=== PATIENT | male | born 1950 | race Caucasian/White ===

== ENCOUNTER 2022-02-18 13:58 | Outpatient (CLI) | payer MEDICARE, SELFPAY ==
[2022-02-18 14:54] LABS: Influenza A QL RT-PCR Negative (Negative); Influenza B QL RT-PCR Negative (Negative); SARS-CoV-2 RNA PCR Positive
== END 2022-02-18 13:59 | disposition home or self-care (01) ==
PROVIDERS: PCP Family Medicine; Visit Provider Physician Assistant Medical
DX: U07.1 COVID-19 (principal); R50.9 Fever, unspecified
CPT/HCPCS: 87636

== ENCOUNTER 2022-07-22 15:44 | Outpatient (CLI) | payer BC, MEDICARE, SELFPAY ==
--- NOTE | ~2022-07-22 | XR_ITS ---
EXAMINATION: XR thoracic spine 3V, XR lumbar spine 2-3V DATE: 07/22/2022 16:21 INDICATION: Dorsalgia TECHNIQUE: 1. One AP, lateral and lateral swimmer's views of the thoracic spine were obtained. 2. AP, lateral and coned-down lateral lumbosacral views of the lumbar spine were obtained. COMPARISON: None. FINDINGS: Resting spine: 10 degrees mid thoracic levocurvature. Sagittal alignment is normal. Vertebral body heights are lexis l. Mild disc height loss with mild degenerative endplate changes at a few levels in the midthoracic s pine. Visualized portions of the lungs are clear with no pleural effusion or pneumothorax. Heart size is normal. Median sternotomy wires, ostial markers and mediastinal surgical clips consistent with pr ior coronary artery bypass grafting. Lumbar spine: 1 mm anterolisthesis L5 on S1. L3-S1 instrumented posterior spinal fusion with bilateral vertical tita and pedicle screw fixation. Anterior spinal fusion at L4-L5 and L5-S1 with bone graft cages at both levels. Vertebral body heights are normal. Unfused lumbar disc heights are normal. Moderate right-junior ed and mild to moderate left-sided sacroiliac osteoarthritis. Is also at least mild osteoarthritis of both hips, left greater than right. Cholecystectomy clips in right upper quadrant. Atherosclerotic c alcifications along the abdominal aorta. IMPRESSION: 1. 10 degree thoracic levocurvature with mild spondylosis. 2. Combined instrumented L4-S1 anterior spinal fusion and L3-S1 posterior spinal fusion with 9 degree anterolisthesis L5 on S1. Reviewed, dictated and finalized at location A. IMPRESSION: 1. 10 degree thoracic levocurvature with mild spondylosis. 2. Combined instrumented L4-S1 anterior spinal fusion and L3-S1 posterior spina l fusion with 9 degree anterolisthesis L5 on S1.
--- NOTE | ~2022-07-22 | XR_ITS ---
EXAMINATION: XR tibia fibula RT 2V DATE: 07/22/2022 16:21 INDICATION: Right lower leg pain TECHNIQUE: AP and lateral views of the right lower leg were obtained. COMPARISON: None. FINDINGS: Right total hip arthroplasty with patellar resurfacing which appears in near-anatomic alignment. The femoral component is incompletely visualized. Tibial component appears well seated with no periprosth etic lucency to suggest loosening. No fracture. Right ankle and subtalar joint spaces appear normal. Lesser calcific lesions extending from the popliteal fossa at the right knee distally to the ankle an d hindfoot. Soft tissues are otherwise unremarkable. IMPRESSION: 1. Expected appearance of an incompletely visualized right total knee arthroplasty with patellar resu rfacing. No acute osseous abnormality. Reviewed, dictated and finalized at location A. IMPRESSION: 1. Expected appearance of an incompletely visualized right total knee arthropla sty with patellar resurfacing. No acute osseous abnormality.
== END 2022-07-22 15:45 ==
PROVIDERS: PCP Family Medicine; Visit Provider Physician Assistant Medical
DX: M47.814 Spondylosis without myelopathy or radiculopathy, thoracic region (principal); M43.17 Spondylolisthesis, lumbosacral region; Z96.651 Presence of right artificial knee joint
CPT/HCPCS: 72072; 72100; 73590

== ENCOUNTER 2022-07-26 14:50 | Outpatient (CLI) | payer MEDICARE, BC, SELFPAY ==
--- NOTE | ~2022-07-26 | US_ITS ---
EXAMINATION:US venous doppler LE RT INDICATION:Localized edema. TECHNIQUE: Multiple grayscale, color flow and Doppler images of the right lower extremity deep venous systems were obtained and reviewed. COMPARISON:No prior studies for comparison. FINDINGS: The common femoral, superficial femoral and popliteal veins demonstrate normal respiratory variation, augmentation and compressibility. Color flow is also seen within the posterior tibial, pe roneal, greater saphenous and profunda veins. IMPRESSION: 1: No lower extremity deep venous thrombosis. Reviewed, dictated and finalized at location B.
== END 2022-07-26 14:51 | disposition home or self-care (01) ==
PROVIDERS: PCP Family Medicine; Visit Provider Physician Assistant Medical
DX: R60.0 Localized edema (principal); M79.606 Pain in leg, unspecified
CPT/HCPCS: 93971

== ENCOUNTER → 2022-09-20 10:00 | Outpatient (CLI) | payer MEDICARE, BC, SELFPAY ==
--- NOTE | ~2022-09-20 | XR_ITS ---
Lumbosacral Spine: AP, oblique, and lateral views Clinical History: Pain COMPARISON: 07/22/2022 Findings: The normal lordotic curve is maintained. There is posterior fusion from L3 through S1, bila teral rods and transpedicular screws present. Interbody fusion devices are present at the L4-L5 and L 5-S1 disc spaces. There is stable anterolisthesis of L5 over S1, approximately 1 cm. The sacroiliac j oints are normally outlined. Impression: No acute fracture or subluxation. Posterior fusion from L3 through S1 is stable from prior exam. Stable 1 cm anterolisthesis of L5 over S1. Reviewed, dictated and finalized at location M. Impression: No acute fracture or subluxation. Posterior fusion from L3 through S1 is stable from prior exam. Stable 1 cm anterolisthesis of L5 over S1.
--- NOTE | ~2022-09-20 | XR_ITS ---
AP and lateral views of the sacrum/coccyx Clinical history: Status post fall FINDINGS: No acute fracture or dislocation seen. Visually joint spaces are preserved. Lumbosacral spi nal fixation hardware is present. 1 cm anterolisthesis of L5 over S1 present. Soft tissues are unrema rkable aside from atherosclerotic calcifications of the aorta. IMPRESSION: No acute abnormality. Lumbosacral spinal fixation hardware from L3 through S1 with 1 cm anterolisthesis of L5 over S1. Reviewed, dictated and finalized at location M. IMPRESSION: No acute abnormality. Lumbosacral spinal fixation hardware from L3 through S1 with 1 cm anterolisthes is of L5 over S1.
== END ==
PROVIDERS: PCP Family Medicine; Visit Provider Physician Assistant
DX: S39.92XA Unspecified injury of lower back, initial encounter (principal); W19.XXXA Unspecified fall, initial encounter; Z98.1 Arthrodesis status
CPT/HCPCS: 72110; 72220

== ENCOUNTER 2023-03-06 10:14 | Outpatient (CLI) | payer MEDICARE, BC, SELFPAY ==
[2023-03-06 11:44] LABS: Influenza A QL RT-PCR Negative (Negative); Influenza B QL RT-PCR Negative (Negative); RSV RNA, RT-PCR Negative (Negative); SARS-CoV-2 RNA PCR Positive (Negative)
== END 2023-03-06 10:15 | disposition home or self-care (01) ==
LOC: ANHLAB 10:17
PROVIDERS: PCP Family Medicine; Visit Provider Family Medicine
DX: J06.9 Acute upper respiratory infection, unspecified (principal); Z20.822 Contact with and (suspected) exposure to COVID-19
CPT/HCPCS: 87637

== ENCOUNTER 2023-05-08 11:01 | Outpatient (CLI) | payer MEDICARE, BC, SELFPAY ==
--- NOTE | ~2023-05-08 | XR_ITS ---
AP view of the pelvis and AP and lateral views of the bilateral hips Clinical history: Pain Findings: No acute fracture or dislocation is seen. Osseous alignment is anatomic. There is mild dege nerative change of both hip joints. Lumbosacral spinal fixation hardware is noted Soft tissues are un remarkable. Impression: Mild degenerative change of both hip joints. Reviewed, dictated and finalized at location M. Y TESTER Impression: Mild degenerative change of both hip joints.
== END 2023-05-08 11:02 ==
LOC: MICIMG 11:04
PROVIDERS: PCP Physician Assistant Medical; Visit Provider Physician Assistant Medical
DX: M16.0 Bilateral primary osteoarthritis of hip (principal)
CPT/HCPCS: 73521

== ENCOUNTER 2023-06-25 19:54 | Outpatient (CLI) | payer MEDICARE, BC, SELFPAY ==
--- NOTE | 2023-07-02 18:29 | WPDSLEEPSTUD ---
Sleep Study Date of Study: 06/25/23 Ordering Provider: Iglesia Dee APRN Interpreting Physician: Kavitha Bynum DO Sleep Study Type: Polysomnogram Height: 1.68 m Weight: 78.018 kg Body Mass Index: 27.7 Neck Circumference (inches): 15 [place]: 9 Reason for Sleep Study Previously diagnosed JAMILAH 7 years ago by home study. Couldn't tolerate CPAP. Witnessed apneas by daughter. Looking for CPAP alternatives to treat JAMILAH. Sleep History The patient is a 72-year-old male with anxiety, depression, GERD, hypertension, heart disease, history of tobacco use and previously diagnosed sleep apnea that had a sleep study ordered by the pulmonary group for evaluation of sleep apnea. The patient rarely awakens from sleep short of breath. He denies awakening at night with heartburn, belching or cough. He constantly snores and it is frequently loud enough that others complain. He rarely has trouble sleeping when he has a cold. He rarely wakes up gasping for air throughout the night. He frequently has breathing problems at night observed by himself or others. He rarely sweats excessively at night. He denies having heart palpitations or irregular heartbeats during the night. He occasionally falls asleep during the day but never while driving. He denies sleep paralysis and cataplexy. He denies having trouble at school or work due to sleepiness. He rarely experiences vivid dreamlike scenes upon awakening or falling asleep. He denies feeling afraid of going to sleep. He denies having nightmares. He rarely remembers his dreams. He rarely has thoughts racing through his mind. He denies feeling sad or depressed. He rarely has anxiety. He occasionally has muscular tension. He rarely notices parts of his body jerk. He rarely kicks during the night. He occasionally has crawling and aching feelings in his legs and frequently has leg pain during the night. He rarely grinds his teeth during sleep but never awakens with morning jaw pain. He is frequently bothered by pain during the day and occasionally awakened by pain during the night. He frequently wakes up feeling stiff in the morning. He frequently wakes up with sore or achy muscles. He frequently wakes up with pain in the neck, spine and other joints. He goes to bed between 10-10:30 p.m. on weekdays and between 10:30-11 p.m. on the weekends. It takes him a few minutes to fall asleep. He wakes up 3 times throughout the night to urinate and is able to fall back asleep within a few minutes. He wakes up at 7:30 a.m. on weekdays and 8:00 a.m. on the weekends. He typically gets 7-9 hours of sleep per night. He does not stay in bed after waking up in the morning. He currently lives with his daughter and her . He denies consuming any caffeinated beverages within 2 hours of bedtime. He denies engaging in physical exercise before bedtime. He will watch television before falling asleep. He denies taking naps in the afternoon or evening. He consumes 2 cups of caffeinated tea per day. He consumes 4 alcoholic beverages per week. He denies recreational drug use. [facility] Past Medical History Medical History Anxiety Depressed Fecal incontinence GERD (gastroesophageal reflux disease) Heart disease HTN (hypertension) Surgical History Surgical History History of lumbar surgery Fusion S/P triple vessel bypass Total knee replacement status R and L knee Family History Family History Other Acute myocardial infarction Cerebrovascular accident Diabetes mellitus Heart disease Social History Social History Smoking packs per day: 2 Smoking cigarettes per day: 40.0 Years smoked: 20 Smoking pack-years: 40.00 Smoking status: Former smoker Tobacco type:
[2023-07-02 18:41] VITALS: BMI 27.7
== END 2023-06-26 06:12 | disposition home or self-care (01) ==
LOC: CHSCSM 19:56
PROVIDERS: PCP Family Medicine; Visit Provider Nurse Practitioner Family
DX: G47.31 Primary central sleep apnea (principal)
CPT/HCPCS: 95810

== ENCOUNTER 2023-09-04 09:37 | Outpatient (CLI) | payer MEDICARE, BC, SELFPAY ==
--- NOTE | ~2023-09-04 | MR_ITS ---
Procedure: MR lumbar spine wo con Ordering provider: Bettie Mei PA-C History: . Z98.890 - Other specified postprocedural states lbp x 2years . Comparison: None. Technique: MRI lumbar spine without contrast. FINDINGS: SPINAL CORD: Normal. VERTEBRAL BODIES: Spondylolisthesis at the level of L5-S1. Postoperative changes in the lower lumbar area at the levels of L3, L4, L5 and S1. Normal height and alignment. No compression fracture. Normal marrow signal. DISK SPACES: Disc spacers are seen at the levels of L4-L5 and L5-S1. STENOSIS: Moderate spinal canal stenosis at the level of L2-L3. Diffuse disc bulge with bilateral yumi rowing of the foramina and the root compression PARASPINOUS SOFT TISSUES: Normal. IMPRESSION: No compression fracture or stenosis of the lumbar spine. Postoperative changes in the lower lumbar ar ea. Spinal canal stenosis with bilateral lateral neural foramina and the root compression at the level of L2-L3. Reviewed, dictated and finalized at location A. IMPRESSION: No compression fracture or stenosis of the lumbar spine. Postoperative changes in the lower lumbar area. Spinal canal stenosis with bilateral lateral neural foramina and the root compr ession at the level of L2-L3.
== END 2023-09-04 09:38 | disposition home or self-care (01) ==
LOC: CHSIMG 09:38
PROVIDERS: PCP Family Medicine; Visit Provider Student in an Organized Health Care Education/Training Program
DX: Z98.890 Other specified postprocedural states (principal); M48.061 Spinal stenosis, lumbar region without neurogenic claudication
CPT/HCPCS: 72148

== ENCOUNTER 2023-10-25 09:01 | Outpatient (CLI) | payer MEDICARE, BC, SELFPAY ==
--- NOTE | ~2023-10-25 | MR_ITS ---
EXAMINATION: MR thoracic spine wo con DATE: 10/25/2023 10:12 INDICATION: Low back pain. TECHNIQUE: Magnetic resonance imaging (MRI) of the thoracic spine was performed without intravenous c ontrast. COMPARISON: Thoracic spine radiographs 07/22/2022 FINDINGS: There is 11 degrees levoscoliosis of upper thoracic spine. There are changes of posterior fusion procedure from L3 to S1 with pedicle screws. There is mild chronic anterior wedging of T11 and T12 vertebral bodies. Intervertebral disc heights are normal. At T6-T7, there is a central extrusion with mild central canal stenosis. At T7-T8, there is a left central extrusion with mild central [place] l stenosis and ventral indentation of the spinal cord. At T8-T9, there is a central extrusion with mi ld central canal stenosis. At T9-T10, there is a central extrusion with mild central canal stenosis a nd ventral indentation of the spinal cord. There is multilevel facet joint osteoarthritis, severe at several levels. There is multilevel mild neural foraminal stenosis on either side. On the right, ther e is moderate neural foraminal stenosis at T6-T7. On the left, there is moderate neural foraminal lucille nosis at T8-T9 and T9-T10. IMPRESSION: 1. Moderate thoracic spondylosis. 2. Upper thoracic levoscoliosis. Reviewed, dictated and finalized at location A.
== END 2023-10-25 09:02 | disposition home or self-care (01) ==
PROVIDERS: PCP Family Medicine; Visit Provider Nurse Practitioner Family
DX: M54.6 Pain in thoracic spine (principal); M43.04 Spondylolysis, thoracic region; M41.84 Other forms of scoliosis, thoracic region
CPT/HCPCS: 72146

== ENCOUNTER 2023-11-21 14:53 | Outpatient (CLI) | payer MEDICARE, BC, SELFPAY ==
--- NOTE | ~2023-11-21 | XR_ITS ---
EXAMINATION: XR wrist RT min 3V DATE: 11/21/2023 15:06 INDICATION: Right wrist pain TECHNIQUE: Posteroanterior, ulnar deviation, oblique, and lateral views of the right wrist were obtai mil. COMPARISON: none FINDINGS: Bone alignment is normal. No fracture. Chondrocalcinosis in the region of the triangular fibrocartila ge complex. Severe osteoarthritis at the radial scaphoid articulation and first carpometacarpal joint . Mild osteoarthritis at the distal radioulnar, midcarpal, triscaphe, second carpal metacarpal and fi rst metacarpophalangeal joints. IMPRESSION: 1. 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 Reviewed, dictated and finalized at location B. IMPRESSION: 1. Severe osteoarthritis at the radial scaphoid and first carpal metacarpal uriel nt, the former somewhat atypical which could be seen in the setting of scapholu mariah advanced collapse (SLAC) wrist secondary to scapholunate ligament insuffic iency.
== END 2023-11-21 14:54 | disposition home or self-care (01) ==
LOC: MICIMG 14:56
PROVIDERS: PCP Family Medicine; Visit Provider Student in an Organized Health Care Education/Training Program
DX: M19.031 Primary osteoarthritis, right wrist (principal)
CPT/HCPCS: 73110

== ENCOUNTER 2023-12-18 07:57 | Outpatient (CLI) | payer MEDICARE, BC, SELFPAY ==
[2024-01-06 13:27] VITALS: BMI 27.3
--- NOTE | 2024-01-06 13:27 | WPDHOMESLEEP ---
Sleep Study - Home Unattended Date of Study: 12/18/23 Ordering Provider: Iglesia Dee APRN Interpreting Provider: Kavitha Bynum, DO Home Sleep Study Type: Watch PAT Height: 1.69 m Weight: 78.018 kg Body Mass Index: 27.3 Neck Circumference (inches): 17 [place]: 0 Reason for Sleep Study Re-evaluation of sleep apnea with use of mandibular advancement device Sleep History The patient is a 73-year-old male with anxiety, depression, GERD, hypertension, heart disease, history of tobacco use and previously diagnosed sleep apnea that had a sleep study ordered for evaluation of his sleep apnea while using his MAD. The patient rarely awakens from sleep short of breath. He denies awakening at night with heartburn, belching or cough. He constantly snores and it is frequently loud enough that others complain. He rarely has trouble sleeping when he has a cold. He rarely wakes up gasping for air throughout the night. He frequently has breathing problems at night observed by himself or others. He rarely sweats excessively at night. He denies having heart palpitations or irregular heartbeats during the night. He occasionally falls asleep during the day but never while driving. He denies sleep paralysis and cataplexy. He denies having trouble at school or work due to sleepiness. He rarely experiences vivid dreamlike scenes upon awakening or falling asleep. He denies feeling afraid of going to sleep. He denies having nightmares. He rarely remembers his dreams. He rarely has thoughts racing through his mind. He denies feeling sad or depressed. He rarely has anxiety. He occasionally has muscular tension. He rarely notices parts of his body jerk. He rarely kicks during the night. He occasionally has crawling and aching feelings in his legs and frequently has leg pain during the night. He rarely grinds his teeth during sleep but never awakens with morning jaw pain. He is frequently bothered by pain during the day and occasionally awakened by pain during the night. He frequently wakes up feeling stiff in the morning. He frequently wakes up with sore or achy muscles. He frequently wakes up with pain in the neck, spine and other joints. He goes to bed between 10-10:30 p.m. on weekdays and between 10:30-11 p.m. on the weekends. It takes him a few minutes to fall asleep. He wakes up 3 times throughout the night to urinate and is able to fall back asleep within a few minutes. He wakes up at 7:30 a.m. on weekdays and 8:00 a.m. on the weekends. He typically gets 7-9 hours of sleep per night. He does not stay in bed after waking up in the morning. He currently lives with his daughter and her . He denies consuming any caffeinated beverages within 2 hours of bedtime. He denies engaging in physical exercise before bedtime. He will watch television before falling asleep. He denies taking naps in the afternoon or evening. He consumes 2 cups of caffeinated tea per day. He consumes 4 alcoholic beverages per week. He denies recreational drug use. [facility] Past Medical History Medical History Anxiety BPH (benign prostatic hyperplasia) Depressed Fecal incontinence GERD (gastroesophageal reflux disease) Heart disease HTN (hypertension) Surgical History Surgical History History of lumbar surgery Fusion S/P triple vessel bypass Total knee replacement status R and L knee Family History Family History Other Acute myocardial infarction Cerebrovascular accident Diabetes mellitus Heart disease Social History Social History Smoking packs per day: 2 Smoking cigarettes per day: 40.0 Years smoked: 20 Smoking pack-years: 40.00 Smoking status: Former smoker Tobacco type: cigarettes Second hand tobacco smoke exposure: No Alcohol intake: current Drinks per week: 3 Substance use: never Substance use type: does not use Lack of Transportation: No Lack of Food: Never True Current Housing: I Have Housing Concerned About Future Housing: No Difficulty Paying Gas/Electric Bills: No Difficulty Paying for Meds: No Currently Unemployed: No Education: Grade School Difficulty w/ Childcare or Family Care: No Living arrangements: with family Occupation/Education: retired Gender identity (if verbalized by the patient): Male Spiritual care concerns: No Agree to blood products: Yes Medications Home Medications Medication Instructions Recorded Confirmed Type alogliptin 12.5 mg tablet 12.5 mg PO DAILY 12/31/21 08/11/23 History aspirin 81 mg tablet,delayed 81 mg PO DAILY 12/31/21 08/11/23 History release (Adult Low Dose Aspirin) atorvastatin 80 mg tablet 80 mg PO DAILY 12/31/21 08/11/23 History empagliflozin 25 mg tablet 25 mg PO DAILY 12/31/21 08/11/23 History lisinopril 40 mg tablet 40 mg PO DAILY 12/31/21 08/11/23 History gabapentin enacarbil 600 mg 1,200 mg PO TID 01/29/22 08/11/23 History tablet,extended release omeprazole 40 mg capsule,delayed 40 mg PO BID #180 caps 12/02/22 08/11/23 Rx release finasteride 5 mg tablet 5 mg PO DAILY #90 tabs 08/11/23 08/11/23 Rx silodosin 8 mg capsule (Rapaflo) 8 mg PO DAILY #90 caps 08/11/23 08/11/23 Rx hydrocodone 7.5 mg-acetaminophen 1 tablet PO Q6H PRN pain #30 tabs 11/21/23 11/21/23 Rx 325 mg tablet semaglutide 0.25 mg or 0.5 mg (2 0.5 mg subcut WEEKLY 12/09/23 History mg/3 mL) subcutaneous pen injector (Ozempic) Sleep Procedure The sleep study was completed using [employer] a technically adequate device with seven channels: peripheral arterial tone, actigraphy, body position, snore, respiratory movement, pulse oximetry, sleep staging, and heart rate. Prior to using the device, the patient received verbal and written instructions for its application and was provided with the help desk phone number for additional telephonic instruction with 24-hour availability of qualified personnel to answer questions. The study was scored using CMS guidelines. Sleep Architecture The total recording time is 8 hrs, 41 min. The total sleep time is 7 hrs, 36 min. Sleep latency is 17 minutes. REM latency is 28 minutes. The patient had 10 episodes of waking. Sleep architecture shows 20.5% deep sleep, 50.7% light sleep, and (as % Total Sleep Time) showed NREM (Light 50.7%; Deep 20.5%), and a 28.8% stage REM. The patient spent 37.0% of total sleep time in the supine position. Sleep efficiency was 87.52. Respiratory Analysis The overall AHI (pAHI 4%:) is 16.1. The central AHI is 2.5. The AHI was 16.7 in NREM and 14.7 in REM sleep. The AHI was 38.7 in Supine and 2.8 in Non-supine sleep. Percent of [place] respirations is 0.0. Oximetry Data The oxygen desaturation index (AMARIS 4%:) is 16.0. The mean saturation is 91%, and the lowest saturation is 73%. Time spent with saturation < 88% is 12.9 minutes. Snoring Profile Snoring average intensity is 40 dB. The patient snored above 45 decibels for 3.6 minutes, 0.8% of sleep time. Cardiac Profile The average pulse rate is 70 beats per minutes. The lowest pulse rate is 51 bpm. The highest pulse rate reported is 96 bpm. Atrial fibrillation was not detected. Premature beats occur 6.9 per minute. Assessment and Plan Assessment and Plan (1) JAMILAH (obstructive sleep apnea): Code(s): G47.33 - Obstructive sleep apnea (adult) (pediatric) Status: Acute Assessment and Plan: The patient had an overall AHI of 16.1 with desaturation down to 73%. This is consistent with moderate sleep apnea. The patient stated that he or his mandibular the asthma device during to study. These results indicate that the mandibular advancement device is not adequately treating his sleep apnea. The patient spent 12.9 minutes with an oxygen saturation below 88%. The patient will have to discuss the next steps with his sleep dentist. If the patient is unable to fully treat his sleep apnea with a mandibular advancement device, he may need to consider Inspire. Data The data obtained during this sleep study is adequate for interpretation. Certification This sleep study has been reviewed by a board certified sleep medicine physician.
== END 2023-12-19 11:55 | disposition home or self-care (01) ==
LOC: ANHCSM 07:58
PROVIDERS: PCP Family Medicine; Visit Provider Nurse Practitioner Family
DX: G47.33 Obstructive sleep apnea (adult) (pediatric) (principal)
CPT/HCPCS: 95800

== ENCOUNTER 2024-06-08 07:46 | Outpatient (CLI) | payer MEDICARE, BC, SELFPAY ==
--- OUTSIDE RECORDS SUMMARY | 2024-06-08 07:49 | XMS_ITS | Clinical Summary ---
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 9 Active omeprazole 40 MG capsule Take 1 capsule (40 mg total) by mouth 2 (two) times a day. 9 Active lisinopril 40 MG tablet Take 1 tablet (40 mg total) by mouth daily. Active amlodipine 10 MG tablet Take 10 mg by mouth daily. Active glipiZIDE 10 MG tablet Take 5 mg by mouth 2 (two) times daily before meals. Active aspirin EC (ASPIRIN EC) 81 MG tablet Take 1 tablet (81 mg total) by mouth daily. Active atorvastatin 40 MG tablet Take 1 tablet (40 mg total) by mouth daily. Active BONE STIMULATOR, DME,Indications :Spondylolisthe sis of lumbar region Wear 4 hours daily. Can break up into multiple sessions totaling 4 hours. 1 Device 0 Active Additional Information Patient not taking.Reported on 12/03/2023 Misc. Devices MiscIndications :Spondylolisthe sis of lumbar region 1 each by Does not apply route continuous. LSO for continuous wear while ambulating or up in chair. 1 each 0 Active Additional Information Patient not taking.Reported on 12/03/2023 Multiple Vitamins-Minera ls (MULTIVITAMIN ADULT OR) Take 1 tablet by mouth daily. Active empagliflozin (JARDIANCE) 25 MG tablet Take 1 tablet (25 mg total) by mouth. 4 Active semaglutide (OZEMPIC) 2 MG/3ML injection (PEN) SEMAGLUTIDE 0.25MG/0.375ML INJ,SOLN,PEN,3ML Active INJECT 0.5MG UNDER THE SKIN EVERY WEEK FOR DIABETES FOR DIABETES Sep 17, 2023 1 Sep 17, 2024 [id number] 2023 [facility] 4 Active gabapentin (NEURONTIN) 600 MG tablet 2 three times per day (600 mg) 4 Active alogliptin (NESINA) 25 MG tablet Take 1 tablet (25 mg total) by mouth daily. 3 Active amoxicillin (AMOXIL) 500 MG capsule 4 Active hydroCHLOROthia zide (HYDRODIURIL) 25 MG tablet Take 1 tablet (25 mg total) by mouth. 4 Active HYDROcodone-mathew taminophen (NORCO) 7.5-325 MG tablet 4 Active oxybutynin XL (DITROPAN XL) 15 MG 24 hr tablet 4 Active Active Problems Problem Noted Date Diagnosed Date Spondylolisthesis of lumbosacral region 04/21/19 20 Chronic left-sided low back pain without sciatic a 12/22/2018 Spondylolisthesis of lumbar region 12/22/2018 Foraminal stenosis of lumbar region 12/22/2018 Family History Medical History Relation Comments COPD Father Cancer Mother breast cancer or cervical cancer Stroke Mother Relation Status Comments Daughter 1 Alive Daughter 2 Alive Father (Age 70) of COPD Mother Alive Social History Tobacco Use Types Packs/Day Years Used Date Smoking Tobacco: Former Cigarettes 2 15 1 970 - 1984 Smokeless Tobacco: Never Tobacco Cessation:Counseling Given: No Alcohol Use Standard Drinks/Week Comments Yes 33.3 (1 standard drink = 0.6 oz pure alcohol) PHQ-2 Answer Date Recorded Patient Health Questionnaire-2 Score 0 12/03/2023 Sex and Gender Information Value Date Recorded Sex Assigned at Not on file Legal Sex Male 2:25 PM CDT Gender Identity Not on file Sexual Orientation Not on file Last Filed Vital Signs Vital Sign Reading Time Taken Comments Blood Pressure 95/51 12/03/2023 2:41 PM CDT Pulse 73 12/03/2023 2:41 PM CDT Temperature 37 C (98.6 F) 12/03/2023 2:24 PM CDT Respiratory Rate - - Oxygen Saturation 97% 12/03/2023 2:24 PM CDT Inhaled Oxygen Concentration - - Weight 79 kg (174 lb 3.2 oz) 12/03/2023 2:24 PM CDT Height 170.2 cm (5' 7 ) 12/03/2023 2:24 PM CDT Body Mass Index 27.28 12/03/2023 2:24 PM CDT Plan of Treatment Health Maintenance Due Date Last Done Comments Colorectal Cancer Screening Colonoscopy (10 Years) 1950 Hepatitis C 1966 AAA SCREENING 2013 Annual Medicare Wellness Visit 2013 RSV Immunization or 60+ Years (1 - 1-dose 75+ series) 11/06/2023 COVID-19 Vaccine ( season) 2023 10/30/2022, 02/16/2021, 05/09/2020, Additional history exists PHQ-2 (Physician [place]) 03/10/2024 12/03/2023 DTaP, Tdap and Td Vaccines (4 - Td or Tdap) 10/30/2032 10/30/2022, 07/02/2013, 07/02/2013 Pneumococcal Vaccine: 65+ Years Completed 12/17/2016, 06/28/2014 Zoster Vaccines Completed 10/24/2020, 07/24/2020 Meningococcal B Vaccine Aged Out No l onger eligible based on patient's age to complete this topic Meningococcal Vaccine Aged Out No cari augusto eligible based on patient's age to complete this topic RSV Immunizations Under 20 Months Aged Out No longer eligible based on patient's age to complete this topic Insurance [place] [employer] [facility] Care Teams Professor Of Business Administration Relationship Specialty Start Date End Date None, ProviderMD PCP - General 04/21/19 None, ProviderMD 04/21/19 Peggy Hoover MD [address] [address] Physician NEUROLOGICAL SURGERY 12/09/23
--- OUTSIDE RECORDS SUMMARY | 2024-06-08 07:49 | XMS_ITS | Encounter Summary ---
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 This section includes the names of all active insurance providers for the patient. Insurance Provider Type of Coverage Plan Name Start of Policy Coverage End of Policy Coverage Group Number Member ID Insurance Provider's Telephone Number Policy Byrnes's Name Patient's Relationship to Policy Byrnes [place] PREFERRED PROVIDER ORGANIZAT ION (PPO) FEP STAND [place] IND Aug 08, 2016 104 [id number] [phone] JUDY GAMA PATIENT ANTHE[place] F[place] PREFERRED PROVIDER ORGANIZAT ION (PPO) FEP STAND [place] IND Aug 08, 2016 104 [id number] [phone] JUDY GAMA PATIENT [place] PREFERRED PROVIDER ORGANIZAT ION (PPO) FEP STAND [place] IND Aug 08, 2016 104 [id number] [phone] JUDY GAMA PATIENT [place] PREFERRED PROVIDER ORGANIZAT ION (PPO) FEP STAND [place] IND Aug 08, 2016 104 [id number] [phone] JUDY GAMA PATIENT [place] MEDICARE SECONDARY (NO B EXC) FEP 104 Aug 08, 2016 104 [id number] JUDY GAMA PATIENT BC BS [place] F[place] MEDIC[place] SECONDARY (NO B EXC) FEP-M ED SEC Aug 08, 2016 104 [id number] [id number] JUDY GAMA [place]IENT [place] SECOND[place] (NO B EXC) FEP-M ED SEC Aug 08, 2016 104 [id number] JUDY GAMA PATIENT [place] F[place] PREFERRED PROVIDER ORGANIZAT ION (PPO) FEP 105 Mar 11, 1999 105 [id number] JUDY GAMA PATIENT [place] F[place] PREFERRED PROVIDER ORGANIZAT ION (PPO) FEP STAND [place] IND Aug 08, 2016 104 [id number] [phone] JUDY GAMA PATIENT BCBS [place] ATTN FEP CLAIMS PREFERRED PROVIDER ORGANIZAT ION (PPO) FEP STAND [place] IND Aug 08, 2016 104 [id number] [phone] JUDY GAMA PATIENT [place] F[place] PREFERRED PROVIDER ORGANIZAT ION (PPO) FEP STAND [place] IND Aug 08, 2016 104 [id number] [phone] JUDY GAMA PATIENT [place] ([id number]) PRESCRIPT ION FEP Mar 11, 1999 [id number] JUDY GAMA PATIENT [place] ([id number]) PRESCRIPT ION FEP Mar 11, 1999 [id number] JUDY GAMA PATIENT [place] FEP RX PRESCRIPT ION FEPRX Aug 08, 2016 [id number] [phone] JUDY GAMA PATIENT MEDICARE (WNR) MEDICARE (M) RR PART B Oct 08, 2013 RR PART B [id number] JUDY GAMA PATIENT MEDICARE (WNR) MEDICARE (M) RR PART A Oct 08, 2013 RR PART A [id number] JUDY GAMA PATIENT MEDICARE (WNR) MEDICARE (M) RR PART A Oct 08, 2013 RR PART A [id number] GAMA,TI MOTHY PATIENT MEDICARE (WNR) MEDICARE (M) RR PART B Oct 08, 2013 RR PART B [id number] GAMA,TI MOTHY PATIENT MEDICARE (WNR) MEDICARE (M) PART A Oct 08, 2013 PART A [id number] GAMA,TI MOTHY PATIENT MEDICARE (WNR) MEDICARE (M) PART B Oct 08, 2013 PART B [id number] [phone] GAMA,TI MOTHY PATIENT MEDICARE (WNR) MEDICARE (M) PART A Oct 08, 2013 PART A [id number] [phone] GAMA,TI MOTHY PATIENT MEDICARE (WNR) MEDICARE (M) PART B Oct 08, 2013 PART B [id number] [phone] GAMA,TI MOTHY PATIENT MEDICARE (WNR) MEDICARE (M) RR PART A Oct 08, 2013 RR PART A [id number] GAMA,TI MOTHY PATIENT MEDICARE (WNR) MEDICARE (M) RR PART B Oct 08, 2013 RR PART B [id number] GAMA,TI MOTHY PATIENT Selected Encounter This section includes the information on record at ME for the Encounter. Date/Time Encounter Type Encounter Description Reason Provider Source Dec 01, 2023 09:30 AM OFFICE O/P EST MOD 30 MIN PRIMARY CARE/MEDICINE ICD-10-CM E11.9 Type 2 diabetes mellitus without complications NORA PASTRANA [facility] Encounter Template Text not used by ME Assessments - Encounter Diagnoses This section includes the primary and secondary diagnoses documented for the Encounter. Date/Time Primary/Secondary Diagnosis Diagnosis Name Provider Source Dec 25, 2023 08:09 PM PRIMARY Type 2 diabetes mellitus without complications NORA PASTRANA Asif [facility] Dec 25, 2023 08:09 PM SECONDARY Essential (primary) hypertension NORA PASTRANA Asif [facility] Dec 25, 2023 08:09 PM SECONDARY Hyperlipidemia, unspecified NORA PASTRANA [facility] Dec 25, 2023 08:09 PM SECONDARY Other idiopathic peripheral autonomic neuropathy NORA PASTRANA [facility] Plan of Treatment: Future Appointments (+ 6 months) and Future Tests (+/- 45 days) The Plan of Treatment section includes future care activities for the patient from all ME treatmentfacilities. This section includes future appointments and future orders which are active, pending or scheduled. Future Appointments This section includes appointments that were scheduled to occur 6 months from the date of the Encounter, up to a maximum of 20 appointments. The data comes from all [facility] facilities. Appointment Date/Time Appointment Type Appointme nt Facility Name Dec 04, 2023 01:30 PM AMBULATORY - NONE [facility] SALVATORE Mullen [facility] Jan 29, 2024 01:30 PM AMBULATORY - NONE [facility] R [facility] Mar 12, 2024 03:30 PM AMBULATORY - NONE [facility] May 07, 2024 03:30 PM AMBULATORY - NONE [facility] Lab Results: +/- 30 days of the encounter This section includes the Chemistry and Hematology Lab Results on record with ME for the patient. Radiology Reports and Pathology Reports are provided separately, in subsequent sections. Lab Results This section contains the Chemistry/Hematology Results that were resulted 30 days before or 30 daysafter the date of the Encounter. Date/Time Source Result Type Result - Unit Interpretation Reference Range Comment Dec 01, 2023 11:13 AM [facility] VITAMIN B1 Specimen Type: PLASMA Comment: Vitamin supplementation within 24 hours prior to blood draw may affect the accuracy of the results. This test was developed and its analytical performance characteristics have been determined by [employer] [place], [place]. It has not been cleared or approved by the U.S. Food and Drug Administration. This assay has been validated pursuant to the CLIA regulations and is used for clinical purposes. Test Performed by [facility], [place], [address] [place], [place] Yung Rivera M.D., Ph.D., Director of Laboratories , CLIA [id number] Ordering Provider: NORA PASTRANA Report Released Date/Time: Dec 01, 2023 10:39 AM Reporting Lab: [facility] [address] [address] Performing Lab: [facility] [address] [facility] VITAMIN B1 13 nmol/L 8-30 Dec 01, 2023 11:13 AM [facility] HGA1C Specimen Type: BLOOD No comment entered. Ordering Provider: JAVY NEVAREZ Report Released Date/Time: Sep 16, 2023 10:02 AM Reporting Lab: [address] [address] Performing Lab: [address] [address] HGA1C 8.1 H 4.0-6.0 Dec 01, 2023 11:13 AM [facility] CBC Specimen Type: BLOOD No comment entered. Ordering Provider: NORA PASTRANA Report Released Date/Time: Dec 01, 2023 10:39 AM Reporting Lab: [address] [address] Performing Lab: [address] [address] WBC 5.7 10*3/uL 3.6-11.2 RBC 4.24 10*6/uL 4.10-5.70 HGB 13.7 g/dL 13.1-16.8 HCT 41.6 38.2-48.4 MCV 98.1 fL 80.0-100.0 MCH 32.3 pg 27.0-34.0 MCHC 32.9 g/dL L 33.0-36.0 PLT 147 10*3/uL L 150-400 MPV 10.2 fL 7.5-11.2 RDW 12.7 11.8-15.1 LYMPHOCYTES, AUTO % 22 MONOCYTES, AUTO % 4 NEUTROPHILS, AUTO % 69 EOSINOPHILS, AUTO % 4 BASOPHILS, AUTO % 0 LYMPHOCYTES, ABSOLUTE 1.27 10*3/uL 0.77-4.50 MONOCYTES, ABSOLUTE 0.25 10*3/uL 0.19-0.80 NEUTROPHILS, ABSOLUTE 3.97 10*3/uL 2.10-8.00 EOSINOPHILS, ABSOLUTE 0.22 10*3/uL 0.00-0.60 BASOPHILS, ABSOLUTE 0.02 10*3/uL 0.00-0.20 Dec 01, 2023 11:13 AM [facility] GGT GAMMA-GT Specimen Type: PLASMA Comment: No hemolysis noted. Ordering Provider: NORA PASTRANA Report Released Date/Time: Dec 01, 2023 10:39 AM Reporting Lab: [facility] [address] [address] Performing Lab: [facility] [address] [place] [phone] GGT GAMMA-GT 20 [IU]/L 12-64 Dec 01, 2023 11:13 AM [facility] B12 Specimen Type: SERUM No comment entered. Ordering Provider: NORA PASTRANA Report Released Date/Time: Dec 01, 2023 10:39 AM Reporting Lab: [facility] [address] [place] [phone] Performing Lab: [facility] [address] [place] [phone] B12 640 pg/mL 213-816 Dec 01, 2023 11:13 AM [facility] VITAMIN D, 25-HYDROXY Specimen Type: SERUM No comment entered. Ordering Provider: NORA PASTRANA Report Released Date/Time: Dec 01, 2023 10:39 AM Reporting Lab: [facility] [address] [place] [address] Performing Lab: [address] [address] VITAMIN D, 25-HYDROXY 34.7 ng/mL 30-96 Dec 01, 2023 11:13 AM [facility] TSH W/ REFLEX FT4 (STL) Specimen Type: PLASMA No comment entered. Ordering Provider: NORA PASTRANA Report Released Date/Time: Dec 01, 2023 10:39 AM Reporting Lab: [facility] [address] [place] [phone] Performing Lab: [facility] [address] [place] [phone] TSH 0.604 u[IU]/mL 0.47-5 Dec 01, 2023 11:13 AM [facility] COMPREHENSIVE METABOLIC PANEL Specimen Type: PLASMA Comment: No hemolysis noted. Ordering Provider: NORA PASTRANA Report Released Date/Time: Dec 01, 2023 10:39 AM Reporting Lab: [facility] [address] [place] [phone] Performing Lab: [address] [address] CREATININE 1.14 mg/dL 0.7-1.3 UREA NITROGEN 22.1 mg/dL 9.0-25.0 GLUCOSE 124 mg/dL H 72-99 SODIUM 138 meq/L 136-145 POTASSIUM 4.3 meq/L 3.5-5 CHLORIDE 103 meq/L 98-107 CARBON DIOXIDE 24 meq/L 22-31 CALCIUM 9.5 mg/dL 8.4-10.4 PROTEIN 6.6 g/dL 6-8.6 ALBUMIN 4.1 g/dL 3.4-5 TOTAL BILIRUBIN 1.0 mg/dL 0.2-1.2 ALKALINE PHOSPHATASE 67 U/L 40-150 AST/SGOT 25 U/L 5-34 ALT/SGPT 20 U/L 8-40 EGFR (CKD-EPI 2020) 67.1 >60 Dec 01, 2023 11:13 AM [facility] LIPID PANEL (STL) Specimen Type: PLASMA Comment: No hemolysis noted. Ordering Provider: NORA PASTRANA Report Released Date/Time: Dec 01, 2023 10:39 AM Reporting Lab: [facility] [address] [place] [phone] Performing Lab: [address] [address] CHOLESTEROL 115 mg/dL 0-200 TRIGLYCERIDE 74 mg/dL 0-150 CALCULATED LDL 59 mg/dL HDL(New) 41 mg/dL >40 Dec 01, 2023 09:36 AM [facility] GLUCOSE,BLOOD-poct (STL) Specimen Type: BLOOD Comment: Test Performed by: [id number] Meter #: [id number] Ordering Provider: NORA PASTRANA Report Released Date/Time: Dec 01, 2023 04:11 PM Reporting Lab: [place] [id number] [facility] [address] Performing Lab: [facility] [address] [place] [address] GLUCOSE,BLOOD-p oct (STL) 133 mg/dL H 72-99 Vital Signs: All taken on the encounter date This section contains inpatient and outpatient Vital Signs collected on the date of the Encounter. Date/Time Temperature Pulse Blood Pressure Respiratory Rate SP02 Pain Height Weight Body Mass Index Source Dec 01, 2023 09:31 AM 97.2 50 105/55 18 98 0 172.8 28 [facility] Social History: Smoking Status (Most current) and Tobacco Use (All prior to encounter date) This section includes the most current, and the historical, smoking and tobacco- related health factors from the [place] facility where the Encounter took place. Current Smoking Status This section includes the most current smoking, or tobacco-related health factor, from the [place] facility where the Encounter took place. Date/Time Current Smoking Status Comment Facil ity Oct 30, 2022 12:30 PM [place]-TOBACCO FORMER USER [facility] Tobacco Use History This section includes a history of the smoking, or tobacco-related health factors, that were collected on or before the date of the Encounter. The data comes from the [place] facility where the Encounter took place. Date/Time Smoking Status/Tobacco Use Comment F acility Oct 30, 2022 12:30 PM VA-TOBACCO QUIT 15 YRS OR MORE [facility] Advance Directives: All historical and current Section Date Range: From patient's date of to the date document was created. This section includes ALL of a patient's completed or amended [place] Advance and Rescinded Directives. The entries below indicate that a directive exists for the patient, but an actual copy is not included with this document. The data comes from all [place] facilities. Date Advance Directives Provider Source July 13, 2014 ADVANCE DIRECTIVE ROLANDO [facility]ON[facility] Encounter Notes: All associated encounter notes This section contains the clinical notes associated to the Encounter. Date/Time Encounter Note(s) Provider Source Dec 02, 2023 08:30 AM PHYSICIAN LETTERS: LOCAL TITLE: TEST RESULT GENERAL LETTER STL STANDARD TITLE: PHYSICIAN LETTERS DATE OF NOTE: DEC 02, 2023@08:30 ENTRY DATE: DEC 02, 2023@08:30:06 AUTHOR: ZEINA,NORA D EXP COSIGNER: URGENCY: STATUS: COMPLETED [facility] [address] [place] [address] DEC 02, 2023 CHESTER GAMA [address] [place], [place] [address] Dear Chester Gama, I would like to update you on your recent test results. LIPID PROFILE - High cholesterol and triglycerides (lipids) are risk factors for heart disease. Your cholesterol should fall between 140 and 200, and your triglycerides levels should be less than or equal to 150. HDL is the good cholesterol and should ideally be greater than 40. LDL is the bad cholesterol and optimal levels should be less than 100 (near optimal is between 100 and 129). TRIGLYCERIDE 74 mg/dL 12/01/2023 11:13 CHOLESTEROL 115 mg/dL 12/01/2023 11:13 HDL(New) 41 mg/dL 12/01/2023 11:13 CALCULATED LDL 59 mg/dL 12/01/2023 11:13 No DIRECT LDL EO data found These readings are within normal limits. HEMOGLOBIN A1C - Gives us information about your diabetes (sugar or glucose) control over the past 3 months. Your target is to keep your A1C below 6 %. HGA1C 8.1 H % 12/01/2023 11:13 These results are abnormal. Your hba1c is elevated but improving . Please watch your carbohydrate intake , continue your current diabetic medication and follow up with DR. Zaida Nevarez CBC - A complete blood count (CBC) gives important information about the kinds and numbers of cells in the blood, especially red blood cells, white blood cells, and platelets. HGB 13.7 g/dL 12/01/2023 11:13 HEMATOCRIT 41.6 % (12/01/23 11:13) PLT 147 L 10*3/uL 12/01/2023 11:13 WHITE BLOOD COUNT 5.7 10*3/uL (12/01/23 11:13) These readings are within normal limits. B12 - Helps maintain healthy nerve cells, red blood cells, and is also needed to make DNA. B12 640 pg/mL 12/01/2023 11:13 These readings are within normal limits. CHEM 7 - This is important information about the current status of your kidneys, liver, and electrolyte and acid/base balance as well as of your blood sugar and blood proteins. SODIUM 138 mEq/L 12/01/2023 11:13 POTASSIUM 4.3 mEq/L 12/01/2023 11:13 CHLORIDE 103 mEq/L 12/01/2023 11:13 UREA NITROGEN 22.1 mg/dL 12/01/2023 11:13 CREATININE 1.14 mg/dL 12/01/2023 11:13 CALCIUM 9.5 mg/dL 12/01/2023 11:13 CARBON DIOXIDE 24 mEq/L 12/01/2023 11:13 GLUCOSE 124 H mg/dL 12/01/2023 11:13 EGFR (CKD-EPI 2020) 67.1 12/01/2023 11:13 The results are similar to previous values and not a clinical concern. LIVER FUNCTION PANEL - These are tests for liver function: PROTEIN 6.6 g/dL 12/01/2023 11:13 ALBUMIN 4.1 g/dL 12/01/2023 11:13 TOTAL BILIRUBIN 1.0 mg/dL 12/01/2023 11:13 ALKALINE PHOSPHATASE 67 U/L 12/01/2023 11:13 AST/SGOT 25 U/L 12/01/2023 11:13 ALT/SGPT 20 U/L 12/01/2023 11:13 These readings are within normal limits. TSH - Thyroid-stimulating hormone (also known as TSH or thyrotropin) is a peptide hormone synthesized and secreted by thyrotrope cells in the anterior pituitary gland, which regulates the endocrine function of the thyroid gland. TSH TSH 0.604 uIU/mL 12/01/2023 11:13 These readings are within normal limits. VITAMIN D - Helps promote the proper utilization of calcium and phosphorus, thereby producing proper bone maintenance. VITAMIN D, 25-HYDROXY 34.7 ng/mL 12/01/2023 11:13 These readings are within normal limits. FUTURE APPOINTMENTS: 12/04/2023 13:30 DANIELLE-ST CLR PACT PHONE PHAR 06/01/2024 09:30 DANIELLE-ST CLR PACT 2 PCP Sincerely, CHESTER [facility]CHANT [facility] Dec 01, 2023 10:42 AM PRIMARY CARE NOTE: LOCAL TITLE: PRIMARY CARE PROVIDER ESTABLISHED VISIT STL STANDARD TITLE: PRIMARY CARE NOTE DATE OF NOTE: DEC 01, 2023@10:42 ENTRY DATE: DEC 01, 2023@10:42:48 AUTHOR: NORA PASTRANA EXP COSIGNER: URGENCY: STATUS: COMPLETED ESTABLISHED PATIENT [id number]: REASON FOR VISIT/CHIEF COMPLAINT: F/U HPI: Patient with hx of dm and htn presents for f/u . Currently seeing painmangaement who recommended Mictronic device in his back to have with his peripheral neuropathy . Patient is the process of moving things out of his [place] home that he has sold . STates he noted that he was drinking too much at that home and now at this daughter's he has things to do and has cut his drinking down to 1/2 ./ WHAT IS YOUR GOAL FOR TODAY? SOURCE(S) OF HISTORY: Patient PAST MEDICAL HISTORY: 1) DM - Diabetes mellitus 2) Benign essential hypertension 3) Exposure to potentially hazardous substance ALLERGIES: DICYCLOMINE, PERCOCET, PREGABALIN, METFORMIN ALLERGY REVIEW: Allergy list reviewed and remains current. MEDICATION RECONCILIATION: I have reviewed the patient's medication list with the patient and/or his/her care-craft coordinator. Handwritten corrections, additions and/or deletions were made to the list. Corrected Outpatient Medication List was provided to the patient/caregiver. Active Outpatient Medications (including Supplies): Active Outpatient Medications Status 1) ACCU-CHEK GUIDE (GLUCOSE) TEST STRIP USE 1 STRIP FOR ACTIVE BLOOD TEST TWICE A DAY 2) ALCOHOL PREP PAD USE/APPLY PAD TO AFFECTED AREA(S) ACTIVE ONCE A DAY NEEDED 3) EMPAGLIFLOZIN 25MG TAB TAKE ONE TABLET BY MOUTH ONCE ACTIVE A DAY 4) LANCET,SOFTCLIX USE LANCET FOR BLOOD TEST TWICE A DAY ACTIVE USE DIRECTED. 5) SEMAGLUTIDE 0.25MG/0.375ML INJ PEN 3ML INJECT 0.5MG ACTIVE UNDER THE SKIN EVERY WEEK FOR DIABETES Pending Outpatient Medications Status 1) ASPIRIN 81MG EC TAB TAKE ONE TABLET BY MOUTH ONCE A PENDING DAY TAKE WITH FOOD. 2) ATORVASTATIN CALCIUM 80MG TAB TAKE ONE TABLET BY PENDING MOUTH EVERY EVENING 3) GABAPENTIN 600MG TAB TAKE TWO TABLETS BY MOUTH THREE PENDING TIMES A DAY 4) HYDROCHLOROTHIAZIDE 25MG TAB TAKE ONE TABLET BY MOUTH PENDING ONCE A DAY 5) LISINOPRIL 40MG TAB TAKE ONE TABLET BY MOUTH ONCE A PENDING DAY Active Non-VA Medications Status 1) Non-VA FINASTERIDE 5MG TAB 5MG BY MOUTH ONCE A DAY ACTIVE 2) Non-VA OMEPRAZOLE 40MG EC CAP 40MG BY MOUTH TWICE A ACTIVE DAY 12 Total Medications PHYSICAL EXAMINATION: Male General appearance: VITALS (most recent, as listed in the electronic record): B/P: 105/55 (12/01/2023 09:31) Pulse: 50 (12/01/2023 09:31) Temperature: 97.2 F [36.2 C] (12/01/2023 09:31) Weight: 172.8 lb [78.38 kg] (12/01/2023 09:31) Height: 66 in [167.6 cm] (10/30/2022 12:31) BMI: 27.9 Pain: 0 (12/01/2023 09:31) (0-10 scale) Ears, Nose, Mouth, Throat: aox 4 in nad Eye: Cardiovascular: rrr Respiratory: ctab ABD/GI: soft, nt,n Extremities: ambulates without assistnce /LEGAL COMPLIANCE OFFICER: Hematology & Lymph: Endocrine: Psych: Neuro: Skin: ASSESSMENT/PLAN: 1periphseral neuropathy - most likely secondary to his diabetes - check hba1c, vitamin b1 and vitamin B12 - patient to get more information regarding the device wanting to be inserted for pain control - renewed gabapentin 2.dm- improving - continue with Dr. Nevarez - continue elham dm meds - check hba1c 3. HL- check lipid painel 4 htn -stable =-renewed lisinopril and hctz RTC in Apr PREVENTION & SCREENING: ALCOHOL: Clinical Reminder not due now or within a month BLOOD PRESSURE: Clinical Reminder not due now or within a month HEMOGLOBIN A1C: Clinical Reminder not due now or within a month /meg/ NORA PASTRANA Signed: 12/01/2023 10:51 NORA PASTRANA [facility] Dec 01, 2023 09:36 AM NURSING NOTE: LOCAL TITLE: V15 PACT FACE TO FACE NOTE STL STANDARD TITLE: NURSING NOTE DATE OF NOTE: DEC 01, 2023@09:36 ENTRY DATE: DEC 01, 2023@09:37:03 AUTHOR: LIDIA MOTLEY EXP COSIGNER: URGENCY: STATUS: COMPLETED Provider Visit: Patient Identifiers : Full Name Date of Reason for visit: Established Follow-Up Mode of Arrival: Ambulatory Allergy Review: DICYCLOMINE, PERCOCET, PREGABALIN, METFORMIN Allergy list reviewed and remains current. Recent Vital Signs: Temperature: 97.2 F [36.2 C] (12/01/2023 09:31) Pulse: 50 (12/01/2023 09:31) Respiration: 18 (12/01/2023 09:31) B/P: 105/55 (12/01/2023 09:31) Pain: 0 (12/01/2023 09:31) Wt: 172.8 lb [78.38 kg] (12/01/2023 09:31) Ht: 66 in [167.6 cm] (10/30/2022 12:31) BMI: 27.9 POX: 98% (12/01/2023 09:31) Blood sugar glucometer readin Would you like to discuss any personal problem, family problem, alcohol use, drug use, or a mental or emotional illness? No My [facility] ([facility]), please select appointment type: Face to face: Yes- Done Contact provided Primary Care phone number and encouraged to call if any questions or concerns. Review that after hours nurse line [phone] and emergency room are available 30/09 for patient use. Contact verbalized good understanding. Suicide Screen: C-SSRS Screening [place]-Suicide Severity Rating Scale (C-SSRS Screener) 1. Over the past month, have you wished you were or wished you could go to sleep and not wake up? No 2. Over the past month, have you had any actual thoughts of killing yourself? No 3. Over the past month, have you been thinking about how you might do this? Response not required due to responses to other questions. 4. Over the past month, have you had these thoughts and had some intention of acting on them? Response not required due to responses to other questions. 5. Over the past month, have you started to work out or worked out the details of how to kill yourself? Response not required due to responses to other questions. 6. If yes, at any time in the past month did you intend to carry out this plan? Response not required due to responses to other questions. 7. In your lifetime, have you ever done anything, started to do anything, or prepared to do anything to end your life (for example, collected pills, obtained a gun, gave away valuables, went to the roof but didn't jump)? No 8. If YES, was this within the past 3 months? Response not required due to responses to other questions. COVID-19 Immunization: Refused Pfizer Monovalent COVID-19 vaccine Immunization: COVID-19 (PFIZER), MRNA, LNP-S, PF, ANGELI-SUCROSE, 30 MCG/0.3 ML (AGES 12+ YEARS) Refusal Reason: PATIENT DECISION Patient refuses all immunization(s) in the COVID-19 group Date Documented: 12/01/23 09:42 Alcohol Use Screen (AUDIT-C): Alcohol Screen: SCREEN FOR ALCOHOL (AUDIT-C) An alcohol screening test (AUDIT-C) was negative (score=3). 1. How often did you have a drink containing alcohol in the past year? Consider a drink to be a 12 ounce can or bottle of regular beer, 8 ounces of malt liquor, a 5 ounce glass of table wine, or a 1.5 ounce shot of liquor (like scotch, gin, or vodka). Two to four times a month 2. How many drinks containing alcohol did you have on a typical day when you were drinking in the past year? Three or four drinks 3. How often did you have six or more drinks on one occasion in the past year? Never Depression Screening: Perform PHQ-2 A PHQ-2 screen was performed. The score was 0 which is a negative screen for depression. Over the past two weeks, how often have you been bothered by the following problems? 1. Little interest or pleasure in doing things Not at all 2. Feeling down, depressed, or hopeless Not at all Influenza Immunization: Deferral / Refusal The patient declines to receive the recommended dose of seasonal influenza vaccine. Immunization: INFLUENZA, UNSPECIFIED FORMULATION Refusal Reason: PATIENT DECISION Patient refuses all immunization(s) in the FLU group Date Documented: 12/01/23 09:43 Frail/Elderly Screen: ADL Screen - [place]nor Index of Parmelee in Activities of Daily Living Bathing: (3 Points) Receives no assistance (gets in and out of tub by self, if tub is usual means of bathing) Dressing: (3 Points) Gets clothes and gets completely dressed without assistance. Toileting: (3 Points) Goes to toilet room , cleans self, and arranges clothes without assistance (may use object for support such as cane, walker, or wheelchair, and may manage own night bedpan or commode, emptying same next morning) Transferring: (3 Points) Moves in and out of bed and in and out of chair without assistance (may be using object for support, such as cane or walker) Continence: (3 Points) Controls urination and bowel movement completely by self Feeding: (3 Points) Feeds self without assistance Total Score: 18 Points 18 = High (patient independent) 6 = Low (patient very dependent) IADL Screen - Dasha Instrumental Activities of Daily Living Scale Ability to use telephone: (1 point) Operates Telephone on own initiative; looks up and dials numbers. Shopping: (1 point) Takes care of all shopping needs independently. Food preparation: (1 point) Plans, prepares, and serves adequate meals independently. Housekeeping: (1 point) Maintains house alone with occasional assistance (heavy work). Laundry: (1 point) Does personal laundry completely. Mode of transportation: (1 point) Travels independently on public transportation or drives own car. Responsibility for own medications: (1 point) Is responsible for taking medications in correct dosages at correct times. Ability to handle finances: (1 point) Manages financial matters independently (budgets, writes checks, pays rent and bills, goes to bank); collects and keeps track of income. Total score: 8 points 8 = High function, independent 0 = Low function, dependent Falls Screen: One fall with no injury within the last 12 months. Incontinence Screen: No incontinence. Pneumococcal Conjugate Vaccine (PCV15/PCV20): Refuses PCV vaccine Immunization: PNEUMOCOCCAL CONJUGATE, UNSPECIFIED FORMULATION Refusal Reason: PATIENT DECISION Patient refuses all immunization(s) in the PneumoPCV group Date Documented: 12/01/23 09:44 /meg/ LIDIA MOTLEY LICENSED PRACTICAL NURSE Signed: 12/01/2023 09:45 LIDIA MOTLEY [facility]
--- OUTSIDE RECORDS SUMMARY | 2024-06-08 07:49 | XMS_ITS | Encounter Summary ---
Author Name [facility] [place] [facility] [place] Address [address] [place] [address] Care Team Providers Care Job Putter Up And Ticket Preparer Name Role Phone NORA PASTRANA Primary Care Provider SUSAN Falcon Primary Care Provider DEONTE Velarde Primary Care Provider Unavailabl ying Insurance Providers: All historical and current Section [...] STAND [place]YS[place] IND Aug 08, 2016 104 [id number] [phone] JUDY KIM PATIENT ANTHE[place] FEP PREFERRED PROVIDER ORGANIZAT ION (PPO) FEP STAND [place] IND Aug 08, 2016 104 [id number] [phone] JUDY KIM PATIENT [place] PREFERRED PROVIDER ORGANIZAT ION (PPO) FEP STAND [place] IND Aug 08, 2016 104 [id number] [phone] JUDY KIM PATIENT [place] PREFERRED PROVIDER ORGANIZAT ION (PPO) FEP [place]AND [place] IND Aug 08, 2016 104 [id number] [phone] JUDY KIM PATIENT [place] F[place] MEDICARE SECONDARY (NO B EXC) FEP 104 Aug 08, 2016 104 [id number] JUDY KIM PATIENT BC BS [place] FEP MEDICARE SECONDARY (NO B EXC) FEP-M ED SEC Aug 08, 2016 104 [id number] JUDY KIM PATIENT BC BS [place] FEP MEDICARE SECONDARY (NO B EXC) FEP-M ED SEC Aug 08, 2016 104 [id number] JUDY KIM PATIENT BC BS [place] FEP PREFERRED PROVIDER ORGANIZAT ION (PPO) FEP 105 Mar 11, 1999 105 [id number] JUDY KIM PATIENT [place] F[place] PREFERRED PROVIDER ORGANIZAT ION (PPO) FEP STAND [place] IND Aug 08, 2016 104 [id number] [phone] JUDY KIM PATIENT BCBS [place] ATTN FEP CLAIMS PREFERRED PROVIDER ORGANIZAT ION (PPO) FEP STAND [place] IND Aug 08, 2016 104 [id number] [phone] JUDY KIM PATIENT [place] F[place] PREFERRED PROVIDER ORGANIZAT ION (PPO) FEP [place]AND [place] IND Aug 08, 2016 104 [id number] [phone] JUDY KIMY PATIENT [place] ([id number]) PRESCRIPT ION FEP Mar 11, 1999 [id number] JUDY KIMY PATIENT [place] ([id number]) PRESCRIPT ION FEP Mar 11, 1999 [id number] JUDY KIM PATIENT [place] FEP RX PRESCRIPT ION FEPRX Aug 08, 2016 [id number] [phone] JUDY KIM PATIENT MEDICARE (WNR) MEDICARE (M) RR PART A Oct 08, 2013 RR PART A [id number] [phone] JUDY KIMY PATIENT MEDICARE (WNR) MEDICARE () RR PART B Oct 08, 2013 RR PART B [id number] JUDY KIMY PATIENT MEDICARE (WNR) MEDICARE () RR PART B Oct 08, 2013 RR PART B [id number] KIM,TI MOTHY PATIENT MEDICARE (WNR) MEDICARE (M) RR PART A Oct 08, 2013 RR PART A [id number] [id number] KIM,TI MOTHY PATIENT MEDICARE (WNR) MEDICARE (M) PART A Oct 08, 2013 PART A [id number] KIM,TI MOTHY PATIENT MEDICARE (WNR) MEDICARE (M) PART B Oct 08, 2013 PART B [id number] [phone] [id number] KIM,TI MOTHY PATIENT MEDICARE (WNR) MEDICARE (M) PART B Oct 08, 2013 PART B [id number] KIM,TI MOTHY PATIENT MEDICARE (WNR) MEDICARE (M) PART A Oct 08, 2013 PART A [id number] [phone] KIM,TI MOTHY PATIENT MEDICARE (WNR) MEDICARE (M) RR PART A Oct 08, 2013 RR PART A [id number] KIM,TI MOTHY PATIENT MEDICARE (WNR) MEDICARE (M) RR PART B Oct 08, 2013 RR PART B [id number] KIM,TI MOTHY PATIENT Selected Encounter This section includes the information on record at [place] for the Encounter. Date/Time Encounter Type Encounter Description Reason Pro vider Source IHE Encounter Template Text not used by VA Advance Directives: All historical and current Section Date Range: From patient's date of to the date document was created. This section includes ALL of a patient's completed or amended VA Advance and Rescinded Directives. The entries below indicate that a directive exists for the patient, but an actual copy is not included with this document. The data comes from all [place] facilities. Date Advance Directives Provider Source July 13, 2014 ADVANCE DIRECTIVE ROLANDO FONSECA [facility]
--- OUTSIDE RECORDS SUMMARY | 2024-06-08 07:49 | XMS_ITS | Encounter Summary ---
Author Name [facility] [place] [facility] [place] [facility] [place] Address [address] [place] [address] Care Team Providers Care Merchandise Complaint Adjuster Name Role Phone NORA PASTRANA Primary Care Provider Unavailabl SUSAN Sexton Primary Care Provider Unavailabl e DEONTE MARIE [...] STAND [place]YS[place] IND Aug 08, 2016 104 [id number] [phone] JUDY KIM PATIENT [place] F[place] PREFERRED PROVIDER ORGANIZAT ION (PPO) FEP STAND [place] IND Aug 08, 2016 104 [id number] [phone] JUDY KIM PATIENT [place] PREFERRED PROVIDER ORGANIZAT ION (PPO) FEP STAND [place] IND Aug 08, 2016 104 [id number] [phone] JUDY KIM PATIENT [place] PREFERRED PROVIDER ORGANIZAT ION (PPO) FEP [place]AND [place] IND Aug 08, 2016 104 [id number] [phone] JUDY KIM PATIENT [place] MEDICARE SECONDARY (NO B EXC) FEP 104 Aug 08, 2016 104 [id number] [phone] JUDY KIM PATIENT BC BS [place] FEP MEDICARE SECONDARY (NO B EXC) FEP-M ED SEC Aug 08, 2016 104 [id number] JUDY KIM PATIENT [place] BS [place] F[place] MEDICARE SECONDARY (NO B EXC) FEP-M ED SEC Aug 08, 2016 104 [id number] JUDY KIM PATIENT BC BS [place] FEP PREFERRED PROVIDER ORGANIZAT ION (PPO) FEP 105 Mar 11, 1999 105 [id number] JUDY KIM PATIENT [place] FEP PREFERRED PROVIDER ORGANIZAT ION (PPO) FEP [place]AND [place] IND Aug 08, 2016 104 [id number] [phone] JUDY KIM PATIENT BCBS [place] ATTN FEP CLAIMS PREFERRED PROVIDER ORGANIZAT ION (PPO) FEP [place]AND [place] IND Aug 08, 2016 104 [id number] [phone] JUDY KIM PATIENT [place] F[place] PREFERRED PROVIDER ORGANIZAT ION (PPO) FEP STAND [place] IND Aug 08, 2016 104 [id number] [phone] JUDY KIM PATIENT [employer] ([id number]) PRESCRIPT ION FEP Mar 11, 1999 [id number] JUDY KIM PATIENT [place] ([id number]) PRESCRIPT ION FEP Mar 11, 1999 [id number] JUDY KIM PATIENT [place] FEP RX PRESCRIPT ION FEPRX Aug 08, 2016 [id number] [phone] JUDY KIM PATIENT MEDICARE (WNR) MEDICARE (M) RR PART A Oct 08, 2013 RR PART A [id number] [phone] JUDY KIM PATIENT MEDICARE (WNR) MEDICARE () RR PART A Oct 08, 2013 RR PART A [id number] JUDY KIM PATIENT MEDICARE (WNR) MEDICARE (M) RR PART B Oct 08, 2013 RR PART B [id number] [phone] [id number] KIM,TI MOTHY PATIENT MEDICARE (WNR) MEDICARE (M) RR PART B Oct 08, 2013 RR PART B [id number] KIM,TI MOTHY PATIENT MEDICARE (WNR) MEDICARE (M) PART A Oct 08, 2013 PART A [id number] KIM,TI MOTHY PATIENT MEDICARE (WNR) MEDICARE (M) PART B Oct 08, 2013 PART B [id number] KIM,TI MOTHY PATIENT MEDICARE (WNR) MEDICARE (M) PART A Oct 08, 2013 PART A [id number] KIM,TI MOTHY PATIENT MEDICARE (WNR) MEDICARE (M) PART B Oct 08, 2013 PART B [id number] KIM,TI MOTHY PATIENT MEDICARE (WNR) MEDICARE (M) RR PART A Oct 08, 2013 RR PART A [id number] KIM,TI MOTHY PATIENT MEDICARE (WNR) MEDICARE (M) RR PART B Oct 08, 2013 RR PART B [id number] KIM,TI MOTHY PATIENT Selected Encounter This section includes the information on record at [place] for the Encounter. Date/Time Encounter Type Encounter Description Reason Provider Source August 05, 2023 09:30 AM MTMS BY PHARM EST 15 MIN CLINICAL PHARMACY ICD-10-CM E11.9 Type 2 diabetes mellitus without complications ANDREA NEVAREZ [facility] Encounter Template Text not used by [place] Assessments - Encounter Diagnoses This section includes the primary and secondary diagnoses documented for the Encounter. Date/Time Primary/Secondary Diagnosis Diagnosis Name Provider Source August 05, 2023 09:51 AM PRIMARY Type 2 diabetes mellitus without complications PATEL NEVAREZ [facility] August 05, 2023 09:51 AM SECONDARY Other hyperlipidemia PATEL NEVAREZ [facility] Plan of Treatment: Future Appointments (+ 6 months) and Future Tests (+/- 45 days) The Plan of Treatment section includes future care activities for the patient from all VA treatmentfacilities. This section includes future appointments and future orders which are active, pending or scheduled. Future Appointments This section includes appointments that were scheduled to occur 6 months from the date of the Encounter, up to a maximum of 20 appointments. The data comes from all [facility] facilities. Appointment Date/Time Appointment Type Appointme nt Facility Name Sep 16, 2023 09:30 AM AMBULATORY - NONE [facility] Oct 14, 2023 11:30 AM AMBULATORY - NONE [facility] Dec 01, 2023 09:00 AM AMBULATORY - NONE [facility] Dec 01, 2023 09:30 AM [facility] Dec 04, 2023 01:30 PM AMBULATORY - NONE . [facility] Jan 29, 2024 01:30 PM AMBULATORY - NONE . [facility] Lab Results: +/- 30 days of the encounter This section includes the Chemistry and Hematology Lab Results on record with VA for the patient. Radiology Reports and Pathology Reports are provided separately, in subsequent sections. Lab Results This section contains the Chemistry/Hematology Results that were resulted 30 days before or 30 daysafter the date of the Encounter. Date/Time Source Result Type Result - Unit Interpretation Reference Range Comment July 15, 2023 09:12 AM [facility] HGA1C Specimen Type: BLOOD No comment entered. Ordering Provider: JAVY NEVAREZ Report Released Date/Time: Jul 01, 2023 10:14 AM Reporting Lab: [facility] [address] [id number] Performing Lab: [facility] [address] [id number] HGA1C 8.8 H 4.0-6.0 July 15, 2023 09:12 AM [facility] BASIC METABOLIC PANEL Specimen Type: PLASMA Comment: No hemolysis noted. Ordering Provider: JAVY NEVAREZ Report Released Date/Time: Jul 01, 2023 10:14 AM Reporting Lab: [facility] [address] [phone] Performing Lab: [facility] [address] [id number] CREATININE 1.30 mg/dL 0.7-1.3 UREA NITROGEN 23.5 mg/dL 9.0-25.0 GLUCOSE 154 mg/dL H 72-99 SODIUM 140 meq/L 136-145 POTASSIUM 4.3 meq/L 3.5-5 CHLORIDE 107 meq/L 98-107 CARBON DIOXIDE 22 meq/L 22-31 CALCIUM 8.9 mg/dL 8.4-10.4 EGFR (CKD-EPI 2020) 57.7 >60 July 15, 2023 09:12 AM [facility] MICRAL/CREAT PROFILE (STL) Specimen Type: URINE Comment: uALB/CREAT Ratio Unable to be calculated Unable to calculate due to Microalbumin < 5.0 mg/L Ordering Provider: JAVY NEVAREZ Report Released Date/Time: Jul 01, 2023 10:14 AM Reporting Lab: [facility] [address] [phone] Performing Lab: [facility] [address] [phone] URINE ALBUMIN (PB-STL) <5.0 mg/L uACR (STL) comment mg/g 0-29 CREATININE URINE/OTHERS 106.9 mg/dL 63-166 Social History: Smoking Status (Most current) and Tobacco Use (All prior to encounter date) This section includes the most current, and the historical, smoking and tobacco- related health factors from the [place] facility where the Encounter took place. Current Smoking Status This section includes the most current smoking, or tobacco-related health factor, from the [place] facility where the Encounter took place. Date/Time Current Smoking Status Comment Facil ity Oct 30, 2022 12:30 PM VA-TOBACCO FORMER USER [facility] Tobacco Use History This section includes a history of the smoking, or tobacco-related health factors, that were collected on or before the date of the Encounter. The data comes from the [place] facility where the Encounter took place. Date/Time Smoking Status/Tobacco Use Comment F acility Oct 30, 2022 12:30 PM [place]-TOBACCO QUIT 15 YRS OR MORE [facility] Advance Directives: All historical and current Section Date Range: From patient's date of to the date document was created. This section includes ALL of a patient's completed or amended [place] Advance and Rescinded Directives. The entries below indicate that a directive exists for the patient, but an actual copy is not included with this document. The data comes from all [place] facilities. Date Advance Directives Provider Source July 13, 2014 ADVANCE DIRECTIVE ROLANDO FONSECA [facility] Encounter Notes: All associated encounter notes This section contains the clinical notes associated to the Encounter. Date/Time Encounter Note(s) Provider Source August 05, 2023 08:17 AM INTERNAL MEDICINE CLINICAL PHARMACIST MEDICATION MGT NOTE: LOCAL TITLE: CLINICAL PHARMACIST NOTE ST STANDARD TITLE: INTERNAL MEDICINE CLINICAL PHARMACIST MEDICATION DATE OF NOTE: AUGUST 05, 2023@08:17 ENTRY DATE: AUGUST 05, 2023@08:17:49 AUTHOR: JAVY NEVAREZ EXP COSIGNER: URGENCY: STATUS: COMPLETED CLINICAL PHARMACY FOLLOW-UP Subjective: COLTEN KIM is a 72 MALE who was contacted by [facility] for follow up on DM/HLD. PMH: 1) DM - Diabetes mellitus 2) Benign essential hypertension 3) Exposure to potentially hazardous substance During current visit vet reports moved atorvastatin in AM and leg cramping much improved. previously was having leg cramps at night- was taking atorvastatin in PM when this was occurring. this CP inquired about vets previous use of metformin today- vet reports took metformin a while back and it caused severe diarrhea not willing to retrial any form of metformin at this time. During the last contact with vet: (07/01/23) - continue alogliptin 12.5mg daily - continue empagliflozin 25mg daily - continue atorvastatin 80mg daily PM --> AM Dietary/Lifestyle/Social History modifications made: - still very active, mostly w yard work- clears land and walking a lot per vet - no changes to diet per vet ROS: DM: (-)hypoglycemia sxs or values <80 mg/dL (-)hyperglycemia sxs (-)tingling/numbness HLD: (-)CP (-)muscle pain/cramps- none recently, improved per vet Objective: Allergies: DICYCLOMINE, PERCOCET, PREGABALIN Medications: Active and Recently Outpatient Medications (excluding Supplies): Active Outpatient Medications Status 1) ACCU-CHEK GUIDE (GLUCOSE) TEST STRIP USE 1 STRIP FOR ACTIVE BLOOD TEST ONCE A DAY 2) ALOGLIPTIN 12.5MG TAB TAKE ONE TABLET BY MOUTH ONCE A ACTIVE DAY FOR DIABETES *taking as above per vet 3) ASPIRIN 81MG EC TAB TAKE ONE TABLET BY MOUTH ONCE A ACTIVE DAY FOR CARDIOVASCULAR DISEASE TAKE WITH FOOD. 4) ATORVASTATIN CALCIUM 80MG TAB TAKE ONE TABLET BY ACTIVE MOUTH EVERY EVENING FOR HIGH CHOLESTEROL *Taking as above 5) EMPAGLIFLOZIN 25MG TAB TAKE ONE TABLET BY MOUTH ONCE ACTIVE A DAY *taking as above per vet 6) GABAPENTIN 600MG TAB TAKE TWO TABLETS BY MOUTH THREE ACTIVE TIMES A DAY FOR NERVE PAIN 7) HYDROCHLOROTHIAZIDE 25MG TAB TAKE ONE TABLET BY MOUTH ACTIVE ONCE A DAY FOR HIGH BLOOD PRESSURE 8) LISINOPRIL 40MG TAB TAKE ONE TABLET BY MOUTH ONCE A ACTIVE DAY FOR HIGH BLOOD PRESSURE Inactive Outpatient Medications Status 1) ACCU-CHEK GUIDE ME (GLUCOSE) METER USE GLUCOSE METER FOR DIRECTED -CONTACT [facility] FOR REPLACEMENT OR PROBLEM Active Non-VA Medications Status 1) Non-VA FINASTERIDE 5MG TAB 5MG BY MOUTH ONCE A DAY ACTIVE 2) Non-VA OMEPRAZOLE 40MG EC CAP 40MG BY MOUTH TWICE A ACTIVE DAY 11 Total Medications meds: as above OTC/Non-VA meds: - denies change Medication reconciliation completed: YES (focused) Adherence to above medications: - good per vet Labs: CREATININE 1.30 mg/dL 07/15/2023 09:12 ALT/SGPT 23 U/L 04/15/2023 08:57 AST/SGOT 21 U/L 04/15/2023 08:57 GLUCOSE 154 H mg/dL 07/15/2023 09:12 EGFR (CKD-EPI 2020) 57.7 07/15/2023 09:12 Estimated CrCl 45.0mL/min Lipid Panel: TRIGLYCERIDE 85 mg/dL 04/15/2023 08:57 CHOLESTEROL 145 mg/dL 04/15/2023 08:57 HDL(New) 51 mg/dL 04/15/2023 08:57 CALCULATED LDL 77 mg/dL 04/15/2023 08:57 MICRAL/CR PROFILE: CREATuF: 106.9 (07/15/23 09:12) M/CREAT: comment (07/15/23 09:12) MICRAL: <5.0 (07/15/23 09:12) A1c: HGA1C 8.8 H % 07/15/2023 09:12 HGA1C 9.7 H % 04/15/2023 08:57 HGA1C 7.4 H % 01/16/2023 08:20 HGA1C 6.8 H % 10/30/2022 13:59 Vitamin D: VITAMIN D, 25-HYDROXY 38.9 ng/mL 10/30/2022 13:59 TSH: TSH 0.614 uIU/mL 10/30/2022 13:59 SMBGs: Date FPG 154 163 166 169 196 170 168 169 -July [address] 172 BP last visit: 102/61 (10/30/2022 12:31) Pulse last visit: 55 (10/30/2022 12:31) Assessment/Plan: # Diabetes - Goal A1c <7.5%, FPG 80-145, PPG <195 d/t CAD per VA/DoD guidelines Uncontrolled to a1c goal but improved, reviewed recent lab letter w vet today. vet feels a1c from apr elevated bc was not taking empag for a while. smbgs still elevated, increased. vet denies sx hypo/hypergly. noted vet w appt w nonVA pain specialists for steroid shots in each hip 07/14 and 07/15. vet denies changes to diet- denies snacking, mostly drinks water, reports 1 soda/month, rarely eats sweets. exercise limited 2/2 hip pain but still stays active per vet w working in [employer]. vet w CrCL 55mL/min. renal function appropriate for regimen. noted vet to previous adr to metformin, diarrhea, not willing to retrial med. vet denies hx pancreatitis, retinopathy, thyroid cancer. nonVA eye appt 04/[address] vet willing to start semag as below. reviewed would replace alogliptin. reviewed expectations and instruction of use and storage requirements of new med. reviewed when and how to contact CP. - STOP alogliptin 12.5mg daily - START semaglutide 0.25mg weekly x4 then INCREASE to semaglutide 0.5mg weekly if tolerating - continue empagliflozin 25mg daily - instructed vet to check SMBGs daily alt times - educated vet on hypoglycemia symptoms and appropriate treatment and when to contact clinic or go to emergency room - Last eye exam 04/14/2023 nonVA: type 2 diabetes without complications and no diabetic retinopathy or macular edema upon examination. - last clinic BP controlled to goal # Lipids - Goal is treatment with high-intensity statin per ACC/AHA guidelines d/t CAD for secondary prevention. Controlled to statin goal. vet confirms adherence. prev reports of having leg cramping at night at last cp visit advised to switch statin to AM, vet reports since doing this leg cramping much improved. prev reports drinking 5-6 bottles of water a day, cramping is not associated w activity per vet. LFTs, vitD, TSH wnl. will CCT. encouraged continued hydration. - continue atorvastatin 80mg daily AM - monitor for myalgias and report to CP or PCP if occurs -Education provided on nonpharmacologic ways to improve DM/HLD (including lifestyle management/dietary/physical activity) specific for the vet's needs. -Vet advised of recent relevant labs -[place] verbalized understanding to all plans discussed today. Questions were answered to vet's satisfaction. ------ Time spent with vet: 17 minutes RTC: 09/15 @ 9:30 via VVC (vet agrees) PBM PharmD Pharmacotherapy Rem V12: PHARMACIST INTERVENTIONS: LIPID MANAGEMENT Medication monitoring, no dosage change required, continue to monitor and assess TYPE 2 DIABETES MELLITUS Medication Intervention(s) Discontinue and/or change to different medication Discontinue and/or change to different medication due to other reason V15-VA Video Connect/Video to Home: VA Video Connect (VVC)/Video to home template v1.5 Visit conducted by synchronous telehealth. [place] location/emergency number confirmed. Environment surveyed and all participants identified. Virtual conference room locked. VVC/Video to home appointment information: The following items were reviewed: - The nature of telehealth, its benefits, and risks. - Confidentiality and its limits. - The importance of having a confidential location for the service. - The emergency plan. - The appointment should be treated like an in person appointment (no smoking or driving during session, showing up fully dressed, etc.) *The Virtual Medical Room was locked for this encounter. *A survey of the environment was conducted and it is appropriate to conduct a CVT/VVC appointment. *Confirmed [facility]'s Non-VA location for this appointment: [facility] [address] [place] [address] Address and phone number verified with . Address: Phone: does not have an emergency contact. * was notified of right to decline Telehealth services and eligibility for other options. [facility] consented to be seen via CVT/VVC. EMERGENCY PLAN In the event of an emergency, the [place] or family will call emergency services, if capable. The Teleprovider will remain in the virtual medical room until emergency response arrives and handoff to emergency services is complete. If is unable to make emergency call, the Teleprovider is to call the national E911 service at [phone] and ask to be connected to emergency services for the 's location. 's Crisis Line: Dial 988 then press 1, or text [phone] Office of Connected Care Helpdesk (OCC): [phone] or [phone] Verified Provider's location and contact information for this appointment: [facility] [address] [place] [address] x /es/ Zaida Nevarez, PharmD Clinical Pharmacist Practitioner Signed: 08/05/2023 10:17 JAVY NEVAREZ [facility]
--- OUTSIDE RECORDS SUMMARY | 2024-06-08 07:49 | XMS_ITS | Clinical Summary ---
Author Organization [facility] [place] [address] Address [address] [place] [address] Care Team Providers Care Imaging Center Manager Name Role Phone Makayla Ann MD Primary Care Provider [phone] Allergies Active Allergy Reactions Criticality Noted Date Comments Dicyclomine Other (See comments) Low 04/21/2019 Flu-like symptoms Pregabalin Other (See comments) Low 08/30/2022 Flu Symptons Oxycodone-Acetaminophen Rash Medium 04/21/2019 Medications atorvastatin (LIPITOR) 40 mg tablet Take 1 tablet (40 mg total) by mouth daily Active aspirin 81 mg enteric coated tablet Take 1 tablet (81 mg total) by mouth daily Active glipiZIDE (GLUCOTROL) 10 mg tablet Take 0.5 tablets (5 mg total) by mouth 2 times daily Active lisinopriL (PRINIVIL,ZESTR IL) 40 mg tablet Take 1 tablet (40 mg total) by mouth daily Active empagliflozin (JARDIANCE) 25 mg tablet 1 tablet (25 mg total) Active multivitamin with minerals tablet Take 1 tablet by mouth daily Active gabapentin (NEURONTIN) 600 mg tablet Take 1 tablet (600 mg total) by mouth 3 (three) times a day 1,200 tid Active alogliptin 25 mg tablet Take 1 tablet by mouth daily 3 Active hydroCHLOROthia zide (HYDRODIURIL) 25 mg tablet 1 tablet (25 mg total) 3 Active semaglutide (OZEMPIC SUBQ) Inject under the skin Active famotidine (PEPCID) 20 mg tablet [address] (PROTONIX) 40 mg EC tablet 5 Active omeprazole (PriLOSEC) 40 mg capsule Take 1 capsule (40 mg total) by mouth 2 (two) times a day 9 06/01/19 25 Discontinu ed(Alterna te therapy) Active Problems Problem Noted Date Diagnosed Date JAMILAH (obstructive sleep apnea) 03/22/2024 Hx of CABG 08/30/2022 Coronary artery disease invo lving lumbee coronary artery of lumbee heart without angina pectoris 08/30/2022 Premature atrial contraction 08/30/2022 Hypertension associated with diabetes 08/30/2022 Hyperlipidemia associated with type 2 diabetes m ellitus 08/30/2022 Encounters Date Type Department Care Team Description 05/31/2024 12:15 PM CDT Office Visit [facility] Card[facility] [address] [place] [address] Trisha Melendez MD Premature atrial contraction (Primary Dx); Hypertension associated with diabetes (HCC); Hyperlipidemia associated with type 2 diabetes mellitus (HCC); Hx of CABG; Coronary artery disease involving lumbee coronary artery of lumbee heart without angina pectoris; JAMILAH (obstructive sleep apnea) 03/22/2024 2:00 PM MEDICINE AIDE Office Visit [facility]) - [facility] [address] [facility] [address] [place] [address] Olga Nava MD Obstructive sleep apnea (adult) (pediatric) (Primary Dx); Dysphonia; 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 Months Surgical History Surgery Date Site/Laterality Comments CORONARY ARTERY BYPASS GRAFT Medical History Medical History Date Comments Hypertension Coronary artery disease Syncope Diabetes mellitus (HCC) Family History Medical History Relation Name Comments COPD Father Stroke Mother Relation Name Status Comments Father Mother Social History Tobacco Use Types Packs/Day Years Used Date Smoking Tobacco: Former Cigarettes 1.3 18 Smokeless Tobacco: Former Tobacco Cessation:Counseling Given: Not Answered Sex and Gender Information Value Date Recorded Sex Assigned at Not on file Legal Sex Male 5:11 AM MEDICINE AIDE Gender Identity Not on file Sexual Orientation Not on file Obstetrics History Last Filed Vital Signs Vital Sign Reading Time Taken Comments Blood Pressure 122/80 05/31/2024 12:34 PM CDT Pulse 63 05/31/2024 12:34 PM CDT Temperature - - Respiratory Rate 15 08/30/2022 8:29 AM CDT Oxygen Saturation 96% 05/31/2024 12:34 PM CDT Inhaled Oxygen Concentration - - Weight 70.9 kg (156 lb 6.4 oz) 05/31/2024 12:34 PM CDT Height 167.6 cm (5' 6 ) 05/31/2024 12:34 PM CDT Body Mass Index 25.24 05/31/2024 12:34 PM CDT Plan of Treatment Health Maintenance Due Date Last Done Comments Albumin Creatinine Ratio, Urine 1948 Colon Cancer Screening-Colonoscopy 1948 Depression Screening 1948 Hemoglobin A1C 1948 Hepatitis C Screening 1948 eGFR 1948 Dilated Eye Exam 1948 Foot Exam 1948 Hepatitis B Screening 1966 Abdominal Aortic Aneurysm (A AA) Screen 2013 Well Visit 65+ 2013 Pneumococcal vaccine 65+ (2 of 2 - PPSV23) 02/11/2017 12/17/2016, 06/28/2014 Fall Risk Assessment 08/31/2023 08/30/2022 Covid-19 Vaccine (5 - 2023-2 5 season) 2023 10/30/2022, 02/16/2021, 05/09/2020, Additional history exists Influenza Vaccine (#1) 2023 , 01/26/2021, 12/09/2019, Additional history exists Lipid Panel 05/31/2025 05/31/2024, 08/30/2022 DTaP/Tdap/Td Vaccine (3 - Td or Tdap) 10/30/2032 10/30/2022, 07/02/2013, 07/02/2013 Zoster Vaccine Completed 10/24/2020, 07/24/2020 Procedures Procedure Name Priority Date/Time Associated Diagnosis Comments POCT LIPID PANEL Routine 05/31/2024 1:07 PM CDT Hyperlipidemia associated with type 2 diabetes mellitus (HCC) from Last 3 Months Results * POCT lipid panel (05/31/2024 1:07 PM CDT) Cholesterol, POC <100 mg/dL Comment:GLU = 109 HDL, POC 31 mg/dL Triglycerides, POC 53 mg/dL LDL Cholesterol POC 58 mg/dL Chol/HDL Ratio, POC N/A Non-HDL Cholesterol, POC N/A mg/dL Cholesterol Total, POC <100 mg/dL Capillary blood 05/31/2024 1 :07 PM CDT Trisha Melendez MD POINT OF CARE TEST O RDERABLES Final Result from Last 3 Months Insurance MEDICARE [facility]ILROAD [facility] [place] [id number] [facility] FEDERAL MEDICARE RAILROAD Care Teams Imaging Center Manager Relationship Specialty Start Date End Date Makayla Ann MD PCP - General Family Medicine 08/15/22
--- OUTSIDE RECORDS SUMMARY | 2024-06-08 07:49 | XMS_ITS | Data Portability ---
Author Organization [place] - [facility] - [facility], [facility] Address [address] [place] [address] Care Team Providers Care Supervisor Mixing Name Role Phone DELICIA MORGAN Primary Care Provider DELICIA MORGAN Referring Provider Assessment No assessment recorded. Plan of Treatment Reminders Order Date Submit Date Provider Last Modified By Organization Details Last Modified Time Details Appointments None record ed. Lab None record ed. Referral None record ed. Procedures esopha pat roduod enosco py with biopsy (PROC) - 67 yo male with GERD and chroni c cough not respon ding to PPIs. Recomm ended attemp ting antihi stamin e but has been resist ant. 2018 019 [facility] (Central Scheduling), [address], [place], [address], 9 16:28:36 Surgeries None record ed. Imaging None record ed. Medication Orders omepra zole 40 mg capsul e,sunita yed releas e 2019 020 INTERFACE [facility], [address] [place], [address], 0 15:08:23 famoti dine 40 mg tablet 2019 020 INTERFACE [facility], [address] [place], [address], 0 15:08:23 omepra zole 40 mg capsul e,sunita yed releas e 2018 019 [email or web address] Not available 9 11:37:07 pantop razole 40 mg tablet ,delay ed releas e 2018 019 [email or web address] Not available 9 10:15:18 Patient TargetsNo targets recorded. Patient Instructions Encounter Date Encounter Id Patient Instructions Last Modified By Organization Details Last Modified Time 05/21/2018 [id number] gastroesophageal reflux disease (GERD): care instructions Not available 05/21/2018 10:26:58 06/17/2018 [id number] chronic cough: c are instructions Not available 06/17/2018 17:17:26 gastroesophageal reflux disease (GERD): care instructions Not available 06/17/2018 17:09:18 Reason for Referral None Reported. Results Created Date Observation Date Name Description Value Unit Range Abnormal Flag Note LastModifiedBy Organization Detail LastModifiedTime 08/26/19 19 08/25/2018 gluco se, QN, finge rstic k, blood (gluc omete r) glu POC bdside 174 mg/dL 70-105 high OPERA TOR ID:[id number] YOUNG 25 Not Available [facility] (Lab) [address], [place], [address], 08/25/2018 10:16:55 08/26/19 19 08/26/2018 surgi jonas patho logy study results . ACCES PITO: [id number] RESPO NSIBL E PATHO LOGIS T: RULA NI MD COLLE CTED DATE/ TIME: 2018 09:58 CDT RECEI JORGE DATE/ TIME 2018 13:14 CDT Surgi jonas Patho logy Repor t - 2018 16:49 CDT - Auth (Veri fied) Speci men A ANTRU M BIOPS IES B GE JUNCT ION BIOPS IES Diagn osis A. STOMA CH, ANTRU M, BIOPS IES: 1. ANTRA L MUCOS A WITH MINIM AL CHRON IC INACT MIKE GASTR ITIS. 2. A DIFF- QUIK STAIN IS NEGAT MIKE FOR HELIC OBACT ER PYLOR I ORGAN ISMS. In the setti ng of clini jonas or endos copic featu res sugge stive of gastr itis or ulcer , histo logic evide nce of infla mmati on, and/o r react mike foveo lar francheska es, Diff- Quick stain is perfo rmed to evalu ate the occul t prese nce of poten tial etiol ogic organ isms to guide thera peuti c decis ions. B. GASTR OESOP HAGEA L JUNCT ION, BIOPS IES: 1. DETAC HED SQUAM OUS MUCOS A WITH NO SIGNI FICAN T PATHO LOGIC ABNOR MALIT IES. 2. NO COLUM VEE MUCOS A PRESE NT IN THE SPECI MEN; NEGAT MIKE FOR INTES TINAL METAP LASIA . El ectro nical ly Amy d By RULA NI MD 08/26 16:49 CDT Edil [facility] 08/26 13:31 CDT BRIANA Perfo rmed at: [facility] [address] [place] [address] Micro scopi c Descr iptio n The diagn osis above refle cts the resul ts of micro scopi c exami natio n, unles s other [place] d. Gross Descr iptio n A. Label ed Bens on, Timot hy R. - antru m biops ies , recei jorge in forma cherelle are multi ple rosen-p ink, irreg ular fragm ents aggre gatin g to 0.6 x 0.3 x 0.3 cm. The speci men is entir janina submi tted on one filte red casse tte. ASI B. Label ed Bens on, Timot hy R. - GE-ju nctio n biops ies , recei jorge in forma cherelle are multi ple rosen-p ink, irreg ular fragm ents aggre gatin g to 0.5 x 0.3 x 0.2 cm. The speci men is entir janina submi tted on one filte red casse tte. ASI / /JRB 08/25 14:39 CDT Clini jonas Histo ry GERD WITHO UT ESOPH AGITI S Proce dure: EGD Preop erati ve Diagn osis: GERD WITHO UT ESOPH AGITI S Posto perat mike Diagn osis: ASHLEIGH L EGD Time of Excis ion: _ Time Place d in Forma cherelle: _ GERD WITHO UT ESOPH AGITI S Proce dure: EGD Preop erati ve Diagn osis: GERD WITHO UT ESOPH AGITI S Posto perat mike Diagn osis: ASHLEIGH L EGD ACCES PITO: [id number] RESPO NSIBL E PATHO LOGIS T: RULA NI MD COLLE CTED DATE/ TIME: 2018 09:58 CDT RECEI JORGE DATE/ TIME 2018 13:14 CDT Clini jonas Histo ry Time of Excis ion: _ Time Place d in Forma cherelle: _ Not Available [facility] (Lab) [address], [place], [address], 08/26/2018 17:49:34 Result Notes None recorded. Procedures Surgical History Date Name Laterality Status Provider Name and Address Organization Details Recorded Time 04/13/19 18 total replacement of left knee joint completed ROLANDO COOMBS NP [address] [place], [address], [facility] 05/21/2018 10:30:46 Gallbladder Surgery completed Kathryn Rodríguez [facility] 05/21/2018 09:35:33 Groin Hernia completed Kathryn Rodríguez [facility] 05/21/2018 09:35:45 Colonoscopy completed Kathryn Rodríguez [facility] 05/21/2018 09:35:50 Coronary Artery Intervention completed ROLANDO COOMBS NP [address], [place], [address], [facility] 05/21/2018 10:10:00 Knee Surgery completed Kathryn Rodríguez [facility] 05/21/2018 09:36:07 Imaging Results None recorded. Procedure Notes None recorded. Medical Equipment None Reported. Allergies Allergen ID Allergen Name Allergen Category Reaction Reaction Severity Criticality Documentation Date Start Date Code Code System Note Provider Name and Address Organization Details Recorded Time [id number] pantopraz ole medicatio n Not available Not available Not available 11/27/2018 35629 RxNorm SUJIT Matt null, [place] - [facility] 9 12:24:16 Medications Name Sig Start Date Stop Date Status Note LastModified by Organization Details LastModified Time celecoxib 200 mg capsule 07/14 completed Not Available Not Available Not Available amoxicillin 500 mg capsule 07/30 completed Not Available Not Available Not Available atorvastatin 40 mg tablet Take 1 tablet every day by oral route. active Not Available Not Available No t Available doxycycline hyclate 100 mg capsule 07/30 completed Not Available Not Available Not Available ibuprofen 800 mg tablet TAKE ONE TABLET BY MOUTH THREE TIMES DAILY FOR 10 DAYS 07/14 completed Not Available Not Available Not Available benzonatate 200 mg capsule 07/30 completed Not Available Not Available Not Available ranitidine 300 mg tablet TAKE ONE TABLET BY MOUTH AT BEDTIME active Not Available Not Available No t Available glipizide 10 mg tablet Take 1.5 tablets every day by oral route. active Not Available Not Available No t Available famotidine 40 mg tablet Take 1 tablet every day by oral route at bedtime. 2019 active Not Available Not Available Not Avai lable hydrocodone 10 mg-acetamino phen 325 mg tablet TAKE ONE Tablet BY MOUTH FOUR TIMES DAILY NEEDED FOR PAIN active Not Available Not Available No t Available omeprazole 40 mg capsule,sunita yed release TAKE ONE Capsule BY MOUTH TWICE DAILY BEFORE MEALS active Not Available Not Available No t Available aspirin 81 mg tablet,delay ed release Take 1 tablet every day by oral route. active Not Available Not Available No t Available tramadol 50 mg tablet 05/21 completed Not Available Not Available Not Available ketorolac 10 mg tablet 05/21 completed Not Available Not Available Not Available amoxicillin 875 mg tablet 05/21 completed Not Available Not Available Not Available aspirin 325 mg tablet,delay ed release 05/21 completed Not Available Not Available Not Available linezolid 600 mg tablet TAKE ONE Tablet BY MOUTH every 12 hours active Not Available Not Available No t Available amlodipine 10 mg tablet Take 1 tablet 3 times a day by oral route. active Not Available Not Available No t Available cephalexin 500 mg capsule TAKE ONE Capsule BY MOUTH THREE TIMES DAILY FOR 7 DAYS active Not Available Not Available No t Available pantoprazole 40 mg tablet,delay ed release Take 1 tablet every day by oral route before meals. 07/30 completed Not Available Not Available Not Available gabapentin 300 mg capsule TAKE ONE Capsule BY MOUTH EVERY 8 HOURS active Not Available Not Available No t Available morphine ER 15 mg tablet,exten ded release active Not Available Not Available Not Available celecoxib 100 mg capsule 11/27 completed Not Available Not Available Not Available lisinopril 40 mg tablet Take 1 tablet every day by oral route. active Not Available Not Available No t Available amoxicillin 875 mg-potassium clavulanate 125 mg tablet 05/21 completed Not Available Not Available Not Available clindamycin phosphate 1 % topical solution 07/14 completed Not Available Not Available Not Available metoprolol tartrate 25 mg tablet Take 1 tablet twice a day by oral route. 07/30 completed Not Available Not Available Not Available duloxetine 30 mg capsule,sunita yed release TAKE ONE CAPSULE BY MOUTH EVERY DAY active Not Available Not Available No t Available chlorhexidin e gluconate 0.12 % mouthwash 05/21 completed Not Available Not Available Not Available Narcan 4 mg/actuation nasal spray 07/14 completed Not Available Not Available Not Available Vitals Date Recorded Body height Body mass index (BMI) Body weight Heart rate Systolic blood pressure Diastolic blood pressure Provider Name and Address Organization Details Last Updated DateTime 9 168.91 cm 29.9 kg/m2 35301.0 8 g 62 /min 132 mm[Hg] 62 mm[Hg] Kathryn Rodríguez [facility] 9 09:47:07 Date Recorded Body height Body mass index (BMI) Body weight Heart rate Systolic blood pressure Diastolic blood pressure Provider Name and Address Organization Details Last Updated DateTime 9 168.91 cm 29.8 kg/m2 83911.2 1 g 77 /min 110 mm[Hg] 70 mm[Hg] Kathryn Rodríguez [facility] 9 16:21:53 Date Recorded Body height Heart rate Body mass index (BMI) Body weight Systolic blood pressure Diastolic blood pressure Provider Name and Address Organization Details Last Updated DateTime 9 168.91 cm 67 /min 29.4 kg/m2 90288.3 1 g 134 mm[Hg] 68 mm[Hg] Karen Smart LPN [facility] 9 10:08:59 Date Recorded Body height Body mass index (BMI) Body weight Heart rate Systolic blood pressure Diastolic blood pressure Provider Name and Address Organization Details Last Updated DateTime 9 168.91 cm 30.1 kg/m2 45942.6 8 g 63 /min 122 mm[Hg] 74 mm[Hg] Elizabethpradeep Garcia [facility] 9 12:23:34 Date Recorded Body height Body mass index (BMI) Body weight Heart rate Systolic blood pressure Diastolic blood pressure Provider Name and Address Organization Details Last Updated DateTime 0 168.91 cm 28.6 kg/m2 28237.3 5 g 68 /min 142 mm[Hg] 58 mm[Hg] Alexandrea Golden [facility] 0 14:41:09 Social History Question Answer Notes LastModified by Organizat ion Details LastModified Time Tobacco Smoking Status [facility] 09:34:20 What Was The Date Of Your Most Recent Tobacco Screening? 07/30/2018 Information n ot available 10/02/2018 How Many Years Have You Smoked Tobacco? 15 Information not available 05/21/2018 Sex: Male Functional Status None recorded. Mental Status None recorded. Family History Nothing Reported. Medical History Condition Response Pancreatitis N HIV or AIDS N Coronary Artery Disease N Gout N Other Y Atrial Fibrillation N Hyperthyroidism N Emphysema N Chronic Sinusitis N Reflux Disease N Sexually Transmitted Disease N Depression N COPD N Pneumonia N Migraine Headaches N Chronic Lung Disease N Psychological Problems N Hemorrhoids N Obesity N Morbidly Obese N Arthritis N Cirrhosis of Liver N Diverticulosis N Chronic Anxiety N Cancer N Stroke N Crohn's Disease N Polio N Skin Cancer N Arrhythmia N Rheumatoid Arthritis N Kidney Infection N Fibromyalgia N Irritable Bowel Syndrome N Frequent Urinary Infections N Hiatal Hernia N Anxiety N Abnormal Heart Rhythm N Fatigue N Gallstones N Breast Cysts/Benign Lesion N Constipation N Transfusions N Milk Intolerance N Ulcers N Acid Reflux/GERD N Rheumatic Fever N Cataracts N Bleeding Disorder N Tuberculosis N AIDS/HIV N Asthma N Allergies N Ear Infection N Peripheral Vascular Disease N Neurologic/Mental Disorder N Hepatitis N Pulmonary Embolism N Colon Cancer N H-Pylori N Hernia N Lung Disease N Hypothyroidism N Fatty Liver N Pacemaker N [place] N Iron Infusion N Ovarian Cyst N Deep Vein Thrombosis N Thyroid Problems/Disease N Leg Swelling/Edema Y TB Skin Test Positive N Bladder or Kidney Problems N High Cholesterol N Liver Disease N Valvular Abnormalities N Stomach/duodenal ulcer N Gastroparesis N Chronic Cough N Osteoarthritis N Colitis N Parkinson's Disease N Groin Hernia N Chronic Obstructive Pulmonary Disorder ( COPD) N Anemia N Multiple Sclerosis N Colon Polyps N Heart Attack ([place]) N Irregular Heart Beat N Iritis N High Triglycerides N Diabetes Y Seizures/Epilepsy N Headaches or Migraines N Heart Murmur N Congestive Heart Failure (CHF) N Hyperlipidemia N Kidney Failure N Phlebitis N Diverticulitis N Psoriasis N Ulcerative Colitis N Warfarin Management N Hypertension N Stomach or Intestinal Disease N Osteoporosis N Past Encounters Encounter ID Performer Location Encounter Start Date Encounter Closed Date Diagnosis/Indication Diagnosis SNOMED-CT Code Diagnosis ICD10 Code Diagnosis Note [id number] [facility] [address] [address] 05/27/2008 09:08:08 05/27/2008 10:58:51 [id number] [facility] [address] [address] 11/15/2008 16:48:42 11/15/2008 17:32:53 [id number] [facility] [address] [address] 11/24/2008 09:11:54 11/24/2008 09:48:30 [id number] [facility] [address] [address] 11/21/2008 00:00:00 05/01/2012 03:30:46 [id number] [facility] [address] [address] 11/21/2008 09:13:06 11/21/2008 11:21:02 [id number] [facility] [address] [address] 01/06/2009 08:56:25 01/06/2009 11:56:41 [id number] [facility] [address], [place] [address] 03/06/2009 09:15:26 03/06/2009 09:51:00 [id number] [facility] [address], [place] [address] 03/31/2009 09:05:29 03/31/2009 12:58:39 [id number] [facility] [address], [place] [address] 03/27/2009 10:15:05 03/27/2009 10:15:28 [id number] [facility] [address], [place] [address] 11/16/2009 08:47:10 11/16/2009 10:46:11 [id number] [facility] [address], [place] [address] 12/06/2009 16:25:14 12/06/2009 17:27:43 [id number] [facility] [address], [place] [address] 07/04/2010 11:29:46 07/04/2010 12:04:58 [id number] [facility] [address], [place] [address] 11/06/2010 16:22:00 11/06/2010 16:59:15 [id number] [facility] [address] [address] 11/19/2010 10:09:47 11/19/2010 10:51:41 [id number] [facility] [address], [place] [address] 01/21/2011 16:37:44 01/21/2011 17:09:49 [id number] [facility] [address], [place] [address] 02/11/2011 08:28:23 02/11/2011 09:48:19 [id number] [facility] [address] [place] [address] 02/18/2011 08:02:22 02/18/2011 10:27:02 [id number] [facility] [address], [place] [address] 02/08/2011 09:40:15 02/08/2011 11:03:51 [id number] [facility] [address] [place] [address] 02/04/2011 09:17:34 02/04/2011 09:58:14 [id number] [facility] [address], [place] [address] 05/20/2011 10:08:45 05/20/2011 11:03:02 [id number] [facility] [address] [place] [address] 11/14/2011 12:34:27 11/14/2011 13:03:00 [id number] [facility] [address] [place] [address] 10/08/2011 11:02:29 10/08/2011 17:53:52 [id number] [facility] [address] [place] [address] 02/04/2012 08:41:15 02/04/2012 14:54:09 [id number] [facility] [address] [place] [address] 06/05/2012 10:56:52 06/05/2012 16:47:47 [id number] Ivette Altman [facility] [address] [place] [address] 11/26/2012 09:42:46 11/26/2012 16:06:33 [id number] Ivette Altman [facility] [address] [place] [address] 05/06/2013 10:45:26 05/06/2013 17:16:45 [id number] Ivette Altman [facility] [address] [place] [address] 07/02/2013 09:38:01 07/05/2013 12:30:12 [id number] Elizabeth Suarez [facility] [address] [place] [address] 09/09/2013 14:04:58 09/13/2013 15:34:24 [id number] [facility] [address] [place] [address] 12/17/2013 11:39:01 12/17/2013 14:52:28 [id number] [facility] [address] [place] [address] 12/29/2013 09:55:19 12/29/2013 16:19:48 [id number] Connie Lopez LPN [facility] [address] [place] [address] 01/24/2014 10:02:01 01/24/2014 16:35:45 [id number] Korina Shea [facility] [address] [place] [address] 03/07/2014 11:38:05 03/07/2014 14:03:49 [id number] Delicia Morgan MD [facility] [address] [place] [address] 08/08/2014 14:24:34 08/08/2014 15:38:26 [id number] [facility] [address] [place] [address] 08/23/2014 15:50:34 08/24/2014 20:41:01 [id number] Magdalene Cortes, Roll Builder [facility] [address] [place] [address] 10/20/2014 15:42:43 10/21/2014 10:01:25 [id number] Elizabeth Suarez [facility] [address] [place] [address] 02/08/2015 08:32:22 02/08/2015 17:10:50 [id number] Elizabeth Suarez [facility] [address] [place] [address] 02/15/2015 08:49:56 02/15/2015 14:37:41 [id number] Delicia Morgan MD [facility] [address], [place] [address] 05/11/2015 15:43:20 05/11/2015 17:39:07 [id number] Delicia Morgan MD [facility] [address], [place] [address] 10/26/2015 14:45:17 10/26/2015 17:53:10 [id number] Delicia Morgan MD [facility] [address], [place] [address] 02/16/2016 09:24:10 02/16/2016 11:56:19 [id number] Delicia Morgan MD [facility] [address], [place] [address] 07/22/2016 09:17:57 07/22/2016 11:10:38 [id number] NOLAN BEDOYA DO [facility] [place] [address] 08/12/2016 11:18:47 08/12/2016 12:26:22 [id number] NOLAN BEDOYA DO [facility] [place] [address] 08/26/2016 15:48:20 08/26/2016 17:08:39 [id number] NOLAN BEDOYA DO [facility] [place] [address] 09/11/2016 09:21:13 09/11/2016 09:39:45 [id number] Judie Marsh NP [facility] [address] [place] [address] [address] 02/18/2018 15:21:47 02/18/2018 18:08:55 [id number] АЛЕКСАНДР Carbajal [facility] [address] [address] 03/06/2018 08:03:31 03/06/2018 10:25:27 [id number] АЛЕКСАНДР Carbajal [facility] [address] [place] [address] 03/11/2018 09:43:07 03/11/2018 13:06:36 [id number] Judie Marsh NP [facility] [address] [place] [address] 03/16/2018 08:00:48 03/16/2018 11:50:03 [id number] Delicia Morgan MD [facility] [address] [place] [address] 03/26/2018 08:28:55 03/26/2018 09:45:13 [id number] Delicia Morgan MD [facility] [address] [place] [address] 03/30/2018 16:43:28 03/30/2018 17:22:[id number] [facility] [address] [facility] [address] [address] 05/21/2018 09:06:02 05/21/2018 10:24:32 Gastroesophageal reflux disease 165396156 K21.9 New problem: (Work up required): Globus sensation. Likely GERD. Will attempt daily PPI and f/u in 2 months. Consider EGD if not improved. Antireflux measures as below. [id number] Delicia Morgan MD [facility] [address] [place] [address] 05/25/2018 08:21:46 05/25/2018 09:53:54 [id number] NA Floyd [facility] [address] [place] [address] 06/08/2018 08:21:52 06/08/2018 11:13:53 [id number] Delicia Morgan MD [facility] [address] [place] [address] 06/11/2018 09:04:42 06/11/2018 10:08:[id number] [facility] [address] [facility] [address] [address] 06/17/2018 16:06:01 06/18/2018 13:12:36 Gastroesophageal reflux disease 903511593 K21.9 New problem: (Work up required): Asymptomat ic other than cough but Pt reports failure of pantoprazo le after 2 weeks. Will change PPI to omeprazole . Will send for EGD for evaluation although suspect treatment will not change. Chronic cough 25448809 R 05 New problem: (Work up required): Consider other etiologies such as seasonal allergies and attempt trial of antihistam ine. Reports on lisinopril for 10 year without cough as side effect. [id number] Delicia Morgan MD [facility] [address] [place] [address] 06/23/2018 10:26:31 06/23/2018 14:41:46 [id number] Judie Marsh NP [facility] [address] [place] [address] 07/15/2018 14:03:41 07/15/2018 15:10:[id number] [facility] [address] [facility] [address] [place] [address] 07/30/2018 09:50:44 07/30/2018 10:35:37 Gastroesophageal reflux disease 378803466 K21.9 Establishe d (improved) : Improved with omeprazole and diet modificati on. Has EGD scheduled next month. [id number] Judie Marsh NP [facility] [address] [place] [address] 08/04/2018 08:26:40 08/04/2018 12:03:[id number] [facility] [address] [place] [address] 11/27/2018 12:11:30 11/27/2018 13:05:16 Gastroesophageal reflux disease [id number] K21.9 Establishe d (improved) : discussed EGD with mild gastritis and negative pathology. Symptoms have improved significan tly with omeprazole twice daily and famotidine at bedtime. Antireflux measures reinforced . Will continue current treatment and discussed methods to wean down on acid suppressio n. Follow-up 1 year [id number] Judie Marsh NP [facility] [address] [place] [address] 02/02/2019 09:26:24 02/02/2019 12:42:17 [id number] Delicia Morgan MD [facility] [address] [place] [address] 05/04/2019 08:44:39 05/04/2019 10:41:[id number] [facility] [address] [place] [address] 07/15/2019 14:05:58 07/15/2019 15:16:36 Gastroesophageal reflux disease [id number] K21.9 Establishe d (improved) : Mild gastritis and negative pathology. Symptoms have improved significan tly with omeprazole twice daily and famotidine at bedtime. Antireflux measures reinforced . Will continue current treatment and discussed methods to wean down on acid suppressio n. Follow-up 1 year [id number] Judie Marsh NP [facility] [address] [place] [address] 07/26/2019 15:05:58 07/26/2019 19:04:20 [id number] Judie Marsh NP [facility] [address] [place] [address] [address] 08/16/2019 11:01:38 08/16/2019 12:55:01 [id number] Carmelo Hernandez MD [facility] [address] [facility] [address] [place] [address] 09/17/2019 12:38:55 09/17/2019 14:13:59 [id number] Emily Stanley NP [facility] [address] [facility] [address] [address] [place] [address] 11/01/2019 12:32:44 11/01/2019 15:24:11 [id number] Judie Marsh NP [facility] [address] [place] [address] 11/10/2019 09:47:17 11/10/2019 11:44:52 [id number] Judie Marsh, LIONEL [facility] [address] [place] [address] 11/24/2019 09:22:29 11/24/2019 11:06:22 [id number] Judie Marsh NP [facility] [address] [place] [address] 12/08/2019 08:33:36 12/08/2019 09:55:15 [id number] Judie Marsh NP [facility] [address] [place] [address] 02/23/2020 11:52:04 02/23/2020 13:47:09 [id number] [facility] [address] [place] [address] 02/24/2020 08:10:39 02/24/2020 09:58:34 [id number] [facility] [address] [place] [address] 06/23/2020 09:38:02 06/23/2020 11:36:20 Health Concerns Section Related Observation LastModified by Organization Detai ls LastModified Time None Recorded Concern Status LastModified by Organization Details LastModified Time None Recorded Advance Directives Directive None Recorded Payers Encounter Date Sequence Insurance Name Policy Number Policy Byrnes Covered Member ID Byrnes Member ID Guarantor Name 05/21/2018 1 [facility] [place] [facility] Chester R Gama [id number] Chester R Gama 05/21/2018 2 [place] 104 Chester R Gama [id number] Chester R Gama 06/17/2018 1 MEDICARE B[facility] Chester R Gama [id number] Chester R Gama 06/17/2018 2 [place] 104 Chester R Gama [id number] Chester R Gama 07/30/2018 1 [facility] MEDIC[facility] Chester Gama [id number] Chester Gama 07/30/2018 2 [place] 104 Chester Gama [id number] Chester Gama 11/27/2018 1 [facility]IC[facility] B[facility] [place] - [place]IL[facility] MEDICARE Chester Gama [id number] Chester Gama 11/27/2018 2 [place] 104 Chester Gama [id number] Chester Gama 07/15/2019 1 [facility] MEDIC[facility] Chester Gama [id number] Chester Gama 07/15/2019 2 [place] 104 Chester Gama [id number] Chester Gama Notes Date Note Type Note Provider Name and Address Organization Details Recorded Time 05/21/2018 text/html Reflux/GERDRepor sunshine bypatient.Symptomsn o difficulty swallowing; no pain swallowing; globus sensation Onset/Timing:gradua l onset; continuous Context:non-smoker; no drug/alcohol abuse Associated Symptoms:no nausea; no regurgitation; no shortness of breath; no chest pain; no heartburn; no difficulty swallowing; no pain when swallowing; no bad taste; no decreased appetite; no weight loss; no black/tarry stools;feels like fullness/mass in throatNotes:He reports GERD 15 years ago and was on PPI for short time but hasn't needed any since. States feeling a lump in his throat but no difficulty or pain with swallowing. Denies feeling any heartburn. No weight loss, abdominal pain, nausea or vomiting. No blood in stool. Had colonoscopy in [address] Martinez that was normal. ROLANDO COOMBS NP [address], [place], [address], [facility] 05/21/2018 10:31:40 06/17/2018 text/html Reflux/GERDRepor sunshine bypatient.Symptomsn o difficulty swallowing; no pain swallowing; globus sensation Onset/Timing:gradua l onset; continuous Context:non-smoker; no drug/alcohol abuse Associated Symptoms:no nausea; no regurgitation; no shortness of breath; no chest pain; no heartburn; no difficulty swallowing; no pain when swallowing; no bad taste; no decreased appetite; no weight loss; no black/tarry stools;feels like fullness/mass in throatNotes:F/U on GERD. He reported failure of pantoprazole after 2 weeks. He is asymptomatic other than chronic cough. I added famotidine at bedtime but he reports not working < 5 days after attempting. He is insisting his chronic cough is GERD related. He has been on lisinopril for 10 years without cough. He denies allergy symptoms but does report symptoms to include runny nose, coughing, sneezing. Not on antihistamine and did not attempt trial as instructed at [facility].Had colonoscopy in [address] Martinez that was normal. ROLANDO COOMBS NP [address] [place], [address], [facility] 06/17/2018 17:17:49 07/30/2018 text/html Reflux/GERDRepor sunshine bypatient.Notes:F/U on GERD. Stopped pantoprazole after 2 weeks as was not effective. Changed PPI to omeprazole at [facility]. Symptoms improved. No dysphagia or weight loss. Chronic cough improved. Has EGD next month ROLANDO COOMBS NP [address] [place], [address], [facility] 07/30/2018 10:38:30 11/27/2018 text/html Reflux/GERDRepor sunsihne bypatient.Symptomsn o difficulty swallowing; no pain swallowing; no postprandial pain; heartburn Severity:improvingN otes:symptoms improved on omeprazole twice daily and famotidine at bedtime. Reports clearing throat less now. No dysphagia. No melena ROLANDO COOMBS NP [address] [place], [address], [facility] 11/27/2018 13:58:49 07/15/2019 text/html Reflux/GERDRepor sunshine bypatient.Symptomsn o difficulty swallowing; no pain swallowing; no postprandial pain; heartburn Severity:improvingN otes:symptoms improved on omeprazole twice daily and famotidine at bedtime. Ranitidine not as effective when famotidine was on back order. Reports clearing throat less now. No dysphagia. No melena. Weight loss of 9 lbs since November. ROLANDO COOMBS NP [address], [place], [address], [facility] 07/15/2019 15:12:51
--- OUTSIDE RECORDS SUMMARY | 2024-06-08 07:49 | XMS_ITS | Referral Summary ---
Author Organization [facility] [address] [place] [address] [address] [place] [address] Care Team Providers Care Pleating Supervisor Name Role Phone Makayla Ann MD Primary Care Provider [phone] Encounters Date Type Department Care Team Description 05/31/2024 12:15 PM CDT Office Visit [facility] Cardiology [address] [place] [address] Trisha Melendez MD Premature atrial contraction (Primary Dx); Hypertension associated with diabetes (HCC); Hyperlipidemia associated with type 2 diabetes mellitus (HCC); Hx of CABG; Coronary artery disease involving [place] coronary artery of [place] heart without angina pectoris; JAMILAH (obstructive sleep apnea) 03/22/2024 2:00 PM ETHANOL QUALITY LEADER Office Visit [facility]) - [facility] ENT [address] [facility] Medical Office Building [address] [place] [address] Olga Nava MD Obstructive sleep apnea (adult) (pediatric) (Primary Dx); Dysphonia; 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 Months Allergies Active Allergy Reactions Criticality Noted Date [...] CABG 08/30/2022 Coronary artery disease invo lving shungnak coronary artery of [place] heart without angina pectoris 08/30/2022 Premature atrial contraction 08/30/2022 Hypertension associated with diabetes 08/30/2022 Hyperlipidemia associated with type 2 diabetes m ellitus 08/30/2022 Social History Tobacco Use Types Packs/Day Years Used Date Smoking Tobacco: Former Cigarettes 1.3 18 Smokeless Tobacco: Former Tobacco Cessation:Counseling Given: Not Answered Sex and Gender Information Value Date Recorded Sex Assigned at Not on file Legal Sex Male 5:11 AM ETHANOL QUALITY LEADER Gender Identity Not on file Sexual Orientation [...] 05/31/2024 12:34 PM CDT Plan of Treatment Not on file Procedures Procedure Name Priority Date/Time Associated Diagnosis [...] Capillary blood 05/31/2024 1 :07 PM CDT us Trisha Melendez MD POINT OF CARE TEST O RDERABLES Final Result from Last 3 Months Insurance MEDICARE RAILROAD [facility] MEDICARE [facility]ILROAD [facility] MEDICARE [facility]ILROAD [facility] Member Subscriber Plan / Payer (Ef fective 2016-Present) Name:Chester Gama Relation to Subscriber:Self Name:Chester Gama Payer ID:[id number] (NAIC) Group ID:[id number] Type:BC ALLIANCE Address: [facility] [id number] [place] [id number] Care Teams Pleating Supervisor Relationship Specialty Start Date End Date Makayla Ann MD PCP - General Family Medicine 08/15/22
--- OUTSIDE RECORDS SUMMARY | 2024-06-08 07:49 | XMS_ITS | Encounter Summary ---
Author Name [facility] [place] [facility] [place] Address [address] [place] [address] Care Team Providers Care Redipper Name Role Phone NORA PASTRANA Primary Care [...] STAND ALYSON IND Aug 08, 2016 104 [id number] [phone] JUDY KIM PATIENT ANTHEM [place] F[place] PREFERRED PROVIDER ORGANIZAT ION (PPO) FEP [place] IND Aug 08, 2016 104 [id number] [phone] JUDY KIM PATIENT [place] PREFERRED PROVIDER ORGANIZAT ION (PPO) FEP [place] IND Aug 08, 2016 104 [id number] [phone] JUDY KIM PATIENT [place] PREFERRED PROVIDER ORGANIZAT ION (PPO) FEP [place] IND Aug 08, 2016 104 [id number] [phone] JUDY KIM PATIENT [place] MEDIC[place] SECONDARY (NO B EXC) FEP 104 Aug 08, 2016 104 [id number] JUDY KIM PATIENT [place] BS [place] F[place] MEDIC[place] SECONDARY (NO B EXC) FEP-M ED SEC Aug 08, 2016 104 [id number] JUDY KIM PATIENT [place] MED[place] SECONDARY (NO B EXC) FEP-M ED SEC Aug 08, 2016 104 [id number] JUDY KIM PATIENT [place] PREFERRED PROVIDER ORGANIZAT ION (PPO) FEP 105 Mar 11, 1999 105 [id number] JUDY KIM PATIENT [place] PREFERRED PROVIDER ORGANIZAT ION (PPO) FEP [place] IND Aug 08, 2016 104 [id number] [phone] JUDY KIM PATIENT BCBS [place] ATTN FEP CLAIMS PREFERRED PROVIDER ORGANIZAT ION (PPO) FEP [place] IND Aug 08, 2016 104 [id number] [phone] JUDY KIM PATIENT [place] PREFERRED PROVIDER ORGANIZAT ION (PPO) FEP [place]AND [place] IND Aug 08, 2016 104 [id number] [phone] JUDY KIMY PATIENT [place] ([id number]) PRESCRIPT ION FEP Mar 11, 1999 [id number] JUDY KIMY PATIENT [place] ([id number]) PRESCRIPT ION FEP Mar 11, 1999 [id number] JUDY KIM PATIENT [place] FEP RX PRESCRIPT ION FEPRX Aug 08, 2016 [id number] [phone] JUDY KIM PATIENT MEDICARE (WN) MEDICARE () RR PART A Oct 08, 2013 RR PART A [id number] [id number] JUDY KIMY PATIENT MEDICARE (WN) MEDICARE () RR PART A Oct 08, 2013 RR PART A [id number] JUDY KIMY PATIENT MEDICARE (WN) MEDICARE () RR PART B Oct 08, 2013 RR PART B [id number] [phone] [id number] KIM,TI MOTHY PATIENT MEDICARE (WNR) MEDICARE (M) RR PART B Oct 08, 2013 RR PART B [id number] KIM,TI MOTHY PATIENT MEDICARE (WNR) MEDICARE (M) PART A Oct 08, 2013 PART A [id number] KIM,TI MOTHY PATIENT MEDICARE (WNR) MEDICARE (M) PART B Oct 08, 2013 PART B [id number] [phone] [id number] KIM,TI MOTHY PATIENT MEDICARE (WNR) MEDICARE (M) PART A Oct 08, 2013 PART A [id number] KIM,TI MOTHY PATIENT MEDICARE (WNR) MEDICARE (M) PART B Oct 08, 2013 PART B [id number] KIM,TI MOTHY PATIENT MEDICARE (WNR) MEDICARE (M) RR PART A Oct 08, 2013 RR PART A [id number] KIM,TI MOTHY PATIENT MEDICARE (WNR) MEDICARE (M) RR PART B Oct 08, 2013 RR PART B [id number] KIM,TI MOTHY PATIENT Selected Encounter This section includes the information on record at [place] for the Encounter. Date/Time Encounter Type Encounter [...] this document. The data comes from all [place] facilities. Date Advance Directives Provider Source July 13, 2014 ADVANCE DIRECTIVE ROLANDO FONSECA [facility]
--- OUTSIDE RECORDS SUMMARY | 2024-06-08 07:49 | XMS_ITS | Continuity of Care Document ---
Author Organization [facility]. If a dditional information is needed, contact Health Information Management at [phone] [address] [place] [address] Phone Care Team Providers Care Sales Representative [employer] Name Role Phone Unavailable Unavailable Unavailable Unavailable Unavailable Unavailable Unavailable Unavailable Unavailable Unavailable Unavailable Unavailable Unavailable Unavailable Unavailable Unavailable Unavailable Unavailable Unavailable Unavailable Unavailable Unavailable Unavailable Unavailable Unavailable Unavailable Unavailable Unavailable Unavailable Unavailable Problems T81.49XA(T81.49XA) Onset:16-Feb-2020 Comments:Onset Date: 20200216 Arthrodesis Onset:11-Feb-2020 Shan Anand OFFSHORE DIVER Post-laminectomy syndrome Onset:11-Feb-2020 Shan Anand [employer]SHORE DIVER Postoperative infection Onset:11-Feb-2020 Shan Anand OFFSHORE DIVER Acute postoperative pain Onset:31-Dec-2019 Fuimaono Sioeli F PA Acute postoperative pain Onset:31-Dec-2019 Fuimaono Sioeli F PA E11.65(E11.65) Onset:29-Dec-2019 Comments:Onset Date: 20200216 Type 2 diabetes mellitus Onset:27-Dec-2019 Sudha Diamond OFFSHORE DIVER Comments:Onset Date: 20191228 Hyperglycemia Onset:27-Dec-2019 Sudha Diamond OFFSHORE DIVER Lumbar spondylolisthesis Onset:22-Dec-2019 Shan Anand [employer]SHORE DIVER Spinal stenosis of lumbar re gion Onset:22-Dec-2019 Shan Anand [employer]SHORE DIVER Lumbar radiculopathy Onset:22-Dec-2019 Shan Anand [employer]SHORE DIVER Degeneration of lumbar intervertebral disc Onset:22-Dec-2019 Shan Anand OFFSHORE DIVER Spinal stenosis of lumbar re gion, unspecified whether neurogenic claudication present Onset:21-Dec-2019 Comments:Onset Date: 20191221 Hyperlipidemia, unspecified hyperlipidemia type Onset:21-Dec-2019 Comments:Onset Date: 20191221 Gastroesophageal reflux dise ase, unspecified whether esophagitis present Onset:21-Dec-2019 Comments:Onset Date: 20191221 Coronary artery disease invo lving tangirnaq coronary artery of tang[place]q heart without angina pectoris Onset:21-Dec-2019 Comments:Onset Date: 20191221 Pre-operative exam Onset:21-Dec-2019 Comments:Onset Date: 20191221 Benign essential HTN Onset:21-Dec-2019 Comments:Onset Date: 20191221 Mental Status Cognitive function finding 23-Dec-2019 Functional Status Functional finding 23-Dec-2019 Allergies and Adverse Reactions pantoprazole(Allergy) Onset: 16-Feb-2020 Reaction:FLU-LIKE SYNDROME oxycodone(Allergy) Onset: 23-Dec-2019 Reaction:HIVES Medications Zyvox;600 MILLIGRAM PO Q12HR Start:18-Feb-2020 Comments:600 MG PO Q12HR 10 ML methocarbamol 100 MG/M L Injection [Robaxin];1 GRAM INTRAVENOUS Q8H PRN Quantity:1 Murali Moore MD Start:14-Feb-2020 Status:Discontinued Comments:[id number] Administration Instructions:GIVE OVER 4-5 MINUTESDO NOT EXCEED 300 MG PER MINUTE 2 ML fentaNYL 0.05 MG/ML Injection Quantity:1 Murali Moore MD Start:14-Feb-2020 Status:Discontinued BKK UNILATERAL COCKTAIL 50 M L SYR;Provider Administration Instructions:BUPIVACAINE 0.25% W/ EPI 1:267718 25 MLKETOROLAC 50 MG; KETAMINE 50 MG; NORMAL SALINETOTAL VOLUME 50 ML Quantity:1 Murali Moore MD Start:14-Feb-2020 Status:Discontinued Comments:Provider Administration Instructions:BUPIVACAINE 0.25% W/ EPI 1:822300 25 MLKETOROLAC 50 MG; KETAMINE 50 MG; NORMAL SALINETOTAL VOLUME 50 ML 2 ML glycopyrrolate 0.2 MG/M L Injection [Robinul] Quantity:1 Murali Moore MD Start:14-Feb-2020 Status:Discontinued neostigmine methylsulfate 1 MG/ML Injectable Solution;Provider Administration Instructions:NEOSTIGMINE 1:1000 (1 MG/ML) Quantity:1 Murali Moore MD Start:14-Feb-2020 Status:Discontinued Comments:Provider Administration Instructions:NEOSTIGMINE 1:1000 (1 MG/ML) 1 ML EPINEPHrine 1 MG/ML Injection Quantity:1 Murali Moore MD Start:14-Feb-2020 Status:Discontinued BUPivacaine hydrochloride 5 MG/ML Injectable Solution [Sensorcaine] Quantity:1 Murali Moore MD Start:14-Feb-2020 Status:Discontinued 2 ML fentaNYL 0.05 MG/ML Injection Quantity:1 Murali Moore MD Start:14-Feb-2020 Status:Discontinued rocuronium bromide 10 MG/ML Injectable Solution;Provider Administration Instructions:PARALYTIC AGENTConcentration: 10 mg/mlDose: ___ ml Quantity:1 Murali Moore MD Start:14-Feb-2020 Status:Discontinued Comments:Provider Administration Instructions:PARALYTIC AGENTConcentration: 10 mg/mlDose: ___ ml propofol 10 MG/ML Injectable Suspension Quantity:1 Murali Moore MD Start:14-Feb-2020 Status:Discontinued lidocaine hydrochloride 20 M G/ML Injectable Solution [Xylocaine] Quantity:1 Murali Moore MD Start:14-Feb-2020 Status:Discontinued acetaminophen 325 MG / HYDROcodone bitartrate 10 MG Oral Tablet [Lortab];1 TABLET PO Q6H PRN Start:31-Dec-2019 Status:Discontinued Comments:1 TAB PO Q6H PRN As Needed for BREAKTHROUGH PAIN morphine sulfate 15 MG Exten ded Release Oral Tablet [MS Contin];15 MILLIGRAM PO Q8HR Start:31-Dec-2019 Status:Discontinued Comments:15 MG PO Q8HR BKK UNILATERAL COCKTAIL 50 M L SYR;Provider Administration Instructions:BUPIVACAINE 0.25% W/ EPI 1:113039 25 MLKETOROLAC 50 MG; KETAMINE 50 MG; NORMAL SALINETOTAL VOLUME 50 ML Quantity:1 Murali Moore MD Start:27-Dec-2019 Status:Discontinued Comments:Provider Administration Instructions:BUPIVACAINE 0.25% W/ EPI 1:850453 25 MLKETOROLAC 50 MG; KETAMINE 50 MG; NORMAL SALINETOTAL VOLUME 50 ML 250 ML lidocaine hydrochlori de 4 MG/ML Injection;Provider Administration Instructions:Concentration: 4000 mcg/ml Standard Drip Quantity:1 Murali Moore MD Start:27-Dec-2019 Status:Discontinued Comments:Provider Administration Instructions:Concentration: 4000 mcg/ml Standard Drip remifentanil 1 MG Injection [Ultiva] Quantity:1 Murali Moore MD Start:27-Dec-2019 Status:Discontinued phenylephrine hydrochloride 10 MG/ML Injectable Solution [Vazculep] Quantity:1 Murali Moore MD Start:27-Dec-2019 Status:Discontinued 2 ML midazolam 1 MG/ML Injec tion Quantity:1 Murali Moore MD Start:27-Dec-2019 Status:Discontinued ondansetron 2 MG/ML Injectab le Solution [Zofran];Provider Administration Instructions:MAX DAILY DOSE OF ONDANSETRON 24 MG FROM ALL SOURCES Quantity:1 Murali Moore MD Start:27-Dec-2019 Status:Discontinued Comments:Provider Administration Instructions:MAX DAILY DOSE OF ONDANSETRON 24 MG FROM ALL SOURCES succinylcholine chloride 20 MG/ML Injectable Solution [Quelicin];Provider Administration Instructions:PARALYTIC AGENT Quantity:1 Murali Moore MD Start:27-Dec-2019 Status:Discontinued Comments:Provider Administration Instructions:PARALYTIC AGENT propofol 10 MG/ML Injectable Suspension Quantity:1 Murali Moore MD Start:27-Dec-2019 Status:Discontinued vecuronium bromide 1 MG/ML Injectable Solution;Provider Administration Instructions:PARALYTIC AGENTConcentration 1 mg/ml (Dilute with 10 ml sterile water) Quantity:1 Murali Moore MD Start:27-Dec-2019 Status:Discontinued Comments:Provider Administration Instructions:PARALYTIC AGENTConcentration 1 mg/ml (Dilute with 10 ml sterile water) lidocaine hydrochloride 20 M G/ML Injectable Solution [Xylocaine] Quantity:1 Murali Moore MD Start:27-Dec-2019 Status:Discontinued sodium chloride 9 MG/ML Injectable Solution Quantity:1 Murali Moore MD Start:27-Dec-2019 Status:Discontinued 1 ML phenylephrine hydrochlo ride 10 MG/ML Injection [Vazculep] Quantity:1 Murali Moore MD Start:27-Dec-2019 Status:Discontinued ketamine 10 MG/ML Injectable Solution [Ketalar] Quantity:1 Murali Moore MD Start:27-Dec-2019 Status:Discontinued propofol 10 MG/ML Injectable Suspension Quantity:1 Murali Moore MD Start:27-Dec-2019 Status:Discontinued Neomycin 40 MG/ML / Polymyxi n B [id number] UNT/ML Irrigation Solution [Neosporin G. U. Irrigant] Quantity:1 Murali Moore MD Start:27-Dec-2019 Status:Discontinued heparin sodium, porcine 1000 UNT/ML Injectable Solution Quantity:1 Murali Moore MD Start:27-Dec-2019 Status:Discontinued Thrombin 1000 UNT/ML Topical Solution [Recothrom];Provider Administration Instructions:( FOR TOPICAL APPLICATION ONLY ) Quantity:1 Murali Moore MD Start:27-Dec-2019 Status:Discontinued Comments:Provider Administration Instructions:( FOR TOPICAL APPLICATION ONLY ) BUPivacaine hydrochloride 5 MG/ML Injectable Solution [Sensorcaine] Quantity:1 Murali Moore MD Start:27-Dec-2019 Status:Discontinued 1 ML EPINEPHrine 1 MG/ML Injection Quantity:1 Murali Moore MD Start:27-Dec-2019 Status:Discontinued cholecalciferol 0.125 MG Ora l Capsule;5000 UNITS PO DAILY Start:23-Dec-2019 Comments:5000 UNITS PO DAILY calcium;600 MILLIGRAM PO WESLEY LY Start:23-Dec-2019 Comments:600 MG PO DAILY acetaminophen 325 MG / HYDROcodone bitartrate 10 MG Oral Tablet [Lortab];1 TABLET PO Q6H PRN Start:21-Dec-2019 Status:Discontinued Comments:1 TAB PO Q6H PRN As Needed for back pain atorvastatin 80 MG Oral Tablet;80 MILLIGRAM PO DAILY AM Start:21-Dec-2019 Comments:80 MG PO DAILY AM glipiZIDE 10 MG Oral Tablet; 10 MILLIGRAM PO AC BK Start:21-Dec-2019 Comments:10 MG PO AC BK glipiZIDE 5 MG Oral Tablet;5 MILLIGRAM PO AC SUPPER Start:21-Dec-2019 Comments:5 MG PO AC SUPPER omeprazole 40 MG Delayed Rel ease Oral Capsule;40 MILLIGRAM PO BID Start:21-Dec-2019 Comments:40 MG PO BID gabapentin 300 MG Oral Capsu le [Neurontin];300 MILLIGRAM PO BID Start:21-Dec-2019 Comments:300 MG PO BID lisinopril 40 MG Oral Tablet ;40 MILLIGRAM PO DAILY Start:21-Dec-2019 Comments:40 MG PO DAILY aspirin 81 MG Delayed Releas e Oral Tablet;81 MILLIGRAM PO DAILY Start:21-Dec-2019 Comments:81 MG PO DAILY amLODIPine 5 MG Oral Tablet; 5 MILLIGRAM PO DAILY Start:21-Dec-2019 Comments:5 MG PO DAILY Social History Smoking Status Ex-smoker Recorded: 23-Dec-2019 Encounters Ambulatory 05-May-2017 20:35 [facility] ([facility]
--- OUTSIDE RECORDS SUMMARY | 2024-06-08 07:49 | XMS_ITS | Data Portability ---
Author Organization [place] [facility] [place] [facility] Address [address] [place] [address] Care Team Providers Care Emergency Medicine Nurse Practitioner Name Role Phone DELICIA DEVI Primary Care Provider [phone] Assessment Encounter Date Assessment Date Assessment LastModified by Organization Details LastModified Time 03/06/2015 03/06/2015 #1: Coronary artery disease status post bypass graft surgery: He is doing remarkably well and is completely asymptomatic. He will continue on medical management #2: Hyperlipidemia:li pid profile is satisfactory. He will continue on Lipitor #3: Hypertension: Blood pressure is very well controlled #4: Qmc-izsqcii-rmkxr dent diabetes mellitus: This is being managed by primary care physician elma Not available 03/06/2015 17:26:25 09/04/2017 09/04/2017 #1: Coronary artery disease status post bypass graft surgery: For the last few months he has been feeling extremely tired. He has occasional episodes of breathlessness. Denies of having chest pain. His EKG shows marked bradycardia with PVC. Today I asked him to stop taking metoprolol gradually he needs to have a nuclear stress test and Holter monitor. #2: Hyperlipidemia: This is being managed by primary care physician #3: Hypertension: Blood pressure is very well controlled #4: Jnu-zghocvx-vcvra dent diabetes mellitus: This is being managed by primary care physician elma Not available 09/04/2017 16:05:21 10/07/2017 10/07/2017 #1: Coronary artery disease status post bypass graft surgery: For the last few months he has been feeling extremely tired. He has occasional episodes of breathlessness. Denies of having chest pain. His EKG shows marked bradycardia with PVC. Today I asked him to stop taking metoprolol gradually . He had a nuclear stress test which does not show any ischemia or scar. Holter monitor does not show any arrhythmia or pauses. He will continue on medical management unless or until he continued to have episodes of chest pain, breathlessness and tiredness if that is the case then I would proceed with cardiac catheterization. #2: Hyperlipidemia: This is being managed by primary care physician #3: Hypertension: Blood pressure is very well controlled #4: Zry-ajmdkis-nqxzp dent diabetes mellitus: This is being managed by primary care physician elma Not available 10/07/2017 15:10:21 12/31/2017 12/31/2017 #1: Coronary artery disease status post bypass graft surgery: He had a nuclear test earlier this year which was normal. He is not having any further chest pain. He will continue on medical management. #2: Hyperlipidemia: This is being managed by primary care physician #3: Hypertension: Blood pressure is very well controlled #4: Aoc-preskmj-gukug dent diabetes mellitus: This is being managed by primary care physician elma Not available 12/31/2017 15:51:43 07/01/2018 07/01/2018 #1: Coronary artery disease status post bypass graft surgery: He had a nuclear test earlier this year which was normal. He is not having any further chest pain. He will continue on medical management. #2: Hyperlipidemia: This is being managed by primary care physician #3: Hypertension: Blood pressure is very well controlled #4: Nsv-nyxczbl-sgfrn dent diabetes mellitus: This is being managed by primary care physician elma Not available 07/01/2018 15:31:03 Plan of Treatment Reminders Order Date Submit Date Provider Last Modified By Organization Details Last Modified Time Details Appointments None record ed. Lab lipid panel, serum 2017 018 hclinard Not available 8 16:18:24 hepati c functi on panel, serum 2017 018 hclinard Not available 8 16:18:24 lipid panel, serum 2014 015 MICHAEL Not available 5 10:11:13 hepati c functi on panel, serum 12/28/ 2015 12/28/2 015 Not available 5 17:31:54 Referral None record ed. Procedures None record ed. Surgeries None record ed. Imaging electr armandoalejandra vestaram 2018 019 [email or web address] [facility] (For Internal Use Only), [address], [place], [address], 9 17:05:39 electr armandoalejandra vestaram 2017 018 [email or web address] [facility] (For Internal Use Only), [address], [place], [address], 8 17:44:51 pharma cologi c stress test 2017 018 [email or web address] [facility] Orders (For Internal Use Only), [address], [place], [address], 8 08:44:46 holter monito r 2017 018 hclinard [facility] (For Internal Use Only), [address], [place], [address], 8 08:53:24 electr armandoalejandra vestavic, POC 2014 015 [facility] (For Internal Use Only), [address], [place], [address], 5 17:32:09 Medication Orders None record ed. Patient TargetsNo targets recorded. Patient Instructions Encounter Date Encounter Id Patient Instructions Last Modified By Organization Details Last Modified Time 03/06/2015 [id number] learning about type 2 diabetes Not available 03/06/2015 17:28:39 type 2 diabetes: care instructions Not available 03/06/2015 17:28:39 high blood pressure: care instructions Not available 03/06/2015 17:28:39 learning about high blood pressure Not available 03/06/2015 17:28:39 09/04/2017 [id number] learning about type 2 diabetes Not available 09/04/2017 16:08:12 type 2 diabetes: care instructions Not available 09/04/2017 16:08:12 high blood pressure: care instructions Not available 09/04/2017 16:08:12 learning about high blood pressure Not available 09/04/2017 16:08:12 Reason for Referral None Reported. Results Created Date Observation Date Name Description Value Unit Range Abnormal Flag Note LastModifiedBy Organization Detail LastModifiedTime 09/18/19 18 09/17/2017 pharm acolo gic stres s test No observ ation record ed. hclinard [facility] (For Internal Use Only) [address] , [place], [address], 09/17/2017 16:28:41 10/03/19 18 09/24/2017 cole r monit or No observ ation record ed. BARCODE [facility] (For Internal Use Only) [address], [place], [address], 10/02/2017 14:45:21 Result Notes None recorded. Problems Name Problem SNOMED Code Status Onset Date Resolution Date Notes Provider Name and Address Organization Details Recorded Time Hyperlipide marty [id number] Jeremy Alston MD [address] [place] [address], [place], [address], [facility] 5 17:26:25 Coronary bypass graft finding 742892325 [facility] 5 16:44:44 Coronary arterioscle rosis in [place] artery [id number] Jeremy Alston MD [address] [place] [address], [place], [address], [facility] 5 17:26:24 Benign essential hypertensio n [id number] Jeremy Alston MD [address] [place] [address], [place], [address], [facility] 5 17:26:25 Type 2 diabetes mellitus [id number] Jeremy Alston MD [address] [place] [address], [place], [address] [place] [facility] 5 17:26:25 Problem Notes None recorded. Procedures Surgical History Date Name Laterality Status Provider Name and Address Organization Details Recorded Time 09/25/19 18 Holter/Event Recorder completed Komal Clinard [place] [facility] 10/02/2017 14:19:49 09/18/19 18 Nuclear Study completed Komal Clinard [place] [facility] 09/30/2017 10:11:21 03/10/19 11 Cholecystectomy completed Soraya T Rachel [place] [facility] 03/06/2015 16:52:03 12/09/19 10 Nuclear Study completed Soraya T Rachel [place] [facility] 02/28/2015 12:54:35 05/09/19 07 CABG completed Soraya T Rachel [place] [facility] 02/28/2015 12:54:35 03/10/19 07 Knee Surgery completed Soraya T Rachel [place] [facility] [place] 03/06/2015 16:52:03 03/10/18 55 Hernia Repair completed Soraya T Rachel [place] [facility] [place] 03/06/2015 16:52:03 Imaging Results Imaging Date Name Status LastModified by Organization Details LastModified Time 09/17/[address] [facility] In-Office Orders (For Internal Use Only) [address] [place], [address], 09/17/2017 16:28:41 09/24/2017 holter monitor completed [facility] as In-Office Orders (For Internal Use Only) [address] , [place], [address], 10/02/2017 14:45:21 Procedure Notes None recorded. Medical Equipment None Reported. Allergies Allergen ID Allergen Name Allergen Category Reaction Reaction Severity Criticality Documentation Date Start Date Code Code System Note Provider Name and Address Organization Details Recorded Time 633896 acetamino phen / oxycodone medicatio n Not available Not available Not available 03/06/2015 89617 3 RxNorm Soraya T Rachel null, [place] [facility] [place] 5 16:52:04 Medications Name Sig Start Date Stop Date Status Note LastModified by Organization Details LastModified Time amoxicillin 500 mg capsule active Not Available Not Available Not Available atorvastatin 40 mg tablet Take 1 tablet every day by oral route. active Not Available Not Available No t Available glipizide 10 mg tablet Take 1 tablet every day by oral route. active Not Available Not Available No t Available Viagra 50 mg tablet Take 1 tablet every day by oral route. active Not Available Not Available No t Available acetaminophe n 300 mg-codeine 30 mg tablet active Not Available Not Available Not Available hydrocodone 10 mg-acetamino phen 325 mg tablet active Not Available Not Available Not Available omeprazole 40 mg capsule,sunita yed release active Not Available Not Available Not Available aspirin 81 mg tablet,delay ed release Take 1 tablet every day by oral route. active Not Available Not Available No t Available Celebrex 100 mg capsule Take 1 capsule every other day by oral route. active Not Available Not Available No t Available amlodipine 10 mg tablet Take 1 tablet every day by oral route. active Not Available Not Available No t Available lisinopril 10 mg tablet Take 1 tablet every day by oral route. active Not Available Not Available No t Available lansoprazole 30 mg capsule,sunita yed release active Not Available Not Available Not Available diclofenac potassium 50 mg tablet active Not Available Not Available No t Available methylpredni solone 4 mg tablets in a dose pack active Not Available Not Available No t Available hydrocortiso ne 2.5 % topical ointment active Not Available Not Available Not Available lisinopril 40 mg tablet Take 1 tablet every day by oral route. active Not Available Not Available No t Available glipizide 5 mg tablet Take 1 tablet every day by oral route. active Not Available Not Available No t Available metoprolol tartrate 25 mg tablet Take 1 tablet twice a day by oral route. 09/04 completed Not Available Not Available Not Available chlorhexidin e gluconate 0.12 % mouthwash active Not Available Not Available No t Available Vitals Date Recorded Body weight Body mass index (BMI) Body height Heart rate Oxygen saturation Oxygen saturation in Arterial blood by Pulse oximetry Systolic blood pressure Diastolic blood pressure Provider Name and Address Organization Details Last Updated DateTime 8 34825 g 29.7 kg/m2 167.64 cm 53 /min 97 % 97 % 112 mm[Hg] 64 mm[Hg] Staci Morales [facility] 8 15:52:40 Date Recorded Body height Body mass index (BMI) Body weight Heart rate Oxygen saturation Oxygen saturation in Arterial blood by Pulse oximetry Systolic blood pressure Diastolic blood pressure Provider Name and Address Organization Details Last Updated DateTime 8 167.64 cm 29.7 kg/m2 55940 g 75 /min 96 % 96 % 122 mm[Hg] 68 mm[Hg] [facility] 8 14:45:06 Date Recorded Body height Body mass index (BMI) Body weight Heart rate Oxygen saturation Oxygen saturation in Arterial blood by Pulse oximetry Systolic blood pressure Diastolic blood pressure Provider Name and Address Organization Details Last Updated DateTime 8 167.64 cm 29.7 kg/m2 01882 g 72 /min 95 % 95 % 146 mm[Hg] 80 mm[Hg] [facility] 8 15:35:06 Date Recorded Body height Body mass index (BMI) Body weight Heart rate Oxygen saturation Oxygen saturation in Arterial blood by Pulse oximetry Systolic blood pressure Diastolic blood pressure Provider Name and Address Organization Details Last Updated DateTime 9 167.64 cm 29.7 kg/m2 92504 g 68 /min 97 % 97 % 162 mm[Hg] 88 mm[Hg] [facility] 9 15:27:20 Date Recorded Body height Body mass index (BMI) Body weight Respiratory rate Oxygen saturation Oxygen saturation in Arterial blood by Pulse oximetry Heart rate Systolic blood pressure Diastolic blood pressure Provider Name and Address Organization Details Last Updated DateTime 5 167.64 cm 31.2 kg/m2 04876.3 2741 g 18 /min 97 % 97 % 70 /min 122 mm[Hg] 67 mm[Hg] Soraya Ramos [facility] 5 16:52:03 Social History Question Answer Notes LastModified by Organizat ion Details LastModified Time Tobacco Smoking Status Former Smoker Quit 1984 Soraya emery [facility] 02/28/2015 12:56:13 Do You Have An Advance Directive? No Information not available 03/06/2015 What Is Your Level Of Alcohol Consumption? Moderate 2 Beers Per Day Information not available 02/28/2015 What Is Your Level Of Caffeine Consumption? Occasional 1 Cup Tea Information not available 03/06/2015 What Type Of Diet Are You Following? REGULAR Information not available 03/06/2015 Which Illicit Or Recreational Drugs Have You Used? None Information not available 03/06/2015 What Is Your Occupation? Retired Information not available 03/06/2015 Live Alone Or With Others? With Others Information not available 03/06/2015 Marital Status Informatio n not available 03/06/2015 What Was The Date Of Your Most Recent Tobacco Screening? 07/01/2018 Information not available 10/02/2018 How Many Children Do You Have? 2 Information not available 03/06/2015 At What Age Did You Start Smoking Tobacco? 16 Information not available 03/06/2015 How Much Tobacco Do You Smoke? 2 PPD Information not available 03/06/2015 General Stress Level Low Information not available 03/06/2015 Sex: Unknown Functional Status Question Answer Note LastModified by Organizat ion Details LastModified Time What is your exercise level? Occasional Information not available 03/06/2015 Mental Status None recorded. Family History Relationship Description Onset Age of this Age Resolved Age Notes LastModified by Organization Details LastModified Time Brother Coronary artery bypass graft 5 vessel Not available 03/06/2015 17:23:50 Medical History Condition Response coronary artery disease Y diabetes mellitus Y high blood pressure Y hyperlipidemia Y Past Encounters Encounter ID Performer Location Encounter Start Date Encounter Closed Date Diagnosis/Indication Diagnosis SNOMED-CT Code Diagnosis ICD10 Code Diagnosis Note [id number] Darion Alston MD [facility] [address] [facility] [address] [facility] [place] [address] 03/06/2015 15:52:02 03/06/2015 17:32:09 Coronary arteriosclerosis in [place] artery 7495556639 107 I25.10 Benign ess ential hypertension 0340267 I10 Hyperlipidemia 68446310 E78.5 Type 2 [place] mellitus 94129660 E11.9 [id number] Darion Alston MD [facility] [address] [facility] [address] [place] [address] 09/04/2017 15:38:44 09/04/2017 17:44:50 Coronary arteriosclerosis in [place] artery 3064657166 107 I25.10 Benign ess ential hypertension 1114714 I10 Hyperlipidemia 52536998 E78.5 Type 2 [place] betes mellitus 41309444 E11.9 [id number] Darion Alston MD [facility] [address] [facility] [address] [place] [address] 10/07/2017 13:26:49 10/07/2017 15:25:44 Benign essential hypertension 7969706 I10 Coronary arteriosclerosis in [place] artery 7876905911 107 I25.10 Hyperlipidemia 54826754 E78.5 Type 2 [place] mellitus 33845845 E11.9 [id number] Darion Alston MD [facility] [place] [address] [place] [address] 12/31/2017 15:32:07 01/02/2018 09:49:21 Benign essential hypertension 0377353 I10 Coronary arteriosclerosis in [place] artery 8968219802 107 I25.10 Hyperlipidemia 18428095 E78.5 Type 2 [place] betes mellitus 63765227 E11.9 [id number] Darion Alston MD z[facility] S[facility] [address] [place] [address] 07/01/2018 15:25:08 07/01/2018 17:05:38 Benign essential hypertension 8857565 I10 Coronary arteriosclerosis in [place] artery 9384233010 107 I25.10 Hyperlipidemia 48875236 E78.5 Type 2 [place] betes mellitus 30329735 E11.9 Health Concerns Section Related Observation LastModified by Organization Detai ls LastModified Time None Recorded Concern Status LastModified by Organization Details LastModified Time None Recorded Advance Directives Directive N: Payers Encounter Date Sequence Insurance Name Policy Number Policy Byrnes Covered Member ID Byrnes Member ID Guarantor Name 03/06/2015 2 [place] 104 Chester Gama [id number] hCester Gama 03/06/2015 1 MEDICARE B: [facility] MEDICARE Chester Hansenson [id number] Chester Gama 09/04/2017 2 [place] 104 Chester Hansenson [id number] Chester Gama 09/04/2017 1 MEDICARE B: [facility] MEDICARE Chesterrene Hansenson [id number] Chester Gama 10/07/2017 2 [place] 104 Chester Hansenson [id number] Chester Hansenson 10/07/2017 1 MEDICARE B: [facility] MEDICARE Chesterrene Hansenson [id number] Chester Gama 12/31/2017 2 [place] 104 Chester Hansenson [id number] Chester Gama 12/31/2017 1 MEDICARE B: [facility] MEDICARE Chester Hansenson [id number] Chester Hansenson 07/01/2018 2 [place] 104 Chester Hansenson [id number] Chester Gama 07/01/2018 1 MEDICARE B: [facility] MEDICARE Chester Hansenson [id number] Chester Gama Notes Date Note Type Note Provider Name and Address Organization Details Recorded Time 03/06/2015 text/html this is a 64-year-old gentleman who has coronary artery disease. He had coronary artery bypass graft surgery in 2006. He had a nuclear stress test in 2009 which was normal. Cardiac milton he is completely asymptomatic. He denies of having chest pain, unusual breathlessness, edema, orthopnea or paroxysmal nocturnal dyspnea. There is no history of palpitation or syncope. His is essentially lipid profile shows LDL to be 61, HDL is 54, liver function tests are normal Darion Alston MD [address] [place] [address], [place], [address], [facility] 03/06/2015 17:26:34 09/04/2017 text/html this is a 66-year-old gentleman who has coronary artery disease. He had coronary artery bypass graft surgery in 2006. He had a nuclear stress test in 2009 which was normal. For the last few months he has been feeling excessively tired. He denies of having any chest pain. On occasions he has experienced breathlessness. Darion Alston MD [address] [place] [address], [place], [address], [facility] 09/04/2017 16:08:34 10/07/2017 text/html this is a 66-year-old gentleman who has coronary artery disease. He had coronary artery bypass graft surgery in 2006. He had a nuclear stress test in 2009 which was normal. For the last few months he has been feeling excessively tired. He denies of having any chest pain. On occasions he has experienced breathlessness. Nuclear stress test which does not show any ischemia or scar. Ejection fraction is 57%. He also had a Holter monitor which does not show any arrhythmia. Darion Alston MD [address] [place] [address], [place], [address], [facility] 10/07/2017 15:11:15 12/31/2017 text/html this is a 67-year-old gentleman who has coronary artery disease. He had coronary artery bypass graft surgery in 2006. He had a nuclear stress test in 2018 which does not show any ischemia or scar. Ejection fraction is 57%. He also had a Holter monitor which does not show any arrhythmia. Today he denied of having chest pain. He denied of having unusual breathlessness, edema, orthopnea or paroxysmal nocturnal dyspnea. There is no palpitation or syncope. Darion Alston MD [address] [place] [address], [place], [address], [facility] 12/31/2017 15:52:15 07/01/2018 text/html this is a 67-year-old gentleman who has coronary artery disease. He had coronary artery bypass graft surgery in 2007. He had a nuclear stress test in 2018 which does not show any ischemia or scar. Ejection fraction is 57%. He also had a Holter monitor which does not show any arrhythmia. Today he denied of having chest pain. He denied of having unusual breathlessness, edema, orthopnea or paroxysmal nocturnal dyspnea. There is no palpitation or syncope. Darion Alston MD [address] [place] [address], [place], [address], [facility] [place] [facility] [place] 07/01/2018 15:36:23
--- OUTSIDE RECORDS SUMMARY | 2024-06-08 07:49 | XMS_ITS | Continuity of Care Document ---
Author Name [facility] Organization [facility] Care Team Providers Care Biochemistry Technician Name Role Phone [facility] Unavailable Unavailable Problems Combined list of problems from Department of Defense and [facility] Affairs facilities. It does not include entries that were removed or entered in error. Problem Status Onset Date Problem Type Date of Resolution Comments Source Arthritis Active Condition [facility] Benign essential hypertension Active Condition [facility] Benign Prostatic Hypertrophy without Outflow Obstruction (SCT 939624506) Active Condition Feb 01, 2022 Entered By: ANABELL MEEHAN Comment: declines tamsulosin [facility] Bilateral cataracts Active Condition [facility] CAD - Coronary Artery Disease (SCT 96536265) Active Condition [facility] Chronic back pain Active Condition [facility] Chronic kidney disease stage 2 Active Condition [facility] Coronary artery disease (SNOMED CT 13746623) Active Condition [facility] Diabetes Mellitus Type 2 (SCT 87110716) Active Condition [facility] DM - Diabetes mellitus Active Condition [facility] Exposure to potentially hazardous substance Active Condition [facility] Exposure to potentially hazardous substance (SCT 208360716957660) Active Condition Jun 25 Entered By: CARON RESTREPO Comment: Entered automatically through [employer] Problem List documentation program [facility] Gastroesophageal reflux disease without esophagitis (SNOMED CT 082754613) Active Condition [facility] GERD - Gastro-Esophageal Reflux Disease (SCT 780327083) Active Condition [facility] HTN - Hypertension (SCT 31463880) Active Condition [facility] Hyperlipidemia Active Condition [facility] Hyperlipidemia (SCT 27975528) Active Condition [facility] Hypertension (SNOMED CT 72096919) Active Condition [facility] Low back pain Active Condition [facility] Peripheral neuropathy Active Condition [facility] Sleep apnea Active Condition [facility] Type 2 diabetes mellitus without complication (SNOMED CT 901173086) Active Condition [facility] Coronary heart disease Inactive Condition 09/09/2019 [facility] Dyslipidemia (SNOMED CT 914500091) Inactive Condition 09/09/2019 [facility] Gastroesophageal reflux disease Inactive Condition 09/09/2019 [facility] Diagnosis: ICD-10-CM E11.9 Type 2 diabetes mellitus without complications Active Diagnosis [facility] Diagnosis: ICD-10-CM Z71.89 Other specified counseling Active Diagnosis [facility] Diagnosis: ICD-10-CM Z13.5 Encounter for screening for eye and ear disorders Active Diagnosis [facility] Medications Combined list of outpatient medications from Department of Defense and Veterans Affairs facilities.Medications provided include 1) outpatient medications from the last 15 months, and 2) patient-reported medications. Medication Details Route Status Patient Instructions Prescription Expires Prescription Number Last Dispense Date Ordering Provider Order Date Order Qty Source ALOGLIPTIN 12.5MG TAB TAKE ONE TABLET BY MOUTH ONCE A DAY FOR DIABETES ORAL DISCONT INUED BY KIRILL Mullen 05/30/2024 [id number] Britton QUISPE [address] [place] [address] ALOGLIPTIN 25MG TAB TAKE ONE TABLET BY MOUTH ONCE A DAY ORAL DISCONT INUED (EDIT) 01/26/2024 [id number] ZEINAIN FAN D 2022 90 [facility] ALPHA-LIPOI C ACID CAP/TAB TAKE 1 CAP/TAB BY MOUTH ONCE A DAY ORAL ACTIVE Elyssa MEEHAN 2020 [facility] ASPIRIN 81MG TAB,CHEWABL E CHEW AND SWALLOW ONE TABLET BY CHEW AND SWALLOW ORAL ACTIVE ELAYNE HORTA S 2013 [facility] ASPIRIN 81MG TAB,CHEWABL E CHEW ONE TABLET BY MOUTH ONCE A DAY ORAL ACTIVE Elyssa MEEHAN 2020 [facility] ASPIRIN 81MG TAB,EC TAKE ONE TABLET BY MOUTH ONCE A DAY FOR CARDIOVA SCULAR DISEASE TAKE WITH FOOD. ORAL ACTIVE 12/01/2024 [id number] 4 ZEINA,IN GRID D 2023 120 [facility] ATORVASTATI N CA 80MG TAB TAKE ONE TABLET BY MOUTH EVERY EVENING FOR HIGH CHOLESTE ROL ORAL ACTIVE 12/01/2024 [id number] 5 ZEINA,IN GRID D 2023 90 [facility] ATORVASTATI N CA 80MG TAB TAKE ONE TABLET BY MOUTH EVERY EVENING FOR HIGH CHOLESTE ROL ORAL DISCONT INUED 10/31/2023 [id number] ZEINA,IN GRID D 2022 90 [facility] CALCIUM CITRATE TAB TAKE BY MOUTH ORAL ACTIVE Elyssa MEEHAN 2020 [facility] CEPHALEXIN 500MG CAP TAKE 1 CAPSULE BY MOUTH TWO TIMES A DAY ORAL ACTIVE Elyssa MEEHAN 2021 [facility] CHOLECALCIF GRAY 25MCG (1,000UNIT) TAB TAKE ONE TABLET BY MOUTH ORAL ACTIVE Elyssa MEEHAN 2020 [facility] DULOXETINE HCL 30MG CAP,EC TAKE 1 CAPSULE BY MOUTH EVERY DAY ORAL ACTIVE ALIA GLEASON 2019 [facility] EMPAGLIFLOZ IN 25MG TAB TAKE ONE TABLET BY MOUTH ONCE A DAY ORAL ACTIVE 01/29/2025 [id number] 5 Britton QUISPE 2024 90 [facility] EMPAGLIFLOZ IN 25MG TAB TAKE ONE TABLET BY MOUTH ONCE A DAY ORAL DISCONT INUED 05/02/2024 [id number] ZEINA,IN GRID D 2023 90 [facility] FAMOTIDINE 20MG TAB TAKE ONE TABLET BY MOUTH ONCE A DAY ORAL ACTIVE Britton QUISPE 2024 [facility] FINASTERIDE 5MG TAB TAKE ONE TABLET BY MOUTH ONCE A DAY ORAL ACTIVE Britton QUISPE 2023 [facility] GABAPENTIN 600MG TAB TAKE TWO TABLETS BY MOUTH THREE TIMES A DAY FOR NERVE PAIN ORAL ACTIVE 12/01/2024 [id number] 5 ZEINA,IN GRID D 2023 540 [facility] GABAPENTIN 600MG TAB TAKE TWO TABLETS BY MOUTH THREE TIMES A DAY FOR NERVE PAIN ORAL DISCONT INUED 10/31/2023 [id number] ZEINA,IN GRID D 2022 540 [facility] HYDROCHLORO THIAZIDE 25MG TAB TAKE ONE TABLET BY MOUTH ONCE A DAY FOR HIGH BLOOD PRESSURE ORAL ACTIVE 12/01/2024 [id number] 5 ZEINA,IN GRID D 2023 90 [facility] HYDROCHLORO THIAZIDE 25MG TAB TAKE ONE TABLET BY MOUTH ONCE A DAY FOR HIGH BLOOD PRESSURE ORAL DISCONT INUED 10/31/2023 [id number] ZEINA,IN GRID D 2022 90 [facility] LISINOPRIL 40MG TAB TAKE ONE TABLET BY MOUTH ONCE A DAY FOR HIGH BLOOD PRESSURE ORAL ACTIVE 12/01/2024 [id number] 5 ZEINA,IN GRID D 2023 90 [facility] LISINOPRIL 40MG TAB TAKE ONE TABLET BY MOUTH ONCE A DAY FOR HIGH BLOOD PRESSURE ORAL DISCONT INUED 10/31/2023 [id number] ZEINA,IN GRID D 2022 90 [facility] MAGNESIUM GLUCONATE TAB TAKE BY MOUTH ONCE A DAY ORAL ACTIVE Britton QUISPE 2024 [facility] MULTIVITAMI N CAP/TAB TAKE BY MOUTH EVERY DAY ORAL ACTIVE ELAYNE HORTA 2013 [facility] MULTIVITAMI NS CAP/TAB TAKE ONE TABLET BY MOUTH ONCE A DAY ORAL ACTIVE [place] QUISPE 2024 [facility] MULTIVITAMI NS CAP/TAB TAKE BY MOUTH ONCE A DAY ORAL ACTIVE Elyssa MEEHAN 2020 [facility] OMEPRAZOLE 40MG CAP,EC TAKE 1 CAPSULE BY MOUTH TWO TIMES A DAY ORAL ACTIVE Elyssa MEEHAN 2020 [facility] PANTOPRAZOL E NA 40MG TAB,EC TAKE ONE TABLET BY MOUTH TWICE A DAY ORAL ACTIVE Britton QUISPE DIANN Jarquin 2024 [facility] PSYLLIUM CAP,ORAL TAKE 1 CAPSULE BY MOUTH ONCE A DAY ORAL ACTIVE Britton QUISPE DIANN Jarquin 2024 [facility] SEMAGLUTIDE 0.25MG/0.37 5ML INJ,SOLN,PE N,3ML INJECT 0.5MG UNDER THE SKIN EVERY WEEK SUBCUT ANEOUS ACTIVE 03/23/2025 [id number] QUISPEBritton 2024 2 [facility] SEMAGLUTIDE 0.25MG/0.37 5ML INJ,SOLN,PE N,3ML INJECT 0.5MG UNDER THE SKIN EVERY WEEK FOR DIABETES SUBCUT ANEOUS DISCONT INUED (EDIT) 02/23/2025 [id number] 5 Britton QUISPE 2023 1 [facility] SEMAGLUTIDE 0.25MG/0.37 5ML INJ,SOLN,PE N,3ML INJECT 0.5MG UNDER THE SKIN EVERY WEEK FOR DIABETES SUBCUT ANEOUS DISCONT INUED 12/04/2024 [id number] Britton QUISPE 2023 1 [facility] SEMAGLUTIDE 0.25MG/0.37 5ML INJ,SOLN,PE N,3ML INJECT 0.5MG UNDER THE SKIN EVERY WEEK FOR DIABETES SUBCUT ANEOUS DISCONT INUED 09/17/2024 [id number] 4 Britton QUISPE 2023 1 [facility] SEMAGLUTIDE 0.25MG/0.37 5ML INJ,SOLN,PE N,3ML INJECT 0.25MG UNDER THE SKIN EVERY WEEK FOR 4 WEEKS, THEN INJECT 0.5MG EVERY WEEK FOR DIABETES SUBCUT ANEOUS DISCONT INUED (EDIT) 08/05/2024 [id number] 4 Britton QUISPE 2023 1 [facility] Allergies, Adverse Reactions, Alerts Combined list of allergies from Department of Defense and [facility] facilities. It does not include entries that were removed or entered in error. Substance Category Reaction Severity Reaction type Status Date Reported Comments Source DICYCLOMINE Propensity to adverse reactions to drug (finding) Influenza- like illness active 3 [facility] METFORMIN Propensity to adverse reactions to drug (finding) Diarrhea MODERATE active [address] [facility] PERCOCET Propensity to adverse reactions to drug (finding) Eruption active 1 [facility], [facility] 15 PERCOCET Propensity to adverse reactions to drug (finding) Urticaria active [address] [facility] PREGABALIN Propensity to adverse reactions to drug (finding) Eruption active 3 [facility] Immunizations Combined list of available immunizations from the Department of [facility] and [facility] facilities. Immunization Series Date Given Administered By Site Reaction Lot Number CVX Code Drug Cake Press Operator Status Comments Source COVID-19 (MODERNA), MRNA, LNP-S, BIVALENT, PF, 50 MCG/0.5 ML OR 25MCG/0.25 ML DOSE 1 2022 READDOMINGO CONCEPCION S RIGHT DELTO ID [id number] 229 complet ed [facility] TDAP 2022 DOMINGO MOTLEY S LEFT DELTO ID [id number] 115 complet ed [facility] INFLUENZA, INJECTABLE, QUADRIVALENT, PRESERVATIVE FREE 2021 CARLO HAYES RIGHT DELTO ID [id number] 150 complet ed [facility] COVID-19 (PFIZER), MRNA, LNP-S, PF, 30 MCG/0.3 ML DOSE 2020 208 complet ed [facility] INFLUENZA, INJECTABLE, QUADRIVALENT, PRESERVATIVE FREE 2020 150 complet ed [facility] ZOSTER RECOMBINANT 2 2020 187 complet ed [facility] ZOSTER RECOMBINANT 1 2020 187 complet ed [facility] COVID-19 (MODERNA), MRNA, LNP-S, PF, 100 MCG/0.5 ML DOSE 2 2020 207 complet ed [facility], [facility] 15 COVID-19 (MODERNA), MRNA, LNP-S, PF, 100 MCG/0.5 ML DOSE 1 2020 207 complet ed [facility], [facility] 15 INFLUENZA, UNSPECIFIED FORMULATION 2019 88 complet ed [facility], [facility] 15 INFLUENZA, INJECTABLE, QUADRIVALENT 2018 158 complet ed [facility] INFLUENZA, SEASONAL, INJECTABLE [address] [facility] PNEUMOCOCCAL CONJUGATE PCV 13 2016 133 complet ed [facility], VISN 15 INFLUENZA, SEASONAL, INJECTABLE, PRESERVATIVE FREE [address] [facility] INFLUENZA, SEASONAL, INJECTABLE, PRESERVATIVE FREE [address] [facility] FLU,3 YRS (HISTORICAL) 2014 88 complet [facility] PNEUMOCOCCAL, UNSPECIFIED FORMULATION 2014 109 complet [facility] PNEUMOCOCCAL POLYSACCHARID E PPV23 2014 33 complet ed [facility], [facility] 15 INFLUENZA, SEASONAL, INJECTABLE, PRESERVATIVE FREE [address] [facility] TD(ADULT) UNSPECIFIED FORMULATION 2013 139 complet ed [facility] TDAP 2013 115 complet ed [facility], [facility] 15 Results Combined list of recent chemistry, hematology and other laboratory results from Department of Defense and Veterans Affairs, ranging from 15 months to all on record, depending upon the facility. Order Name Results Value Reference Range Date Interpretation Specimen Comments Source HGA1C HEMOGLOBIN A1C/HEMOGLO BIN.TOTAL IN BLOOD 6.8 4.0 - 6.0 05/31 H Specimen Type: BLOOD No comment entered. Ordering Provider: MAIK QUISPE Report Released Date/Time: May 07, 2024 03:58 PM Reporting Lab: [facility] [address] [facility] [facility] [address] Performing Lab: [facility] [address] [facility] [facility] [place] [address] [facility] HGA1C HEMOGLOBIN A1C/HEMOGLO BIN.TOTAL IN BLOOD 7.7 4.0 - 6.0 03/01 H Specimen Type: BLOOD No comment entered. Ordering Provider: MAIK QUISPE Report Released Date/Time: Jan 29, 2024 04:50 PM Reporting Lab: [facility] [address] [place] [phone] Performing Lab: [address] [address] [facility] VITAMIN B1 THIAMINE [MOLES/VOLU ME] IN SERUM OR PLASMA 13 nmol/L 8 - 30 11/30 Specimen Type: PLASMA Comment: Vitamin supplementat ion within 24 hours prior to blood draw may affect the accuracy of the results. This test was developed and its analytical performance characterist ics have been determined by [facility] [place], [place]. It has not been cleared or approved by the U.S. Food and Drug Administrati on. This assay has been validated pursuant to the CLIA regulations and is used for clinical purposes. Test Performed by [email or web address], [facility], [address] [place] [address] Yung Rivera M.D., Ph.D., Director of Laboratories , CLIA [id number] Ordering Provider: GEOVANNA PASTRANA Report Released Date/Time: Dec 01, 2023 10:39 AM Reporting Lab: [facility] [address] [place] [phone] Performing Lab: [facility] [address] [facility] HGA1C HEMOGLOBIN A1C/HEMOGLO BIN.TOTAL IN BLOOD 8.1 4.0 - 6.0 11/30 H Specimen Type: BLOOD No comment entered. Ordering Provider: MAIK QUISPE Report Released Date/Time: Sep 16, 2023 10:02 AM Reporting Lab: [address] [address] Performing Lab: [facility] [address] [place], [place] [phone] [facility] CBC LEUKOCYTES [#/VOLUME] IN BLOOD BY AUTOMATED COUNT 5.7 10*3/u L 3.6 - 11.2 11/30 Specimen Type: BLOOD No comment entered. Ordering Provider: GEOVANNA PASTRANA Report Released Date/Time: Dec 01, 2023 10:39 AM Reporting Lab: [address] [address] Performing Lab: [facility] [address] [facility] [address] [facility] CBC ERYTHROCYTE S [#/VOLUME] IN BLOOD BY AUTOMATED COUNT 4.24 10*6/u L 4.10 - 5.70 11/30 Specimen Type: BLOOD No comment entered. Ordering Provider: GEOVANNA PASTRANA Report Released Date/Time: Dec 01, 2023 10:39 AM Reporting Lab: [address] [address] Performing Lab: [address] [address] [facility] CBC HEMOGLOBIN [MASS/VOLUM E] IN BLOOD 13.7 g/dL 13.1 - 16.8 11/30 Specimen Type: BLOOD No comment entered. Ordering Provider: GEOVANNA PASTRANA Report Released Date/Time: Dec 01, 2023 10:39 AM Reporting Lab: [address] [address] Performing Lab: [address] [address] [facility] CBC HEMATOCRIT [VOLUME FRACTION] OF BLOOD 41.6 38.2 - 48.4 11/30 Specimen Type: BLOOD No comment entered. Ordering Provider: GEOVANNA PASTRANA Report Released Date/Time: Dec 01, 2023 10:39 AM Reporting Lab: [address] [address] Performing Lab: [address] [address] [facility] CBC MCV [ENTITIC VOLUME] BY AUTOMATED COUNT 98.1 fL 80.0 - 100.0 11/30 Specimen Type: BLOOD No comment entered. Ordering Provider: GEOVANNA PASTRANA Report Released Date/Time: Dec 01, 2023 10:39 AM Reporting Lab: [address] [address] Performing Lab: [address] [address] [facility] CBC MCH [ENTITIC MASS] BY AUTOMATED COUNT 32.3 pg 27.0 - 34.0 11/30 Specimen Type: BLOOD No comment entered. Ordering Provider: GEOVANNA PASTRANA Report Released Date/Time: Dec 01, 2023 10:39 AM Reporting Lab: [address] [address] Performing Lab: [address] [address] [facility] CBC MCHC [MASS/VOLUM E] BY AUTOMATED COUNT 32.9 g/dL 33.0 - 36.0 11/30 L Specimen Type: BLOOD No comment entered. Ordering Provider: GEOVANNA PASTRANA Report Released Date/Time: Dec 01, 2023 10:39 AM Reporting Lab: [address] [address] Performing Lab: [address] [address] [facility] CBC PLATELETS [#/VOLUME] IN BLOOD BY AUTOMATED COUNT 147 10*3/u L 150 - 400 11/30 L Specimen Type: BLOOD No comment entered. Ordering Provider: GEOVANNA PASTRANA Report Released Date/Time: Dec 01, 2023 10:39 AM Reporting Lab: [address] [address] Performing Lab: [address] [address] [facility] CBC PLATELET MEAN VOLUME [ENTITIC VOLUME] IN BLOOD BY AUTOMATED COUNT 10.2 fL 7.5 - 11.2 11/30 Specimen Type: BLOOD No comment entered. Ordering Provider: GEOVANNA PASTRANA Report Released Date/Time: Dec 01, 2023 10:39 AM Reporting Lab: [facility] [address] [place] [address] Performing Lab: [facility] [address] [place] [address] [facility] CBC ERYTHROCYTE DISTRIBUTIO N WIDTH [RATIO] BY AUTOMATED COUNT 12.7 11.8 - 15.1 11/30 Specimen Type: BLOOD No comment entered. Ordering Provider: GEOVANNA PASTRANA Report Released Date/Time: Dec 01, 2023 10:39 AM Reporting Lab: [facility] [address] [place] [phone] Performing Lab: [facility] [address] [place] [address] [facility] CBC LYMPHOCYTES /100 LEUKOCYTES IN BLOOD BY AUTOMATED COUNT 22 11/30 Specimen Type: BLOOD No comment entered. Ordering Provider: GEOVANNA PASTRANA Report Released Date/Time: Dec 01, 2023 10:39 AM Reporting Lab: [facility] [address] [place] [address] Performing Lab: [facility] [address] [place] [address] [facility] CBC MONOCYTES/1 00 LEUKOCYTES IN BLOOD BY AUTOMATED COUNT 4 11/30 Specimen Type: BLOOD No comment entered. Ordering Provider: GEOVANNA PASTRANA Report Released Date/Time: Dec 01, 2023 10:39 AM Reporting Lab: [facility] [address] [place] [address] Performing Lab: [facility] [address] [place] [phone] [facility] CBC NEUTROPHILS /100 LEUKOCYTES IN BLOOD BY AUTOMATED COUNT 69 11/30 Specimen Type: BLOOD No comment entered. Ordering Provider: GEOVANNA PASTRANA Report Released Date/Time: Dec 01, 2023 10:39 AM Reporting Lab: [facility] [address] [place] [address] Performing Lab: [facility] [address] [facility] [place] [address] [facility] CBC EOSINOPHILS /100 LEUKOCYTES IN BLOOD BY AUTOMATED COUNT 4 11/30 Specimen Type: BLOOD No comment entered. Ordering Provider: GEOVANNA PASTRANA Report Released Date/Time: Dec 01, 2023 10:39 AM Reporting Lab: [facility] [address] [place] [phone] Performing Lab: [facility] [address] [place], [place] [phone] [place] [address] CBC BASOPHILS/1 00 LEUKOCYTES IN BLOOD BY AUTOMATED COUNT 0 11/30 Specimen Type: BLOOD No comment entered. Ordering Provider: GEOVANNA PASTRANA Report Released Date/Time: Dec 01, 2023 10:39 AM Reporting Lab: [facility] [address] [facility] [place] [address] Performing Lab: [facility] [address] [place] [address] [facility] CBC LYMPHOCYTES [#/VOLUME] IN BLOOD BY AUTOMATED COUNT 1.27 10*3/u L 0.77 - 4.50 11/30 Specimen Type: BLOOD No comment entered. Ordering Provider: GEOVANNA PASTRANA Report Released Date/Time: Dec 01, 2023 10:39 AM Reporting Lab: [facility] [address] [facility] [place] [address] Performing Lab: [facility] [address] [place] [address] [facility] CBC MONOCYTES [#/VOLUME] IN BLOOD BY AUTOMATED COUNT 0.25 10*3/u L 0.19 - 0.80 11/30 Specimen Type: BLOOD No comment entered. Ordering Provider: GEOVANNA PASTRANA Report Released Date/Time: Dec 01, 2023 10:39 AM Reporting Lab: [facility] [address] [place] [phone] Performing Lab: [facility] [address] [place] [phone] [facility] CBC NEUTROPHILS [#/VOLUME] IN BLOOD BY AUTOMATED COUNT 3.97 10*3/u L 2.10 - 8.00 11/30 Specimen Type: BLOOD No comment entered. Ordering Provider: GEOVANNA PASTRANA Report Released Date/Time: Dec 01, 2023 10:39 AM Reporting Lab: [facility] [address] [place] [phone] Performing Lab: [address] [phone] [place] [address] CBC EOSINOPHILS [#/VOLUME] IN BLOOD BY AUTOMATED COUNT 0.22 10*3/u L 0.00 - 0.60 11/30 Specimen Type: BLOOD No comment entered. Ordering Provider: GEOVANNA PASTRANA Report Released Date/Time: Dec 01, 2023 10:39 AM Reporting Lab: [address] [address] Performing Lab: [address] [place] [address] CBC BASOPHILS [#/VOLUME] IN BLOOD BY AUTOMATED COUNT 0.02 10*3/u L 0.00 - 0.20 11/30 Specimen Type: BLOOD No comment entered. Ordering Provider: GEOVANNA PASTRANA Report Released Date/Time: Dec 01, 2023 10:39 AM Reporting Lab: [address] [address] Performing Lab: [address] [address] [facility] GGT GAMMA-GT GAMMA GLUTAMYL TRANSFERASE [ENZYMATIC ACTIVITY/VO LUME] IN SERUM OR PLASMA 20 [IU]/L 12 - 64 11/30 Specimen Type: PLASMA Comment: No hemolysis noted. Ordering Provider: GEOVANNA PASTRANA Report Released Date/Time: Dec 01, 2023 10:39 AM Reporting Lab: [facility] [address] [place] [phone] Performing Lab: [facility] [address] [place] [phone] [place] [address] B12 COBALAMIN (VITAMIN B12) [MASS/VOLUM E] IN SERUM OR PLASMA 640 pg/mL 213 - 816 11/30 Specimen Type: SERUM No comment entered. Ordering Provider: GEOVANNA PASTRANA Report Released Date/Time: Dec 01, 2023 10:39 AM Reporting Lab: [address] [address] Performing Lab: [phone] [place] [address] VITAMIN D, 25-HYDROXY 25-HYDROXYV ITAMIN D3 [MASS/VOLUM E] IN SERUM OR PLASMA 34.7 ng/mL 30 - 96 11/30 Specimen Type: SERUM No comment entered. Ordering Provider: GEOVANNA PASTRANA Report Released Date/Time: Dec 01, 2023 10:39 AM Reporting Lab: [facility] [address] [place] [id number] Performing Lab: [id number] [place] [address] TSH W/ REFLEX FT4 (STL) THYROTROPIN [UNITS/VOLU ME] IN SERUM OR PLASMA 0.604 u[IU]/ mL 0.47 - 5 11/30 Specimen Type: PLASMA No comment entered. Ordering Provider: GEOVANNA PASTRANA Report Released Date/Time: Dec 01, 2023 10:39 AM Reporting Lab: [facility] [address] [place] [phone] Performing Lab: [address] [phone] [place] [address] COMPREHENS MIKE METABOLIC PANEL CREATININE [MASS/VOLUM E] IN SERUM OR PLASMA 1.14 mg/dL 0.7 - 1.3 11/30 Specimen Type: PLASMA Comment: No hemolysis noted. Ordering Provider: GEOVANNA PASTRANA Report Released Date/Time: Dec 01, 2023 10:39 AM Reporting Lab: [facility] [address] [facility] [place] [phone] Performing Lab: [facility] [address] [place] [phone] [facility] COMPREHENS MIKE METABOLIC PANEL UREA NITROGEN [MASS/VOLUM E] IN SERUM OR PLASMA 22.1 mg/dL 9.0 - 25.0 11/30 Specimen Type: PLASMA Comment: No hemolysis noted. Ordering Provider: GEOVANNA PASTRANA Report Released Date/Time: Dec 01, 2023 10:39 AM Reporting Lab: [facility] [address] [place] [phone] Performing Lab: [facility] [address] [place] [phone] [place] [address] COMPREHENS MIKE METABOLIC PANEL GLUCOSE [MASS/VOLUM E] IN SERUM OR PLASMA 124 mg/dL 72 - 99 11/30 H Specimen Type: PLASMA Comment: No hemolysis noted. Ordering Provider: GEOVANNA PASTRANA Report Released Date/Time: Dec 01, 2023 10:39 AM Reporting Lab: [facility] [address] [place] [phone] Performing Lab: [facility] [address] [place] [phone] [facility] COMPREHENS MIKE METABOLIC PANEL SODIUM [MOLES/VOLU ME] IN SERUM OR PLASMA 138 meq/L 136 - 145 11/30 Specimen Type: PLASMA Comment: No hemolysis noted. Ordering Provider: GEOVANNA PASTRANA Report Released Date/Time: Dec 01, 2023 10:39 AM Reporting Lab: [facility] [address] [place] [phone] Performing Lab: [facility] [address] [place] [phone] [facility] COMPREHENS MIKE METABOLIC PANEL POTASSIUM [MOLES/VOLU ME] IN SERUM OR PLASMA 4.3 meq/L 3.5 - 5 11/30 Specimen Type: PLASMA Comment: No hemolysis noted. Ordering Provider: GEOVANNA PASTRANA Report Released Date/Time: Dec 01, 2023 10:39 AM Reporting Lab: [facility] [address] [facility] [phone] Performing Lab: [facility] [address] [place] [phone] [place] [address] COMPREHENS MIKE METABOLIC PANEL CHLORIDE [MOLES/VOLU ME] IN SERUM OR PLASMA 103 meq/L 98 - 107 11/30 Specimen Type: PLASMA Comment: No hemolysis noted. Ordering Provider: GEOVANNA PASTRANA Report Released Date/Time: Dec 01, 2023 10:39 AM Reporting Lab: [address] [phone] Performing Lab: [address] [address] [facility] COMPREHENS MIKE METABOLIC PANEL CARBON DIOXIDE, TOTAL [MOLES/VOLU ME] IN SERUM OR PLASMA 24 meq/L 22 - 31 11/30 Specimen Type: PLASMA Comment: No hemolysis noted. Ordering Provider: GEOVANNA PASTRANA Report Released Date/Time: Dec 01, 2023 10:39 AM Reporting Lab: [address] [address] Performing Lab: [facility] [address] [place] [phone] [facility] COMPREHENS MIKE METABOLIC PANEL CALCIUM [MASS/VOLUM E] IN SERUM OR PLASMA 9.5 mg/dL 8.4 - 10.4 11/30 Specimen Type: PLASMA Comment: No hemolysis noted. Ordering Provider: GEOVANNA PASTRANA Report Released Date/Time: Dec 01, 2023 10:39 AM Reporting Lab: [address] [address] Performing Lab: [address] [place] [address] [facility] COMPREHENS MIKE METABOLIC PANEL PROTEIN [MASS/VOLUM E] IN SERUM OR PLASMA 6.6 g/dL 6 - 8.6 11/30 Specimen Type: PLASMA Comment: No hemolysis noted. Ordering Provider: GEOVANNA PASTRANA Report Released Date/Time: Dec 01, 2023 10:39 AM Reporting Lab: [place] [address] [facility] [phone] Performing Lab: [place] [address] [facility] [address] [facility] COMPREHENS MIKE METABOLIC PANEL ALBUMIN [MASS/VOLUM E] IN SERUM OR PLASMA 4.1 g/dL 3.4 - 5 11/30 Specimen Type: PLASMA Comment: No hemolysis noted. Ordering Provider: GEOVANNA PASTRANA Report Released Date/Time: Dec 01, 2023 10:39 AM Reporting Lab: [address] [address] Performing Lab: [place] [address] [facility] [phone] [facility] COMPREHENS MIKE METABOLIC PANEL BILIRUBIN.T OTAL [MASS/VOLUM E] IN SERUM OR PLASMA 1.0 mg/dL 0.2 - 1.2 11/30 Specimen Type: PLASMA Comment: No hemolysis noted. Ordering Provider: GEOVANNA PASTRANA Report Released Date/Time: Dec 01, 2023 10:39 AM Reporting Lab: [facility] [address] [place] [phone] Performing Lab: [address] [address] [facility] COMPREHENS MIKE METABOLIC PANEL ALKALINE PHOSPHATASE [ENZYMATIC ACTIVITY/VO LUME] IN SERUM OR PLASMA 67 U/L 40 - 150 11/30 Specimen Type: PLASMA Comment: No hemolysis noted. Ordering Provider: GEOVANNA PASTRANA Report Released Date/Time: Dec 01, 2023 10:39 AM Reporting Lab: [facility] [address] [place] [phone] Performing Lab: [facility] [address] [facility] [address] [facility] COMPREHENS MIKE METABOLIC PANEL ASPARTATE AMINOTRANSF ERASE [ENZYMATIC ACTIVITY/VO LUME] IN SERUM OR PLASMA 25 U/L 5 - 34 11/30 Specimen Type: PLASMA Comment: No hemolysis noted. Ordering Provider: GEOVANNA PASTRANA Report Released Date/Time: Dec 01, 2023 10:39 AM Reporting Lab: [facility] [address] [place] [phone] Performing Lab: [address] [address] [facility] COMPREHENS MIKE METABOLIC PANEL ALANINE AMINOTRANSF ERASE [ENZYMATIC ACTIVITY/VO LUME] IN SERUM OR PLASMA 20 U/L 8 - 40 11/30 Specimen Type: PLASMA Comment: No hemolysis noted. Ordering Provider: GEOVANNA PASTRANA Report Released Date/Time: Dec 01, 2023 10:39 AM Reporting Lab: [facility] [address] [place] [phone] Performing Lab: [facility] [address] [place] [phone] [facility] COMPREHENS MIKE METABOLIC PANEL GLOMERULAR FILTRATION RATE/1.73 SQ M.PREDICTED [VOLUME RATE/AREA] IN SERUM, PLASMA OR BLOOD BY CREATININE- BASED FORMULA (CKD-EPI 2020) 67.1 60 11/30 Specimen Type: PLASMA Comment: No hemolysis noted. Ordering Provider: GEOVANNA PASTRANA Report Released Date/Time: Dec 01, 2023 10:39 AM Reporting Lab: [facility] [address] [place] [phone] Performing Lab: [facility] [address] [place] [phone] [facility] Vital Signs Combined list of inpatient and outpatient Vital Signs from Department of Defense and Veterans Affairs, ranging from 12 months to all on record, depending upon the facility. Vital Sign Value Date Comments Source SYSTOLIC BLOOD PRESSURE 105 12/01/2023 09:31:16 STAsif [facility] DIASTOLIC BLOOD PRESSURE 55 12/01/2023 09:31:16 ST. JEFFRY [facility] PULSE OXIMETRY 98 12/01/2023 09:31:16 S Anita [facility] WEIGHT 172.8 12/01/2023 09:31:16 ST. Elyssa ANDRADE [facility] BMI 28 kg/m2 12/01/2023 09:31:[facility] PAIN 0 12/01/2023 09:31:[facility] TEMPERATURE 97.2 12/01/2023 09:31:16 STAsif [facility] PULSE 50 12/01/2023 09:31:16 [facility] RESPIRATION 18 12/01/2023 09:31:16 STAsif [facility] Encounters Combined list of: 1) Encounters from Department of Veterans Affairs facilities going backup to the last 18 months, not all VA inpatient encounters are included; 2) Encounters from the Department of [facility] facilities going backup to 280 months. Location Location Details Encounter Type Encounter Number Reason For Visit Attending Provider ADM Date DC Date Status Disposition Source [facility] Outpatient Encounter [id number] 12/30 [facility] Outpatient Encounter [id number] [place], [place] ORIRAJENDRA K 12/30 [facility] Outpatient Encounter [id number] [place] ORINDA K 01/09 [facility] Outpatient Encounter [id number] 04/01 [facility] Outpatient Encounter [id number] BENJAMIN MOTLEY 04/21 [facility] Outpatient Encounter [id number] 04/22 [facility] O/P EST LOW 20 MIN [id number] Diagnos is: ICD-10- CM E11.9 Type 2 diabete s mellitu s without complic ations ZANDRA PASTRANA RID 05/02 [facility] Outpatient Encounter [id number] 05/05 [facility] Outpatient Encounter [id number] [facility] 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 MT[facility] BY PHARM ADDL 15 MIN [id number] Diagnos is: ICD-10- CM E11.9 Type 2 diabete s mellitu s without complic ations ALEXEI QUISPE 06/16 [facility] Outpatient Encounter [id number] 06/16 [facility] Outpatient Encounter [id number] GIORGIO HOLLIS 06/19 [facility] BY PHARM EST 15 MIN [id number] Diagnos is: ICD-10- CM E11.9 Type 2 diabete s mellitu s without complic ations ALEXEI QUISPE M 06/30 [facility] Outpatient Encounter [id number] 07/07 [facility] Outpatient Encounter [id number] 07/21 [facility] BY PHARM EST 15 MIN [id number] Diagnos is: ICD-10- CM E11.9 Type 2 diabete s mellitu s without complic ations ALEXEI QUISPE 08/04 [facility] QNHP OL DIG ASSMT&MGMT 5-10 [id number] Diagnos is: ICD-10- CM E11.9 Type 2 diabete s mellitu s without complic ations GINO STALEY THELMA 08/12 [facility] Outpatient Encounter [id number] RINA MALAGON 09/04 [facility] BY PHARM EST 15 MIN [id number] Diagnos is: ICD-10- CM E11.9 Type 2 diabete s mellitu s without complic ations ALEXEI QUISPE M 09/15 [facility] Outpatient Encounter [id number] 09/15 [facility] Outpatient Encounter [id number] 09/30 [facility] BY PHARM EST 15 MIN [id number] Diagnos is: ICD-10- CM E11.9 Type 2 diabete s mellitu s without complic ations ALEXEI QUISPE M 10/13 [facility] Outpatient Encounter [id number] BENJAMIN MOTLEY S 11/23 [facility] Outpatient Encounter [id number] DELMIS WILDER 11/23 [facility] Outpatient Encounter [id number] 11/30 [facility] FUNDUS PHOTOGRAPH Y W/I&R [id number] Diagnos is: ICD-10- CM Z13.5 Encount er for screeni ng for eye and ear disorde rs DELMIS WILDER 11/30 [facility] Outpatient Encounter [id number] Diagnos is: ICD-10- CM Z13.5 Encount er for screeni ng for eye and ear disorde rs FELIZGERMANBritton LAFLEUR 11/30 [facility] O/P EST MOD 30 MIN [id number] Diagnos is: ICD-10- CM E11.9 Type 2 diabete s mellitu s without complic ations ZANDRA PASTRANA RID 11/30 [facility] Outpatient Encounter [id number] ALEXEI QUISPE M 12/01 [facility] BY PHARM EST 15 MIN [id number] Diagnos is: ICD-10- CM E11.9 Type 2 diabete s mellitu s without complic ations ALEXEI QUISPE COMPA M 12/03 [facility] Outpatient Encounter [id number] ALEXEI QUISPEGURWINDER M 01/28 [facility] BY PHARM EST 15 MIN [id number] Diagnos is: ICD-10- CM E11.9 Type 2 diabete s mellitu s without complic ations ALEXEI QUISPEGURWINDER M 01/28 [facility] MTMS BY PHARM EST 15 MIN [id number] Diagnos is: ICD-10- CM E11.9 Type 2 diabete s mellitu s without complic ations ALEXEI QUISPEGURWINDER M 03/12 [facility] Outpatient Encounter [id number] 03/19 [facility] Outpatient Encounter [id number] 03/23 [facility] Outpatient Encounter [id number] 05/04 [facility] Outpatient Encounter [id number] ALEXEI QUISPEGURWINDER M 05/07 [facility] PHARM EST 15 MIN [id number] Diagnos is: ICD-10- CM E11.9 Type 2 diabete s mellitu s without complic ations ALEXEI QUISPEGURWINDER M 05/07 [facility] [id number] Diagnos is: ICD-10- CM 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 Social History Type Response Date Comment Sourc e Tobacco smoking status NHIS VA-TOBACCO FORMER USER 11/24/2023 [facility] History of tobacco use AL-TOBACCO QUIT 1 5 YRS OR MORE 11/24/2023 [facility] History of tobacco use AL-TOBACCO FORMER USER 10/30/2022 [facility] History of tobacco use VA-TOBACCO FORMER USER 09/24/2021 [facility] History of tobacco use AL-TOBACCO FORMER USER 07/24/2020 [facility] History of tobacco use AL-TOBACCO NEVER USED 09/09/2019 [facility] History of tobacco use AL-TOBACCO FORMER USER 11/20/2017 [facility] History of tobacco use V9 QUIT TOBACCO > 7 YEARS AGO 05/20/2017 [facility] History of tobacco use V9 QUIT TOBACCO > 7 YEARS AGO 07/17/2016 [facility] Plan of Care List of future care activities from [facility] facilities. Additional future care activities may be listed in the Assessment and Plan section. Date/Time Care Activity Care Activity Detail Facili ty 07/29/2024 AMBULATORY - SURGERY AMBULATORY - SURGERY [facility] Advance Directives List of completed, amended, or rescinded Advance Directives on record at [facility] facilities. An actual copy of the Directive is not included. Date Advance Directive Provider Source 07/13/2014 ADVANCE DIRECTIVE ROLANDO FONSECA [facility]
--- OUTSIDE RECORDS SUMMARY | 2024-06-08 07:50 | XMS_ITS | Data Portability ---
Author Organization [place] - [facility] [place] [facility], [facility] Address [address] [place] [address] Care Team Providers Care Conservation Officer Name Role Phone DELICIA MORGAN Primary Care Provider [phone] DELICIA MORGAN Referring Provider Assessment No assessment recorded. Plan of Treatment Reminders Order Date Submit Date Provider Last Modified By Organization Details Last Modified Time Details Appointments None recorded. Lab None recorded. Referral None recorded. Procedures treadmill nuclear stress test (PROC) 2019 [email or web address] [facility] (Central Scheduling), [address], [place], [address], 0 09:54:23 Surgeries None recorded. Imaging US, echocardiog vic, transthorac ic, complete, w/ color flow 2019 MICHAEL [facility] (Central Scheduling), [address], [place], [address], 0 13:04:17 electrocard iogram 2019 MICHAEL Not available 0 14:40:05 Medication Orders None recorded. Patient TargetsNo targets recorded. Patient Instructions Encounter Date Encounter Id Patient Instructions Last Modified By Organization Details Last Modified Time 09/17/2019 [id number] premature heartbeat: care instructions lydia cabral Not available 09/17/2019 14:07:22 high blood pressure: care instructions lydia cabral Not available 09/17/2019 14:05:35 learning about high blood pressure lydia cabral Not available 09/17/2019 14:05:35 type 2 diabetes: care instructions lydia cabral Not available 09/17/2019 14:05:35 high cholesterol : care instructions lydia cabral Not available 09/17/2019 14:05:35 Reason for Referral None Reported. Results Created Date Observation Date Name Description Value Unit Range Abnormal Flag Note LastModifiedBy Organization Detail LastModifiedTime 08/18/19 20 07/27/2019 elect rocar diogr am No observ ation record ed. [email or web address] [facility] [address], [place], [address], 10/08/2019 14:08:46 09/22/19 20 09/17/2019 elect rocar diogr am No observ ation record ed. [email or web address] [facility] [address] [address], [place], [address], 10/07/2019 15:01:59 10/07/19 20 08/11/2019 US, echoc ardio gram, trans thora cic, compl ete, w/ color flow No observ ation record ed. BARCODE [facility] (Central Scheduling) [address], [place], [address], 10/07/2019 13:04:17 10/07/19 20 10/07/2019 tread mill nucle ar stres s test (PROC ) [facility] Patien t: KIM DENNYSJOSÉ MIGUEL Mullen : [id number] Sex: Male Locati on: [place] [facility] Orderi ng Physic kendrick: SUSAN HERNANDEZ MD Nuclea r Medici ne Access ion Exam Date/T mohsen [id number] -[id number] 0471 020 11:59 CDT Reason for Exam Athero sclero tic heart diseas e of [place] agu[place]re ry artery withou t angina pector is Other fatigu e Report EXERCI SE NUCLEA R IMAGIN G STUDY The patien t exerci sed for 9 minute s 16 second s in the standa rd [place]rish protoc ol. The restin g heart rate of 62 bpm increa sed to a maximu m of 129 bpm repres enting 86% of the shane l age-pr edicte d heart rate. Baseli ne blood pressu re of 153/72 increa sed to a maximu m of 191/71 . 10 mCi of techne tium 99m tetrof fede was inject ed at rest and 30 mCi of techne tium 99m tetrof fede was inject ed at peak exerci se stress . 1. Clinic ally Negati ve for angina . 2. Approp riate heart rate respon se to exerci se stress . 3. Approp riate blood pressu re respon se to exerci se stress . 4. Baseli ne EKG demons trates sinus rhythm , 51 bpm, and no ischem ic ST change s.. 5. With exerci se stress and recove ry there were no ischem ic ST change s noted. 6. No signif icant dysrhy thmia noted. 7. Gated stress images demons trate normal LV chambe r size, normal LV systol ic functi on, LVEF equals 67%. TID= 0.89 which is a normal value 8. Scinti graphi c images : In the inferi or wall there is a very mild stress -induc ed perfus ion defect noted in the supine images , fixed in the restin g images , normal izing in the prone images . Clinic ally these images are most compat ible with diaphr agmati c attenu ation artifa ct. There is not signif icant eviden ce for ischem ia infarc tion.. Overal l impres susie: 1. EKG negati ve for ischem ic ST change s. 2. Gated stress images show preser jorge LVEF equals 67%. 3. Probab ly a normal exerci se tetrof fede study. There is not signif icant eviden ce for ischem ia or infarc tion. Final Signed by: SUSAN HERNANDEZ MD Signed (Elect denise Signat ure): 2019 08:00 pm CDT [email or web address] [facility] (Radiology) [address] [place] [address] [address] [address], [place], [address], 10/08/2019 09:54:23 Result Notes None recorded. Problems Name Problem SNOMED Code Status Onset Date Resolution Date Notes Provider Name and Address Organization Details Recorded Time Coronary arterioscle rosis in [place] artery 1696015997149 Active 2019 Emily Stanley NP null, [facility] 0 13:07:54 Problem Notes None recorded. Procedures Surgical History None recorded. Imaging Results Imaging Date Name Status LastModified by Organization Details LastModified Time 07/27/2019 electrocardiogram completed [facility] [address], [place], [address], 10/08/2019 14:08:46 09/17/2019 electrocardiogram completed [address]-Cardiolog y [address] [facility] [address], [place], [address], 10/07/2019 15:01:59 08/11/2019 US, echocardiogram, transthoracic, complete, w/ color flow completed [facility] (Central Scheduling) [address], [place], [address], 10/07/2019 13:04:17 10/07/2019 treadmill nuclear stress test (PROC) completed [address] (Radiology) [address] [address], [place], [address], 10/08/2019 09:54:23 Procedure Notes None recorded. Medical Equipment None Reported. Allergies Allergen ID Allergen Name Allergen Category Reaction Reaction Severity Criticality Documentation Date Start Date Code Code System Note Provider Name and Address Organization Details Recorded Time 588652 acetamino phen / oxycodone medicatio n rash Not available Not available 09/17/2019 29934 3 RxNorm Jesse Campos RN null, [facility] 0 13:02:50 Medications Name Sig Start Date Stop Date Status Note LastModified by Organization Details LastModified Time celecoxib 200 mg capsule 09/16 completed Not Available Not Available Not Available atorvastatin 80 mg tablet Take 1 tablet every day by oral route. active Not Available Not Available No t Available ibuprofen 800 mg tablet 09/16 completed Not Available Not Available Not Available ranitidine 300 mg tablet Take 1 tablet every day by oral route for 30 days. 10/31 completed Not Available Not Available Not Available glipizide 10 mg tablet Take 1 tablet every day by oral route in the morning for 90 days. active Not Available Not Available No t Available famotidine 40 mg tablet 09/16 completed Not Available Not Available Not Available amlodipine 5 mg tablet Take 1 tablet every day by oral route. active Not Available Not Available No t Available hydrocodone 10 mg-acetamino phen 325 mg tablet TAKE ONE Tablet BY MOUTH FOUR TIMES DAILY NEEDED FOR PAIN active Not Available Not Available No t Available omeprazole 40 mg capsule,sunita yed release TAKE ONE Capsule BY MOUTH TWICE DAILY BEFORE MEALS active Not Available Not Available No t Available linezolid 600 mg tablet TAKE ONE Tablet BY MOUTH every 12 hours active Not Available Not Available No t Available cephalexin 500 mg capsule TAKE ONE Capsule BY MOUTH THREE TIMES DAILY FOR 7 DAYS active Not Available Not Available No t Available gabapentin 300 mg capsule TAKE ONE Capsule BY MOUTH EVERY 8 HOURS active Not Available Not Available No t Available morphine ER 15 mg tablet,exten ded release active Not Available Not Available Not Available Aspir-81 mg tablet,delay ed release Take 1 tablet every day by oral route. active Not Available Not Available No t Available celecoxib 100 mg capsule 09/16 completed Not Available Not Available Not Available lisinopril 40 mg tablet Take 1 tablet every day by oral route. active Not Available Not Available No t Available glipizide 5 mg tablet Take 1 tablet every day by oral route in the evening. active Not Available Not Available No t Available clindamycin phosphate 1 % topical solution 09/16 completed Not Available Not Available Not Available duloxetine 30 mg capsule,sunita yed release TAKE ONE CAPSULE BY MOUTH EVERY DAY active Not Available Not Available No t Available Narcan 4 mg/actuation nasal spray as needed active Not Available Not Available No t Available Vitals Date Recorded Body weight Heart rate Oxygen saturation Oxygen saturation in Arterial blood by Pulse oximetry Body mass index (BMI) Body height Systolic blood pressure Diastolic blood pressure Provider Name and Address Organization Details Last Updated DateTime 0 28383.1 1 g 65 /min 98 % 98 % 26.9 kg/m2 168.91 cm 108 mm[Hg] 72 mm[Hg] Jesse Campos RN [facility] 0 13:06:23 Date Recorded Body height Heart rate Oxygen saturation Oxygen saturation in Arterial blood by Pulse oximetry Body mass index (BMI) Body weight Systolic blood pressure Diastolic blood pressure Provider Name and Address Organization Details Last Updated DateTime 0 168.91 cm 66 /min 98 % 98 % 28 kg/m2 60105.2 6 g 136 mm[Hg] 58 mm[Hg] Jesse Campos RN [facility] 0 12:45:56 Social History None recorded. Functional Status None recorded. Mental Status None recorded. Family History Nothing Reported. Medical History No medical history recorded. Past Encounters Encounter ID Performer Location Encounter Start Date Encounter Closed Date Diagnosis/Indication Diagnosis SNOMED-CT Code Diagnosis ICD10 Code Diagnosis Note [id number] [facility] [address] [address] 05/27/2008 09:08:08 05/27/2008 10:58:51 [id number] [facility] [address] [address] 11/15/2008 16:48:42 11/15/2008 17:32:53 [id number] [facility] [address] [address] 11/24/2008 09:11:54 11/24/2008 09:48:30 [id number] [facility] [address] [address] 11/21/2008 00:00:00 05/01/2012 03:30:46 [id number] [facility] [address] [address] 11/21/2008 09:13:06 11/21/2008 11:21:02 [id number] [facility] [address] [address] 01/06/2009 08:56:25 01/06/2009 11:56:41 [id number] [facility] [address] [address] 03/06/2009 09:15:26 03/06/2009 09:51:00 [id number] [facility] [address] [address] 03/31/2009 09:05:29 03/31/2009 12:58:39 [id number] [facility] [address] [address] 03/27/2009 10:15:05 03/27/2009 10:15:28 [id number] [facility] [address] [address] 11/16/2009 08:47:10 11/16/2009 10:46:11 [id number] [facility] [address] [address] 12/06/2009 16:25:14 12/06/2009 17:27:43 [id number] [facility] [address] [address] 07/04/2010 11:29:46 07/04/2010 12:04:58 [id number] [facility] [address] [address] 11/06/2010 16:22:00 11/06/2010 16:59:15 [id number] [facility] [address] [address] 11/19/2010 10:09:47 11/19/2010 10:51:41 [id number] [facility] [address] [id number] 01/21/2011 16:37:44 01/21/2011 17:09:49 [id number] [facility] [address] [address] 02/11/2011 08:28:23 02/11/2011 09:48:19 [id number] [facility] [address] [address] 02/18/2011 08:02:22 02/18/2011 10:27:02 [id number] [facility] [address] [address] 02/08/2011 09:40:15 02/08/2011 11:03:51 [id number] [facility] [address] [id number] 02/04/2011 09:17:34 02/04/2011 09:58:14 [id number] [facility] [address] [address] 05/20/2011 10:08:45 05/20/2011 11:03:02 [id number] [facility] [address] [place] [address] 11/14/2011 12:34:27 11/14/2011 13:03:00 [id number] [facility] [address] [place] [address] 10/08/2011 11:02:29 10/08/2011 17:53:52 [id number] [facility] [address] [place] [address] 02/04/2012 08:41:15 02/04/2012 14:54:09 [id number] [facility] [address] [place] [address] 06/05/2012 10:56:52 06/05/2012 16:47:47 [id number] Ivette Altman [facility] [address] [place] [place] [address] 11/26/2012 09:42:46 11/26/2012 16:06:33 [id number] Ivette Altman [facility] [address] [place] [address] 05/06/2013 10:45:26 05/06/2013 17:16:45 [id number] Ivette Altman [facility] [address] [place] [address] 07/02/2013 09:38:01 07/05/2013 12:30:12 [id number] Elizabeth Suarez [facility] [address] [place] [address] 09/09/2013 14:04:58 09/13/2013 15:34:24 [id number] [facility] [address] [place] [address] 12/17/2013 11:39:01 12/17/2013 14:52:28 [id number] [facility] [address] [place] [address] 12/29/2013 09:55:19 12/29/2013 16:19:48 [id number] Connie Lopez LPN [facility] [address] [place] [address] 01/24/2014 10:02:01 01/24/2014 16:35:45 [id number] Korina Shea [facility] [address] [place] [address] 03/07/2014 11:38:05 03/07/2014 14:03:49 [id number] [address] MD [facility] [address] [place] [address] 08/08/2014 14:24:34 08/08/2014 15:38:26 [id number] [facility] [address] [place] [address] 08/23/2014 15:50:34 08/24/2014 20:41:01 [id number] Magdalene Cortes, Shop Firer/Fireman [facility] [address] [place] [address] 10/20/2014 15:42:43 10/21/2014 10:01:25 [id number] Elizabeth Suarez [facility] [address] [place] [address] 02/08/2015 08:32:22 02/08/2015 17:10:50 [id number] Elizabeth Suarez [facility] [address] [place] [address] 02/15/2015 08:49:56 02/15/2015 14:37:41 [id number] Delicia Morgan MD [facility] [address] [place] [address] 05/11/2015 15:43:20 05/11/2015 17:39:07 [id number] [address]icia Morgan MD [facility] [address], [place] [address] 10/26/2015 14:45:17 10/26/2015 17:53:10 [id number] [address]icia [address] MD [facility] [address] [place] [address] 02/16/2016 09:24:10 02/16/2016 11:56:19 [id number] [address] MD [facility] [address] [place] [address] 07/22/2016 09:17:57 07/22/2016 11:10:38 [id number] NOLAN BEDOYA DO [facility] [address] 08/12/2016 11:18:47 08/12/2016 12:26:22 [id number] NOLAN BEDOYA DO [facility] [address] 08/26/2016 15:48:20 08/26/2016 17:08:39 [id number] NOLAN BEDOYA DO [facility] [address] 09/11/2016 09:21:13 09/11/2016 09:39:45 [id number] Judie Marsh NP [facility] [address] [place], [place] [address] 02/18/2018 15:21:47 02/18/2018 18:08:55 [id number] АЛЕКСАНДР Carbajal [facility] [address] [place], [place] [address] 03/06/2018 08:03:31 03/06/2018 10:25:27 [id number] АЛЕКСАНДР Carbajal [facility] [address] [place] [address] 03/11/2018 09:43:07 03/11/2018 13:06:36 [id number] Judie Marsh NP [facility] [address] [place] [address] 03/16/2018 08:00:48 03/16/2018 11:50:03 [id number] [address] MD [facility] [address] [place] [address] 03/26/2018 08:28:55 03/26/2018 09:45:13 [id number] [address] MD [facility] [address] [place] [address] 03/30/2018 16:43:28 03/30/2018 17:22:20 [id number] ROLANDO COOMBS NP [facility] [address] [facility] [address] [address] 05/21/2018 09:06:02 05/21/2018 10:24:32 [id number] [address] MD [facility] [address] [place] [address] 05/25/2018 08:21:46 05/25/2018 09:53:54 [id number] NA Floyd [facility] [address] [place] [address] 06/08/2018 08:21:52 06/08/2018 11:13:53 [id number] [address] MD [facility] [address] [place] [address] 06/11/2018 09:04:42 06/11/2018 10:08:49 [id number] ROLANDO COOMBS NP [facility] [address] [facility] [address] [address] 06/17/2018 16:06:01 06/18/2018 13:12:36 [id number] [address] MD [facility] [address], [place] [address] 06/23/2018 10:26:31 06/23/2018 14:41:46 [id number] Judie Marsh NP [facility] [address] [place], [place] [address] 07/15/2018 14:03:41 07/15/2018 15:10:48 [id number] ROLANDO COOMBS NP [facility] [address] [place] [address] [address], [place] [address] 07/30/2018 09:50:44 07/30/2018 10:35:37 [id number] Judie Marsh NP [facility] [address], [place] [address] 08/04/2018 08:26:40 08/04/2018 12:03:16 [id number] ROLANDO COOMBS NP [address], [place] [address] 11/27/2018 12:11:30 11/27/2018 13:05:16 [id number] Juide Marsh NP [facility] [address], [place] [address] 02/02/2019 09:26:24 02/02/2019 12:42:17 [id number] [address] MD [facility] [address], [place] [address] 05/04/2019 08:44:39 05/04/2019 10:41:55 [id number] ROLANDO COOMBS NP [address], [place] [address] 07/15/2019 14:05:58 07/15/2019 15:16:36 [id number] Judie Marsh NP [facility] [address], [place] [address] 07/26/2019 15:05:58 07/26/2019 19:04:20 [id number] Judie Marsh NP [facility] [address], [place] [address] 08/16/2019 11:01:38 08/16/2019 12:55:01 [id number] Susan Hernandez MD [facility] [address] [address] 09/17/2019 12:38:55 09/17/2019 14:13:59 Fatigue 21099061 R53.83 Coronary arteriosclerosis in [place] artery 7722451177 107 I25.10 Coronary b ypass graft finding 947181811 Z95.9 Type 2 [place] mellitus without complication 708528958 E11.9 Essential hypertension 55297408 I10 Hyperlipidemia 62143345 E78.5 Ventricula r premature beats 85968198 I49.3 [id number] Emily Stanley NP [facility] [address] [place] [address] 11/01/2019 12:32:44 11/01/2019 15:24:11 Coronary arteriosclerosis in [place] artery 9344568863 107 I25.10 Type 2 [place] mellitus without complication 265052013 E11.9 Essential hypertension 46529407 I10 Hyperlipidemia 87052902 E78.5 Ventricula r premature beats 22607738 I49.3 Obstructiv e sleep apnea syndrome 24951659 G47.33 [id number] Judie Marsh NP [facility] [address] [place] [address] 11/10/2019 09:47:17 11/10/2019 11:44:52 [id number] Judie Marsh NP [facility] [address] [address] 11/24/2019 09:22:29 11/24/2019 11:06:22 [id number] Judie Marsh NP [facility] [address] [place] [address] 12/08/2019 08:33:36 12/08/2019 09:55:15 [id number] Judie Marsh NP [facility] [address] [address] 02/23/2020 11:52:04 02/23/2020 13:47:09 [id number] АЛЕКСАНДР Carbajal [facility] [address] [address] 02/24/2020 08:10:39 02/24/2020 09:58:34 [id number] АЛЕКСАНДР Carbajal [facility] [address] [place] [address] 06/23/2020 09:38:02 06/23/2020 11:36:20 Health Concerns Section Related Observation LastModified by Organization Detai ls LastModified Time None Recorded Concern Status LastModified by Organization Details LastModified Time None Recorded Advance Directives Directive None Recorded Payers Encounter Date Sequence Insurance Name Policy Number Policy Byrnes Covered Member ID Byrnes Member ID Guarantor Name 09/17/2019 1 MEDICARE B: [employer] [employer] RAILRO[employer] MEDICARE Chester Kim [id number] Chester Kim 09/17/2019 2 [place] 104 Chester Kim [id number] Chester Kim 11/01/2019 1 MEDICARE B: [place] [employer] [place] RAIL[employer] MEDICARE Chester Kim [id number] Chester Kim 11/01/2019 2 [place] 104 Chester Kim [id number] Chester Kim Notes Date Note Type Note Provider Name and Address Organization Details Recorded Time 09/17/2019 text/html Thank you so muc h for this consultation. Mr. Kim is a very pleasant 68-year-old gentleman who 1 month ago was complaining of generalized extreme fatigue. He felt tired with any activity. Fortunately over the past several weeks his fatigue has resolved. At this time he denies chest pain or jaw discomfort. He denies shortness of breath at rest or when supine or with ADLs. He denies palpitations or dizziness or syncope. He remains active and has no complaints with vigorous activity. Coronary risk factors: Quit smoking 35 years ago, type 2 diabetes mellitus, hypertension, hyperlipidemia. Family history: Brother had bypass surgery in his 40s. Past medical history: Three-vessel bypass surgery 2007, bilateral total knee replacement surgery, cholecystectomy, varicose veins, left inguinal hernia repair, normal colonoscopy. Lab work-up, July 30, 2019: TSH 1.9, hemoglobin A1c 6.1 Past cardiac history 1. CAD. 2. Three-vessel CABG, 2006 at [facility]. 3. Holter monitor August 11, 2019: Underlying sinus rhythm. Occasional single PVCs and 1 ventricular couplet/1 ventricular triplet. Susan Hernandez MD [address], [place], [address], [facility] 09/17/2019 14:07:26 11/01/2019 text/html Patient returns to the office today for follow-up after recent testing. Initially he presented with complaints of generalized extreme fatigue. He felt tired with any activity. During his last visit he stated his fatigue has resolved. Today he states the fatigue is back, in fact yesterday he reports falling asleep watching TV and he had only been awake a couple of hours. On the way to this appt. ([address] he states he felt like he could go to sleep. In addition, he states he is a restless sleeper. At this time he denies chest pain or jaw discomfort. He denies shortness of breath at rest or when supine or with ADLs. He remains active and has no complaints with vigorous activity. Coronary risk factors: Quit smoking 35 years ago, type 2 diabetes mellitus, hypertension, hyperlipidemia. Family history: Brother had bypass surgery in his 40s. Past medical history: Three-vessel bypass surgery 2006, bilateral total knee replacement surgery, cholecystectomy, varicose veins, left inguinal hernia repair, normal colonoscopy. Lab work-up, July 30, 2019: TSH 1.9, hemoglobin A1c 6.1 Past cardiac history 1. CAD. 2. Three-vessel CABG, 2006 at [facility]. 3. Holter monitor August 11, 2019: Underlying sinus rhythm. Occasional single PVCs and 1 ventricular couplet/1 ventricular triplet. 4. Echo--August 2019: LVEF 65 to 70%. Wall thickness is normal, wall motion is normal no valvular disease noted. 5. Stress Test--September 2019: EKG negative for ischemic ST changes. LVEF equals 67%. No significant evidence for ischemia or infarction. Emily Stanley NP null, [facility] 11/01/2019 15:01:07
--- OUTSIDE RECORDS SUMMARY | 2024-06-08 07:50 | XMS_ITS | Data Portability ---
Author Organization [facility], [facility] Address [address] [place] [address] Care Team Providers Care Tobacco Sweeper Name Role Phone DELICIA MORGAN Primary Care Provider DELICIA MORGAN Referring Provider Assessment No assessment recorded. Plan of Treatment Reminders Order Date Submit Date Provider Last Modified By Organization Details Last Modified Time Details Appointments None record ed. Lab None record ed. Referral None record ed. Procedures None record ed. Surgeries None record ed. Imaging None record ed. Medication Orders None record ed. Patient TargetsNo targets recorded. Patient Instructions Encounter Date Encounter Id Patient Instructions Last Modified By Organization Details Last Modified Time 08/12/2016 [id number] elevated blood pressure: care instructions [email or web address] Not available 08/12/2016 15:56:54 high cholesterol : care instructions [email or web address] Not available 08/12/2016 15:56:54 Reason for Referral None Reported. Results Created Date Observation Date Name Description Value Unit Range Abnormal Flag Note LastModifiedBy Organization Detail LastModifiedTime Result Notes None recorded. Problems Name Problem SNOMED Code Status Onset Date Resolution Date Notes Provider Name and Address Organization Details Recorded Time Mass of shoulder region 249088616 Active 2016 JOSE ANTONIO Pacheco, [facility] 7 10:01:02 Hypertensive disorder 20314160 Active 2016 JOSE ANTONIO Pacheco, [facility] 7 10:01:06 Hyperlipidemia 01519221 Active 2016 JOSE ANTONIO Pacheco, [facility] 7 10:01:11 Gastroesophage al reflux disease without esophagitis 066020981 Active 2016 Makayla López [facility] 10:01:17 Problem Notes None recorded. Procedures Surgical History Date Name Laterality Status Provider Name and Address Organization Details Recorded Time 08/27/19 17 Excisions completed NOLAN BEDOYA, DO [address], [place], [address], [facility] 08/26/2016 17:48:03 Knee Surgery completed Makayla López LPN [facility] 07/31/2016 10:02:14 CABG completed Makayla López LPN [facility] 07/31/2016 10:02:20 Cholecystectomy completed Staci Harvey [facility] 08/12/2016 12:09:29 Hernia Repair completed Staci Harvey [facility] 08/12/2016 12:09:48 Imaging Results None recorded. Procedure Notes None recorded. Medical Equipment None Reported. Allergies Allergen ID Allergen Name Allergen Category Reaction Reaction Severity Criticality Documentation Date Start Date Code Code System Note Provider Name and Address Organization Details Recorded Time 25012 acetamino phen / oxycodone medicatio n Not available Not available Not available 07/31/2016 38994 3 RxNorm Makayla López [facility] 7 10:00:32 29227 diclofena c Not available Not available Not available Not available 07/31/2016 3355 RxNorm Makayla López [facility] 7 10:00:38 Medications Name Sig Start Date Stop Date Status Note LastModified by Organization Details LastModified Time celecoxib 200 mg capsule active Not Available Not Available Not Available amoxicillin 500 mg capsule active Not Available Not Available Not Available atorvastatin 40 mg tablet Take 1 tablet every day by oral route. active Not Available Not Available No t Available doxycycline hyclate 100 mg capsule active Not Available Not Available N ot Available azithromycin 250 mg tablet 08/12 completed Not Available Not Available Not Available ibuprofen 800 mg tablet TAKE ONE TABLET BY MOUTH THREE TIMES DAILY FOR 10 DAYS active Not Available Not Available No t Available benzonatate 200 mg capsule active Not Available Not Available Not Available ranitidine 300 mg tablet TAKE ONE TABLET BY MOUTH AT BEDTIME active Not Available Not Available No t Available glipizide 10 mg tablet active Not Available Not Available No t Available famotidine 40 mg tablet TAKE ONE TABLET BY MOUTH [...] No t Available tramadol 50 mg tablet active Not Available Not Available No t Available ketorolac 10 mg tablet active Not Available Not Available No t Available amoxicillin 875 mg tablet active Not Available Not Available Not Available aspirin 325 mg tablet,delay ed release active Not Available Not Available N ot Available linezolid 600 mg tablet TAKE ONE [...] Available pantoprazole 40 mg tablet,delay ed release active Not Available Not Available N ot Available metoprolol tartrate 50 mg tablet active Not Available Not Available No t Available gabapentin 300 mg capsule TAKE ONE Capsule BY MOUTH EVERY 8 HOURS active Not Available Not Available No t Available morphine ER 15 mg tablet,exten ded release active Not Available Not Available Not Available methylpredni solone 4 mg tablets in a dose pack 08/12 completed Not Available Not Available Not Available celecoxib 100 mg capsule active Not Available Not Available Not Available lisinopril 40 mg tablet Take 1 tablet every day by oral route. active Not Available Not Available No t Available glipizide 5 mg tablet active Not Available Not Available No t Available amoxicillin 875 mg-potassium clavulanate 125 mg tablet active Not Available Not Available Not Available clindamycin phosphate 1 % topical solution active Not Available Not Available Not Available duloxetine 30 mg capsule,sunita yed release TAKE ONE CAPSULE BY MOUTH EVERY DAY active Not Available Not Available No t Available chlorhexidin e gluconate 0.12 % mouthwash active Not Available Not Available No t Available Suprep Bowel Prep Kit 17.5 gram-3.13 gram-1.6 gram oral solution 08/12 completed Not Available Not Available Not Available Narcan 4 mg/actuation nasal spray active Not Available Not Available Not Available Vitals Date Recorded Body height Body weight Body mass index (BMI) Heart rate Body temperature Systolic blood pressure Diastolic blood pressure Provider Name and Address Organization Details Last Updated DateTime 7 163.83 cm 20130.7 7 g 31.6 kg/m2 59 /min 98.1 [degF] 122 mm[Hg] 62 mm[Hg] Staci Harvey CMA [facility] 7 12:08:06 Date Recorded Body height Body temperature Provider N leyda and Address Organization Details Last Updated DateTime 08/26/2016 163.83 cm 98.8 [degF] Makayla López LPN [facility] 08/26/2016 16:20:32 Date Recorded Body height Heart rate Body temperature Provider Name and Address Organization Details Last Updated DateTime 09/11/2016 163.83 cm 76 /min 98.4 [degF] Makayla López LPN [facility] 09/11/2016 09:21:36 Social History None recorded. Functional Status None recorded. Mental Status None recorded. Family History Relationship Description Onset Age of this Age Resolved Age Notes LastModified by Organization Details LastModified Time Brother Heart disease [email or web address] Not available 08/12 12:09:17 Medical History Condition Response Acid Reflux/GERD Y Diabetes Y Carotid Artery Disease Y Hyperlipidemia Y Hypertension Y Past Encounters Encounter ID Performer Location Encounter Start Date Encounter Closed Date Diagnosis/Indication Diagnosis SNOMED-CT Code Diagnosis ICD10 Code Diagnosis Note [id number] [facility] [address] [address] 05/27/2008 09:08:08 05/27/2008 10:58:51 [id number] [facility] [address] [address] 11/15/2008 16:48:42 11/15/2008 17:32:53 [id number] [facility] [address] [address] 11/24/2008 09:11:54 11/24/2008 09:48:30 [id number] [facility] [address] [place], [place] [address] 11/21/2008 00:00:00 05/01/2012 03:30:46 [id number] [facility] [address] [address] 11/21/2008 09:13:06 11/21/2008 11:21:02 [id number] [facility] [address] [place], [place] [address] 01/06/2009 08:56:25 01/06/2009 11:56:41 [id number] [facility] [address] [place], [place] [address] 03/06/2009 09:15:26 03/06/2009 09:51:00 [id number] [facility] [address] [address] 03/31/2009 09:05:29 03/31/2009 12:58:39 [id number] [facility] [address] [address] 03/27/2009 10:15:05 03/27/2009 10:15:28 [id number] [facility] [address] [address] 11/16/2009 08:47:10 11/16/2009 10:46:11 [id number] [facility] [address] [address] 12/06/2009 16:25:14 12/06/2009 17:27:43 [id number] [facility] [address] [address] 07/04/2010 11:29:46 07/04/2010 12:04:58 [id number] [facility] [address] [address] 11/06/2010 16:22:00 11/06/2010 16:59:15 [id number] [facility] [address] [address] 11/19/2010 10:09:47 11/19/2010 10:51:41 [id number] [facility] [address] [address] 01/21/2011 16:37:44 01/21/2011 17:09:49 [id number] [facility] [address] [id number] 02/11/2011 08:28:23 02/11/2011 09:48:19 [id number] [facility] [address] [id number] 02/18/2011 08:02:22 02/18/2011 10:27:02 [id number] [facility] [address] [id number] 02/08/2011 09:40:15 02/08/2011 11:03:51 [id number] [facility] [address] [address] 02/04/2011 09:17:34 02/04/2011 09:58:14 [id number] [facility] [address] [id number] 05/20/2011 10:08:45 05/20/2011 11:03:02 [id number] [facility] [address] [place] [address] [address] 11/14/2011 12:34:27 11/14/2011 13:03:00 [id number] [facility] [address] [address] 10/08/2011 11:02:29 10/08/2011 17:53:52 [id number] [facility] [address] [place] [address] [address] 02/04/2012 08:41:15 02/04/2012 14:54:09 [id number] [facility] [address] [place] [address] 06/05/2012 10:56:52 06/05/2012 16:47:47 [id number] Ivette Altman [facility] [address] [place] [address] 11/26/2012 09:42:46 11/26/2012 16:06:33 [id number] Ivette Altman [facility] [address] [place] [address] 05/06/2013 10:45:26 05/06/2013 17:16:45 [id number] Ivette Altman [facility] [address] [place] [address] 07/02/2013 09:38:01 07/05/2013 12:30:12 [id number] Elizabeth Suarez [facility] [address] [place] [address] 09/09/2013 14:04:58 09/13/2013 15:34:24 [id number] [facility] [address] [place] [address] 12/17/2013 11:39:01 12/17/2013 14:52:28 [id number] [facility] [address] [place] [address] 12/29/2013 09:55:19 12/29/2013 16:19:48 [id number] Connie Lopez LPN [facility] [address] [place] [address] 01/24/2014 10:02:01 01/24/2014 16:35:45 [id number] Korina Shea [facility] [address] [place] [address] 03/07/2014 11:38:05 03/07/2014 14:03:49 [id number] Delicia Morgan MD [facility] [address] [place] [address] 08/08/2014 14:24:34 08/08/2014 15:38:26 [id number] [facility] [address] [place] [address] 08/23/2014 15:50:34 08/24/2014 20:41:01 [id number] Magdalene Cortes, [employer] Brake [employer]ic [facility] [address], [place] [address] 10/20/2014 15:42:43 10/21/2014 10:01:25 [id number] Elizabeth Suarez [facility] [address] [place] [address] 02/08/2015 08:32:22 02/08/2015 17:10:50 [id number] Elizabeth Suarez [facility] [address] [place] [address] 02/15/2015 08:49:56 02/15/2015 14:37:41 [id number] Delicia Morgan MD [place] [address] [place] [address] 05/11/2015 15:43:20 05/11/2015 17:39:07 [id number] Delicia Morgan MD [facility] [address] [place] [address] 10/26/2015 14:45:17 10/26/2015 17:53:10 [id number] Delicia Morgan MD [facility] [address] [place] [address] 02/16/2016 09:24:10 02/16/2016 11:56:19 [id number] Delicia Morgan MD [place] [address] [place] [address] 07/22/2016 09:17:57 07/22/2016 11:10:38 [id number] NOLAN BEDOYA DO [facility] [facility] [address] [address] 08/12/2016 11:18:47 08/12/2016 12:26:22 Mass of soft tissue 096022267 R22.9 Gastroesop hageal reflux disease without esophagitis 800526932 K21.9 Hypertensive disorder 38 707798 I10 Hyperlipidemia 97196011 E78.5 [id number] NOLAN PISCHL, DO [facility] [place] [address] 08/26/2016 15:48:20 08/26/2016 17:08:39 Mass of shoulder region 956557697 R22.32 Hypertensive disorder 38 854387 I10 Hyperlipidemia 25638381 E78.5 Gastroesop hageal reflux disease without esophagitis 479588374 K21.9 [id number] NOALN BEDOYA DO [facility] [place] [address] 09/11/2016 09:21:13 09/11/2016 09:39:45 Mass of shoulder region 209534704 R22.32 Hyperlipidemia 63842014 E78.5 Hypertensive disorder 38 667344 I10 Gastroesop hageal reflux disease without esophagitis 527316873 K21.9 [id number] Judie Marsh NP [facility] [address] [place] [address] 02/18/2018 15:21:47 02/18/2018 18:08:55 [id number] Micheal Singletary [facility] [address] [place] [address] 03/06/2018 08:03:31 03/06/2018 10:25:27 [id number] Micheal Singletary [facility] [address] [place] [address] 03/11/2018 09:43:07 03/11/2018 13:06:36 [id number] Judie Marsh NP [facility] [address] [address] 03/16/2018 08:00:48 03/16/2018 11:50:03 [id number] Delicia Morgan MD [facility] [address] [place] [address] [address] 03/26/2018 08:28:55 03/26/2018 09:45:13 [id number] Delicia Morgan MD [facility] [address] [place] [address] 03/30/2018 16:43:28 03/30/2018 17:22:20 [id number] ROLANDO COOMBS NP [facility] 647 [facility] [address] [place], [place] [address] 05/21/2018 09:06:02 05/21/2018 10:24:32 [id number] Delicia Morgan MD [facility] [address] [place] [address] 05/25/2018 08:21:46 05/25/2018 09:53:54 [id number] NA Floyd [facility] [address] [place] [address] 06/08/2018 08:21:52 06/08/2018 11:13:53 [id number] Delicia Morgan MD [facility] [address] [place] [address] 06/11/2018 09:04:42 06/11/2018 10:08:49 [id number] ROLANDO COOMBS NP [facility] [address] [place] [address] [address], [place] [address] 06/17/2018 16:06:01 06/18/2018 13:12:36 [id number] Delicia Morgan MD [facility] [address] [place] [address] 06/23/2018 10:26:31 06/23/2018 14:41:46 [id number] Judie Marsh NP [facility] [address] [place] [address] 07/15/2018 14:03:41 07/15/2018 15:10:48 [id number] ROLANDO COOMBS NP [facility] [address] [facility] [address] [address] 07/30/2018 09:50:44 07/30/2018 10:35:37 [id number] Judie Marsh NP [facility] [address] [place] [address] 08/04/2018 08:26:40 08/04/2018 12:03:16 [id number] ROLANDO COOMBS NP [facility] 647 [facility] [address] [place] [address] 11/27/2018 12:11:30 11/27/2018 13:05:16 [id number] Judie Marsh NP [facility] [address] [place] [address] 02/02/2019 09:26:24 02/02/2019 12:42:17 [id number] Delicia Morgan MD [facility] [address] [place], [place] [address] 05/04/2019 08:44:39 05/04/2019 10:41:55 [id number] ROLANDO COOMBS, LIONEL [facility] 647 [facility] [address] [place] [address] 07/15/2019 14:05:58 07/15/2019 15:16:36 [id number] Judie Marsh NP [facility] [address] [place] [address] 07/26/2019 15:05:58 07/26/2019 19:04:20 [id number] Judie Marsh NP [facility] [address] [place], [place] [address] 08/16/2019 11:01:38 08/16/2019 12:55:01 [id number] Carmelo Hernandez MD [facility] [address] [facility] [address] [place] [address] 09/17/2019 12:38:55 09/17/2019 14:13:59 [id number] Emily Stanley NP [facility] [address] [facility] [address] [place] [address] 11/01/2019 12:32:44 11/01/2019 15:24:11 [id number] Judie Marsh NP [facility] [address] [place], [place] [address] 11/10/2019 09:47:17 11/10/2019 11:44:52 [id number] Judie Marsh NP [facility] [address] [place], [place] [address] 11/24/2019 09:22:29 11/24/2019 11:06:22 [id number] Judie Marsh NP [facility] [address] [place] [address] 12/08/2019 08:33:36 12/08/2019 09:55:15 [id number] Judie Marsh NP [facility] [address] [place] [address] 02/23/2020 11:52:04 02/23/2020 13:47:09 [id number] Micheal Singletary, [facility] [address] [place] [address] 02/24/2020 08:10:39 02/24/2020 09:58:34 [id number] Micheal Singletary, [facility] [address] [place] [address] 06/23/2020 09:38:02 06/23/2020 11:36:20 Health Concerns Section Related Observation LastModified by Organization Detai ls LastModified Time None Recorded Concern Status LastModified by Organization Details LastModified Time None Recorded Advance Directives Directive None Recorded Payers Encounter Date Sequence Insurance Name Policy Number Policy Byrnes Covered Member ID Byrnes Member ID Guarantor Name 08/12/2016 1 MEDICARE B: [facility] MEDICARE Chester R Gama [id number] Chester R Gama 08/12/2016 2 [place] 104 Chester R Gama [id number] Chester R Gama 08/26/2016 1 MEDICARE B: [facility] MEDICARE Chester R Gama [id number] Chester R Gama 08/26/2016 2 [place] 104 Chester R Gama [id number] Chester R Gama 09/11/2016 1 MEDICARE B: [facility] Chester R Gama [id number] Chester R Gama 09/11/2016 2 [place] 104 Chester Gama [id number] Chester Gama Notes Date Note Type Note Provider Name and Address Organization Details Recorded Time 08/12/2016 text/html Patient's a 65-year-old male that comes in the office complaining of a mass on his left shoulder. Patient reports that is been there for approximately 3 weeks. Patient feels that it is getting larger in size. Patient reports he told his primary care physician about it and he was referred to me. Patient reports that he gets pain that goes down his left shoulder into his left arm. Particularly when pressure is applied to the mass. Denies fevers, chills, nausea, vomiting or change in weight. Patient is never had anything like this before. Patient denies any signs of infection or drainage from the area. DO [address], [place], [address], [facility] 08/12/2016 13:31:24 08/26/2016 text/html Patient's a 65-year-old male that comes in the office complaining of a mass on his left shoulder. Patient reports that is been there for approximately 3 weeks. Patient feels that it is getting larger in size. Patient reports he told his primary care physician about it and he was referred to me. Patient reports that he gets pain that goes down his left shoulder into his left arm. Particularly when pressure is applied to the mass. Denies fevers, chills, nausea, vomiting or change in weight. Patient is never had anything like this before. Patient denies any signs of infection or drainage from the area. DO [address], [place], [address], [facility] 08/26/2016 17:54:47 09/11/2016 text/html Post-OpReported bypatient.Onset/Ryan ing:date of surgery: (08/26/16) Quality:procedure: (Excision mass of left shoulder) Context:reason for procedure: (Mass to left shoulder); operative findings: (Compound melanocytic nevus) Associated Symptoms:incision healing well; normal appetite; normal bowel function; no pain; no fever; no bleedingNotes:Patie nt is doing very well following the procedure. Denies pain, fever, chills, nausea, vomiting or bleeding. NOLAN BEDOYA, [address], [place], [address], [facility] 09/11/2016 12:49:08
--- OUTSIDE RECORDS SUMMARY | 2024-06-08 07:50 | XMS_ITS | Patient Health Record ---
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 Name Role Phone Derik Devi MD Primary Care Provider Austin Geronimo Unavailable Unavailable Allergies Allergen (clinical drug ingredient) Drug/Non Drug Allergy documented on EMR Reaction Allergy Type Onset Date Status acetaminophen / oxycodone Percocet Unknown Drug Allergy Active Reason For Referral No Information Medications Medication SIG (Take, Route, Frequency, Duration) Notes Start Date End Date Status Pepcid 40 MG 1 tablet at bedtime Orally Once a day for 30 day(s) Active Omeprazole 40 mg 1 capsule Orally Twi ce a day Active Atorvastatin Calcium 40 MG 1 tab Orally Once a day Active CeleBREX 200 MG 1 capsule with food Orally Once a day for 30 day(s) 02/19/2018 Active Lisinopril 40 MG 1 tab Orally daily Active amLODIPine Besylate 10 MG 1 tab Orally Once a day Active Aspirin 81 MG 1 tab Orally Once a day Active Problems Problem Type SNOMED Code ICD Code Onset Dates Problem Status W/U Status Risk Notes Problem 18342946 Essential hypertension (I10) Active confirmed Problem 358540712 Type 2 diabetes mellitus without complication, without long-term current use of insulin (E11.9) Active confirmed Problem 00679267 Hyperlipidemia, unspecified hyperlipidemia type (E78.5) Active confirmed Problem 532018718 BMI 31.0-31.9,adult (Z68.31) Active confirmed Problem 093933299 BMI 30.0-30.9,adult (Z68.30) Active confirmed Problem 466838902273091 Internal derangement of left knee (M23.92) Active confirmed Problem 57856138731211637 Lymphedema of left leg (I89.0) Active confirmed Problem 49343225 Varicose veins o f both 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) Active confirmed Plan Of Treatment No Information Insurance Providers Payer Name Payer Address Payer Phone Subscriber Number Group Number Insured Name Patient Relationship to Insured Coverage Start Date Coverage End Date [employer] [address] [address] [place] [id number] Chester Gama Self - patient is the insured [address] [address] [id number] Chester Gama Self - patient is the insured Medical (General) History Medical History History ICD Code hypertension hyperlipidemia diabetes Acid reflux Surgical History Surgery Date(Month/Year) cholecystectomy left knee replacement right knee replacement triple bypass EGD 08/25/18
--- OUTSIDE RECORDS SUMMARY | 2024-06-08 07:50 | XMS_ITS | Clinical Summary ---
Author Organization [facility] Address [address] [place] [address] Phone Care Team Providers Care Manager Animal Name Role Phone Unavailable Primary Care Provider Unavailabl e Social History Tobacco Use Types Packs/Day Years Used Date Smoking Tobacco: Never Assessed Sex and Gender Information Value Date Recorded Sex Assigned at Not on file Legal Sex Male 1:21 PM CDT Gender Identity Not on file Sexual Orientation Not on file Plan of Treatment Health Maintenance Due Date Last Done Comments DTAP/TDAP/TD VACCINES (1 - Tdap) 11/06/1967 COLORECTAL SCREENING 1993 Colorectal Cancer Screening 1993 FIT-DNA Q 3 years 1993 FIT/FOBT Q 1 year 1993 Flex Sig/CT Colonography Q 5 years 1993 PNEUMOCOCCAL VACCINE 50+ YEARS (1 of 1 - PCV) 11/05/18 99 ZOSTER VACCINE (1 of 2) 1998 INFLUENZA VACCINE (#1) 2023 RSV VACCINE (60+ or ) (1 - 1-dose 75+ series) 11/06/2023 Insurance MEDICARE [address] [place], [place] [id number] [place] [address] FEDERAL
--- OUTSIDE RECORDS SUMMARY | 2024-06-08 07:51 | XMS_ITS | Data Portability ---
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 of the time was counseling about the diagnosis and disease management, including the risk and benefits, medication management and conservative management. All questions answered. [email or web address] Not available 02/23/2020 12:33:35 Plan of Treatment Reminders Order Date Submit Date Provider Last Modified By Organization Details Last Modified Time Details Appointments None recorded. 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 Procedures None recorded. Surgeries None recorded. Imaging None recorded. Medication Orders cephalexin 500 mg capsule 2020 021 [email or web address] 1 [facility], [address] [place], [address], 1 10:46:10 Cymbalta 30 mg capsule,del ayed release 2019 020 MICHAEL [facility], [address] [place], [address], 0 12:34:38 Patient TargetsNo targets recorded. Patient Instructions Encounter Date Encounter Id Patient Instructions Last Modified By Organization Details Last Modified Time 02/23/2020 [id number] diarrhea: care instructions [email or web address] Not available 02/23/2020 12:33:43 cough: care instructions [email or web address] Not available 02/23/2020 12:33:43 learning about mood disorders [email or web address] Not available 02/23/2020 12:33:43 02/24/2020 [id number] diarrhea: care instructions [email or web address] Not available 02/24/2020 09:09:57 increase water intake [email or web address] Not available 02/24/2020 09:10:03 06/23/2020 [id number] ingrown toenail: care instructions [email or web address] Not available 06/23/2020 10:42:23 medication information Not available 06/23/2020 10:42:53 Reason for Referral None Reported. Results Created Date Observation Date Name Description Value Unit Range Abnormal Flag Note LastModifiedBy Organization Detail LastModifiedTime 11/25/1911/29/2019 patho logy study . COMMEN T Mater ial submi tted: . neck - RIGHT NECK. Modif iers: right Not Available [facility] ([facility]) [address] [facility], [place], [address], 11/30/2019 06:16:43 11/25/1911/29/2019 patho logy study . COMMEN T Clini lizz provi ded ICD-1 0: L72.0 Not Available [facility] ([facility]) [address] [facility], [place], [address], 11/30/2019 06:16:43 11/25/19 11/29/2019 patho logy study . COMMEN T Diagn osis: RIGHT NECK DILAT ED PORE OF DELONTE . CRY 11/28 1508 Local Not Available [facility] ([facility]) [address] [place], [address], 11/30/2019 06:16:43 11/25/1911/29/2019 patho logy study . COMMEN T Eliezer tierney d: . Denisa james MD, Patho logis t Not Available [facility] ([facility]) [address] [place], [address], 11/30/2019 06:16:43 11/25/1911/29/2019 patho logy study . COMMEN T Gross descr iptio n: . RIGHT NECK: Recei jorge in forma cherelle is a 1.5 x 1.5 x 0.6 cm ellip se of skin. Dorie ns are inked . On cut secti on, a 0.4 x 0.2 x 0.2 cm cysti c struc ture is ident ified . Speci men is submi tted in toto in 1 casse tte. MLA/M LA 11/25 0750 Local Not Available [facility] ([facility]) [address] [place], [address], 11/30/2019 06:16:43 11/25/1911/29/2019 patho logy study . COMMEN T Patho logis t provi ded ICD-1 0: L98.8 Not Available [facility] ([facility]) [address] [facility], [place], [address], 11/30/2019 06:16:43 11/25/19 20 11/29/2019 patho logy study . COMMEN T CPT . 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 Nucle ic acid ampli ficat ion tests inclu de PCR and TMA. This test has not been FDA clear ed or appro jorge. This test has been autho rized by FDA under an Emerg ency Use Autho rizat ion (EUA) . This test is only autho rized for the durat ion of time the decla ratio n that circu mstan yared exist justi fying the autho rizat ion of the emerg ency use of in vitro diagn ostic tests for detec tion of SARS- CoV-2 virus and/o r diagn osis of COVID -19 infec tion under secti on 564(b )(1) of the Act, 21 U.S.C . 360bb b-3(b ) (1), unles s the autho rizat ion is termi nated or revok ed soone r. When diagn ostic testi ng is negat lc, the possi bilit y of a false negat lc resul t shoul d be consi dered in the tal xt of a patie nt's recen t expos ures and the prese nce of clini jonas signs and sympt oms consi stent with COVID -19. An indiv idual witho ut sympt oms of COVID -19 and who is not gio ing SARS- CoV-2 virus would expec t to have a negat lc (not detec sunshine) resul t in this assay . Not Available [facility] ([facility]) [address] [facility], [place], [address], 02/25/2020 06:05:35 03/06/20 20 03/06/2020 rapid flu (A+B) Rapid Flu A negati ve Not Available [facility] [address], [place], [address], 02/23/2020 12:06:35 03/06/20 20 03/06/2020 rapid flu (A+B) Rapid Flu B negati ve Not Available [facility] [address], [place], [address], 02/23/2020 12:06:35 10/26/19 20 10/25/2019 XR, lumba r spine No observ ation [facility] ed. [email or web address] [address], [place], [address], 10/26/2019 13:58:48 11/01/19 20 10/25/2019 XR, lumba r spine No observ ation record ed. [address] (Central Scheduling) [address] [facility] [place], [address], 11/30/2019 12:08:35 11/03/19 20 11/01/2019 MRI, lumba r spine , w/o contr ast [facility] t: KIM MARY : 89 Sex: Male Locati on: [facility] RAD Orderi ng Physic kendrick: MARCELINO VILLANUEVA MD Magnet ic Resona nce Imagin g Access ion Exam Date/T mohsen [id number] 0531 020 11:10 CDT Reason for Exam Spondy lolist hesis, lumbar region Report MRI lumbar spine spinal spondy lolist hesis. Compar elisabeth made 019, July 03, 2010, Sept2008 FINDIN GS: multip le images obtain ed in multip le planes with multip le pulse sequen yared. Mixtur e of red and yellow marrow signal . Bone marrow edema at the endpla mika at L 4 and L5 on STIR sequen yared. No defect s in the conus. . T12-L1 no extrad ural defect s noted. Spinal canal is patent and the neural forame n are patent .. L1-2 and L2-3 and L3-4 no extrad ural defect s noted. Spinal canal is patent . The neural forame n are patent . Mild facet arthri tis L1-2, L2-3 L3-4. L4-5 grade 1 spondy lolist hesis of L4 relati ve to L5 diffus e. Disc bulge, facet arthri tis. Hypert rophy of the ligame ntum flavum .. Mild Narrow ing of the spinal canal. Severe narrow ing of the the neural forame n.. L5-S1 bilate ral pars defect at L5. Grade 1 grade spondy lolist hesis of L5 on S1. Disc bulge facet. Facet arthri tis. Hypert rophy of the Ligame ntum flavum . Modera te narrow ing spinal canal, severe narrow ing of the forame n forame n... Final Signed by: TWIN JENSEN MD Signed (Elect denise Signat ure): 2019 11:42 am CDT [facility] (Radiology) [address] [place] [address] [address] [address], [place], [address], 11/09/2019 14:11:06 01/04/20 20 12/07/2019 home sleep study No observ ation record ed. [email or web address] [address], [place], [address], 01/13/2020 15:03:29 Result Notes None recorded. Problems Name Problem SNOMED Code Status Onset Date Resolution Date Notes Provider Name and Address Organization Details Recorded Time Gastroes ophageal reflux disease 862427922 Active [address], [place], [address], [facility] 5 09:37:18 Chronic back pain 071960204 Completed 02/08/[address], [place], [address], [facility] 8 08:53:01 Allergic rhinitis 87616316 Completed 05/25/2018 Lorena mcbride LPN null, [facility] 9 08:46:21 Coronary arterios clerosis 22015441 Active s/p CABG [address], [place], [address], [facility] 5 09:37:18 Chest wall pain 730270631 Completed 02/08/[address], [place], [address], [facility] 5 09:37:19 Stiff neck 211223832 Completed 02/08/[address], [place], [address], [facility] 5 09:37:18 Spasm 74133482 Completed 02/08/[address], [place], [address], [facility] 5 09:37:19 Neck pain 36351159 Completed 02/08/[address], [place], [address], [facility] 5 09:37:18 Pain 03482197 Completed 02/08/[address], [place], [address], [facility] 5 09:37:19 Inflamma tion of sacroili ac joint 97579099 Completed 02/08/[address], [place], [address], [facility] - [facility] 5 09:37:18 Itching 351623215 Completed 02/08/[address], [place], [address], [facility] - [facility] 5 09:37:18 Lacerati on of finger 833995299 Completed 03/06/[address], [place], [address], [facility] - [facility] 8 08:53:25 Tendinit is 22711175 Completed 03/06/[address], [place], [address], [facility] - [facility] 8 08:53:27 Essentia l hyperten susie 06176805 Active Delicia Morgan MD [address] [place], [address], [facility] - [facility] 6 10:37:09 Chronic back pain 208066152 Completed 03/06/[address], [place], [address], [facility] - [facility] 8 08:53:01 Diabetes mellitus 12488271 Active 2017 [facility] 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 22710737 Completed 201902/24/[address], [place], [address], [facility] 0 08:55:13 Carotid atherosc lerosis 490219772 Active [address], [place], [address], [facility] 0 08:55:29 Peripher al vascular disease 602672294 Active [address], [place], [address], [facility] 0 08:55:44 Ex-smoke r 0898169 Active [address], [place], [address], [facility] 0 09:07:51 Neuropat hy due to diabetes mellitus 531229271 Active [address], [place], [address], [facility] 1 10:44:35 Sciatica 58554799 Completed 03/06/[address], [place], [address], [facility] 8 08:53:03 Hyperten sive heart disease 93437324 Completed 02/08/[address], [place], [address], [facility] 5 09:37:18 Cough 65164334 Completed 02/08/[address], [place], [address], [facility] 5 09:37:19 Type 2 diabetes mellitus without complica tion 978001406 Completed 03/06/[address], [place], [address], [facility] 8 08:53:08 Fibromyo sitis 76524978 Completed 02/08/[address], [place], [address], [facility] 5 09:37:19 Benign essentia l hyperten susie 6048148 Completed 03/06/2018 [address] [place], [address], [facility] 8 08:53:14 Skin sensatio n disturba nce 56966946 Completed 02/08/2015 [address] [place], [address], [facility] 5 09:37:19 Hyperlip idemia 57094165 Active Lorena mcbride LPN [facility] 5 10:48:21 Acute pharyngi tis 642277999 Completed 02/08/2015 [address] [place], [address], [facility] 5 09:37:18 Glucose level outside referenc e range 819866686 Completed 02/08/2015 [address] [place], [address], [facility] 5 09:37:19 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 Procedures Surgical History Date Name Laterality Status Provider Name and Address Organization Details Recorded Time 11/24/19 20 Full thickness skin excision and closure EVERARDO completed Judie Shirley NP [address] [place], [address], [facility] 11/24/2019 11:01:28 06/24/19 19 Medicare Wellness CPT Code, Subsequent completed Lorena Santamaria LPN [facility] 06/23/2018 10:42:58 07/23/19 17 Medicare Wellness CPT Code, Subsequent completed Lorena Santamaria LPN [facility] 07/22/2016 09:31:45 08/29/19 16 Colonoscopy completed Lorena Santamaria LPN [facility] 06/23/2018 10:45:40 12/30/19 14 Venipuncture completed Ivette Altman [facility] 12/29/2013 10:45:05 07/03/19 14 Venipuncture completed Lorena Santamaria LPN [facility] 07/02/2013 14:37:39 arthroplasty completed [address], [place], [address], [facility] 02/24/2020 09:11:10 laminectomy completed [address], [place], [address], [facility] 02/24/2020 09:11:25 coronary artery bypass graft completed [address], [place], [address], [facility] 02/24/2020 09:11:51 Imaging Results Imaging Date Name Status LastModified by Organ [facility] Details LastModified Time 10/25/2019 XR, lumbar spine completed [facility] Radiology Scheduling [address] [place], [address], 10/26/2019 13:58:48 10/25/2019 XR, lumbar spine completed [address] (Central Scheduling) [address] [place], [address], 11/30/2019 12:08:35 11/01/2019 MRI, lumbar spine, w/o contrast completed [facility] (Radiology) [address] [address], [place], [address], 11/09/2019 14:11:06 12/07/2019 home sleep study completed [place] [address] [facility] [address], [place], [address], 01/13/2020 15:03:29 Procedure Notes None recorded. Medical Equipment None Reported. Allergies Allergen ID Allergen Name Allergen Category Reaction Reaction Severity Criticality Documentation Date Start Date Code Code System Note Provider Name and Address Organization Details Recorded Time 38996 acetamino phen / oxycodone medicatio n Not available Not available Not available 11/26/2012 90563 3 RxNorm Ivette Altman null, [facility] 3 09:52:49 27602 diclofena c Not available diarrhea Not available Not available 08/19/2014 3355 RxNorm Ivette Altman rupert, [facility] 5 09:33:59 16131 oxycodone medicatio n Not available Not available Not available 06/23/2018 7804 RxNorm Lorena Melissakeirylobo mcbride LPN null, [facility] 9 11:04:02 Medications Name Sig Start Date Stop Date Status Note LastModified by Organization Details LastModified Time Prescriptio n - Prior Authorizati on Request 07/22 completed Not Available Not Available Not Available celecoxib 200 mg capsule Take 1 capsule every day by oral route in the morning. 07/25 completed Not Available Not Available Not Available cyclobenzap rine 10 mg tablet 07/22 completed Not Available Not Available Not Available amoxicillin 500 mg capsule 06/08 completed Not Available Not Available Not Available atorvastati n 80 mg tablet Take 1 tablet every day by oral route. active Not Available Not Available No t Available doxycycline hyclate 100 mg capsule Take 1 capsule twice a day by oral route for 7 days. 06/23 completed Not Available Not Available Not Available azithromyci n 250 mg tablet TAKE 2 TABLETS (500 MG) BY ORAL ROUTE ONCE DAILY FOR 1 DAY THEN 1 TABLET (250 MG) BY ORAL ROUTE ONCE DAILY FOR 4 DAYS 07/22 completed Not Available Not Available Not Available glyburide 5 mg tablet 1 po qday active Not Available Not Available Not Available ibuprofen 800 mg tablet TAKE ONE TABLET BY MOUTH THREE TIMES DAILY FOR 10 DAYS 11/23 completed Not Available Not Available Not Available benzonatate 200 mg capsule Take 1 capsule 3 times a day by oral route as needed. 06/23 completed Not Available Not Available Not Available ranitidine 300 mg tablet TAKE ONE TABLET BY MOUTH AT BEDTIME 11/23 completed Not Available Not Available Not Available glipizide 10 mg tablet Take 1 tablet every day by oral route with meals. active Not Available Not Available No t Available famotidine 40 mg tablet TAKE ONE TABLET BY MOUTH AT BEDTIME 02/23 completed Not Available Not Available Not Available Nexium 40 mg capsule,del ayed release 07/22 completed Not Available Not Available Not Available acetaminoph en 300 mg-codeine 30 mg tablet 02/18 completed Not Available Not Available Not Available amlodipine 5 mg tablet Take 1 tablet every day by oral route. active Not Available Not Available No t Available hydrocodone 10 mg-acetamin ophen 325 mg tablet TAKE ONE Tablet BY MOUTH FOUR TIMES DAILY NEEDED FOR PAIN 02/23 completed Not Available Not Available Not Available omeprazole 40 mg capsule,del ayed release TAKE ONE Capsule BY MOUTH TWICE DAILY BEFORE MEALS active Not Available Not Available No t Available aspirin 81 mg tablet,sunita yed release Take 1 tablet every day by oral route. active Not Available Not Available No t Available tramadol 50 mg tablet 06/11 completed Not Available Not Available Not Available amoxicillin 500 mg tablet Take 1 tablet every 8 hours by oral route for 10 days. 06/08 completed Not Available Not Available Not Available ketorolac 10 mg tablet 02/18 completed Not Available Not Available Not Available Kenalog 40 mg/mL suspension for injection Take 1 mL by injection route. 03/12 completed Pt zeinab well Not Available Not Available Not Available Bicillin C-R 1,200,000 unit/2 mL intramuscul ar syringe Inject 2 mL by intramusc ular route. 03/06 completed Not Available Not Available Not Available hydrocodone 10 mg-acetamin ophen 500 mg tablet Take 1 tablet twice a day by oral route for 30 days. active Not Available Not Available No t Available amoxicillin 875 mg tablet 05/25 completed Not Available Not Available Not Available aspirin 325 mg tablet,sunita yed release 02/18 completed Not Available Not Available Not Available linezolid 600 mg tablet TAKE ONE Tablet BY MOUTH every 12 hours active Not Available Not Available No t Available amlodipine 10 mg tablet 1 po qday 11/23 completed Not Available Not Available Not Available cephalexin 500 mg capsule TAKE ONE Capsule BY MOUTH THREE TIMES DAILY FOR 7 DAYS active Not Available Not Available No t Available pantoprazol e 40 mg tablet,sunita yed release Take 1 tablet every day by oral route. 06/23 completed Not Available Not Available Not Available lansoprazol e 30 mg capsule,del ayed release 07/22 completed Not Available Not Available Not Available metoprolol tartrate 50 mg tablet 02/18 completed Not Available Not Available Not Available diclofenac potassium 50 mg tablet Take 1 tablet 3 times a day by oral route. 03/12 completed Not Available Not Available Not Available gabapentin 300 mg capsule Take 1 capsule 3 times a day by oral route as needed. active Not Available Not Available No t Available morphine ER 15 mg tablet,exte nded release 02/23 completed Not Available Not Available Not Available hydrocodone 5 mg-acetamin ophen 500 mg tablet active Not Available Not Available No t Available dexamethaso ne sodium phosphate 4 mg/mL injection solution Take 1 mL by injection route. 03/12 completed Pt zeinab well Not Available Not Available Not Available methylpredn isolone 4 mg tablets in a dose pack Take 1 tablet every day by oral route as directed. 07/22 completed Not Available Not Available Not Available celecoxib 100 mg capsule Take 1 capsule every day by oral route in the evening. 02/02 completed Not Available Not Available Not Available hydrocortis one 2.5 % topical ointment 07/22 completed Not Available Not Available Not Available lisinopril 40 mg tablet Take 1 tablet every day by oral route. active Not Available Not Available No t Available dexamethaso ne sodium phosphate 10 mg/mL injection solution Take 1 mL by injection route. 03/26 completed Not Available Not Available Not Available glipizide 5 mg tablet Take 1 tablet twice a day by oral route. 03/12 completed Not Available Not Available Not Available amoxicillin 875 mg-potassiu m clavulanate 125 mg tablet Take 1 tablet every 12 hours by oral route. 03/30 completed Not Available Not Available Not Available clindamycin phosphate 1 % topical solution 07/25 completed Not Available Not Available Not Available Benicar 40 mg tablet 1 po qday active Not Available Not Available Not Available glipizide 2.5 mg-metformi n 500 mg tablet Take 1 tablet twice a day by oral route with meals. 08/15 completed Not Available Not Available Not Available metoprolol tartrate 25 mg tablet 1 po qday 07/22 completed Not Available Not Available Not Available Vytorin 10 mg-40 mg tablet 1 po qday active Not Available Not Available No t Available duloxetine 30 mg capsule,del ayed release TAKE ONE CAPSULE BY MOUTH EVERY DAY active Not Available Not Available No t Available chlorhexidi ne gluconate 0.12 % mouthwash 05/25 completed Not Available Not Available Not Available Zostavax (PF) 19,400 unit/0.65 mL subcutaneou s suspension 07/22 completed Not Available Not Available Not Available Cortisone (hydrocorti sone) 1 % topical cream APPLY TO THE AFFECTED AREA(S) BY TOPICAL ROUTE ONCE DAILY 2014 active Not Available Not Available Not Avai lable Suprep Bowel Prep Kit 17.5 gram-3.13 gram-1.6 gram oral solution 03/06 completed Not Available Not Available Not Available Joselin Allergy 60 mg tablet Take 1 tablet twice a day by oral route. 07/22 completed Not Available Not Available Not Available Fluzone High-Dose (PF) 180 mcg/0.5 mL intramuscul ar syringe active Not Available Not Available N ot Available Narcan 4 mg/actuatio n nasal spray 02/23 completed Not Available Not Available Not Available Vitals Date Recorded Body height Body mass index (BMI) Body weight Body temperature Respiratory rate Heart rate Systolic blood pressure Diastolic blood pressure Provider Name and Address Organization Details Last Updated DateTime 0 168.91 cm 27 kg/m2 92772.7 g 98 [degF] 18 /min 60 /min 120 mm[Hg] 60 mm[Hg] Jacklyn Davenport CMA [facility] 0 10:00:24 Date Recorded Body height Body mass index (BMI) Body weight Body temperature Heart rate Respiratory rate Systolic blood pressure Diastolic blood pressure Provider Name and Address Organization Details Last Updated DateTime 0 168.91 cm 28 kg/m2 74919.2 6 g 98.2 [degF] 60 /min 20 /min 120 mm[Hg] 70 mm[Hg] Connie Lopez LPN [facility] 0 09:06:53 Date Recorded Body height Body temperature Heart rate Respiratory rate Oxygen saturation Oxygen saturation in Arterial blood by Pulse oximetry Provider Name and Address Organization Details Last Updated DateTime 0 168.91 cm 99 [degF] 86 /min 20 /min 98 % 98 % Jacklyn Davenport CMA [facility] 0 12:05:31 Date Recorded Body height Body mass index (BMI) Body weight Body temperature Heart rate Respiratory rate Systolic blood pressure Diastolic blood pressure Provider Name and Address Organization Details Last Updated DateTime 0 168.91 cm 27 kg/m2 52185.7 g 98.3 [degF] 84 /min 20 /min 140 mm[Hg] 70 mm[Hg] Connie Lopez LPN [facility] 0 08:52:28 Date Recorded Body height Body mass index (BMI) Body weight Heart rate Respiratory rate Body temperature Systolic blood pressure Diastolic blood pressure Provider Name and Address Organization Details Last Updated DateTime 1 168.91 cm 29.3 kg/m2 70164 g 60 /min 20 /min 98.4 [degF] 120 mm[Hg] 60 mm[Hg] Connie Lopez LPN [facility] 1 10:23:35 Social History Question Answer Notes LastModified by Organizat ion Details LastModified Time Tobacco Smoking Status Former Smoker Ivette emery [facility] 11/26/2012 09:52:49 Do You Have An Advance Directive? No Information not available 07/22/2016 What Is Your Level Of Alcohol Consumption? Occasional Information not available 07/22/2016 What Is Your Level Of Caffeine Consumption? Occasional Information not available 07/22/2016 How Much Tobacco Do You Chew? None Information not available 06/23/2018 What Type Of Diet Are You Following? REGULAR Information not available 06/23/2018 Do You Have A Directive To Physicians? No Information not available 07/22/2016 Which Illicit Or Recreational Drugs Have You Used? None Information not available 07/22/2016 What Is Your Occupation? Retired Information not available 07/22/2016 Single Or Multi-level Home/work? Multi Level Home Information not available 07/22/2016 Live Alone Or With Others? Alone Information not available 07/22/2016 Advance Directive - Provider Has Reviewed Directives And Consents To Follow Them (insert Provider Name With Any Objections In Notes Field) No Information not available 06/23/2018 Date Controlled Substance Monitoring Database Was Queried. 07/15/2018 Information not available 07/15/2018 Controlled Substance Monitoring Database Was Queried For: New Controlled Substance Prescription Information not available 01/24/2014 Controlled Substance Monitoring Database Findings There Is No Evidence Of Drug Seeking Noted Per Review Of Prescription Patterns. Information not available 01/24/2014 Medication Controlled Substance Monitoring Database Was Referenced For: Hydrrocodone Information not available 07/15/2018 Signed DNR Form No Informat ion not available 07/22/2016 Signed DNI Form No Informat ion not available 07/22/2016 Marital Status Informati on not available 07/22/2016 What Was The Date Of Your Most Recent Tobacco Screening? 06/23/2018 Information not available 10/02/2018 Seat Belts Used Routinely Yes Information not available 06/23/2018 Smoke Alarm In Home Yes Information not available 06/23/2018 How Much Tobacco Do You Smoke? No Information not available 06/23/2018 General Stress Level Low Information not available 06/23/2018 Sex: Male Functional Status Question Answer Note LastModified by Organization D etails LastModified Time What is your exercise level? Moderate Information not available 07/22/2016 Mental Status None recorded. Family History Nothing Reported. Medical History Condition Response HIV or AIDS N Coronary Artery Disease N Gout N Other N Kidney Stones N Hernia N Depression N COPD N Lung Disease N Glaucoma N Developmental or Behavioral Disorders N Sickle Cell Anemia N Gastrointestinal Disease N Deep Vein Thrombosis N Vision or Eye Problems N Arthritis N Serious Illness or Injuries N Congenital Anomalies N Cancer N Thyroid Problems/Disease N Stroke N Bladder or Kidney Problems N High Cholesterol Y Aortic Aneurysm N Liver Disease N Rheumatoid Arthritis N Fibromyalgia N Kidney Disease N Arterial Blockage N Osteoarthritis Y Abnormal Heart Rhythm N Anxiety N Ear or Hearing Problems N Skin Problems N Swelling N Constipation N Ulcers N Heart Attack ([place]) N Diabetes Y Bleeding Disorder N Seizures/Epilepsy N Tuberculosis N Congestive Heart Failure (CHF) N Back Problems N Diverticulitis N Asthma N Allergies N Peripheral Vascular Disease Y Neurologic/Mental Disorder N Warfarin Management N Hepatitis N Heart Disease N Pulmonary Embolism N Stomach or Intestinal Disease N Hypertension Y Chicken Pox N Osteoporosis N Immunizations Vaccine Type Date Status Note Provider Nam e and Address Organization Details Recorded Time Td (adult), 2 Lf tetanus toxoid, preservative free, adsorbed 4 completed Not Available [facility] 03/27/2019 02:12:50 Influenza, split virus, trivalent, preservative 0 completed Not Available [facility] 10/31/2012 03:34:02 Influenza, split virus, quadrivalent, preservative 8 completed JOSE ANTONIO Joyner, [facility] 03/16/2018 08:26:52 Pneumococcal conjugate PCV 13 7 completed JOSE ANTONIO Joyner, [facility] 03/16/2018 08:27:24 pneumococcal polysaccharide PPV23 8 completed JOSE ANTONIO Joyner, [facility] 03/16/2018 08:27:39 Past Encounters Encounter ID Performer Location Encounter Start Date Encounter Closed Date Diagnosis/Indication Diagnosis SNOMED-CT Code Diagnosis ICD10 Code Diagnosis Note [id number] [facility] [address] [id number] 05/27/2008 09:08:08 05/27/2008 10:58:51 [id number] [facility] [place] [facility] [address] [address] 11/15/2008 16:48:42 11/15/2008 17:32:53 [id number] [facility] [place] [facility] [address] [id number] 11/24/2008 09:11:54 11/24/2008 09:48:30 [id number] [facility] [address] [place], [place] [address] 11/21/2008 00:00:00 05/01/2012 03:30:46 [id number] [facility] [address] [place], [place] [address] 11/21/2008 09:13:06 11/21/2008 11:21:02 [id number] [facility] [address] [place], [place] [address] 01/06/2009 08:56:25 01/06/2009 11:56:41 [id number] [facility] [address] [id number] 03/06/2009 09:15:26 03/06/2009 09:51:00 [id number] [facility] [address] [place], [place] [address] 03/31/2009 09:05:29 03/31/2009 12:58:39 [id number] [facility] [address] [id number] 03/27/2009 10:15:05 03/27/2009 10:15:28 [id number] [facility] [address] [place], [place] [address] 11/16/2009 08:47:10 11/16/2009 10:46:11 [id number] [facility] [address] [place], [place] [address] 12/06/2009 16:25:14 12/06/2009 17:27:43 [id number] [facility] [address] [address] 07/04/2010 11:29:46 07/04/2010 12:04:58 [id number] [facility] [address] [address] 11/06/2010 16:22:00 11/06/2010 16:59:15 [id number] [facility] [address] [place], [place] [address] 11/19/2010 10:09:47 11/19/2010 10:51:41 [id number] [facility] [address] [place], [place] [address] 01/21/2011 16:37:44 01/21/2011 17:09:49 [id number] [facility] [address] [id number] 02/11/2011 08:28:23 02/11/2011 09:48:19 [id number] [facility] [address] [id number] 02/18/2011 08:02:22 02/18/2011 10:27:02 [id number] [facility] [address] [address] 02/08/2011 09:40:15 02/08/2011 11:03:51 [id number] [facility] [address] [address] 02/04/2011 09:17:34 02/04/2011 09:58:14 [id number] [facility] [address] [id number] 05/20/2011 10:08:45 05/20/2011 11:03:02 [id number] [facility] [address] [place] [address] 11/14/2011 12:34:27 11/14/2011 13:03:00 [id number] [facility] [address] [address] 10/08/2011 11:02:29 10/08/2011 17:53:52 [id number] [facility] [address] [place] [place] [address] 02/04/2012 08:41:15 02/04/2012 14:54:09 [id number] [facility] [address] [place] [place] [address] 06/05/2012 10:56:52 06/05/2012 16:47:47 [id number] Ivette Altman [facility] [address] [place] [address] 11/26/2012 09:42:46 11/26/2012 16:06:33 Adult health examination [id number] Ivette Altman [facility] [address] [place] [place] [address] [address] 05/06/2013 10:45:26 05/06/2013 17:16:45 Cough 97644280 Gastroesop hageal reflux disease 543024191 [id number] Ivette Altman [facility] [address] [place] [address] 07/02/2013 09:38:01 07/05/2013 12:30:12 Chronic back pain 324321721 Gastroesop hageal reflux disease 240714586 Type 2 marip[place] betes mellitus without complication 263026450 [id number] Elizabeth Suarez [facility] [address] [place] [address] 09/09/2013 14:04:58 09/13/2013 15:34:24 Gastroesophageal reflux disease 577381654 Allergic rhinitis 58890461 Coronary arteriosclerosis 66100418 Hypertensi ve heart disease 01535440 Type 2 marip[place] betes mellitus without complication 002200629 [id number] [facility] [address] [place] [address] 12/17/2013 11:39:01 12/17/2013 14:52:28 Chest wall pain 738562999 due to seatbelt [id number] [facility] [address] [place] [place] [address] [address] 12/29/2013 09:55:19 12/29/2013 16:19:48 Stiff neck 895301107 Spasm 20545151 [id number] Connie Lopez LPN [facility] [address] [place] [address] 01/24/2014 10:02:01 01/24/2014 16:35:45 Coronary arteriosclerosis 20391803 Neck pain 01647254 Chronic back pain 350169779 [id number] Korina Shea [facility] [address] [place] [address] 03/07/2014 11:38:05 03/07/2014 14:03:49 Pain 40672933 of supraclavi cular area on the left [id number] Delicia Morgan MD [facility] [address] [place] [address] 08/08/2014 14:24:34 08/08/2014 15:38:26 Chronic back pain 491310293 Inflammati on of sacroiliac joint 25421668 [id number] [facility] [address] [place] [address] 08/23/2014 15:50:34 08/24/2014 20:41:01 Itching 263759731 [id number] Magdalene Cortes, Packaging Engineer [place] [address] [place] [address] 10/20/2014 15:42:43 10/21/2014 10:01:25 Chronic back pain 707269944 [id number] Elizabeth Suarez [facility] [address] [place] [address] 02/08/2015 08:32:22 02/08/2015 17:10:50 Laceration of finger 576245159 S61.219A 4th finger of R hand. Neuro-vasc ularly intact on exam. Recommend reapproxim ation. Pt agrees w/ this recommenda tion. Procedure explained & consent form signed. Wound to pt' distal 4th finger of R hand is jagged in presentati on. Wound cleansed w/ sterile NS under 3.5x magnificat ion; no retained foreign particles. Under sterile technique, pt was prepped & draped. Finger block performed w/ 2cc of 1% lidocaine. Good reapproxim ation accomplish ed w/ 4 simple interrupte d sutures of 5.0 nylon. Minimal blood loss. Pt tolerated w/o difficulty . Post-op wound care reviewed & pt verbalized understand ing. Will see pt back in 5-7 days & PRN. [id number] Elizabeth Suarez [facility] [address] [place] [address] 02/15/2015 08:49:56 02/15/2015 14:37:41 Laceration of finger 148869881 S61.219A 4th finger of R hand. Healing w/o difficulty . No s/s of infection. Sutures removed. Pt tolerated w/o difficulty . Approximat ion maintained . Will see pt back PRN. [id number] Delicia Morgan MD [facility] [address] [place] [address] 05/11/2015 15:43:20 05/11/2015 17:39:07 Tendinitis 99733577 M77.9 I am giving him a Medrol Dosepak and I have given him Lortab 10 #30 one daily on a when necessary basis Essential hypertension 28056453 I10 her blood pressure is good today at 130/70 I have refilled his amlodipine 10 mg and lisinopril 40 mg and metoprolol 25 mg Chronic back pain 951681 002 M54.9 I did refill his Lortab tens #30 one daily just on a when necessary basis [id number] Delicia Morgan MD [facility] [address] [place] [address] 10/26/2015 14:45:17 10/26/2015 17:53:10 Shoulder pain 47377766 M25.511 I have given him a Medrol Dosepak I am giving him Lortab 10 to take 1 daily on a when necessary basis #30 [id number] Delicia Morgan MD [facility] [address] [place] [address] 02/16/2016 09:24:10 02/16/2016 11:56:19 Pharyngitis 669553849 J02.9 Given him a Z-Mark Pain in throat 729429389 R07.0 Cardiac arrhythmia 71661 7007 I49.9 Was having [place] frequent PVCs when examined however his EKG is completely normal with no PVCs showing up [id number] Delicia Morgan MD [facility] [address] [place] [address] 07/22/2016 09:17:57 07/22/2016 11:10:38 Adult health examination 222387398 Z00.00 Medicare wellness exam we are checking HCV Chronic back pain 220278 002 M54.9 I have refilled his Lortab 10 mg 1 daily when necessary #30 [id number] NOLAN BEDOYA DO [facility] [place] [address] 08/12/2016 11:18:47 08/12/2016 12:26:22 [id number] NOLAN BEDOYA DO [facility] [place] [address] 08/26/2016 15:48:20 08/26/2016 17:08:39 [id number] NOLAN BEDOYA DO [facility] [place] [address] 09/11/2016 09:21:13 09/11/2016 09:39:45 [id number] Judie Shirley NP [facility] [address] [place] [address] 02/18/2018 15:21:47 02/18/2018 18:08:55 Pain in left knee 1668396192 13147 M25.562 Refer patient back to orthopedis t if symptoms do not improve, or pending ultrasound [id number] АЛЕКСАНДР Carbajal [facility] [address] [place] [address] 03/06/2018 08:03:31 03/06/2018 10:25:27 Pharyngitis 308396242 J02.8 Acute.In light of family member + for strep pharyngiti s, I will tx. pt w/ antibiotic therapy.Fo llow-up as needed Fever 496956620 R50.9 [id number] АЛЕКСАНДР Carbajal [facility] [address] [place] [address] 03/11/2018 09:43:07 03/11/2018 13:06:36 Upper respiratory infection 38752440 J00 Acute.Foll ow-up as needed. [id number] Judie Shirley NP [facility] [address] [place] [address] 03/16/2018 08:00:48 03/16/2018 11:50:03 Upper respiratory infection 40690235 J06.9 increase fluids, rest. If symptoms do not improve in 7 days will need to have patient return to clinic for blood work and possible x-ray. [id number] Delicia Morgan MD [facility] [address] [place] [address] [address] 03/26/2018 08:28:55 03/26/2018 09:45:13 Bronchitis 67512930 J40 I am giving him amoxicilli n 500 mg 3 times a day #30 He also had an allergic rhinitis which he may get over-the-c ounter antihistam christy for he said he has had 2 steriod shots in the last 2 months, I have ordered a CBC. [id number] Delicia Morgan MD [facility] [address] [place] [address] 03/30/2018 16:43:28 03/30/2018 17:22:20 Cough 68882934 R05 A of his chest is negative feel that his cough may be secondary to his reflux disease I have gone ahead and put him on Vibramycin 100 mg 1 daily for 7 days Also ordered a CBC Gastroesop hageal reflux disease without esophagitis 918307930 K21.9 I do feel that he needs a EGD We will refer him to Debbie riojas [id number] ROLANDO COOMBS NP [facility] [address] [address] 05/21/2018 09:06:02 05/21/2018 10:24:32 [id number] Delicia Morgan MD [facility] [address] [place] [place] [address] [address] 05/25/2018 08:21:46 05/25/2018 09:53:54 Sinusitis 06617067 J32.9 Rapid Strep was negative and given Amoxil 500 mg 3 times a day #30 [id number] NA Floyd [facility] [address] [place] [place] [address] [address] 06/08/2018 08:21:52 06/08/2018 11:13:53 Chronic cough 75961604 R05 currently, patient's chronic cough does not appear to be a result from an upper respirator y infection. Thoroughly reviewed the pathophysi ology and relationsh ip between GERD and cough. I will prescribe Tessalon Perles to help minimize his cough until he can follow up with his gastroente rologist. Patient verbalized understand ing and agrees with plan of care. Gastroesop hageal reflux disease 965527452 K21.0 I do believe his GERD is not appropriat janina managed at this time. His history of present illness strongly suggest acid reflux which is causing his cough. I have instructed him to schedule an earlier follow-up with his gastroente rologist to determine if a medication change is necessary or if endoscopy is indicated due to the failure to respond to conservati ve treatment. He is instructed to eliminate spicy foods and caffeine from his diet. Also instructed to eat smaller meal portions instead of larger meals. Also instructed to eat dinner no sooner than 4-5 hours before bedtime. Patient verbalizes understand ing. He says that he should not have a problem scheduling an earlier appointmen t with his gastroente rologist. If he does, he will call our clinic. [id number] Delicia Morgan MD [facility] [address] [place] [address] 06/11/2018 09:04:42 06/11/2018 10:08:49 Sinusitis 43650999 J32.9 I have given him Vibramycin 100 mg twice a day #14 [id number] ROLANDO COOMBS NP [facility] [place] [place] [address] [address] 06/17/2018 16:06:01 06/18/2018 13:12:36 [id number] Delicia Morgan MD [facility] [address] [place] [address] 06/23/2018 10:26:31 06/23/2018 14:41:46 Adult health examination 641321941 Z00.00 Screening for disorder 830103590 Z13.89 Diabetes mellitus 051183 09 E11.9 [id number] Judie Shirley NP [facility] [address] [address] [address] 07/15/2018 14:03:41 07/15/2018 15:10:48 Chronic back pain 317690142 M54.16 Daily good back mechanics reviewed with patient, good posture, avoid prolonged sitting or standing, stretches given and reviewed with patient. Heat 10-15 minutes 3 times daily as needed for pain or spasms. do not stay in bed. Resting more than 1-2 days can delay in recovery. Do not avoid exercise or work. Your back will likely heal faster if you return to being active before her pain is gone. Seek medical care if you have pain that is not relieved with rest or medicine. You have pain that does not improve in 1-2 weeks. You have new symptoms or you are generally not feeling well. Seek immediate medical care if pain begins to radiate from the back to legs, developed new bowel or bladder issues, unusual weakness or numbness in arms or legs or any other neurologic al problems. For this go to the ER [id number] ROLANDO COOMBS NP [facility] [place] [address] [place] [address] 07/30/2018 09:50:44 07/30/2018 10:35:37 [id number] Judie Shirley NP [facility] [address] [place] [address] 08/04/2018 08:26:40 08/04/2018 12:03:16 Lumbar spondylosis 601204856 M47.26 Keep follow up with neurosurge on at [facility]. MRI results went over with patient at length. Chronic back pain 506579 002 M54.16 Daily good back mechanics reviewed with patient, good posture, avoid prolonged sitting or standing, stretches given and reviewed with patient. Heat 10-15 minutes 3 times daily as needed for pain or spasms. do not stay in bed. Resting more than 1-2 days can delay in recovery. Do not avoid exercise or work. Your back will likely heal faster if you return to being active before her pain is gone. Seek medical care if you have pain that is not relieved with rest or medicine. You have pain that does not improve in 1-2 weeks. You have new symptoms or you are generally not feeling well. Seek immediate medical care if pain begins to radiate from the back to legs, developed new bowel or bladder issues, unusual weakness or numbness in arms or legs or any other neurologic al problems. For this go to the ER [id number] ROLANDO COOMBS NP [facility] [address] [place] [address] 11/27/2018 12:11:30 11/27/2018 13:05:16 [id number] Judie Shirley NP [facility] [address] [place] [place] [address] 02/02/2019 09:26:24 02/02/2019 12:42:17 Low back pain 864333711 M54.5 Long discussion with patient concerning surgical approach versus conservati ve approach. Patient would like me to call neurosurge an by Dr. BURRIS. We tried to call patient, however no one has called us back. We will continue to try to reach this specialist MARCIA Daily good back mechanics reviewed with patient, good posture, avoid prolonged sitting or standing, stretches given and reviewed with patient. Heat 10-15 minutes 3 times daily as needed for pain or spasms. do not stay in bed. Resting more than 1-2 days can delay in recovery. Do not avoid exercise or work. Your back will likely heal faster if you return to being active before her pain is gone. Seek medical care if you have pain that is not relieved with rest or medicine. You have pain that does not improve in 1-2 weeks. You have new symptoms or you are generally not feeling well. Seek immediate medical care if pain begins to radiate from the back to legs, developed new bowel or bladder issues, unusual weakness or numbness in arms or legs or any other neurologic al problems. For this go to the ER Lumbar spondylosis 73574 0009 M47.26 Keep follow up with neurosurge on at [facility]. MRI results went over with patient at length. [id number] Delicia Morgan MD [facility] [address] [place] [address] 05/04/2019 08:44:39 05/04/2019 10:41:55 Lumbar spondylosis 106069075 M47.896 We are making a referral to pain management Active or passive immunization 014410955 Z23 [id number] ROLANDO COOMBS NP [facility] [address] [place] [address] 07/15/2019 14:05:58 07/15/2019 15:16:36 [id number] Judie Shirley NP [facility] [address] [place] [address] 07/26/2019 15:05:58 07/26/2019 19:04:20 Coronary arteriosclerosis 10639409 I25.[address] Alston cardiology , patient will call to make followup appointmen tEKG evaluated by me, and discussed with patient during office visit. EKG reveals normal sinus rhythm, no acute ST changes. Unable to compare to previous EKG. Discussed two day holter monitor. You must go to ER if you begin to have persistent chest pain especially if it radiates to the arm/jaw/ba ck, shortness of breath or chest pain with exertion that is different than normal for you, worsening in any lower extremity swelling, onset of cold sweats with difficulty breathing, or for any other concerns. Otherwise keep regular follow-up appointmen t. Diabetes mellitus [id number] E11.9 [facility] unable to get an appointmen t[facility] ed patient to followup with his PCP for management Assessed patient's understand ing about the link between diet and diabetes. Discussed consistent carbohydra te intake, consuming protein rich foods with meals, and limiting concentrat ed sweets and salts. Reinforced importance of self monitoring blood glucose levels. Bring LOG BOOK at every visit, encouraged regular exercise and weight control this will help manage blood sugars as well. Essential hypertension [id number] I10 Continue all regular home medication s and home monitoring of BP. Goals reviewed. I also recommende d several lifestyle modificati ons such as weight loss, dietary sodium restrictio n, increase physical activity and decrease alcohol consumptio n. Hyperlipidemia [id number] E78.5 In order to maintain a decreased LDL, please eat a heart healthy diet that is low in saturated fats and salt and includes whole grains, fruits, vegetables and lean protein. Exercise regularly. Maintain a heart healthy weight. Always avoid tobacco and secondhand smoking. Contact us if you notice any chest pain, shortness of breath or palpitatio ns. We will continue to monitor labs. Carotid bruit [id number] R09.89 new problem Peripheral vascular disease [id number] I73.9 new problem Edema of l ower extremity 167184467 R60.0 Limit sodium intake to 2977-5509 mg a day. Limit fluid intake to 1.5 - 2 quarts a day Elevate lower extremitie s, try not to keep legs dependent. Limit salt, pork. Must use Sunshine hose. Put compressio n stalkings on first thing in am, and wear daily. Varicose v eins of lower extremity 88010738 I83.893 [id number] Judie Shirley NP [facility] [address] [facility] [place] [address] 08/16/2019 11:01:38 08/16/2019 12:55:01 Carotid artery stenosis 94222905 I65.29 Continue asa 81 mg once daily. Increase Lipitor from 40 mg to 80 mg once daily. Refer to Vascular Dr Rubio.Con sistentBjana od pressure control, max dose of statin, maintainin g good hemoglobin A1c is imperative . 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 Coronary arteriosclerosis 67946438 I25.[address] Alston cardiology , would like to switch to Dr Hernandez. Refer to cardiology You must go to ER if you begin to have persistent chest pain especially if it radiates to the arm/jaw/ba ck, shortness of breath or chest pain with exertion that is different than normal for you, worsening in any lower extremity swelling, onset of cold sweats with difficulty breathing, or for any other concerns. Otherwise keep regular follow-up appointmen t. EKG reveals normal sinus rhythm, no acute ST changes. Unable to compare to previous EKG. Discussed two day holter monitor. You must go to ER if you begin to have persistent chest pain especially if it radiates to the arm/jaw/ba ck, shortness of breath or chest pain with exertion that is different than normal for you, worsening in any lower extremity swelling, onset of cold sweats with difficulty breathing, or for any other concerns. Otherwise keep regular follow-up appointmen t. Fatigue 04153459 R53.83 Her symptoms could be related to atheroscle rotic heart disease, we will refer him for possible arteriogra m. Patient does not want to go back to Dr. Alston, we will try Dr. Pickens for further evaluation and treatment. [id number] Carmelo Hernandez MD [facility] [address] [place] [address] 09/17/2019 12:38:55 09/17/2019 14:13:59 [id number] Emily Stanley NP [facility] [address] [place] [address] 11/01/2019 12:32:44 11/01/2019 15:24:11 [id number] Judie Shirley NP [facility] [address] [place] [address] 11/10/2019 09:47:17 11/10/2019 11:44:52 Carotid artery stenosis [id number] I65.29 Continue asa 81 mg once daily. Increase Lipitor from 40 mg to 80 mg once daily. Refer to Vascular Dr Rubio.Con sistentBlo od pressure control, max dose of statin, maintainin g good hemoglobin A1c is imperative . 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 Coronary arteriosclerosis 98583274 I25.[address] Alston cardiology , would like to switch to Dr Hernandez. Refer to cardiology You must go to ER if you begin to have persistent chest pain especially if it radiates to the arm/jaw/ba ck, shortness of breath or chest pain with exertion that is different than normal for you, worsening in any lower extremity swelling, onset of cold sweats with difficulty breathing, or for any other concerns. Otherwise keep regular follow-up appointmen t. EKG reveals normal sinus rhythm, no acute ST changes. Unable to compare to previous EKG. Discussed two day holter monitor. You must go to ER if you begin to have persistent chest pain especially if it radiates to the arm/jaw/ba ck, shortness of breath or chest pain with exertion that is different than normal for you, worsening in any lower extremity swelling, onset of cold sweats with difficulty breathing, or for any other concerns. Otherwise keep regular follow-up appointmen t. Fatigue 10835876 R53.83 Her symptoms could be related to atheroscle rotic heart disease, we will refer him for possible arteriogra m. Patient does not want to go back to Dr. Alston, we will try Dr. Pickens for further evaluation and treatment. Snoring 71465330 R06.83 new problemDis cussed effects of obstructiv e sleep apnea and how patients with obstructiv e sleep apnea are more likely to have hypertensi on and coronary artery disease. Problems can also occur with the rhythm of your heart such as atrial fibrillati on (irregular heart beat) and bradycardi a (slow heart beat). Common symptoms of obstructiv e sleep apnea include snoring, stopping breathing during sleep, frequent awakenings during the night and difficulty staying asleep throughout the night. Other symptoms include excessive daytime sleepiness and difficulty concentrat ing. Must continue compliance with treatment plan previously prescribed . Epidermoid cyst [id number] 6 L72.0 new problem, RTC for excision [id number] Jduie Shirley NP [facility] [address] [place] [address] 11/24/2019 09:22:29 11/24/2019 11:06:22 Epidermoid cyst of skin of neck 167012757 L72.0 Appropriat e dressing applied. Wound care instructio ns provided. Observe for any signs of infections or any other problems. Return to clinic for suture removal in 7-14 days Tissue was sent for pathology to confirm diagnosis. Provided wound care instructio ns. If any signs of infection such as redness, heat, drainage, fever, call clinic or go to ER. Wear sunscreen or long sleeves and hats when outdoors to protect from sun damage. Monitor for skin changes and make appointmen t to be seen if any new lesions occur. Will call patient with results of pathology and schedule follow up as needed. [id number] Judie Shirley NP [facility] [address] [place] [address] 12/08/2019 08:33:36 12/08/2019 09:55:15 Hypertrophic scar 71724349 L91.0 We will have him use a petroleum ointment to site 2-3 times a day, however in 6 weeks if lesion is still elevated and troublesom e we can consider Kenalog injections . [id number] Judie Shirley NP [facility] [address] [place] [address] 02/23/2020 11:52:04 02/23/2020 13:47:09 Cough 77233758 R05 Avoid irritants. Increase fluids and rest. Symptomati c therapy suggested, use medication s as directed. Patient may use normal saline nasal spray as needed. Call or return to clinic as needed if symptoms worsen or fail to improve as anticipate d.i Diarrhea 04650300 R19.7 Stop antibiotic s for one full day and then restart. Depressive disorder 1448 9007 F32.9 new problem Will START Cymbalta Denies suicidal ideations, denies intractabl e depressed mood. Patient was advised to go to ER if having suicidal ideations and has verbalized understand ing. Discussed potential side effects of medication . Discussed that it may take 2-4 weeks before patient may feel an effect from the medication . Discussed this medication may cause an increase of thoughts of wanting to hurt self or others and patient verbalized understand ing that they will go to the ED or call 911 should such thoughts occur. Seek immediate care if you lose touch with reality (has psychotic symptoms). Patient to f/u in one month to assess efficacy and tolerance of medication . [id number] АЛЕКСАНДР Carbajal [facility] [address] [place] [address] 02/24/2020 08:10:39 02/24/2020 09:58:34 Acute diarrhea 337414586 R19.7 Antibiotic induced.Na duran counseled on the following: Handouts provided r/t diarrhea.I ncrease clear fluids & recommend probiotics Follow-up as needed. Patient verbalized understand ing. [id number] АЛЕКСАНДР Carbajal [facility] [address] [place] [address] 06/23/2020 09:38:02 06/23/2020 11:36:20 Ingrowing nail of toe of left foot [id number] 7205092 L60.0 Acute. Patient counseled on the following: Common side effects to medication s. Handouts provided r/t onychocryp tosis. Follow-up as needed. Patient verbalized understand ing. Health Concerns Section Related Observation LastModified by Organization Detai ls LastModified Time None Recorded Concern Status LastModified by Organization Details LastModified Time None Recorded Advance Directives Directive N: Payers Encounter Date Sequence Insurance Name Policy Number Policy Byrnes Covered Member ID Byrnes Member ID Guarantor Name 11/24/2019 2 [place] 104 Chester R Kim [id number] Chester R Kim 11/24/2019 1 MEDICARE B: [facility] MEDICARE Chester R Kim [id number] Chester R Kim 12/08/2019 2 [place] 104 Chester R Kim [id number] Chester R Kim 12/08/2019 1 MEDICARE B: [facility] MEDICARE Chester R Kim [id number] Chester R Kim 02/23/2020 2 [place] 104 Chester R Kim [id number] Chester R Kim 02/23/2020 1 MEDICARE B: [facility] MEDICARE Chester R Kim [id number] Chester R Kim 02/24/2020 2 [place] 104 Chester R Kim [id number] Chester R Kim 02/24/2020 1 MEDICARE B: [facility] MEDICARE Chester R Kim [id number] Chester R Kim 06/23/2020 2 [place] 104 Chester R Kim [id number] Chester R Kim 06/23/2020 1 MEDICARE B: [facility] MEDICARE Chester R Kim [id number] Chester R Kim Notes Date Note Type Note Provider Name and Address Organization Details Recorded Time 11/24/2019 text/html Patient presents today for a skin lesion that has been present for an indefinite duration. Noticing more affected areas as of late. Increase pruritus and tenderness at times. Tried over the counter medication without any resolve of symptoms. Lesion is getting larger Judie Shirley NP [address], [place], [address], [facility] 11/24/2019 11:02:53 02/23/2020 text/html Anxiety/Depressi onR eported bypatient.Quality:s ymptoms worse during the day Severity:denies suicidal ideations Duration:symptoms lasting over 2 weeks Onset/Timing:gradua l Associated Symptoms:denies homicidal ideations; no visual/auditory hallucinations; no delusions; no shortness of breath; no isolation; appetite good; energy good; no apathy; maintaining functionality Patient is positive for history of fever, cough, sore throat, and chest congestion. Patient does not know if they have had direct contact with anyone with active covid-19 coronavirus. Patient has tried multiple qvox-zeg-afpgevp medications with little improvement. Mild shortness of breath has occurred with wheezing. .Recently had diarrhea currently on antibiotics from recent surgery Judie Shirley NP [address], [place], [address], [facility] 02/23/2020 12:34:14 02/24/2020 text/html Pt reports diarr hea s/p taking antibiotics prescribed by the [place] [facility] .Duration: Couple of days. Severity: Moderate. Alleviating factors: ? Associated symptoms: No melena, wgt. loss, fever or chills. I/Os: Good. АЛЕКСАНДР Carbajal [address], [place], [address], [facility] 02/24/2020 09:12:28 06/23/2020 text/html Pt report L ingr own toenail of hallux.Duration: Couple of days. Severity: Moderate. Aggravating factors: ? Alleviating factors: Epsom salts. Associated symptoms: No trauma, rash, fever or chills. PMH of DM-2 АЛЕКСАНДР Carbajal [address], [place], [address], [facility] 06/23/2020 10:46:39
--- OUTSIDE RECORDS SUMMARY | 2024-06-08 07:51 | XMS_ITS | Continuity of Care Document ---
Author Name [facility] Address [address] [place] [address] Organization [facility] Care Team Providers Care Police Commanding Officer Name Role Phone [facility] Unavailable Unavailable Problems Problem Status Onset Date Problem Type Date of Resolution Comments Source Body mass index 30+ - obesity (finding) Active Condition Coronary arteriosclerosis (disorder) Active Condition Fracture of multiple pubic rami (disorder) Active Condition Fracture of sacrum (disorder) Active Condition Gastroesophageal reflux disease (disorder) Active Condition Hyperlipidemia (disorder) Active Condition Hypertensive disorder, systemic arterial (disorder) Active Condition Diabetic neuropathy (disorder) Active Condition Osteoarthritis (disorder) Active Condition Diabetes mellitus type 2 (disorder) Active Condition Bronchitis (disorder) Active Condition Pharyngitis (disorder) Active Condition Chronic kidney disease (disorder) Active Condition Allergies, Adverse Reactions, Alerts Substance Category Reaction Severity Reaction type Status Date Reported Comments Source Percocet<everett p>1</sup> Assertion Drug allergy Active Rash [facility] Assertion Drug allergy Active [facility] Encounters Location Location Details Encounter Type Encounter Number Reason For Visit Attending Provider ADM Date DC Date Status Source [facility] [id number] 6 month follow up Jam Serra [facility] [id number] 6 month [facility] [id number] Abnormal findings on diagnosti c imaging of heart and aguirre Garcia Zhao [facility] Outpatient [id number] Garcia Lantigua 08/17 23:59 :59 Discharge d [facility]
--- NOTE | 2024-06-13 17:58 | P.SLEEP_ITS ---
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 Family History Family History Other Acute myocardial infarction Cerebrovascular accident Diabetes mellitus Heart disease Social History Social History Smoking packs per day: 2 Smoking cigarettes per day: 40.0 Years smoked: 20 Smoking pack-years: 40.00 Smoking status: Former smoker Tobacco type: cigarettes Second hand tobacco smoke exposure: No Alcohol intake: current Drinks per week: 4 Substance use: never Substance use type: does not use Do You Feel Safe in your Home?: Yes Lack of Transportation: No Lack of Food: Never True Current Housing: I Have Housing Concerned About Future Housing: No Difficulty Paying Gas/Electric Bills: No Difficulty Paying for Meds: No Currently Unemployed: No Education: High School Diploma/GED Difficulty w/ Childcare or Family Care: No Living arrangements: with family Occupation/Education: retired Gender identity (if verbalized by the patient): Male Spiritual care concerns: No Agree to blood products: Yes Medications Home Medications ?Medication ?Instructions ?Recorded ?Confirmed ?Type aspirin 81 mg tablet,delayed 81 mg PO DAILY 12/31/21 05/13/24 History release (Adult Low Dose Aspirin) atorvastatin 80 mg tablet 80 mg PO DAILY 12/31/21 05/13/24 History empagliflozin 25 mg tablet 25 mg PO DAILY 12/31/21 05/13/24 History lisinopril 40 mg tablet 40 mg PO DAILY 12/31/21 05/13/24 History gabapentin enacarbil 600 mg 1,200 mg PO TID 01/29/22 05/13/24 History tablet,extended release semaglutide 0.25 mg or 0.5 mg (2 0.5 mg subcut WEEKLY 12/09/23 05/13/24 History mg/3 mL) subcutaneous pen injector (Ozempic) hydrochlorothiazide 25 mg tablet 25 mg PO DAILY #1 tablet 05/13/24 05/13/24 Rx hydrocodone 7.5 mg-acetaminophen 1 tablet PO Q6H PRN pain #30 tabs 05/13/24 05/13/24 Rx 325 mg tablet pantoprazole 40 mg tablet,delayed 40 mg PO BID #1 tablet 05/13/24 05/13/24 Rx release
[2024-07-05 10:42] VITALS: BMI 24.8
--- NOTE | 2024-07-05 10:42 | P.SLEEP_ITS ---
Sleep Study - Home Unattended Date of Study: 06/08/24 Ordering Provider: Iglesia Dee APRN Interpreting Provider: Kavitha Bynum, DO Home Sleep Study Type: Watch PAT Height: 1.68 m Weight: 69.853 kg Body Mass Index: 24.8 Neck Circumference (inches): 14.5 [place]: 9 Reason for Sleep Study Excessive daytime sleepiness Sleep History The patient is a 73-year-old male that had a sleep study ordered by the [place] [facility] for evaluation of sleep apnea. The patient admits to excessive daytime sleepiness and interruptions in breathing while asleep. He does snore loudly. He denies choking or gasping at night. He denies having trouble breathing on his back. He denies morning headaches. He does have a dry or sore mouth / throat in the morning. He denies nocturnal heartburn. He does urinate twice throughout the night. He denies having difficulty falling asleep and staying asleep. He denies having difficulty returning to sleep if he wakes up throughout the night. He denies hypnotic or sedative use. He denies feeling anxious about sleep. He does feel tired or sleepy during the day. He does feel tired in the morning. He denies having the urge to fall asleep during the day. He does feel drowsy while driving. He does clench or grind his teeth. He denies kicking or jerking his legs excessively. He denies having a restless feeling in his legs. He denies sleep paralysis, cataplexy and hypnagogic/ hypnopompic hallucinations. He goes to bed at 10:30 p.m. on work days and at 11:00 p.m. on his days off. It takes him 15 minutes to fall asleep. He gets 9 hours of sleep per night. His sleep is not at all restorative on his days off. He denies taking any planned naps. He denies dream enactment behavior. He denies sleep walking. He consumes 3-4 cups of caffeinated beverage per day. He denies tobacco use. He has 1 alcoholic beverage 1-2 nights per week. He denies exercising on a regular basis. 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 Family History Family History Other Acute myocardial infarction Cerebrovascular accident Diabetes mellitus Heart disease Social History Social History Smoking packs per day: 2 Smoking cigarettes per day: 40.0 Years smoked: 20 Smoking pack-years: 40.00 Smoking status: Former smoker Tobacco type: cigarettes Second hand tobacco smoke exposure: No Alcohol intake: current Drinks per week: 4 Substance use: never Substance use type: does not use Do You Feel Safe in your Home?: Yes Lack of Transportation: No Lack of Food: Never True Current Housing: I Have Housing Concerned About Future Housing: No Difficulty Paying Gas/Electric Bills: No Difficulty Paying for Meds: No Currently Unemployed: No Education: High School Diploma/GED Difficulty w/ Childcare or Family Care: No Living arrangements: with family Occupation/Education: retired Gender identity (if verbalized by the patient): Male Spiritual care concerns: No Agree to blood products: Yes Medications Home Medications ?Medication ?Instructions ?Recorded ?Confirmed ?Type aspirin 81 mg tablet,delayed 81 mg PO DAILY 12/31/21 05/13/24 History release (Adult Low Dose Aspirin) atorvastatin 80 mg tablet 80 mg PO DAILY 12/31/21 05/13/24 History empagliflozin 25 mg tablet 25 mg PO DAILY 12/31/21 05/13/24 History lisinopril 40 mg tablet 40 mg PO DAILY 12/31/21 05/13/24 History gabapentin enacarbil 600 mg 1,200 mg PO TID 01/29/22 05/13/24 History tablet,extended release semaglutide 0.25 mg or 0.5 mg (2 0.5 mg subcut WEEKLY 12/09/23 05/13/24 History mg/3 mL) subcutaneous pen injector (Ozempic) hydrochlorothiazide 25 mg tablet 25 mg PO DAILY #1 tablet 05/13/24 05/13/24 Rx hydrocodone 7.5 mg-acetaminophen 1 tablet PO Q6H PRN pain #30 tabs 05/13/24 05/13/24 Rx 325 mg tablet pantoprazole 40 mg tablet,delayed 40 mg PO BID #1 tablet 05/13/24 05/13/24 Rx release Sleep Procedure The sleep study was completed using WatchPAT a technically adequate device with seven channels: peripheral arterial tone, actigraphy, body position, snore, respiratory movement, pulse oximetry, sleep staging, and heart rate. Prior to using the device, the patient received verbal and written instructions for its application and was provided with the help desk phone number for additional telephonic instruction with 24-hour availability of qualified personnel to answer questions. The study was scored using CMS guidelines. Sleep Architecture The total recording time is 8 hrs, 39 min. The total sleep time is 7 hrs, 42 min. Sleep latency is 17 minutes. REM latency is 77 minutes. The patient had 17 episodes of waking. Sleep architecture shows 8.5% deep sleep, 72.4% light sleep, and (as % Total Sleep Time) showed NREM (Light 72.4%; Deep 8.5%), and a 19.0% stage REM. The patient spent 36.0% of total sleep time in the supine position. Sleep efficiency was 89.02. Respiratory Analysis The overall AHI (pAHI 4%:) is 22.4. The overall AHI (pAHI 3%:) is 34.6. The central AHI is 1.9. The AHI was 34.5 in NREM and 35.2 in REM sleep. The AHI was 56.3 in Supine and 22.3 in Non-supine sleep. Percent of [place] respirations is 0.0. Oximetry Data The oxygen desaturation index (AMARIS 4%:) is 23.3. The mean saturation is 93%, and the lowest saturation is 64%. Time spent with saturation < 88% is 27.5 minutes. Snoring Profile Snoring average intensity is 41 dB. The patient snored above 45 decibels for 26.9 minutes, 5.8% of sleep time. Cardiac Profile The average pulse rate is 67 beats per minutes. The lowest pulse rate is 49 bpm. The highest pulse rate reported is 98 bpm. Atrial fibrillation was not detected. Premature beats occur 3.0 per minute. Assessment and Plan Assessment and Plan (1) JAMILAH (obstructive sleep apnea): Code(s): G47.33 - Obstructive sleep apnea (adult) (pediatric) Status: Acute Assessment and Plan: The patient had an overall AHI of 22.4 with desaturation down to 64%. This is consistent with moderate sleep apnea. The patient spent 27.5 minutes, 6% of total sleep time with an oxygen saturation below 88%. The amount of time the patient spent hypoxemic is out of proportion to the severity of his sleep apnea. I recommend that the patient have a CPAP titration study with the use of a hypnotic to ensure we obtain enough sleep data and find an optimal pressure setting. If the patient is unable to tolerate CPAP, a mandibular advancement device is also a treatment option but would require nocturnal oximetry with device to ensure hypoxemia resolves. Due to the amount of time that the patient spent hypoxemic, there is concern for underlying lung disease. I recommend that the patient have a 2 view chest Xray and a PFT for further evaluation. Data The data obtained during this sleep study is adequate for interpretation. Certification This sleep study has been reviewed by a board certified sleep medicine physician.
== END 2024-06-09 12:43 | disposition home or self-care (01) ==
PROVIDERS: PCP Family Medicine; Visit Provider Nurse Practitioner Family
DX: G47.33 Obstructive sleep apnea (adult) (pediatric) (principal); I10 Essential (primary) hypertension; K21.9 Gastro-esophageal reflux disease without esophagitis; Z87.891 Personal history of nicotine dependence
CPT/HCPCS: 95800

== ENCOUNTER 2024-10-01 06:39 | Outpatient (CLI) | payer MEDICARE, BC, OTHER, SELFPAY ==
--- NOTE | ~2024-10-01 | MR_ITS ---
EXAMINATION: MRA neck wo/w con DATE: 10/01/2024 09:03 INDICATION: Gait abnormality TECHNIQUE: Magnetic resonance angiography (MRA) of the neck was performed without and with 14 mL Mult ihance intravenous contrast. Sequences included axial 2D-time of flight T1-weighted FSPGR and coronal T1-weighted FSPGR without and with intravenous contrast. COMPARISON: None. FINDINGS: Visual is portions the aortic arch is normal in caliber. There is suggestion of possible hemodynamica lly significant stenosis along the innominate artery. The right vertebral artery is mildly dominant. There is 0% stenosis of the right carotid bulb relative to normal distal artery lumen diameter (NASCE T criteria). There is 40% stenosis of the left carotid bulb relative to normal distal artery lumen d iameter. IMPRESSION: 1. 0% stenosis of the right carotid bulb relative to normal distal artery lumen diameter (NASCET crit eria). 2. 40% stenosis of the left carotid bulb relative to normal distal artery lumen diameter. 3. Atherosclerosis at the innominate artery, potentially minimally significant for assessment is limi sunshine by likely respiratory motion artifact at this level. Could consider further evaluation carotid CT angiogram. Reviewed, dictated and finalized at location A. IMPRESSION: 1. 0% stenosis of the right carotid bulb relative to normal distal artery lumen diameter (NASCET criteria). 2. 40% stenosis of the left carotid bulb relative to normal distal artery lumen diameter. 3. Atherosclerosis at the innominate artery, potentially minimally significant for assessment is limited by likely respiratory motion artifact at this level. Could consider further evaluation carotid CT angiogram.
--- NOTE | ~2024-10-01 | MR_ITS ---
EXAMINATION: MR brain/brain stem wo/w con, MRA brain wo con DATE: 10/01/2024 09:03 INDICATION: Gait abnormality TECHNIQUE: 1. Magnetic resonance imaging (MRI) of the brain and brainstem was performed without and with 14 mL M ultihance intravenous contrast. Sequences included sagittal and axial T1-weighted SE, axial diffusion -weighted FS SE, axial 3D SWAN, axial T2-weighted FLAIR, and axial T2-weighted FSE. Postcontrast axia l, sagittal and coronal T1-weighted SE was obtained. Apparent diffusion coefficient (ADC) maps were c reated. 2. Magnetic resonance angiography (MRA) of the brain was performed without intravenous contrast by [facility] 3D [id number]-ur-[id number] technique. COMPARISON: None. FINDINGS: There are no areas of restricted diffusion to suggest acute infarction. Tiny old lacunar infarct in t he midbrain at the lateral junction of the reno and right cerebral peduncle near the expected locatio n of the medial geniculate nucleus. No intracranial hemorrhage or abnormal intracranial mass lesion. There are scattered areas of nonspecific increased T2-weighted signal intensity in the cerebral white matter, predominantly involving the deep and periventricular white matter. There are no intraparench ymal signal abnormalities seen on the other pulse sequences. The ventricles are symmetric and normal in size. There are no abnormal extra-axial fluid collections. Mild mucoperiosteal thickening the bila teral ethmoid sinuses. Visualized orbits and soft tissues are unremarkable. There are no areas of abn ormal enhancement on the post contrast images. There is normal flow related signal seen within the vertebral, basilar and internal carotid arteries. Right vertebral arteries is mildly dominant. There is no proximal stenosis. There are no aneurysms identified. Both A1 and P1 segments are patent. The right A1 segment is diminutive with the majority of flow to the more distal right anterior cerebral artery supplied via the left A1 segment and a lar augusto caliber patent anterior communicating artery. Flow in the cerebral arteries is symmetric. IMPRESSION: 1. Tiny old lacunar infarct in the right midbrain and mild scattered mesenteric white matter T2 hyper intensity consistent with chronic small vessel ischemic disease.. No acute intracranial process or ab normally enhancing brain lesions. 2. Unremarkable cerebral MR angiogram with no evident hematoma significant stenosis, aneurysm or thro mbosis. Reviewed, dictated and finalized at location A. IMPRESSION: 1. Tiny old lacunar infarct in the right midbrain and mild scattered mesenteric white matter T2 hyperintensity consistent with chronic small vessel ischemic d isease.. No acute intracranial process or abnormally enhancing brain lesions. 2. Unremarkable cerebral MR angiogram with no evident hematoma significant sten osis, aneurysm or thrombosis.
--- OUTSIDE RECORDS SUMMARY | 2024-10-01 06:44 | XMS_ITS ---
Author Name [facility] Address [address] [place] [address] Care Team Providers Care Program Trainer Name Role Phone SUSAN RÍOS Primary Care Provider UnavailNORA Gomez Primary Care Provider UnavailDEONTE Woodruff Primary Care Provider Unavailjennifer he Insurance Providers: All historical and current Section [...] STAND [place] IND Aug 08, 2016 104 [id number] [phone] JUDY KIM JANETH PATIENT [place]THE[place] FEP PREFERRED PROVIDER ORGANIZAT ION (PPO) FEP [place] IND Aug 08, 2016 104 [id number] [phone] JUDY KIM JANETH PATIENT [place] F[place] PREFERRED PROVIDER ORGANIZAT ION (PPO) FEP [place]AND [place] IND Aug 08, 2016 104 [id number] [phone] JUDY KIM JANETH PATIENT [place] PREFERRED PROVIDER ORGANIZAT ION (PPO) FEP [place] IND Aug 08, 2016 104 [id number] [phone] JUDY KIM PATIENT [place] MED[place] SECONDARY (NO B EXC) FEP 104 Aug 08, 2016 104 [id number] JUDY KIM PATIENT BC BS [place] F[place] MEDICARE SECONDARY (NO B EXC) FEP-M ED SEC Aug 08, 2016 104 [id number] [phone] JUDY KIM PATIENT [place] SECONDARY (NO B EXC) FEP-M ED SEC Aug 08, 2016 104 [id number] JUDY KIM PATIENT [place] F[place] PREFERRED PROVIDER ORGANIZAT ION (PPO) FEP 105 Mar 11, 1999 105 [id number] JUDY KIM PATIENT [place] F[place] PREFERRED PROVIDER ORGANIZAT ION (PPO) FEP [place] IND Aug 08, 2016 104 [id number] [phone] JUDY KIM PATIENT BCBS [place] ATT[place] FEP CLAIMS PREFERRED PROVIDER ORGANIZAT ION (PPO) FEP [place] IND Aug 08, 2016 104 [id number] [phone] JUDY KIM PATIENT [place] F[place] PREFERRED PROVIDER ORGANIZAT ION (PPO) FEP [place] IND Aug 08, 2016 104 [id number] [phone] JUDY KIM PATIENT [place] ([id number]) PRESCRIPT ION FEP Mar 11, 1999 [id number] JUYD KIM PATIENT [employer] ([id number]) PRESCRIPT ION FEP Mar 11, 1999 [id number] JUDY KIM PATIENT [place] FEP RX PRESCRIPT ION FEPRX Aug 08, 2016 [id number] [phone] JUDY KIM PATIENT MEDICARE (WNR) MEDICARE (M) RR PART A Oct 08, 2013 RR PART A [id number] [phone] JUDY KIM PATIENT MEDICARE (WNR) MEDICARE (M) RR PART B Oct 08, 2013 RR PART B [id number] JUDY KIM PATIENT MEDICARE (WNR) MEDICARE (M) RR PART A Oct 08, 2013 RR PART A [id number] KIM,TI MOTHY PATIENT MEDICARE (WNR) MEDICARE (M) RR PART B Oct 08, 2013 RR PART B [id number] KIM,TI MOTHY PATIENT MEDICARE (WNR) MEDICARE (M) PART A Oct 08, 2013 PART A [id number] [phone] KIM,TI MOTHY PATIENT MEDICARE (WNR) MEDICARE (M) PART B Oct 08, 2013 PART B [id number] KIM,TI MOTHY PATIENT MEDICARE (WNR) MEDICARE (M) PART A Oct 08, 2013 PART A [id number] [phone] KIM,TI MOTHY PATIENT MEDICARE (WNR) MEDICARE (M) PART B Oct 08, 2013 PART B [id number] [phone] KIM,TI MOTHY PATIENT MEDICARE (WNR) MEDICARE (M) RR PART A Oct 08, 2013 RR PART A [id number] KIM,TI MOTHY PATIENT MEDICARE (WNR) MEDICARE (M) RR PART B Oct 08, 2013 RR PART B [id number] [phone] KIM,TI MOTHY PATIENT Selected Encounter This section includes the information on record at [place] for the Encounter. Date/Time Encounter Type Encounter Description Reason Provider Source Dec 01, 2023 09:30 AM OFFICE O/P EST MOD 30 MIN PRIMARY CARE/MEDICINE ICD-10-CM E11.9 Type 2 diabetes mellitus without complications NORA PASTRANA [facility] Encounter Template Text not used by [place] Assessments - Encounter Diagnoses This section includes the primary and secondary diagnoses documented for the Encounter. Date/Time Primary/Secondary Diagnosis Diagnosis Name Provider Source Dec 25, 2023 08:09 PM PRIMARY Type 2 diabetes mellitus without complications NORA PASTRANA [facility] Dec 25, 2023 08:09 PM SECONDARY Essential (primary) hypertension NROA PASTRANA [facility] Dec 25, 2023 08:09 PM SECONDARY Hyperlipidemia, unspecified NORA PASTRANA [facility] Dec 25, 2023 08:09 PM SECONDARY Other idiopathic peripheral autonomic neuropathy NORA PASTRANA [facility] Plan of Treatment: Future Appointments (+ 6 months) and Future Tests (+/- 45 days) The Plan of Treatment section includes future care activities for the patient from all [place] treatmentfacilities. This section includes future appointments and future orders which are active, pending or scheduled. Future Appointments This section includes appointments that were scheduled to occur 6 months from the date of the Encounter, up to a maximum of 20 appointments. The data comes from all [place] treatment facilities. Appointment Date/Time Appointment Type Appointme nt Facility Name Dec 04, 2023 01:30 PM AMBULATORY - NONE [facility] Jan 29, 2024 01:30 PM AMBULATORY - NONE [facility] Mar 12, 2024 03:30 PM AMBULATORY - NONE [facility] May 07, 2024 03:30 PM AMBULATORY - NONE [facility] Lab Results: +/- 30 days of the encounter This section includes the Chemistry and Hematology Lab Results on record with [place] for the patient. Radiology Reports and Pathology Reports are provided separately, in subsequent sections. Lab Results This section contains the Chemistry/Hematology Results that were resulted 30 days before or 30 daysafter the date of the Encounter. Date/Time Source Result Type Result - Unit Interpretation Reference Range Specimen Type Comment Dec 01, 2023 11:13 AM [facility] VITAMIN B1 PLASMA Specimen Type: PLASMA Comment: Vitamin supplementation within 24 hours prior to blood draw may affect the accuracy of the results. This test was developed and its analytical performance characteristics have been determined by [facility] [place], [place]. It has not been cleared or approved by the U.S. Food and Drug Administration. This assay has been validated pursuant to the CLIA regulations and is used for clinical purposes. Test Performed by [facility], [employer] [place], [address] [place], [place] Yung Rivera M.D., Ph.D., Director of Laboratories , CLIA [id number] Ordering Provider: NORA PASTRANA Report Released Date/Time: Dec 01, 2023 10:39 AM Reporting Lab: [facility] [address] [facility] [phone] Performing Lab: [facility] [address] [place] [employer] VITAMIN B1 13 nmol/L 8-30 Dec 01, 2023 11:13 AM [facility] HGA1C BLOOD Specimen Type: BLOOD No comment entered. Ordering Provider: JAVY QUISPE Report Released Date/Time: Sep 16, 2023 10:02 AM Reporting Lab: [facility] [address] [place] [phone] Performing Lab: [facility] [address] [place] [phone] HGA1C 8.1 H 4.0-6.0 Dec 01, 2023 11:13 AM [facility] GGT GAMMA-GT PLASMA Specimen Type: PLASM A Comment: No hemolysis noted. Ordering Provider: NORA PASTRANA Report Released Date/Time: Dec 01, 2023 10:39 AM Reporting Lab: [facility] [address] [place] [phone] Performing Lab: [facility] [address] [place] [phone] GGT GAMMA-GT 20 [IU]/L 12-64 Dec 01, 2023 11:13 AM [facility] B12 SERUM Specimen Type: SERUM No comment entered. Ordering Provider: NORA PASTRANA Report Released Date/Time: Dec 01, 2023 10:39 AM Reporting Lab: [facility] [address] [place] [phone] Performing Lab: [facility] [address] [place] [phone] B12 640 pg/mL 213-816 Dec 01, 2023 11:13 AM [facility] VITAMIN D, 25-HYDROXY SERUM Specimen Type: SE RUM No comment entered. Ordering Provider: NORA PASTRANA Report Released Date/Time: Dec 01, 2023 10:39 AM Reporting Lab: [facility] [address] [place] [phone] Performing Lab: [facility] [address] [place] [phone] VITAMIN D, 25-HYDROXY 34.7 ng/mL 30-96 Dec 01, 2023 11:13 AM [facility] CBC BLOOD Specimen Type: BLOOD No comment entered. Ordering Provider: NORA PASTRANA Report Released Date/Time: Dec 01, 2023 10:39 AM Reporting Lab: [facility] [address] [place] [phone] Performing Lab: [address] [phone] WBC 5.7 10*3/uL 3.6-11.2 RBC 4.24 10*6/uL [...] AUTO % 0 LYMPHOCYTES, ABSOLUTE 1.27 10*3/uL 0.77- 4.50 MONOCYTES, ABSOLUTE 0.25 10*3/uL 0.19-0. 80 NEUTROPHILS, ABSOLUTE 3.97 10*3/uL 2.10- 8.00 EOSINOPHILS, ABSOLUTE 0.22 10*3/uL 0.00- 0.60 BASOPHILS, ABSOLUTE 0.02 10*3/uL 0.00-0. 20 Dec 01, 2023 11:13 AM [facility] TSH W/ REFLEX FT4 (STL) PLASMA Specimen Type: PLASMA No comment entered. Ordering Provider: NORA PASTRANA Report Released Date/Time: Dec 01, 2023 10:39 AM Reporting Lab: [facility] [address] [place] [phone] Performing Lab: [address] [address] TSH 0.604 u[IU]/mL 0.47-5 Dec 01, 2023 11:13 AM [facility] LIPID PANEL (STL) PLASMA Specimen Type: PLASM A Comment: No hemolysis noted. Ordering Provider: NORA PASTRANA Report Released Date/Time: Dec 01, 2023 10:39 AM Reporting Lab: [facility] [address] [facility] [address] Performing Lab: [facility] [address] [place] [phone] CHOLESTEROL 115 mg/dL 0-200 TRIGLYCERIDE 74 mg/dL 0-150 CALCULATED LDL 59 mg/dL HDL(New) 41 mg/dL >40 Dec 01, 2023 11:13 AM [facility] COMPREHENSIVE METABOLIC PANEL PLASMA Specimen Type: PLASMA Comment: No hemolysis noted. Ordering Provider: NORA PASTRANA Report Released Date/Time: Dec 01, 2023 10:39 AM Reporting Lab: [facility] [address] [facility] [address] Performing Lab: [facility] [address] [place] [phone] CREATININE 1.14 mg/dL 0.7-1.3 UREA NITROGEN 22.1 [...] (CKD-EPI 2020) 67.1 >60 Dec 01, 2023 09:36 AM [facility] GLUCOSE,BLOOD-poct (STL) BLOOD Specimen Type: BLOOD Comment: Test Performed by: [id number] Meter #: [id number] Ordering Provider: NORA PASTRANA Report Released Date/Time: Dec 01, 2023 04:11 PM Reporting Lab: [facility] [address] [facility] [phone] Performing Lab: [place] [id number] [facility] [address] GLUCOSE,BLOOD-poct (STL) 133 mg/dL H 72-99 Vital Signs: All taken on the encounter date This section contains inpatient and outpatient Vital Signs collected on the date of the Encounter. Date/Time Temperature Pulse Blood Pressure Respiratory Rate SP02 Pain Height Weight Body Mass Index Source Dec 01, 2023 09:31 AM 97.2 50 105/55 18 98 0 172.8 28 [facility] Social History: Smoking Status (Most current) and Tobacco Use (All prior to encounter date) This section includes the most current, and the historical, smoking and tobacco- related health factors from the [place] facility where the Encounter took place. Current Smoking Status This section includes the most current smoking, or tobacco-related health factor, from the NE facility where the Encounter took place. Date/Time Current Smoking Status Comment Facil ity Oct 30, 2022 12:30 PM [place]-TOBACCO FORMER USER [facility] Tobacco Use History This section includes a history of the smoking, or tobacco-related health factors, that were collected on or before the date of the Encounter. The data comes from the NE facility where the Encounter took place. Date/Time Smoking Status/Tobacco Use Comment F acility Oct 30, 2022 12:30 PM VA-TOBACCO QUIT 15 YRS OR MORE [facility] Advance Directives: All historical and current Section Date Range: From patient's date of to the date document was created. This section includes ALL of a patient's completed or amended NE Advance and Rescinded Directives. The entries below indicate that a directive exists for the patient, but an actual copy is not included with this document. The data comes from all [place] facilities. Date Advance Directives Provider Source July 13, 2014 ADVANCE DIRECTIVE ROLANDO FONSECA [facility] Encounter Notes: All associated encounter notes This section contains the clinical notes associated to the Encounter. Date/Time Encounter Note(s) Provider Source Dec 02, 2023 08:30 AM PHYSICIAN LETTERS: LOCAL TITLE: TEST RESULT GENERAL LETTER STL STANDARD TITLE: PHYSICIAN LETTERS DATE OF NOTE: DEC 02, 2023@08:30 ENTRY DATE: DEC 02, 2023@08:30:06 AUTHOR: NORA PASTRANA EXP COSIGNER: URGENCY: STATUS: COMPLETED [facility] [address] [place] [address] DEC 02, 2023 [place] KIM [id number] [place], [place] [address] Dear Chester Kim, I would like to update you on [...] medication and follow up with DR. Zaida Quispe CBC - A complete blood count (CBC) [...] within normal limits. FUTURE APPOINTMENTS: 12/04/2023 13:30 [facility] PACT PHONE PHAR 06/01/2024 09:30 [facility] CLR PACT 2 PCP Sincerely, CHESTER MERCHANT [facility] Dec 01, 2023 10:42 AM PRIMARY CARE NOTE: LOCAL TITLE: PRIMARY CARE PROVIDER ESTABLISHED VISIT [facility] STANDARD TITLE: PRIMARY CARE NOTE DATE OF NOTE: DEC 01, 2023@10:42 ENTRY DATE: DEC 01, 2023@10:42:48 AUTHOR: NORA PASTRANA EXP COSIGNER: URGENCY: STATUS: COMPLETED ESTABLISHED PATIENT [id number]: REASON FOR VISIT/CHIEF COMPLAINT: F/U HPI: Patient [...] medication list with the patient and/or his/her care-elderly caregiver. Handwritten corrections, additions and/or deletions were made [...] ABD/GI: soft, nt,n Extremities: ambulates without assistnce /ASSAYER: Hematology & Lymph: Endocrine: Psych: Neuro: Skin: ASSESSMENT/PLAN: 1periphseral neuropathy - most likely secondary to his diabetes - check hba1c, vitamin b1 and vitamin B12 - patient to get more information regarding the device wanting to be inserted for pain control - renewed gabapentin 2.dm- improving - continue with Dr. Quispe - continue elham dm meds - check [...] NORA PASTRANA Signed: 12/01/2023 10:51 NORA PASTRANA [facility] Dec 01, 2023 09:36 AM NURSING NOTE: LOCAL TITLE: V15 PACT FACE TO FACE NOTE ST STANDARD TITLE: NURSING NOTE DATE OF NOTE: [...] mental or emotional illness? No My [facility] ([facility]), please select appointment type: Face to face: Yes- Done Contact provided Primary Care phone number and encouraged to call if any questions or concerns. Review that after hours nurse line [phone] and emergency room are available 30/09 for patient use. Contact verbalized good understanding. Suicide Screen: C-SSRS Screening [place]-Suicide Severity Rating Scale (C-SSRS Screener) 1. Over [...] Screen: ADL Screen - [place] Index of [place] in Activities of Daily Living Bathing: (3 Points) Receives no assistance (gets in and out of tub by self, if tub is usual means of bathing) Dressing: (3 Points) Gets clothes and gets completely dressed without assistance. Toileting: (3 Points) Goes to toilet room, cleans self, and arranges clothes without assistance [...] Low (patient very dependent) IADL Screen - [place] Instrumental Activities of Daily Living Scale Ability [...] PRACTICAL NURSE Signed: 12/01/2023 09:45 LIDIA MOTLEY [facility]
--- OUTSIDE RECORDS SUMMARY | 2024-10-01 06:44 | XMS_ITS | Clinical Summary ---
Author Organization [facility] Address [address] [place] [address] Care Team Providers Care Head Of Human Resources Name Role Phone None, Provider MD Primary [...] Sep 17, 2023 1 Sep 17, 2024 [id number] 2023 J[facility]Y QU[facility] 4 Active gabapentin (NEURONTIN) 600 MG tablet [...] 2:24 PM CDT Height 170.2 cm (5' 7) 12/03/2023 2:24 PM CDT Body Mass Index [...] 02/16/2021, 05/09/2020, Additional history exists PHQ-2 (Physician [place]) 03/10/2024 12/03/2023 DTaP, Tdap and Td Vaccines (4 - Td or Tdap) 10/30/2032 10/30/2022, 07/02/2013, 07/02/2013 Pneumococcal Vaccine: 50+ Years Completed 12/17/2016, 06/28/2014 Zoster Vaccines Completed 10/24/2020, 07/24/2020 Meningococcal B Vaccine Aged Out No l onger eligible based on patient's age to complete this topic Meningococcal Vaccine Aged Out No cari augusto eligible based on patient's age to complete this topic RSV Immunizations Under 20 Months Aged Out No longer eligible based on patient's age to complete this topic Insurance [place] [address] [facility] Care Teams Head Of Human Resources Relationship Specialty Start Date End Date None, ProviderMD PCP - General 04/21/19 None, ProviderMD 04/21/19 Peggy Hoover MD [address] [address] Physician NEUROLOGICAL SURGERY 12/09/23
--- OUTSIDE RECORDS SUMMARY | 2024-10-01 06:44 | XMS_ITS | Encounter Summary ---
Author Name [facility] [place] [facility] Address [address] [place] [address] Care Team Providers Care Docking Pilot Name Role Phone SUSAN RÍOS Primary Care [...] STAND [place]YSON IND Aug 08, 2016 104 [id number] [phone] JUDY KIMY PATIENT ANTHEM [place] FEP PREFERRED PROVIDER ORGANIZAT ION (PPO) FEP STAND [place] IND Aug 08, 2016 104 [id number] [phone] KIM,JUDY MOTHY PATIENT ANTHEM [place] F[place] PREFERRED PROVIDER ORGANIZAT ION (PPO) FEP STAND [place] IND Aug 08, 2016 104 [id number] [phone] KIM,JUDY MOTHY PATIENT [place] PREFERRED PROVIDER ORGANIZAT ION (PPO) FEP STAND [place] IND Aug 08, 2016 104 [id number] [phone] JUDY KIM PATIENT [place] F[place] MEDIC[place] SECONDARY (NO B EXC) FEP 104 Aug 08, 2016 104 [id number] JUDY KIM PATIENT BC BS [place] FEP MEDICARE SECONDARY (NO B EXC) FEP-M ED SEC Aug 08, 2016 104 [id number] JUDY KIM PATIENT [place] SECONDARY (NO B EXC) FEP-M ED SEC Aug 08, 2016 104 [id number] JUDY KIM PATIENT [place] F[place] PREFERRED PROVIDER ORGANIZAT ION (PPO) FEP 105 Mar 11, 1999 105 [id number] JUDY KIM PATIENT BCBS [place] FEP PREFERRED PROVIDER ORGANIZAT ION (PPO) FEP STAND [place] IND Aug 08, 2016 104 [id number] [phone] JUDY KIM PATIENT BCBS [place] ATT[place] FEP CLAIMS PREFERRED PROVIDER ORGANIZAT ION (PPO) FEP [place]AND [place] IND Aug 08, 2016 104 [id number] [phone] JUDY KIM PATIENT [place] FEP PREFERRED PROVIDER ORGANIZAT ION (PPO) FEP [place]AND [place] IND Aug 08, 2016 104 [id number] [phone] JUDY KIM PATIENT [place] ([id number]) PRESCRIPT ION FEP Mar 11, 1999 [id number] JUDY KIMY PATIENT [place] ([id number]) PRESCRIPT ION FEP Mar 11, 1999 [id number] JUDY KIM PATIENT [place] FEP RX PRESCRIPT ION FEPRX Aug 08, 2016 [id number] [phone] JUDY KIMY PATIENT MEDICARE (WNR) MEDICARE (M) RR PART A Oct 08, 2013 RR PART A [id number] JUDY KIMY PATIENT MEDICARE (WNR) MEDICARE () RR PART B Oct 08, 2013 RR PART B [id number] JUDY KIMY PATIENT MEDICARE (WNR) MEDICARE () RR PART A Oct 08, 2013 RR PART A [id number] KIM,TI MOTHY PATIENT MEDICARE (WNR) MEDICARE (M) RR PART B Oct 08, 2013 RR PART B [id number] KIM,TI MOTHY PATIENT MEDICARE (WNR) MEDICARE (M) PART A Oct 08, 2013 PART A [id number] KIM,TI MOTHY PATIENT MEDICARE (WNR) MEDICARE (M) PART B Oct 08, 2013 PART B [id number] KIM,TI MOTHY PATIENT MEDICARE (WNR) MEDICARE (M) PART A Oct 08, 2013 PART A [id number] [phone] KIM,TI MOTHY PATIENT MEDICARE (WNR) MEDICARE (M) PART B Oct 08, 2013 PART B [id number] [phone] KIM,TI MOTHY PATIENT MEDICARE (WNR) MEDICARE (M) RR PART A Oct 08, 2013 RR PART A [id number] [phone] KIM,TI MOTHY PATIENT MEDICARE (WNR) MEDICARE (M) RR PART B Oct 08, 2013 RR PART B [id number] KIM,TI MOTHY PATIENT Selected Encounter This section includes the information on record at [place] for the Encounter. Date/Time Encounter Type Encounter Description Reason Provider Source July 29, 2024 07:45 AM HEARING AID XM&SLCTN BINAURL AUDIOLOGY ICD-10-CM H90.3 Sensorineural hearing loss, bilateral YUN GARRIDO [facility] Encounter Template Text not used by [place] Assessments - Encounter Diagnoses This section includes the primary and secondary diagnoses documented for the Encounter. Date/Time Primary/Secondary Diagnosis Diagnosis Name Provider Source July 29, 2024 08:48 AM PRIMARY Sensorineural hearing loss, bilateral YUN GARRIDO [facility] Plan of Treatment: Future Appointments (+ 6 months) and Future Tests (+/- 45 days) The Plan of Treatment section includes future care activities for the patient from all [place] treatmentfacilities. This section includes future appointments and future orders which are active, pending or scheduled. Future Appointments This section includes appointments that were scheduled to occur 6 months from the date of the Encounter, up to a maximum of 20 appointments. The data comes from all [facility]. Appointment Date/Time Appointment Type Appointme nt Facility Name Aug 17, 2024 11:00 AM AMBULATORY - MEDICINE [facility] Aug 24, 2024 09:00 AM AMBULATORY - NONE [facility] Aug 30, 2024 02:00 PM AMBULATORY - SURGERY [facility] Oct 01, 2024 06:30 AM AMBULATORY - NONE [facility] Oct 01, 2024 06:35 AM AMBULATORY - NONE [facility] Oct 19, 2024 10:30 AM AMBULATORY - REHAB MEDICIN E [facility] OSM[facility] Jan 04, 2025 02:30 PM AMBULATORY - MEDICINE [facility] Active, Pending, and Scheduled Orders This section includes a listing of several types of active, pending, and scheduled orders, including clinic medications orders, diagnostic test orders, procedure orders and consult orders; where the start date of the order is 45 days before the date of the Encounter or 45 days after the date of theEncounter. The data comes from all [facility]. Test Date/Time Test Type Test Details Facility Name Aug 17, 2024 11:37 AM Procedure Order CP EKG STL CP EKG - STL Proc Director Of [employer] [facility] Aug 17, 2024 11:51 AM Consult Order PT OUTPT S T JEFFRY STL Cons Director Of [employer] [facility] Aug 27, 2024 04:05 PM Consult Order COMMUNITY CARE-IMAGING MAGNETIC RESONANCE IMAGING-AUTO STL Cons Director Of [employer] [facility] Aug 27, 2024 04:05 PM Consult Order COMMUNITY CARE-IMAGING MAGNETIC RESONANCE IMAGING-AUTO STL Cons Director Of [employer] [facility] Lab Results: +/- 30 days of the [...] Unit Interpretation Reference Range Specimen Type Comment Aug 17, 2024 01:23 PM [facility] TESTOSTERONE, FREE PANEL SERUM Specimen Type: SERUM Comment: Men with clinically significant hypogonadal symptoms and testosterone values repeatedly in the range of the 200-300 ng/dL or less, may benefit from testosterone treatment after adequate risk and benefits counseling. For additional information, please refer to http://education. Vonjour/faq/ TotalTestosterone [email or web address] (This link is being provided for informational/ educational purposes only.) This test was developed and its analytical performance characteristics have been determined by [employer] [place], [place]. It has not been cleared or approved by the U.S. Food and Drug Administration. This assay has been validated pursuant to the CLIA regulations and is used for clinical purposes. Test Performed by [facility], [facility], [address] [place] [address] Yung Rivera M.D., Ph.D., Director of Laboratories , CLIA [id number] Ordering Provider: NORA PASTRANA Report Released Date/Time: Aug 17, 2024 11:40 AM Reporting Lab: [facility] [address] [place] [phone] Performing Lab: [facility] [id number] [place] [address] TESTOSTERONE, TOTAL 237 ng/dL L 250-1100 ALBUMIN (PB-sendout) 4.1 g/dL 3.6-5.1 TESTOSTERONE,FREE (sendout) 28.1 pg/mL 6 .0-73.0 TESTOSTERONE,BIOAVAILABLE (MA-PB-SO 52.8 ng/dL 15.0-150.0 SEX HORMONE BINDING GLOBULIN 36 nmol/L 2 2-77 Aug 17, 2024 12:43 PM [facility] VITAMIN B1 BLOOD Specimen Type: BLOOD Comment: Vitamin supplementation within 24 hours prior to blood draw may affect the accuracy of the results. Ordering Provider: NORA PASTRANA Report Released Date/Time: Aug 17, 2024 11:42 AM Reporting Lab: [facility] [address] [place] [phone] Performing Lab: [facility] [address] [facility] VITAMIN B1 20 nmol/L 8-30 Aug 17, 2024 12:43 PM [facility] VITAMIN D, 25-HYDROXY SERUM Specimen Type: SE RUM Comment: The listed sex of this patient may not be a typical indication for this test. Therefore, reference ranges or interpretive criteria listed may not be valid. Clinical correlation suggested. Ordering Provider: NORA PASTRANA Report Released Date/Time: Aug 17, 2024 11:37 AM Reporting Lab: [facility] [facility] [address] Performing Lab: [facility] [address] VITAMIN D, 25-HYDROXY 38.5 ng/mL 30-96 Aug 17, 2024 12:43 PM [facility] B12 SERUM Specimen Type: SERUM No comment entered. Ordering Provider: NORA PASTRANA Report Released Date/Time: Aug 17, 2024 11:42 AM Reporting Lab: [facility] [facility] [address] Performing Lab: [facility] [facility] [address] B12 461 pg/mL 213-816 Aug 17, 2024 12:43 PM [facility] LIPID PANEL (STL) PLASMA Specimen Type: PLASM A Comment: No hemolysis noted. Ordering Provider: NORA PASTRANA Report Released Date/Time: Aug 17, 2024 11:37 AM Reporting Lab: [facility] [address] [facility] [address] Performing Lab: [facility] [address] [facility] [address] CHOLESTEROL 110 mg/dL 0-200 TRIGLYCERIDE 53 mg/dL 0-150 CALCULATED LDL 45 mg/dL HDL(New) 54 mg/dL >40 Aug 17, 2024 12:43 PM [facility] COMPREHENSIVE METABOLIC PANEL PLASMA Specimen Type: PLASMA Comment: No hemolysis noted. Ordering Provider: NORA PASTRANA Report Released Date/Time: Aug 17, 2024 11:37 AM Reporting Lab: [address] [address] Performing Lab: [address] [address] CREATININE 1.02 mg/dL 0.7-1.3 UREA NITROGEN 25.9 mg/dL H 9.0-25.0 GLUCOSE 102 mg/dL H 72-99 SODIUM 134 meq/L L 136-145 POTASSIUM 4.0 meq/L 3.5-5 CHLORIDE 103 meq/L 98-107 CARBON DIOXIDE 22 meq/L 22-31 CALCIUM 8.9 mg/dL 8.4-10.4 PROTEIN 6.7 g/dL 6-8.6 ALBUMIN 3.9 g/dL 3.4-5 TOTAL BILIRUBIN 1.0 mg/dL 0.2-1.2 ALKALINE PHOSPHATASE 77 U/L 40-150 AST/SGOT 64 U/L H 5-34 ALT/SGPT 51 U/L H 8-40 EGFR (CKD-EPI 2020) 76.6 >60 Aug 17, 2024 12:43 PM [facility] CBC BLOOD Specimen Type: BLOOD No comment entered. Ordering Provider: NORA PASTRANA Report Released Date/Time: Aug 17, 2024 11:37 AM Reporting Lab: [address] [address] Performing Lab: [address] [address] WBC 5.0 10*3/uL 3.6-11.2 RBC 4.15 10*6/uL 4.10-5.70 HGB 13.7 g/dL 13.1-16.8 HCT 40.3 38.2-48.4 MCV 97.1 fL 80.0-100.0 MCH 33.0 pg 27.0-34.0 MCHC 34.0 g/dL 33.0-36.0 PLT 141 10*3/uL L 150-400 MPV 9.4 fL 7.5-11.2 RDW 12.2 11.8-15.1 LYMPHOCYTES, AUTO % 34 MONOCYTES, AUTO % 4 NEUTROPHILS, AUTO % 61 EOSINOPHILS, AUTO % 1 BASOPHILS, AUTO % 0 LYMPHOCYTES, ABSOLUTE 1.68 10*3/uL 0.77- 4.50 MONOCYTES, ABSOLUTE 0.18 10*3/uL L 0.19-0. 80 NEUTROPHILS, ABSOLUTE 3.02 10*3/uL 2.10- 8.00 EOSINOPHILS, ABSOLUTE 0.05 10*3/uL 0.00- 0.60 BASOPHILS, ABSOLUTE 0.01 10*3/uL 0.00-0. 20 Aug 17, 2024 12:43 PM [facility] HGA1C BLOOD Specimen Type: BLOOD No comment entered. Ordering Provider: NORA PASTRANA Report Released Date/Time: Aug 17, 2024 11:37 AM Reporting Lab: [address] [address] Performing Lab: [address] [address] HGA1C 7.7 H 4.0-6.0 Aug 17, 2024 12:43 PM [facility] TSH W/ REFLEX FT4 (STL) PLASMA Specimen Type: PLASMA No comment entered. Ordering Provider: NORA PASTRANA Report Released Date/Time: Aug 17, 2024 11:37 AM Reporting Lab: [address] [address] Performing Lab: [address] [address] TSH 0.703 u[IU]/mL 0.47-5 Aug 17, 2024 12:43 PM [facility] PROST. SPECIFIC AG.(PB-STL) SERUM Specimen Ty pe: SERUM Comment: The listed sex of this patient may not be a typical indication for this test. Therefore, reference ranges or interpretive criteria listed may not be valid. Clinical correlation suggested. Ordering Provider: NORA PASTRANA Report Released Date/Time: Aug 17, 2024 11:40 AM Reporting Lab: [facility] [address] [facility] [address] Performing Lab: [address] [address] PROST. SPECIFIC AG.(PB-STL) 1.599 ng/mL 0-4 Aug 17, 2024 11:04 AM [facility] GLUCOSE,BLOOD-poct (STL) BLOOD Specimen Type: BLOOD Comment: Test Performed by: [id number] Meter #: [id number] Ordering Provider: NORA PASTRANA Report Released Date/Time: Aug 17, 2024 12:58 PM Reporting Lab: [address] [address] Performing Lab: [place] [id number] [facility] [address] GLUCOSE,BLOOD-poct (STL) 185 mg/dL H 72-99 Social History: Smoking Status (Most current) and Tobacco Use (All prior to encounter date) This section includes the most current, and the historical, smoking and tobacco- related health factors from the [place] facility where the Encounter took place. Current Smoking Status This section includes the most current smoking, or tobacco-related health factor, from the [place] facility where the Encounter took place. Date/Time Current Smoking Status Comment Facil ity Nov 24, 2023 11:18 AM [place]-TOBACCO FORMER USER [facility] Tobacco Use History This section includes a history of the smoking, or tobacco-related health factors, that were collected on or before the date of the Encounter. The data comes from the [place] facility where the Encounter took place. Date/Time Smoking Status/Tobacco Use Comment F acility Nov 24, 2023 11:18 AM [place]-TOBACCO QUIT 15 YRS OR MORE [facility] Advance Directives: All historical and current Section Date Range: From patient's date of to the date document was created. This section includes ALL of a patient's completed or amended [place] Advance and Rescinded Directives. The entries below indicate that a directive exists for the patient, but an actual copy is not included with this document. The data comes from all [place] facilities. Date Advance Directives Provider Source July 13, 2014 ADVANCE DIRECTIVE [facility]OL[facility]O [facility] Radiology Reports: +/- 30 days of the encounter Radiology Reports For cases when an order for radiology services may have been completed prior to the date of the Encounter, the report list includes the Radiology Reports that were completed up to 30 days before dateof the Encounter. For cases when an order for radiology services may have been completed after the date of the Encounter, the report list also includes the Radiology Reports that were completed up to30 days after date of the Encounter. The data comes from all [place] treatment facilities. Date/Time Radiology Report Provider Source Aug 24, 2024 08:44 AM US EXTREMITY VEINS UNILAT OR LTD: COLTEN KIM [id number] [id number] M Exm Date: AUG 24, 2024@08:44 Req Phys: NORA PASTRANA Pat Loc: [facility]-ST CLR PACT 2 PCP (Req'g Lo Img Loc: [facility]-ULTRASOUND [facility] Service: Unknown [facility], [facility] [address] [place] [address] (Case [id number] COMPLETE) US EXTREMITY VEINS UNILAT OR LTD (US Detailed) CPT:93298 Reason for Study: right leg swelling Clinical History: Report Status: Verified Date Reported: AUG 24, 2024 Date Verified: AUG 24, 2024 Gallery Assistant E-Sig:/ES/HUBER ROSSI Report: EXAMINATION: US EXTREMITY VEINS UNILAT OR LTD DATE: 08/24/2024 8:44 AM HISTORY: right leg swelling . COMPARISON: None. TECHNIQUE: Barth scale and color doppler imaging performed. FINDINGS: The right common, deep and superficial femoral, popliteal, posterior tibial, peroneal and greater saphenous veins are patent. Impression: No deep vein thrombosis in the right lower extremity. Dictated by Kristen Will M.D. (residential child care counselor) IHuber, have reviewed the images and report and concur with these findings. Primary Interpreting Staff: HUBER ROSSI, RADIOLOGIST (Gallery Assistant) Primary Interpreting Resident: KRISTEN WILL, Resident /HUBER KEITH [facility] Encounter Notes: All associated encounter notes This section contains the clinical notes associated to the Encounter. Date/Time Encounter Note(s) Provider Source July 29, 2024 07:43 AM AUDIOLOGY E & M NO TE: LOCAL TITLE: AUDIO EVALS STL STANDARD TITLE: AUDIOLOGY E & M NOTE DATE OF NOTE: JULY 29, 2024@07:43 ENTRY DATE: JULY 29, 2024@07:43:48 AUTHOR: YUN GARRIDO EXP COSIGNER: URGENCY: STATUS: COMPLETED SUBJECT: audio AUDIO EVALS STL Has ADDENDA Purpose of appt: audio [X] patient initiated visit [] provider initiated visit CASE HISTORY: Otoscopic evaluation normal AU. TM's visible AU. Pt's main complaint is possible hearing loss most noticed by his family members. He denied hearing problems. Denied tinnitus x2 during interview. Pt denied otalgia, aural fullness, vertigo, otosurgery or recent ear infections. Baseline eval. RESULTS: Right Ear- Audiometry (air and/or bone conduction): Normal 250-1000 Hz sloping to mod/mod severe SNHL at 2-8000 Hz. SRT: 30 dB HL WRS: 92% Tympanogram: type A, WNL Reflexes: ipsi: present 500-2000 Park; absent 4000 Hz contra: present 500-2000 Park; absent 4000 Hz Left Ear- Audiometry (air and/or bone conduction): Normal 250-1000 Hz sloping to mild/mod SNHL at 3-8000 Hz. SRT: 25 dB HL WRS: 100% Tympanogram: type A, WNL Reflexes: ipsi: present 500-2000 Park; absent 4000 Hz contra: present 500-1000 Hz; absent 2-4000 Hz Asymm worse to right ear at 2-8000 Hz. Does not meet 2 or more criteria for ABR protocol. Pt is a candidate for hearing aids. Counseled pt regarding degree of loss. Discussed full-time commitment and realistic expectations of hearing aids. HAE to follow. HEARING AID EVALUATION: [] Monaural [x] Binaural Otoscopy reveals clear canals. Appropriate evaluation of patient leads to hearing aid order. Ear mold impression(s) taken with permission without incident. Hearing aid will be ordered and appointment requested for fitting. [] patient initiated visit [x] provider initiated visit [x] new user []experienced user Discussed aids with pt to include the following: STYLE: Showed pt various demo aids in clinic from canal through XUAN style. BATTERY TYPE: Discussed rechargeable vs disposable batteries. Pt would like rechargeable aids for convenience. COLOR: Pt chose beige to match skintone. CONNECTIVITY: Pt has [employer] which is not tested per QR code, however pt cracked his phone and is planning to upgrade. He will bring phone to next appt. MATRIX: UP- with 1.6 venting After discussion, pt and clinician chose: EDGE AI ITC R MPs set to auto, VC, and likely BT RECOMMENDATIONS: 1. HAF sched. /meg/ Jennifer CHEATHAM Staff Store Clerk Checker, Surgery Service Signed: 07/29/2024 08:48 08/11/2024 ADDENDUM STATUS: COMPLETED Pre-programmed aids for fit. /meg/ ELSA PLUNKETT Operator Supply, HPT Signed: 08/11/2024 15:18 /meg/ Jennifer CHEATHAM Staff Store Clerk Checker, Surgery Service Cosigned: 08/12/2024 10:12 YUN GARRIDO [facility]
--- OUTSIDE RECORDS SUMMARY | 2024-10-01 06:44 | XMS_ITS | Encounter Summary ---
Author Name [facility] [place] [facility] [place] Address [address] [place] [address] Care Team Providers Care Senior Javascript Developer Name Role Phone SUSAN RÍOS Primary Care Provider UnavailNORA Gomez Primary Care Provider UnavailDEONTE Woodruff Primary Care Provider Nikita he Insurance Providers: All historical and current [...] STAND [place] IND Aug 08, 2016 104 [id number] [phone] JUDY KIM PATIENT ANTHEM [place] FEP PREFERRED PROVIDER ORGANIZAT ION (PPO) FEP [place] IND Aug 08, 2016 104 [id number] [phone] JUDY KIM PATIENT AN[place] PREFERRED PROVIDER ORGANIZAT ION (PPO) FEP [place]AND [place] IND Aug 08, 2016 104 [id number] [phone] JUDY KIM PATIENT [place] PREFERRED PROVIDER ORGANIZAT ION (PPO) FEP [place]AND [place] IND Aug 08, 2016 104 [id number] [phone] JUDY KIM PATIENT [place] MEDIC[place] SECONDARY (NO B EXC) FEP 104 Aug 08, 2016 104 [id number] [phone] JUDY KIM PATIENT BC BS [place] F[place] MEDICARE SECONDARY (NO B EXC) FEP-M ED SEC Aug 08, 2016 104 [id number] [phone] JUDY KIM PATIENT [place] SECONDARY (NO B EXC) FEP-M ED SEC Aug 08, 2016 104 [id number] JUDY KIM PATIENT [place] BS [place] F[place] PREFERRED PROVIDER ORGANIZAT ION (PPO) FEP 105 Mar 11, 1999 105 [id number] JUDY KIM PATIENT [place] F[place] PREFERRED PROVIDER ORGANIZAT ION (PPO) FEP [place]AND [place] IND Aug 08, 2016 104 [id number] [phone] JUDY KIM PATIENT BCBS [place] ATTN FEP CLAIMS PREFERRED PROVIDER ORGANIZAT ION (PPO) FEP [place]AND [place] IND Aug 08, 2016 104 [id number] [phone] JUDY KIM PATIENT [place] F[place] PREFERRED PROVIDER ORGANIZAT ION (PPO) FEP [place] IND Aug 08, 2016 104 [id number] [phone] JUDY KIM PATIENT [place]ARK ([id number]) PRESCRIPT ION FEP Mar 11, 1999 [id number] JUDY KIM PATIENT [place] ([id number]) PRESCRIPT ION FEP Mar 11, 1999 [id number] JUDY KIM PATIENT [place] FEP RX PRESCRIPT ION FEPRX Aug 08, 2016 [id number] [phone] JUDY KIM PATIENT MEDICARE (WNR) MEDICARE (M) RR PART A Oct 08, 2013 RR PART A [id number] [phone] JUDY KIM PATIENT MEDICARE (WNR) MEDICARE (M) RR PART B Oct 08, 2013 RR PART B [id number] JUDY KIM PATIENT MEDICARE (WNR) MEDICARE (M) RR PART A Oct 08, 2013 RR PART A [id number] KIM,TI MOTHY PATIENT MEDICARE (WNR) MEDICARE (M) RR PART B Oct 08, 2013 RR PART B [id number] KIM,TI MOTHY PATIENT MEDICARE (WNR) MEDICARE (M) PART A Oct 08, 2013 PART A [id number] KIM,TI MOTHY PATIENT MEDICARE (WNR) MEDICARE (M) PART B Oct 08, 2013 PART B [id number] [phone] KIM,TI MOTHY PATIENT MEDICARE (WNR) MEDICARE (M) PART A Oct 08, 2013 PART A [id number] [phone] KIM,TI MOTHY PATIENT MEDICARE (WNR) MEDICARE (M) PART B Oct 08, 2013 PART B [id number] [phone] KIM,TI MOTHY PATIENT MEDICARE (WNR) MEDICARE (M) RR PART A Oct 08, 2013 RR PART A [id number] KIM,TI MOTHY PATIENT MEDICARE (WNR) MEDICARE (M) RR PART B Oct 08, 2013 RR PART B [id number] [phone] KIM,TI MOTHY PATIENT Selected Encounter This section includes the information on record at [place] for the Encounter. Date/Time Encounter Type Encounter Description Reason Provider Source Aug 30, 2024 02:00 PM HEARING AID SUP/ACCESS/DEV AUDIOLOGY ICD-10-CM H90.3 Sensorineural hearing loss, bilateral YUN GARRIDO Encounter Template Text not used by [place] Assessments - Encounter Diagnoses This section includes the primary and secondary diagnoses documented for the Encounter. Date/Time Primary/Secondary Diagnosis Diagnosis Name Provider Source Aug 30, 2024 02:53 PM PRIMARY Sensorineural hearing loss, bilateral KIMBERLY JESUS [facility] Plan of Treatment: Future Appointments (+ 6 months) and Future Tests (+/- 45 days) The Plan of Treatment section includes future care activities for the patient from all [place] treatmentfacilities. This section includes future appointments and future orders which are active, pending or scheduled. Future Appointments This section includes appointments that were scheduled to occur 6 months from the date of the Encounter, up to a maximum of 20 appointments. The data comes from all [facility]. Appointment Date/Time Appointment Type Appointme nt Facility Name Oct 01, 2024 06:30 AM AMBULATORY - NONE [facility] PAMELA Vent[place] [facility] Oct 01, 2024 06:35 AM AMBULATORY - NONE PAMELA Lorenzo [facility] Oct 19, 2024 10:30 AM AMBULATORY - REHAB MEDICIN E [facility] Jan 04, 2025 02:30 PM AMBULATORY - MEDICINE [facility] Active, Pending, and Scheduled Orders This section includes a listing of several types of active, pending, and scheduled orders, including clinic medications orders, diagnostic test orders, procedure orders and consult orders; where the start date of the order is 45 days before the date of the Encounter or 45 days after the date of theEncounter. The data comes from all [facility]. Test Date/Time Test Type Test Details Facility Name Aug 17, 2024 11:37 AM Procedure Order CP EKG STL CP EKG - STL Proc [facility] Aug 17, 2024 11:51 AM Consult Order PT OUTPT S T JEFFRY STL Cons [facility] Aug 27, 2024 04:05 PM Consult Order COMMUNITY CARE-IMAGING MAGNETIC RESONANCE IMAGING-AUTO STL Cons [facility] Aug 27, 2024 04:05 PM Consult Order COMMUNITY CARE-IMAGING MAGNETIC RESONANCE IMAGING-AUTO STL Cons [facility] Lab Results: +/- 30 days of the encounter This section includes the Chemistry and Hematology Lab Results on record with [place] for the patient. Radiology Reports and Pathology Reports are provided separately, in subsequent sections. Lab Results This section contains the Chemistry/Hematology Results that were resulted 30 days before or 30 daysafter the date of the Encounter. Date/Time Source Result Type Result - Unit Interpretation Reference Range Specimen Type Comment Sep 02, 2024 09:39 AM [facility] TESTOSTERONE, FREE PANEL SERUM Specimen Type: SERUM Comment: Men with clinically significant hypogonadal symptoms and testosterone values repeatedly in the range of the 200-300 ng/dL or less, may benefit from testosterone treatment after adequate risk and benefits counseling. For additional information, please refer to http://education. Pace4Life/faq/ TotalTestosterone [id number] (This link is being provided for informational/ educational purposes only.) This test was developed and its analytical performance characteristics have been determined by [employer] [place], [place]. It has not been cleared or approved by the U.S. Food and Drug Administration. This assay has been validated pursuant to the CLIA regulations and is used for clinical purposes. Test Performed by [facility], [address] [place] [address] Yung Rivera M.D., Ph.D., Director of Laboratories , CLIA [id number] Men with clinically significant hypogonadal symptoms and testosterone values repeatedly in the range of the 200-300 ng/dL or less, may benefit from testosterone treatment after adequate risk and benefits counseling. For additional information, please refer to http://Qapital. My1login. Posterbee/faq/ TotalTestosterone [id number] (This link is being provided for informational/ educational purposes only.) This test was developed and its analytical performance characteristics have been determined by [facility] [place], [place]. It has not been cleared or approved by the U.S. Food and Drug Administration. This assay has been validated pursuant to the CLIA regulations and is used for clinical purposes. Test Performed by [facility], [address] [place] [address] Yung Rivera M.D., Ph.D., Director of Laboratories , CLIA [id number] Ordering Provider: NORA PASTRANA Report Released Date/Time: Aug 25, 2024 08:33 AM Reporting Lab: [facility] [address] [facility] [address] Performing Lab: [facility] [address] [facility] TESTOSTERONE, TOTAL 315 ng/dL 250-1100 ALBUMIN (PB-sendout) 4.1 g/dL 3.6-5.1 TESTOSTERONE,FREE (sendout) 38.2 pg/mL 6 .0-73.0 TESTOSTERONE,BIOAVAILABLE (MA-PB-SO 72.0 ng/dL 15.0-150.0 SEX HORMONE BINDING GLOBULIN 36 nmol/L 2 -77 Aug 17, 2024 01:23 PM [facility] TESTOSTERONE, FREE PANEL SERUM Specimen Type: SERUM Comment: Men with clinically significant hypogonadal symptoms and testosterone values repeatedly in the range of the 200-300 ng/dL or less, may benefit from testosterone treatment after adequate risk and benefits counseling. For additional information, please refer to http://education.My1login.Posterbee/faq/ VgmugQoytkhrghqweNFFUAEYVY647 (This link is being provided for informational/ educational purposes only.) This test was developed and its analytical performance characteristics have been determined by [facility] [place], [place]. It has not been cleared or approved by the U.S. Food and Drug Administration. This assay has been validated pursuant to the CLIA regulations and is used for clinical purposes. Test Performed by [facility], [facility], [address] [place] [address] Yung Rivera M.D., Ph.D., Director of Laboratories , CLIA [id number] Ordering Provider: NORA PASTRANA Report Released Date/Time: Aug 17, 2024 11:40 AM Reporting Lab: [facility] [address] [place] [phone] Performing Lab: [facility] [address] [place] [address] TESTOSTERONE, TOTAL 237 ng/dL L 250-1100 ALBUMIN (PB-sendout) 4.1 g/dL 3.6-5.1 TESTOSTERONE,FREE (sendout) 28.1 pg/mL 6 .0-73.0 TESTOSTERONE,BIOAVAILABLE (MA-PB-SO 52.8 ng/dL 15.0-150.0 SEX HORMONE BINDING GLOBULIN 36 nmol/L 2 -77 Aug 17, 2024 12:43 PM [facility] VITAMIN B1 BLOOD Specimen Type: BLOOD Comment: Vitamin supplementation within 24 hours prior to blood draw may affect the accuracy of the results. Ordering Provider: NORA PASTRANA Report Released Date/Time: Aug 17, 2024 11:42 AM Reporting Lab: [facility] [address] [facility] [address] Performing Lab: [facility] [address] [facility] [address] VITAMIN B1 20 nmol/L 8-30 Aug 17, 2024 12:43 PM [facility] VITAMIN D, 25-HYDROXY SERUM Specimen Type: SE RUM Comment: The listed sex of this patient may not be a typical indication for this test. Therefore, reference ranges or interpretive criteria listed may not be valid. Clinical correlation suggested. Ordering Provider: NORA PASTRANA Report Released Date/Time: Aug 17, 2024 11:37 AM Reporting Lab: [facility] [facility] [address] Performing Lab: [facility] [facility] [address] VITAMIN D, 25-HYDROXY 38.5 ng/mL 30-96 Aug 17, 2024 12:43 PM [facility] B12 SERUM Specimen Type: SERUM No comment entered. Ordering Provider: NORA PASTRANA Report Released Date/Time: Aug 17, 2024 11:42 AM Reporting Lab: [facility] [facility] [address] Performing Lab: [facility] [facility] [address] B12 461 pg/mL 213-816 Aug 17, 2024 12:43 PM [facility] LIPID PANEL (STL) PLASMA Specimen Type: PLASM A Comment: No hemolysis noted. Ordering Provider: NORA PASTRANA Report Released Date/Time: Aug 17, 2024 11:37 AM Reporting Lab: [facility] [address] [facility] [address] Performing Lab: [facility] [address] [facility] [address] CHOLESTEROL 110 mg/dL 0-200 TRIGLYCERIDE 53 mg/dL 0-150 CALCULATED LDL 45 mg/dL HDL(New) 54 mg/dL >40 Aug 17, 2024 12:43 PM [facility] COMPREHENSIVE METABOLIC PANEL PLASMA Specimen Type: PLASMA Comment: No hemolysis noted. Ordering Provider: NORA PASTRANA Report Released Date/Time: Aug 17, 2024 11:37 AM Reporting Lab: [address] [address] Performing Lab: [address] [address] CREATININE 1.02 mg/dL 0.7-1.3 UREA NITROGEN 25.9 [...] 76.6 >60 Aug 17, 2024 12:43 PM [facility] CBC BLOOD Specimen Type: BLOOD No comment entered. Ordering Provider: NORA PASTRANA Report Released Date/Time: Aug 17, 2024 11:37 AM Reporting Lab: [address] [address] Performing Lab: [address] [address] WBC 5.0 10*3/uL 3.6-11.2 RBC 4.15 10*6/uL [...] 0.00-0. 20 Aug 17, 2024 12:43 PM [facility] HGA1C BLOOD Specimen Type: BLOOD No comment entered. Ordering Provider: NORA PASTRANA Report Released Date/Time: Aug 17, 2024 11:37 AM Reporting Lab: [address] [address] Performing Lab: [address] [address] HGA1C 7.7 H 4.0-6.0 Aug 17, 2024 12:43 PM [facility] TSH W/ REFLEX FT4 (STL) PLASMA Specimen Type: PLASMA No comment entered. Ordering Provider: NORA PASTRANA Report Released Date/Time: Aug 17, 2024 11:37 AM Reporting Lab: [address] [address] Performing Lab: [address] [address] TSH 0.703 u[IU]/mL 0.47-5 Aug 17, 2024 12:43 PM [facility] PROST. SPECIFIC AG.(PB-STL) SERUM Specimen Ty pe: SERUM Comment: The listed sex of this patient may not be a typical indication for this test. Therefore, reference ranges or interpretive criteria listed may not be valid. Clinical correlation suggested. Ordering Provider: NORA PASTRANA Report Released Date/Time: Aug 17, 2024 11:40 AM Reporting Lab: [address] [address] Performing Lab: [place] [address] [address] [facility] [address] PROST. SPECIFIC AG.(PB-STL) 1.599 ng/mL 0-4 Aug 17, 2024 11:04 AM [facility] GLUCOSE,BLOOD-poct (STL) BLOOD Specimen Type : BLOOD Comment: Test Performed by: [id number] Meter #: [id number] Ordering Provider: NORA PASTRANA Report Released Date/Time: Aug 17, 2024 12:58 PM Reporting Lab: [facility] [address] [facility] [address] Performing Lab: [facility] [address] [facility] [address] GLUCOSE,BLOOD-poct (STL) 185 mg/dL H 72-99 Social History: Smoking Status (Most current) and Tobacco Use (All prior to encounter date) This section includes the most current, and the historical, smoking and tobacco- related health factors from the [place] facility where the Encounter took place. Current Smoking Status This section includes the most current smoking, or tobacco-related health factor, from the [place] facility where the Encounter took place. Date/Time Current Smoking Status Comment Facil ity Nov 24, 2023 11:18 AM [place]-TOBAC[place] FORMER USER [facility] Tobacco Use History This section includes a history of the smoking, or tobacco-related health factors, that were collected on or before the date of the Encounter. The data comes from the [place] facility where the Encounter took place. Date/Time Smoking Status/Tobacco Use Comment F acility Nov 24, 2023 11:18 AM [place]-TOBACCO QUIT 15 YRS OR MORE [facility] Advance Directives: All historical and current Section Date Range: From patient's date of to the date document was created. This section includes ALL of a patient's completed or amended [place] Advance and Rescinded Directives. The entries below indicate that a directive exists for the patient, but an actual copy is not included with this document. The data comes from all [place] facilities. Date Advance Directives Provider Source July 13, 2014 ADVANCE DIRECTIVE [facility]O [facility] Radiology Reports: +/- 30 days of the [...] the Encounter. The data comes from all [place] treatment facilities. Date/Time Radiology Report Provider Source Aug 24, 2024 08:44 AM US EXTREMITY VEINS UNILAT OR LTD: COLTEN KIM [id number] M Exm Date: AUG 24, 2024@08:44 Req Phys: NORA PASTRANA Pat Loc: [facility] CLR PACT 2 PCP (Farnaz'fabian [facility] Img Loc: [facility]ULTRASOUND DANIELEL Service: [address] [address] (Case [id number] COMPLETE) US EXTREMITY VEINS UNILAT OR LTD (US Detailed) CPT:08115 Reason for Study: right leg swelling Clinical History: Report Status: Verified Date Reported: AUG 24, 2024 Date Verified: AUG 24, 2024 Gauge Machine Operator E-Sig:/ES/HUBER ROSSI Report: EXAMINATION: US EXTREMITY VEINS UNILAT OR LTD DATE: 08/24/2024 8:44 AM HISTORY: right leg swelling . COMPARISON: None. TECHNIQUE: Barth scale and color doppler imaging performed. FINDINGS: The right common, deep and superficial femoral, popliteal, posterior tibial, peroneal and greater saphenous veins are patent. Impression: No deep vein thrombosis in the right lower extremity. Dictated by Kristen Will M.D. (residential property consultant) Huber Pichardo, have reviewed the images and report and concur with these findings. Primary Interpreting Staff: HUBER ROSSI, RADIOLOGIST (Gauge Machine Operator) Primary Interpreting Resident: KRISTEN WILL, Resident /HUBER KEITH [facility] Encounter Notes: All associated encounter notes This section contains the clinical notes associated to the Encounter. Date/Time Encounter Note(s) Provider Source Aug 30, 2024 07:49 AM AUDIOLOGY INVENTORY TECHNICIAN NOTE: LOCAL TITLE: HEARING AIDS STL STANDARD TITLE: AUDIOLOGY INVENTORY TECHNICIAN NOTE DATE OF NOTE: AUG 30, 2024@07:49 ENTRY DATE: AUG 30, 2024@07:50:08 AUTHOR: YUN GARRIDO COSIGNER: URGENCY: STATUS: COMPLETED SUBJECT: audio HEARING AID FITTING: Pt was seen for fitting of new hearing aid(s). Otoscopy reveals clear ear canals. Aid(s) were programmed to First Fit and adjusted to NAL-NL2 prescriptive target. [x] provider initiated visit Family members were: [] Present [x] Not present [x] Conformity eval completed- NAL-NL2 prescriptive target [] Conformity eval unavailable [] Disposable batteries [x] Rechargeable batteries [x] new user [] experienced user Today, pt was fit with TrustedID AI ITC R MP R [id number] TrustedID AI ITC R MP L [id number] JOSIE STARLINK PRM CHGR 2.0 [id number] The aids are programmed as: auto, MB=VC, BT to Android. Trial period: 01/30/2025 The following standardized education was provided and the pt was able to demonstrate understanding after the education: o Introduction to aids (red/blue, right/left) o Parts of the aid o Service Shop Foreman o Insertion/removal of aids. o Volume control o Realistic expectations of aids. o Cleaning/maint of aids. Wax filters. [place]. o Review of the items: soft case, hard case o Review of the paperwork: supply reorder form, instruction manual, IOI survey, clinician name/number, L&D form o Review trial period and warranty o Bluetooth handout Real-ear measures are within acceptable limits. Curves stored in SRI. Counseled pt on proper use and care of aids. Pt practiced insertion and removal of aids. Verbalized understanding of hearing aid care and maintenance. Placed order for hearing aid wax filters to be shipped to patient address: [address] [place] [phone] RECOMMENDATIONS: 1. Full-time hearing aid use to facilitate adjustment to amplification. 2. Contact Audiology Clinic for repairs and/or adjustments, as needed. 3. Pt will return IOI survey after 09/29/2024 Time for appt: 45 min Completed by Vernon Hagan, doctoral audiology resident. The information above has been reviewed by this provider. I am in agreement with the treatment plan as outlined. /meg/ Jennifer CHEATHAM Staff Web Operations Manager, Surgery Service Signed: 08/30/2024 15:24 YUN GARRIDO [facility]
--- OUTSIDE RECORDS SUMMARY | 2024-10-01 06:45 | XMS_ITS ---
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 Name Role Phone SUSAN RÍOS Primary Care [...] STAND ALYSON IND Aug 08, 2016 104 [id number] [phone] JUDY KIM JANETH PATIENT ANTHEM [place] FEP PREFERRED PROVIDER ORGANIZAT ION (PPO) FEP STAND [place] IND Aug 08, 2016 104 [id number] [phone] JUDY KIM JANETH PATIENT ANTHE[place] F[place] PREFERRED PROVIDER ORGANIZAT ION (PPO) FEP STAND [place]YS[place] IND Aug 08, 2016 104 [id number] [phone] JUDY KIM JANETH PATIENT [place] F[place] PREFERRED PROVIDER ORGANIZAT ION (PPO) FEP STAND [place]YS[place] IND Aug 08, 2016 104 [id number] [phone] JUDY KIM PATIENT [place] F[place] MEDIC[place] SECONDARY (NO B EXC) FEP 104 Aug 08, 2016 104 [id number] JUDY KIM PATIENT BC BS [place] FEP MEDICARE SECONDARY (NO B EXC) FEP-M ED SEC Aug 08, 2016 104 [id number] [phone] JUDY KIM PATIENT [place] SECONDARY (NO B EXC) FEP-M ED SEC Aug 08, 2016 104 [id number] JUDY KIM PATIENT BC BS [place] FEP PREFERRED PROVIDER ORGANIZAT ION (PPO) FEP 105 Mar 11, 1999 105 [id number] JUDY KIM PATIENT [place] F[place] PREFERRED PROVIDER ORGANIZAT ION (PPO) FEP STAND [place] IND Aug 08, 2016 104 [id number] [phone] JUDY KIM PATIENT BCBS [place] ATTN FEP CLAIMS PREFERRED PROVIDER ORGANIZAT ION (PPO) FEP STAND [place] IND Aug 08, 2016 104 [id number] [phone] JUDY KIM PATIENT [place] FEP PREFERRED PROVIDER ORGANIZAT ION (PPO) FEP [place]AND [place] IND Aug 08, 2016 104 [id number] [phone] JUDY KIM PATIENT [place] ([id number]) PRESCRIPT ION FEP Mar 11, 1999 [id number] JUDY KIM PATIENT [place] ([id number]) PRESCRIPT ION FEP Mar 11, 1999 [id number] JUDY KIM PATIENT [place] FEP RX PRESCRIPT ION FEPRX Aug 08, 2016 [id number] [phone] JUDY KIM PATIENT MEDICARE (WNR) MEDICARE (M) RR PART A Oct 08, 2013 RR PART A [id number] JUDY KIM PATIENT MEDICARE (WNR) MEDICARE (M) RR PART B Oct 08, 2013 RR PART B [id number] JUDY KIM PATIENT MEDICARE (WNR) MEDICARE (M) RR PART A Oct 08, 2013 RR PART A [id number] KIM,TI MOTHY PATIENT MEDICARE (WNR) MEDICARE (M) RR PART B Oct 08, 2013 RR PART B [id number] KIM,TI MOTHY PATIENT MEDICARE (WNR) MEDICARE (M) PART A Oct 08, 2013 PART A [id number] KIM,TI MOTHY PATIENT MEDICARE (WNR) MEDICARE (M) PART B Oct 08, 2013 PART B [id number] KIM,TI MOTHY PATIENT MEDICARE (WNR) MEDICARE (M) PART A Oct 08, 2013 PART A [id number] KIM,TI MOTHY PATIENT MEDICARE (WNR) MEDICARE (M) PART B Oct 08, 2013 PART B [id number] KIM,TI MOTHY PATIENT MEDICARE (WNR) MEDICARE (M) RR PART B Oct 08, 2013 RR PART B [id number] KIM,TI MOTHY PATIENT MEDICARE (WNR) MEDICARE (M) RR PART A Oct 08, 2013 RR PART A [id number] KIM,TI MOTHY PATIENT Selected Encounter This section includes the information on record at [place] for the Encounter. Date/Time Encounter Type Encounter Description Reason Provider Source Aug 17, 2024 11:00 AM OFFICE O/P EST MOD 30 MIN PRIMARY CARE/MEDICINE ICD-10-CM E11.9 Type 2 diabetes mellitus without complications NORA PASTRANA [facility] Encounter Template Text not used by [place] Assessments - Encounter Diagnoses This section includes the primary and secondary diagnoses documented for the Encounter. Date/Time Primary/Secondary Diagnosis Diagnosis Name Provider Source Aug 17, 2024 12:05 PM PRIMARY Type 2 diabetes mellitus without complications NORA PASTRANA [facility] Aug 17, 2024 12:05 PM SECONDARY Chronic fatigue, unspecified NORA PASTRANA [facility] Aug 17, 2024 12:05 PM SECONDARY Essential (primary) hypertension NORA PASTRANA [facility] Aug 17, 2024 12:05 PM SECONDARY Other abnormalities of gait and mobility NORA PASTRANA [facility] Plan of Treatment: Future Appointments (+ 6 months) and Future Tests (+/- 45 days) The Plan of Treatment section includes future care activities for the patient from all [place] [facility] This section includes future appointments and future orders which are active, pending or scheduled. Future Appointments This section includes appointments that were scheduled to occur 6 months from the date of the Encounter, up to a maximum of 20 appointments. The data comes from all [place] treatment [facility]. Appointment Date/Time Appointment Type Appointme nt Facility Name Aug 24, 2024 09:00 AM AMBULATORY - NONE [facility] Aug 30, 2024 02:00 PM AMBULATORY - SURGERY [facility] Oct 01, 2024 06:30 AM AMBULATORY - NONE [facility] Oct 01, 2024 06:35 AM AMBULATORY - NONE [facility] Oct 19, 2024 10:30 AM AMBULATORY - REHAB MEDICIN E [facility] Jan 04, 2025 02:30 PM AMBULATORY - MEDICINE [facility] Active, Pending, and Scheduled Orders This section includes a listing of several types of active, pending, and scheduled orders, including clinic medications orders, diagnostic test orders, procedure orders and consult orders; where the start date of the order is 45 days before the date of the Encounter or 45 days after the date of theEncounter. The data comes from all [facility]. Test Date/Time Test Type Test Details Facility Name Aug 17, 2024 11:37 AM Procedure Order CP EKG STL CP EKG - STL Proc Strike Out Machine Operator's Choice [facility] Aug 17, 2024 11:51 AM Consult Order PT OUTPT S T JEFFRY STL Cons Strike Out Machine Operator's Choice [facility] Aug 27, 2024 04:05 PM Consult Order COMMUNITY CARE-IMAGING MAGNETIC RESONANCE IMAGING-AUTO STL Cons Strike Out Machine Operator's Choice [facility] Aug 27, 2024 04:05 PM Consult Order COMMUNITY CARE-IMAGING MAGNETIC RESONANCE IMAGING-AUTO STL Cons Strike Out Machine Operator's Choice [facility] Lab Results: +/- 30 days of [...] Type Comment Sep 02, 2024 09:[address] [facility] TESTOSTERONE, FREE PANEL SERUM Specimen Type: SERUM Comment: Men with clinically significant hypogonadal symptoms and testosterone values repeatedly in the range of the 200-300 ng/dL or less, may benefit from testosterone treatment after adequate risk and benefits counseling. For additional information, please refer to http://iovation. Forrst/faq/ TotalTestosterone [id number] (This link is being provided for informational/ educational purposes only.) This test was developed and its analytical performance characteristics have been determined by [facility] [place], [place]. It has not been cleared or approved by the U.S. Food and Drug Administration. This assay has been validated pursuant to the CLIA regulations and is used for clinical purposes. Test Performed by [facility], [address] [place] [address] Yung Rivera M.D., Ph.D., Director of Laboratories , CLIA [id number] Men with clinically significant hypogonadal symptoms and testosterone values repeatedly in the range of the 200-300 ng/dL or less, may benefit from testosterone treatment after adequate risk and benefits counseling. For additional information, please refer to http://iovation. Forrst/faq/ TotalTestosterone [id number] (This link is being provided for informational/ educational purposes only.) This test was developed and its analytical performance characteristics have been determined by [facility] [place], [place]. It has not been cleared or approved by the U.S. Food and Drug Administration. This assay has been validated pursuant to the CLIA regulations and is used for clinical purposes. Test Performed by [facility], [id number] [place], [place] Yung Rivera M.D., Ph.D., Director of Laboratories , CLIA [id number] Ordering Provider: NORA PASTRANA Report Released Date/Time: Aug 25, 2024 08:33 AM Reporting Lab: [facility] [address] [facility] [address] Performing Lab: [facility] [id number] [place] [address] TESTOSTERONE, TOTAL 315 ng/dL 250-1100 ALBUMIN (PB-sendout) 4.1 g/dL 3.6-5.1 TESTOSTERONE,FREE (sendout) 38.2 pg/mL 6 .0-73.0 TESTOSTERONE,BIOAVAILABLE (MA-PB-SO 72.0 ng/dL 15.0-150.0 SEX HORMONE BINDING GLOBULIN 36 nmol/L 2 2-77 Aug 17, 2024 01:23 PM [facility] TESTOSTERONE, FREE PANEL SERUM Specimen Type: SERUM Comment: Men with clinically significant hypogonadal symptoms and testosterone values repeatedly in the range of the 200-300 ng/dL or less, may benefit from testosterone treatment after adequate risk and benefits counseling. For additional information, please refer to http://education.Stratopy.Infinite.ly/faq/ Hs[email or web address] (This link is being provided for informational/ educational purposes only.) This test was developed and its analytical performance characteristics have been determined by [facility] [place], [place]. It has not been cleared or approved by the U.S. Food and Drug Administration. This assay has been validated pursuant to the CLIA regulations and is used for clinical purposes. Test Performed by [facility], [facility], [id number] [place], [place] Yung Rivera M.D., Ph.D., Director of Laboratories , CLIA [id number] Ordering Provider: NORA PASTRANA Report Released Date/Time: Aug 17, 2024 11:40 AM Reporting Lab: [facility] [address] [facility] [address] Performing Lab: [facility] [address] [facility] TESTOSTERONE, TOTAL 237 ng/dL L 250-1100 ALBUMIN (PB-sendout) 4.1 g/dL 3.6-5.1 TESTOSTERONE,FREE (sendout) 28.1 pg/mL 6 .0-73.0 TESTOSTERONE,BIOAVAILABLE (MA-PB-SO 52.8 ng/dL 15.0-150.0 SEX HORMONE BINDING GLOBULIN 36 nmol/L 2 2-77 Aug 17, 2024 12:43 PM [facility] VITAMIN B1 BLOOD Specimen Type: BLOOD Comment: Vitamin supplementation within 24 hours prior to blood draw may affect the accuracy of the results. Ordering Provider: NORA PASTRANA Report Released Date/Time: Aug 17, 2024 11:42 AM Reporting Lab: [facility] [address] [facility] [address] Performing Lab: [facility] [id number] [facility] VITAMIN B1 20 nmol/L 8-30 Aug 17, 2024 12:43 PM [facility] VITAMIN D, 25-HYDROXY SERUM Specimen Type: SE RUM Comment: The listed sex of this patient may not be a typical indication for this test. Therefore, reference ranges or interpretive criteria listed may not be valid. Clinical correlation suggested. Ordering Provider: NORA PASTRANA Report Released Date/Time: Aug 17, 2024 11:37 AM Reporting Lab: [facility] [facility] [address] Performing Lab: [facility] [address] VITAMIN D, 25-HYDROXY 38.5 ng/mL 30-96 Aug 17, 2024 12:43 PM [facility] B12 SERUM Specimen Type: SERUM No comment entered. Ordering Provider: NORA PASTRANA Report Released Date/Time: Aug 17, 2024 11:42 AM Reporting Lab: [facility] [address] Performing Lab: [facility] [address] B12 461 pg/mL 213-816 Aug 17, 2024 12:43 PM [facility] LIPID PANEL (STL) PLASMA Specimen Type: PLASM A Comment: No hemolysis noted. Ordering Provider: NORA PASTRANA Report Released Date/Time: Aug 17, 2024 11:37 AM Reporting Lab: [facility] [address] [facility] [address] Performing Lab: [facility] [address] [place] [address] CHOLESTEROL 110 mg/dL 0-200 TRIGLYCERIDE 53 mg/dL 0-150 CALCULATED LDL 45 mg/dL HDL(New) 54 mg/dL >40 Aug 17, 2024 12:43 PM [facility] COMPREHENSIVE METABOLIC PANEL PLASMA Specimen Type: PLASMA Comment: No hemolysis noted. Ordering Provider: NORA PASTRANA Report Released Date/Time: Aug 17, 2024 11:37 AM Reporting Lab: [facility] [address] [place] [phone] Performing Lab: [address] [address] CREATININE 1.02 mg/dL 0.7-1.3 UREA NITROGEN 25.9 [...] 76.6 >60 Aug 17, 2024 12:43 PM [facility] CBC BLOOD Specimen Type: BLOOD No comment entered. Ordering Provider: NORA PASTRANA Report Released Date/Time: Aug 17, 2024 11:37 AM Reporting Lab: [facility] [address] [facility] [address] Performing Lab: [address] [address] WBC 5.0 10*3/uL 3.6-11.2 RBC 4.15 10*6/uL [...] 0.00-0. 20 Aug 17, 2024 12:43 PM [facility] HGA1C BLOOD Specimen Type: BLOOD No comment entered. Ordering Provider: NORA PASTRANA Report Released Date/Time: Aug 17, 2024 11:37 AM Reporting Lab: [address] [address] Performing Lab: [address] [address] HGA1C 7.7 H 4.0-6.0 Aug 17, 2024 12:43 PM [facility] TSH W/ REFLEX FT4 (STL) PLASMA Specimen Type: PLASMA No comment entered. Ordering Provider: NORA PASTRANA Report Released Date/Time: Aug 17, 2024 11:37 AM Reporting Lab: [address] [address] Performing Lab: [address] [address] TSH 0.703 u[IU]/mL 0.47-5 Aug 17, 2024 12:43 PM [facility] PROST. SPECIFIC AG.(PB-STL) SERUM Specimen Ty pe: SERUM Comment: The listed sex of this patient may not be a typical indication for this test. Therefore, reference ranges or interpretive criteria listed may not be valid. Clinical correlation suggested. Ordering Provider: NORA PASTRANA Report Released Date/Time: Aug 17, 2024 11:40 AM Reporting Lab: [facility] [address] [place] [phone] Performing Lab: [facility] [address] [facility] [address] PROST. SPECIFIC AG.(PB-STL) 1.599 ng/mL 0-4 Aug 17, 2024 11:04 AM [facility] GLUCOSE,BLOOD-poct (STL) BLOOD Specimen Type: BLOOD Comment: Test Performed by: [id number] Meter #: [id number] Ordering Provider: NORA PASTRANA Report Released Date/Time: Aug 17, 2024 12:58 PM Reporting Lab: [place] [id number] [facility] [address] Performing Lab: [address] [address] GLUCOSE,BLOOD-poct (STL) 185 mg/dL H 72-99 Vital Signs: All taken on the encounter date This section contains inpatient and outpatient Vital Signs collected on the date of the Encounter. Date/Time Temperature Pulse Blood Pressure Respiratory Rate SP02 Pain Height Weight Body Mass Index Source Aug 17, 2024 11:01 AM 97.4 68 99/62 18 98 0 150.2 24 [facility] Social History: Smoking Status (Most current) and Tobacco Use (All prior to encounter date) This section includes the most current, and the historical, smoking and tobacco- related health factors from the [place] facility where the Encounter took place. Current Smoking Status This section includes the most current smoking, or tobacco-related health factor, from the [place] facility where the Encounter took place. Date/Time Current Smoking Status Comment Facil ity Oct 30, 2022 12:30 PM [place]-TOBACCO QUIT 15 YRS OR MORE [facility] Tobacco Use History This section includes a history of the smoking, or tobacco-related health factors, that were collected on or before the date of the Encounter. The data comes from the [place] facility where the Encounter took place. Date/Time Smoking Status/Tobacco Use Comment Bud acrick Oct 30, 2022 12:30 PM [place]-TOBACCO QUIT [address] [facility] Advance Directives: All historical and current Section Date Range: From patient's date of to the date document was created. This section includes ALL of a patient's completed or amended [place] Advance and Rescinded Directives. The entries below indicate that a directive exists for the patient, but an actual copy is not included with this document. The data comes from all [place] facilities. Date Advance Directives Provider Source July 13, 2014 ADVANCE DIRECTIVE ROLANDO FONSECA [facility] Radiology Reports: +/- 30 days of the [...] the Encounter. The data comes from all [place] treatment facilities. Date/Time Radiology Report Provider Source Aug 24, 2024 08:44 AM US EXTREMITY VEINS UNILAT OR LTD: KIMCHESTER R [id number] M Exm Date: AUG 24, 2024@08:44 Req Phys: NORA PASTRANA Pat Loc: DANIELLE-ST CLR PACT 2 PCP (Farnaz'g Lo Img Loc: DANIELLE-ULTRASOUND DANIELLE Service: Unknown [address] [address] (Case [id number] COMPLETE) US EXTREMITY VEINS UNILAT OR LTD (US Detailed) CPT:04297 Reason for Study: right leg swelling Clinical History: Report Status: Verified Date Reported: AUG 24, 2024 Date Verified: AUG 24, 2024 Blood Bank Laboratory Technologist E-Sig:/ES/HUBER ROSSI Report: EXAMINATION: US EXTREMITY VEINS UNILAT OR LTD DATE: 08/24/2024 8:44 AM HISTORY: right leg swelling . COMPARISON: None. TECHNIQUE: Barth scale and color doppler imaging performed. FINDINGS: The right common, deep and superficial femoral, popliteal, posterior tibial, peroneal and greater saphenous veins are patent. Impression: No deep vein thrombosis in the right lower extremity. Dictated by Kristen Will M.D. (business services vice president) Huber Pichardo, have reviewed the images and report and concur with these findings. Primary Interpreting Staff: HUBER ROSSI, RADIOLOGIST (Blood Bank Laboratory Technologist) Primary Interpreting Resident: KRISTEN WILL, Resident /HUBER [facility] Encounter Notes: All associated encounter notes This section contains the clinical notes associated to the Encounter. Date/Time Encounter Note(s) Provider Source Aug 25, 2024 08:29 AM PHYSICIAN LETTERS: LOCAL TITLE: TEST RESULT GENERAL LETTER STL STANDARD TITLE: PHYSICIAN LETTERS DATE OF NOTE: AUG 25, 2024@08:29 ENTRY DATE: AUG 25, 2024@08:29:04 AUTHOR: NORA PASTRANA EXP COSIGNER: URGENCY: STATUS: COMPLETED [facility] [address] [place] [address] AUG 25, 2024 [place] KIM [address] [place], [place] [address] Dear Chester Kim, I would like to update you on your recent test results. OTHER TEST RESULTS RADIOLOGY (NON-INVASIVE TEST RESULTS): Your US EXTREMITY VEINS UNILAT OR LTD Exm Date: AUG 24, 2024@08:44 Req Phys: NORA PASTRANA Pat Loc: [facility] PACT 2 PCP (Farnaz'g Lo Img Loc: DANIELLE-ULTRASOUND DANIELLE Service: Unknown Impression: No deep vein thrombosis in the right lower extremity. Results TESTOSTERONE, FREE PANEL RED/NO-GEL SERUM SP LB #[id number] Collection time: Aug 17, 2024@13:23 Test Name Result Units Range --------- ------ ----- ----- TESTBIO 52.8 ng/dL 15.0 - 150.0 SEXHORM 36 nmol/L 22 - 77 ALBUMIN (PB-sendout) 4.1 g/dL 3.6 - 5.1 FR YOKO 28.1 pg/mL 6.0 - 73.0 TESTOSTERONE, TOTAL 237 L ng/dL 250 - 1100 You have a mild decrease in your testosterone level . Please return to repeat your testosterone level . This lab needs to be done before 10 am FUTURE APPOINTMENTS: 08/30/2024 14:00 DANIELLE-AUDIO 2 F&A 01/04/2025 14:30 DANIELLE-ST CLR PACT 2 PCP Sincerely, CHESTER MERCHANT [facility] Aug 18, 2024 08:27 AM PHYSICIAN LETTERS: LOCAL TITLE: TEST RESULT GENERAL LETTER STL STANDARD TITLE: PHYSICIAN LETTERS DATE OF NOTE: AUG 18, 2024@08:27 ENTRY DATE: AUG 18, 2024@08:27:59 AUTHOR: NORA PASTRANA EXP COSIGNER: URGENCY: STATUS: COMPLETED [facility] [address] [place] [address] AUG 18, 2024 CHESTER KIM [id number] [place], [place] [address] Dear Chester Kim, I would like to [...] optimal is between 100 and 129). TRIGLYCERIDE 53 mg/dL 08/17/2024 12:43 CHOLESTEROL 110 mg/dL 08/17/2024 12:43 HDL(New) 54 mg/dL 08/17/2024 12:43 CALCULATED LDL 45 mg/dL 08/17/2024 12:43 No DIRECT LDL EO data found These readings are within normal limits. HEMOGLOBIN A1C - Gives us information about your diabetes (sugar or glucose) control over the past 3 months. Your target is to keep your A1C below 7 %. HGA1C 7.7 H % 08/17/2024 12:43 These results are abnormal. Please watch your carbohydrate intake . Continue your current diabetic medications CBC - A complete blood count (CBC) gives important information about the kinds and numbers of cells in the blood, especially red blood cells, white blood cells, and platelets. HGB 13.7 g/dL 08/17/2024 12:43 HEMATOCRIT 40.3 % (08/17/24 12:43) PLT 141 L 10*3/uL 08/17/2024 12:43 WHITE BLOOD COUNT 5.0 10*3/uL (08/17/24 12:43) The results are similar to previous values and not a clinical concern. CHEM 7 - This is important information about the current status of your kidneys, liver, and electrolyte and acid/base balance as well as of your blood sugar and blood proteins. SODIUM 134 L mEq/L 08/17/2024 12:43 POTASSIUM 4.0 mEq/L 08/17/2024 12:43 CHLORIDE 103 mEq/L 08/17/2024 12:43 UREA NITROGEN 25.9 H mg/dL 08/17/2024 12:43 CREATININE 1.02 mg/dL 08/17/2024 12:43 CALCIUM 8.9 mg/dL 08/17/2024 12:43 CARBON DIOXIDE 22 mEq/L 08/17/2024 12:43 GLUCOSE 102 H mg/dL 08/17/2024 12:43 EGFR (CKD-EPI 2020) 76.6 08/17/2024 12:43 The results are similar to previous values and not a clinical concern. LIVER FUNCTION PANEL - These are tests for liver function: PROTEIN 6.7 g/dL 08/17/2024 12:43 ALBUMIN 3.9 g/dL 08/17/2024 12:43 TOTAL BILIRUBIN 1.0 mg/dL 08/17/2024 12:43 ALKALINE PHOSPHATASE 77 U/L 08/17/2024 12:43 AST/SGOT 64 H U/L 08/17/2024 12:43 ALT/SGPT 51 H U/L 08/17/2024 12:43 These results are abnormal. Your liver enzymes are elevated . If you are drinking alcohol , please stop PSA - Prostate-specific antigen is a protein produced by cells of the prostate gland. The PSA test measures the level of PSA in the blood. PSA PROST. SPECIFIC AG.(PB-STL) 1.599 ng/mL 08/17/2024 12:43 These readings are within normal limits. TSH - Thyroid-stimulating hormone (also known as TSH or thyrotropin) is a peptide hormone synthesized and secreted by thyrotrope cells in the anterior pituitary gland, which regulates the endocrine function of the thyroid gland. TSH TSH 0.703 uIU/mL 08/17/2024 12:43 These readings are within normal limits. FUTURE APPOINTMENTS: 08/30/2024 14:00 DANIELLE-AUDIO 2 F&A 01/04/2025 14:30 DANIELLE-ST CLR PACT 2 PCP Sincerely, CHESTER MERCHANT [facility]GR[facility] Aug 17, 2024 11:20 AM PRIMARY CARE NOTE: LOCAL TITLE: PRIMARY CARE PROVIDER ESTABLISHED VISIT STL STANDARD TITLE: PRIMARY CARE NOTE DATE OF NOTE: AUG 17, 2024@11:20 ENTRY DATE: AUG 17, 2024@11:20:53 AUTHOR: NORA PASTRANA EXP COSIGNER: URGENCY: STATUS: COMPLETED Patient is 73 and WHITE Self Identified Gender - Man Reason for visit:Scheduled follow-up Chief Complaint: f/u History of Present Illness: Patient with hx of htn and dm . sleep apnea presents for follow up . Patient note less energy . Has loss 22lbs since Nov 2024 . Denies shortness of breath . STates 2 months ago he had his eye check and was told his dm is not showing up in his eyes . Patient is being evaluated for inspira . Note able to tolerate facial mask . Patient has not been checking his fsbs daily ; Patient is taking OTC testosterone . States he is taking the medication for fatigue . 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 STates he saw the cardiology @ 2month . Patient states he was told to f /u with him next year. Patient does not remember the name of the hose tubing backer . Patient placed temp device for pain in back that did not work and so his private pain managment removed ti Problem List: 1) DM - Diabetes mellitus 2) Benign essential hypertension 3) Exposure to potentially hazardous substance ros - post nasal drainage Immunization: ADMINISTERED Immunization Series Date Facility Reaction Info COVID-19 (MODERNA), MRNA, LNP-S,* 1 10/30/2022 [facility] COVID-19 (MODERNA), MRNA, LNP-S,* 2 05/09/2020 [place] COVID-19 (MODERNA), MRNA, LNP-S,* 1 04/11/2020 [place] COVID-19 (PFIZER), MRNA, LNP-S, * 02/16/2021 [facility] TD(ADULT) UNSPECIFIED FORMULATION 07/02/2013 [place] TDAP 10/30/2022 [facility] RECOM[facility]ANT 2 10/24/2020 [place] [facility] RECOMBINANT 1 07/24/2020 [place] CONTRAINDICATED No data available REFUSED ======= Immunization Date Facility Info COVID-19 (PFIZER), MRNA, LNP-S, * 08/17/2024 [facility] <I> COVID-19 (PFIZER), MRNA, LNP-S, * 12/01/2023 [facility] <I> INFLUENZA, UNSPECIFIED FORMULATI* 12/01/2023 [facility] <I> INFLUENZA, UNSPECIFIED FORMULATI* 04/21/2023 No Site <I> PNEUMOCOCCAL CONJUGATE, UNSPECIF* 08/17/2024 [facility] <I> PNEUMOCOCCAL CONJUGATE, UNSPECIF* 12/01/2023 [facility] <I> PNEUMOCOCCAL CONJUGATE, UNSPECIF* 10/30/2022 [facility] <I> TDAP 10/30/2022 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 NO BRANCH(ES) OF SERVICE: SPECIFIC YEARS OF SERVICE: LOCATION OF SERVICE: ENVIRONMENTAL EXPOSURE: Medication Review: The essential med list for review which includes the patient's active VA prescriptions and if applicable, remote VA prescriptions, non-VA prescriptions, and discontinued VA prescriptions within the last 90 days and known allergies including local and remote allergies have been reviewed. Allergies:DICYCLOMINE, PERCOCET, PREGABALIN, METFORMIN Active and Recently Outpatient Medications (excluding Supplies): Active Outpatient Medications Status 1) ACCU-CHEK GUIDE (GLUCOSE) TEST STRIP USE 1 STRIP FOR BLOOD ACTIVE TEST TWICE A DAY 2) ASPIRIN 81MG EC TAB TAKE ONE TABLET BY MOUTH ONCE A DAY ACTIVE TAKE WITH FOOD. Indication: FOR CARDIOVASCULAR DISEASE 3) ATORVASTATIN CALCIUM 80MG TAB TAKE ONE TABLET BY MOUTH EVERY ACTIVE EVENING Indication: FOR HIGH CHOLESTEROL 4) EMPAGLIFLOZIN 25MG TAB TAKE ONE TABLET BY MOUTH ONCE A DAY ACTIVE Indication: FOR DIABETES 5) GABAPENTIN 600MG TAB TAKE TWO TABLETS BY MOUTH THREE TIMES A ACTIVE DAY Indication: FOR NERVE PAIN 6) HYDROCHLOROTHIAZIDE 25MG TAB TAKE ONE TABLET BY MOUTH ONCE A ACTIVE DAY Indication: FOR HIGH BLOOD PRESSURE 7) LISINOPRIL 40MG TAB TAKE ONE TABLET BY MOUTH ONCE A DAY ACTIVE Indication: FOR HIGH BLOOD PRESSURE 8) SEMAGLUTIDE 0.25MG/0.375ML INJ PEN 3ML INJECT 0.5MG UNDER ACTIVE THE SKIN EVERY WEEK Indication: FOR DIABETES Pending Outpatient Medications Status 1) SEMAGLUTIDE 0.25MG/0.375ML INJ PEN 3ML INJECT 0.5MG UNDER PENDING THE SKIN EVERY WEEK Indication: FOR DIABETES Active Non-VA Medications Status 1) Non-VA FAMOTIDINE 20MG TAB 20MG BY MOUTH ONCE A DAY ACTIVE 2) Non-VA FINASTERIDE 5MG TAB 5MG BY MOUTH ONCE A DAY ACTIVE 3) Non-VA MULTIVITAMIN CAP/TAB 1 TABLET BY MOUTH ONCE A DAY ACTIVE 4) Non-VA PANTOPRAZOLE NA 40MG EC TAB 40MG BY MOUTH TWICE A DAY ACTIVE 5) Non-VA PSYLLIUM ORAL CAP 1 CAPSULE BY MOUTH ONCE A DAY ACTIVE 14 Total Medications ros- states walk and finds himself walking to the left Physical Exam VITALS (most recent, as listed in the electronic record): B/P: 99/62 (08/17/2024 11:01) Pulse: 68 (08/17/2024 11:01) Temperature: 97.4 F [36.3 C] (08/17/2024 11:01) Weight: 150.2 lb [68.13 kg] (08/17/2024 11:01) Height: 66 in [167.6 cm] (10/30/2022 12:31) BMI: 24.3 Pain: 0 (08/17/2024 11:) (0-10 scale) General: WD, WN in NAD, pleasant affect Skin: no lesions or rashes noted. HEENT: NC/AT, PERRL, EOMI, no scleral icterus, TMs intact, posterior pharynx is clear, no tonsillar adenopathy Neck: Supple, no cervical CHARLETTE, no thyromegaly or goiters palpated. Lungs: CTA bilat, no W/R/R Heart: RRR, nl S1/S2, no murmurs, no S3/S4 gallops. Abdomen: Soft, NT/ND. No HSM or masses palpated. Musculoskeletal:slow to get up from chair , ambulates without assistance Back: Normal curvature and mobility. No CVA tenderness. Extremities: No edema, pedal pulses intact Data Review: HGA1C 6.8 H % 05/31/2024 13:24 Lipid Panel: TRIGLYCERIDE 74 mg/dL 12/01/2023 11:13 CHOLESTEROL 115 mg/dL 12/01/2023 11:13 HDL(New) 41 mg/dL 12/01/2023 11:13 CALCULATED LDL 59 mg/dL 12/01/2023 11:13 CMP: SODIUM 138 mEq/L 12/01/2023 11:13 POTASSIUM 4.3 mEq/L 12/01/2023 11:13 CHLORIDE 103 mEq/L 12/01/2023 11:13 UREA NITROGEN 22.1 mg/dL 12/01/2023 11:13 CREATININE 1.14 mg/dL 12/01/2023 11:13 CALCIUM 9.5 mg/dL 12/01/2023 11:13 PROTEIN 6.6 g/dL 12/01/2023 11:13 ALBUMIN 4.1 g/dL 12/01/2023 11:13 ALKALINE PHOSPHATASE 67 U/L 12/01/2023 11:13 ALT/SGPT 20 U/L 12/01/2023 11:13 AST/SGOT 25 U/L 12/01/2023 11:13 TOTAL BILIRUBIN 1.0 mg/dL 12/01/2023 11:13 CARBON DIOXIDE 24 mEq/L 12/01/2023 11:13 GLUCOSE 124 H mg/dL 12/01/2023 11:13 EGFR (CKD-EPI 2020) 67.1 12/01/2023 11:13 CBC: WBC 5.7 10*3/uL 12/01/2023 11:13 RBC 4.24 10*6/uL 12/01/2023 11:13 HGB 13.7 g/dL 12/01/2023 11:13 HCT 41.6 % 12/01/2023 11:13 MCV 98.1 fL 12/01/2023 11:13 MCH 32.3 pg 12/01/2023 11:13 MCHC 32.9 L g/dL 12/01/2023 11:13 RDW 12.7 % 12/01/2023 11:13 PLT 147 L 10*3/uL 12/01/2023 11:13 MPV 10.2 fL 12/01/2023 11:13 NEUTROPHILS, AUTO % 69 % 12/01/2023 11:13 LYMPHOCYTES, AUTO % 22 % 12/01/2023 11:13 MONOCYTES, AUTO % 4 % 12/01/2023 11:13 EOSINOPHILS, AUTO % 4 % 12/01/2023 11:13 BASOPHILS, AUTO % 0 % 12/01/2023 11:13 NEUTROPHILS, ABSOLUTE 3.97 10*3/uL 12/01/2023 11:13 LYMPHOCYTES, ABSOLUTE 1.27 10*3/uL 12/01/2023 11:13 MONOCYTES, ABSOLUTE 0.25 10*3/uL 12/01/2023 11:13 EOSINOPHILS, ABSOLUTE 0.22 10*3/uL 12/01/2023 11:13 BASOPHILS, ABSOLUTE 0.02 10*3/uL 12/01/2023 11:13 PSA: PROST. SPECIFIC AG.(PB-STL) 1.661 ng/mL 10/30/2022 13:59 TSH: TSH 0.604 uIU/mL 12/01/2023 11:13 UA: No URINALYSIS EO data found Vitamin D: VITAMIN D, 25-HYDROXY 34.7 ng/mL 12/01/2023 11:13 Micral/Creat Profile: CREATuF: 106.9 (07/15/23 09:12) M/CREAT: comment (07/15/23 09:12) MICRAL: <5.0 (07/15/23 09:12) Result: Acceptable Follow-up Action: Data results reviewed with patient and/or caregiver. 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 HL- check lipid painel 5 gait abnormality - ordeed MRi/mra of brain sent to PT 6 htn -stable =-renewed lisinopril and hctz 7 allergic rhinnitis - patient will use his flonase RTC: 4month CLINICAL REMINDERS COMPLETED Avg Risk Colorectal Cancer Screen - L,N,P,PH: AVERAGE RISK colorectal cancer screening is due based on information available to this clinical reminder Patient declined screening/surveillance. Comment: rochelle was told he did not need GI PAVE Foot Check - L,N,P,PH,PO,PT,U: A complete foot check was completed at this encounter. VISUAL INSPECTION: Includes inspection for skin breaks, deformity, erythema, trauma, pallor on elevation, dependent rubor, nail deformities, extensive callus and pitting edema. Visual exam results: Abnormal Observations: abraise superfical of toes from clipping nails PEDAL PULSES: Includes palpation of dorsalis and posterior tibial pulses and signs/symptoms of vascular compromise like pain, pallor, parasthesia or paralysis. Present (even if diminished) SENSORY CHECK: Includes 10 gram Monofilament ([place]-Mary) test of sensation. Intact (Greater than or equal to 80% of sites checked) Abnormal (Less than 80% of sites checked): Abnormal (decreased or absent sensation to monofilament): HIGH-RISK: HIGH RISK INFORMATION PROVIDED: 1. Advised patient that extra depth footwear with soft molded inserts and braces may be required. 2. Advised patient not to walk barefoot. 3. Explained the importance of daily foot checks. 4. Stressed the importance of daily foot hygiene, including bathing, complete drying and thorough inspection for changes. Patient referred to Podiatry. /meg/ NORA PASTRANA Signed: 08/17/2024 12:06 NORA PASTRANA [facility] Aug 17, 2024 11:11 AM NURSING NOTE: LOCAL TITLE: V15 PACT FACE TO FACE NOTE STL STANDARD TITLE: NURSING NOTE DATE OF NOTE: AUG 17, 2024@11:11 ENTRY DATE: AUG 17, 2024@11:11:07 AUTHOR: LIDIA MOTLEY EXP COSIGNER: URGENCY: STATUS: COMPLETED Provider Visit: Patient Identifiers : Full Name Date of Reason for visit: Established Follow-Up Mode of Arrival: Ambulatory Allergy Review: METFORMIN AUGUST 05, 2023 (HISTORICAL) Symptoms: DIARRHEA PREGABALIN OCT 17, 2022 (HISTORICAL) Symptoms: RASH PERCOCET OCT 17, 2022 (HISTORICAL) Symptoms: URTICARIA DICYCLOMINE OCT 17, 2022 (HISTORICAL) Symptoms: INFLUENZA-LIKE ILLNESS Allergy list reviewed and remains current. Recent Vital Signs: Temperature: 97.4 F [36.3 C] (08/17/2024 11:) Pulse: 68 (08/17/2024 11:) Respiration: 18 (08/17/2024 11:) B/P: 99/62 (08/17/2024 11:) Pain: 0 (08/17/2024 11:) Wt: 150.2 lb [68.13 kg] (08/17/2024 11:01) Ht: 66 in [167.6 cm] (10/30/2022 12:31) BMI: 24.3 POX: 98% (08/17/2024 11:) Blood sugar glucometer readin PERSONAL HEALTH INVENTORY Notes: No data available for PHI note titles PERSONAL HEALTH INVENTORY - MAP: No data available for PHI MAP What matters most to you in your life right now? 's Response: LIVING Would you like to discuss any personal problem, family problem, alcohol use, drug use, or a mental or emotional illness? No My [facility] ([facility]), please select appointment type: Face to face: Yes-Do you have an upgraded (Premium) account which gives you the added benefit of Secure Messaging with your Primary Care Provider and refilling your prescriptions online? Yes- Done Contact provided Primary Care phone number and encouraged to call if any questions or concerns. Review that after hours nurse line [phone] and emergency room are available 30/09 for patient use. Contact verbalized good understanding. Pneumococcal Conjugate Vaccine (PCV15/PCV20/PCV21) - L,N,P,PH,U: Refuses PCV vaccine Immunization: PNEUMOCOCCAL CONJUGATE, UNSPECIFIED FORMULATION Refusal Reason: PATIENT DECISION Patient refuses all immunization(s) in the PneumoPCV group Date Documented: 08/17/24 11:12 Learning Assessment: - * This patient's learning ABILITIES, BARRIERS to learning, CULTURAL and CAODAISM beliefs, and learning PREFERENCES were assessed. Following are findings of note: Patient reads well. LANGUAGE Patient reports that Telugu is preferred language for healthcare. 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 Patient reports learning preference is attending one-to-one or group demonstrations. Patient reports learning preference is looking at pictures or viewing videos. Influenza Immunization - L,N,P,PH,U: No influenza vaccination was received during the recent influenza season. COVID-19 Immunization-L,N,P,PH,U: Refused Pfizer Monovalent COVID-19 vaccine Immunization: COVID-19 (PFIZER), MRNA, LNP-S, PF, ANGELI-SUCROSE, 30 MCG/0.3 ML (AGES 12+ YEARS) Refusal Reason: PATIENT DECISION Patient refuses all immunization(s) in the COVID-19 group Date Documented: 08/17/24 11:13 /meg/ LIDIA MOTLEY LICENSED PRACTICAL NURSE Signed: 08/17/2024 11:14 LIDIA MOTLEY [facility]
--- OUTSIDE RECORDS SUMMARY | 2024-10-01 06:45 | XMS_ITS | Continuity of Care Document ---
Author Name [facility] Organization [facility] Care Team Providers Care Smart Grid Engineer Name Role Phone [facility] Unavailable Unavailable Problems Combined list of problems from Department of Defense and [facility] Affairs facilities. It does not include entries that were removed or entered in error. Problem Status Onset Date Problem Type Date of Resolution Comments Source Arthritis Active Condition [facility] Benign essential hypertension Active Condition [facility] Benign Prostatic Hypertrophy without Outflow Obstruction (SCT [id number]) Active Condition Feb 01, 2022 Entered By: ANABELL MEEHAN Comment: declines tamsulosin [facility] Bilateral cataracts Active Condition [facility] CAD - Coronary Artery Disease (SCT 75446650) Active Condition [facility] Chronic back pain Active Condition [facility] Chronic kidney disease stage [address] [facility] Coronary artery disease (SNOMED CT 49960469) Active Condition [facility] Diabetes Mellitus Type 2 (SCT 01342975) Active Condition [facility] DM - Diabetes mellitus Active Condition [facility] Exposure to potentially hazardous substance Active Condition [facility] Exposure to potentially hazardous substance (SCT [id number]) Active Condition Jun 25 Entered By: CARON RESTREPO Comment: Entered automatically through [employer] Problem List documentation program [facility] Gastroesophageal reflux disease without esophagitis (SNOMED CT 806816971) Active Condition [facility] GERD - Gastro-Esophageal Reflux Disease (SCT 009715581) Active Condition [facility] HTN - Hypertension (SCT 78547785) Active Condition [facility] Hyperlipidemia Active Condition [facility] Hyperlipidemia (SCT 56338480) Active Condition [facility] Hypertension (SNOMED CT 60642424) Active Condition [facility] Low back pain Active Condition [facility] Peripheral neuropathy Active Condition [facility] Sleep apnea Active Condition [facility] Type 2 diabetes mellitus without complication (SNOMED CT 621267918) Active Condition [facility] Coronary heart disease Inactive Condition 09/09/2019 [facility] Dyslipidemia (SNOMED CT 899117253) Inactive Condition 09/09/2019 [facility] Gastroesophageal reflux disease Inactive Condition 09/09/2019 [facility] Diagnosis: ICD-10-CM H90.3 Sensorineural hearing loss, bilateral Active Diagnosis [facility] Diagnosis: ICD-10-CM E11.9 Type 2 diabetes mellitus without complications Active Diagnosis [facility] Diagnosis: ICD-10-CM Z71.89 Other specified counseling Active Diagnosis [facility] Diagnosis: ICD-10-CM Z13.5 Encounter for screening for eye and ear disorders Active Diagnosis [facility] Medications Combined list of outpatient medications from Department of Defense and [facility] Affairs facilities.Medications provided include 1) outpatient medications from the last 15 months, and 2) patient-reported medications. Medication Details Route Status Patient Instructions Prescription Expires Prescription Number Last Dispense Date Ordering Provider Order Date Order Qty Source ALPHA-LIPOI C ACID CAP/TAB TAKE 1 CAP/TAB BY MOUTH ONCE A DAY ORAL ACTIVE PEECHKITAC PRITI MONTES 2020 [facility] ASPIRIN 81MG TAB,CHEWABL E CHEW AND SWALLOW ONE TABLET BY CHEW AND SWALLOW ORAL ACTIVE ELAYNE HORTA S 2013 [facility] ASPIRIN 81MG TAB,CHEWABL E CHEW ONE TABLET BY MOUTH ONCE A DAY ORAL ACTIVE PEElyssa FARLEY 2020 [facility] ASPIRIN 81MG TAB,EC TAKE ONE TABLET BY MOUTH ONCE A DAY FOR CARDIOVA SCULAR DISEASE TAKE WITH FOOD. ORAL ACTIVE 12/01/2024 [id number] ZEINAIN GRID D 2023 120 [facility] ATORVASTATI N CA 80MG TAB TAKE ONE TABLET BY MOUTH EVERY EVENING FOR HIGH CHOLESTE ROL ORAL ACTIVE 08/04/2025 [id number] ZEINAIN GRID D 2024 90 [facility] ATORVASTATI N CA 80MG TAB TAKE ONE TABLET BY MOUTH EVERY EVENING FOR HIGH CHOLESTE ROL ORAL DISCONT INUED 12/01/2024 [id number] 5 ZEINA,IN GRID D 2023 90 [facility] ATORVASTATI N CA 80MG TAB TAKE ONE TABLET BY MOUTH EVERY EVENING FOR HIGH CHOLESTE ROL ORAL DISCONT INUED 10/31/2023 [id number] ZEINAIN GRID D 2022 90 [facility] CALCIUM CITRATE TAB TAKE BY MOUTH ORAL ACTIVE Elyssa MEEHAN 2020 [facility] CEPHALEXIN 500MG CAP TAKE 1 CAPSULE BY MOUTH TWO TIMES A DAY ORAL ACTIVE Elyssa MEEHAN 2021 [facility] CHOLECALCIF GRAY 25MCG (1,000UNIT) TAB TAKE ONE TABLET BY MOUTH ORAL ACTIVE Elyssa MEEHAN 2020 [facility] DULOXETINE HCL 30MG CAP,EC TAKE 1 CAPSULE BY MOUTH EVERY DAY ORAL ACTIVE ALIA GLEASON 2019 [facility] EMPAGLIFLOZ IN 25MG TAB TAKE ONE TABLET BY MOUTH ONCE A DAY ORAL ACTIVE 08/18/2025 [id number] 5 ZEINAIN GRID D 2024 90 [facility] EMPAGLIFLOZ IN 25MG TAB TAKE ONE TABLET BY MOUTH ONCE A DAY ORAL DISCONT INUED 01/29/2025 [id number] 5 Britton QUISPE M 2024 90 [facility] EMPAGLIFLOZ IN 25MG TAB TAKE ONE TABLET BY MOUTH ONCE A DAY ORAL DISCONT INUED 05/02/2024 [id number] ZEINAIN GRID D 2023 90 [facility] FAMOTIDINE 20MG TAB TAKE ONE TABLET BY MOUTH ONCE A DAY ORAL ACTIVE Britton QUISPE 2024 [facility] FINASTERIDE 5MG TAB TAKE ONE TABLET BY MOUTH ONCE A DAY ORAL ACTIVE Britton QUISPE 2023 [facility] GABAPENTIN 600MG TAB TAKE TWO TABLETS BY MOUTH THREE TIMES A DAY FOR NERVE PAIN ORAL ACTIVE 12/01/2024 [id number] 5 ZEINA,IN GRID D 2023 540 [facility] GABAPENTIN 600MG TAB TAKE TWO TABLETS BY MOUTH THREE TIMES A DAY FOR NERVE PAIN ORAL DISCONT INUED 10/31/2023 [id number] 4 ZEINA,IN GRID D 2022 540 [facility] HYDROCHLORO THIAZIDE 25MG TAB TAKE ONE TABLET BY MOUTH ONCE A DAY FOR HIGH BLOOD PRESSURE ORAL SUSPEND ED 08/18/2025 [id number] 5 ZEINA,IN GRID D 2024 90 [facility] HYDROCHLORO THIAZIDE 25MG TAB TAKE ONE TABLET BY MOUTH ONCE A DAY FOR HIGH BLOOD PRESSURE ORAL DISCONT INUED 12/01/2024 [id number] 5 ZEINA,IN GRID D 2023 90 [facility] HYDROCHLORO THIAZIDE 25MG TAB TAKE ONE TABLET BY MOUTH ONCE A DAY FOR HIGH BLOOD PRESSURE ORAL DISCONT INUED 10/31/2023 [id number] ZEINA,IN GRID D 2022 90 [facility] LISINOPRIL 40MG TAB TAKE ONE TABLET BY MOUTH ONCE A DAY FOR HIGH BLOOD PRESSURE ORAL SUSPEND ED 08/18/2025 [id number] 5 ZEINA,IN GRID D 2024 90 [facility] LISINOPRIL 40MG TAB TAKE ONE TABLET BY MOUTH ONCE A DAY FOR HIGH BLOOD PRESSURE ORAL DISCONT INUED 12/01/2024 [id number] 5 ZEINA,IN GRID D 2023 90 [facility] LISINOPRIL 40MG TAB TAKE ONE TABLET BY MOUTH ONCE A DAY FOR HIGH BLOOD PRESSURE ORAL DISCONT INUED 10/31/2023 [id number] ZEINA,IN GRID D 2022 90 [facility] MAGNESIUM GLUCONATE TAB TAKE BY MOUTH ONCE A DAY ORAL ACTIVE Britton QUISPE 2024 [facility] MULTIVITAMI N CAP/TAB TAKE BY MOUTH EVERY DAY ORAL ACTIVE ELAYNE HORTA 2013 [facility] MULTIVITAMI NS CAP/TAB TAKE ONE TABLET BY MOUTH ONCE A DAY ORAL ACTIVE Britton QUISPE 2024 [facility] MULTIVITAMI NS CAP/TAB TAKE BY MOUTH ONCE A DAY ORAL ACTIVE Elyssa MEEHAN JYOTI 2020 [facility] MUPIROCIN 2% OINT,TOP APPLY SPARINGL Y TO AFFECTED AREA(S) TWICE A DAY FOR BACTERIA L INFECTIO N EXTERNAL USE ONLY. TOPICA L 09/16/2024 [id number] ZEINAIN FAN D 2024 22 [facility] OMEPRAZOLE 40MG CAP,EC TAKE 1 CAPSULE BY MOUTH TWO TIMES A DAY ORAL ACTIVE Elyssa MEEHAN 2020 [facility] PANTOPRAZOL E NA 40MG TAB,EC TAKE ONE TABLET BY MOUTH TWICE A DAY ORAL ACTIVE Britton QUISPE 2024 [facility] PSYLLIUM CAP,ORAL TAKE 1 CAPSULE BY MOUTH ONCE A DAY ORAL ACTIVE Britton QUISPE 2024 [facility] SEMAGLUTIDE 0.25MG/0.37 5ML INJ,SOLN,PE N,3ML INJECT 0.5MG UNDER THE SKIN EVERY WEEK FOR DIABETES SUBCUT ANEOUS ACTIVE 08/18/2025 [id number] ZEINAIN FAN D 2024 3 [facility] SEMAGLUTIDE 0.25MG/0.37 5ML INJ,SOLN,PE N,3ML INJECT 0.5MG UNDER THE SKIN EVERY WEEK SUBCUT ANEOUS DISCONT INUED 03/23/2025 [id number] Britton QUISPE 2024 2 [facility] SEMAGLUTIDE 0.25MG/0.37 5ML INJ,SOLN,PE N,3ML INJECT 0.5MG UNDER THE SKIN EVERY WEEK FOR DIABETES SUBCUT ANEOUS DISCONT INUED (EDIT) 02/23/2025 [id number] 5 Britton QUISPE DIANN M 2023 1 [facility] SEMAGLUTIDE 0.25MG/0.37 5ML INJ,SOLN,PE N,3ML INJECT 0.5MG UNDER THE SKIN EVERY WEEK FOR DIABETES SUBCUT ANEOUS DISCONT INUED 12/04/2024 [id number] 4 QUISPEBritton Britton 2023 1 [facility] SEMAGLUTIDE 0.25MG/0.37 5ML INJ,SOLN,PE N,3ML INJECT 0.5MG UNDER THE SKIN EVERY WEEK FOR DIABETES SUBCUT ANEOUS DISCONT INUED 09/17/2024 [id number] QUISPEBritton Britton 2023 1 [facility] SEMAGLUTIDE 0.25MG/0.37 5ML INJ,SOLN,PE N,3ML INJECT 0.25MG UNDER THE SKIN EVERY WEEK FOR 4 WEEKS, THEN INJECT 0.5MG EVERY WEEK FOR DIABETES SUBCUT ANEOUS DISCONT INUED (EDIT) 08/05/2024 [id number] 4 JOSE ENRIQUEBritton Britton 2023 1 [facility] Allergies, Adverse Reactions, Alerts Combined list of allergies from Department of Defense and Veterans Affairs facilities. It does not include entries that were removed or entered in error. Substance Category Reaction Severity Reaction type Status Date Reported Comments Source DICYCLOMINE Propensity to adverse reactions to drug (finding) Influenza- like illness active 3 [facility] METFORMIN Propensity to adverse reactions to drug (finding) Diarrhea MODERATE active 4 [facility] PERCOCET Propensity to adverse reactions to drug (finding) Eruption active 1 [facility] 15 PERCOCET Propensity to adverse reactions to drug (finding) Urticaria active 3 [facility] PREGABALIN Propensity to adverse reactions to drug (finding) Eruption active 3 [facility] Immunizations Combined list of available immunizations from the Department of Defense and Veterans Affairs facilities. Immunization Series Date Given Administered By Site Reaction Lot Number CVX Code Drug Director Of Marketing Status Comments Source COVID-19 (MODERNA), MRNA, LNP-S, BIVALENT, PF, 50 MCG/0.5 ML OR 25MCG/0.25 ML DOSE 1 2022 DOMINGO MOTLEY RIGHT DELTO ID [id number] 229 complet ed ADMINISTE RED AT [facility] TDAP 2022 DOMINGO MOTLEY LEFT DELTO ID [id number] 115 complet ed [facility]MIN[facility]E [facility] AT [facility] INFLUENZA, INJECTABLE, QUADRIVALENT, PRESERVATIVE FREE 2021 CARLO HAYES RIGHT DELTO ID [id number] 150 complet ed ADMINISTE RED AT ID, [facility] COVID-19 (PFIZER), MRNA, LNP-S, PF, 30 MCG/0.3 ML DOSE 1 2020 208 complet ed HISTORICA L INFORMATI ON - FROM OTHER REGISTRY, [facility] INFLUENZA, INJECTABLE, QUADRIVALENT, PRESERVATIVE FREE 2020 150 complet ed [facility] ZOSTER RECOMBINANT 2 2020 187 complet ed [facility] ZOSTER RECOMBINANT 1 2020 187 complet ed HISTORICA L INFORMATI ON - FROM OTHER REGISTRY, [facility] COVID-19 (MODERNA), MRNA, LNP-S, PF, 100 MCG/0.5 ML DOSE 2 2020 207 complet ed [facility], VISN 15 COVID-19 (MODERNA), MRNA, LNP-S, PF, 100 MCG/0.5 ML DOSE 1 2020 207 complet ed [facility], VISN 15 INFLUENZA, UNSPECIFIED FORMULATION 2019 88 complet ed [facility], VISN 15 INFLUENZA, INJECTABLE, QUADRIVALENT 2018 158 complet ed [facility] INFLUENZA, HIGH-DOSE, TRIVALENT, PF 2017 135 complet ed HISTORICA L INFORMATI ON - FROM OTHER REGISTRY, [facility] PNEUMOCOCCAL POLYSACCHARID E PPV23 4 2017 33 complet ed HISTORICA L INFORMATI ON - FROM OTHER REGISTRY, [facility] INFLUENZA, SEASONAL, INJECTABLE 2017 141 complet ed [facility] INFLUENZA, SPLIT VIRUS, QUADRIVALENT, PRESERVATIVE 4 2017 158 complet ed HISTORICA L INFORMATI ON - FROM OTHER REGISTRY, [facility] PNEUMOCOCCAL POLYSACCHARID E PPV23 3 2017 33 complet ed HISTORICA L INFORMATI ON - FROM OTHER REGISTRY, [facility] PNEUMOCOCCAL CONJUGATE PCV 13 2016 133 complet ed [facility], VISN 15 INFLUENZA, HIGH-DOSE, TRIVALENT, PF 3 2016 135 complet ed HISTORICA L INFORMATI ON - FROM OTHER REGISTRY, [facility] INFLUENZA, SEASONAL, INJECTABLE, PRESERVATIVE FREE 2016 140 complet ed [facility] INFLUENZA, SEASONAL, INJECTABLE, PRESERVATIVE FREE 2016 140 complet ed [facility] INFLUENZA, HIGH-DOSE, TRIVALENT, PF 2 2016 135 complet ed HISTORICA L INFORMATI ON - FROM OTHER REGISTRY, [facility] PNEUMOCOCCAL CONJUGATE PCV 13 1 2016 133 complet ed HISTORICA L INFORMATI ON - FROM OTHER REGISTRY, [facility] FLU,3 YRS (HISTORICAL) 2014 88 complet ed [facility] PNEUMOCOCCAL POLYSACCHARID E PPV23 2014 33 complet ed [facility], VISN 15 PNEUMOCOCCAL, UNSPECIFIED FORMULATION 2014 109 complet ed HISTORICA L INFORMATI ON - FROM OTHER REGISTRY, [facility] TD (ADULT), 2 LF TETANUS TOXOID, PRESERVATIVE FREE, ADSORBED 1 2013 09 complet ed HISTORICA L INFORMATI ON - FROM OTHER REGISTRY, [facility] INFLUENZA, SEASONAL, INJECTABLE, PRESERVATIVE FREE 2013 140 complet ed [facility] TD(ADULT) UNSPECIFIED FORMULATION 2013 139 complet ed HISTORICA L INFORMATI ON - FROM OTHER REGISTRY, [facility] TDAP 2013 115 complet ed [facility], VISN 15 INFLUENZA, SPLIT VIRUS, TRIVALENT, PRESERVATIVE 1 2009 141 complet ed HISTORICA L INFORMATI ON - FROM OTHER REGISTRY, [facility] NOVEL INFLUENZA-H1N 1-09 1 2008 127 complet ed HISTORICA L INFORMATI ON - FROM OTHER REGISTRY, [facility] Results Combined list of recent chemistry, hematology and other laboratory results from Department of Defense and Veterans Affairs, ranging from 15 months to all on record, depending upon the facility. Order Name Results Value Reference Range Date Interpretation Specimen Comments Source TESTOSTERO NE, FREE PANEL TESTOSTERON E [MASS/VOLUM E] IN SERUM OR PLASMA 315 ng/dL 250 - 1100 09/02 Specimen Type: SERUM Comment: Men with clinically significant hypogonadal symptoms and testosterone values repeatedly in the range of the 200-300 ng/dL or less, may benefit from testosterone treatment after adequate risk and benefits counseling. For additional information, please refer to http://[employer] m/faq/ TotalTestost eroneLCMSMSF AQ165 (This link is being provided for informationa l/ educational purposes only.) This test was developed and its analytical performance characterist ics have been determined by [facility] [place], [place]. It has not been cleared or approved by the U.S. Food and Drug Administrati on. This assay has been validated pursuant to the CLIA regulations and is used for clinical purposes. Test Performed by [facility], [facility], [address] [place] [address] Yung Rivera M.D., Ph.D., Director of Laboratories , CLIA [id number] Men with clinically significant hypogonadal symptoms and testosterone values repeatedly in the range of the 200-300 ng/dL or less, may benefit from testosterone treatment after adequate risk and benefits counseling. For additional information, please refer to http://[employer] m/faq/ TotalTestost eroneLCMSMSF AQ165 (This link is being provided for informationa l/ educational purposes only.) This test was developed and its analytical performance characterist ics have been determined by [facility] [place], [place]. It has not been cleared or approved by the U.S. Food and Drug Administrati on. This assay has been validated pursuant to the CLIA regulations and is used for clinical purposes. Test Performed by [facility], [address] [place], [place] Yung Rivera M.D., Ph.D., Director of Laboratories , CLIA [id number] Ordering Provider: GEOVANNA PASTRANA Report Released Date/Time: Aug 25, 2024 08:33 AM Reporting Lab: [facility] [address] [facility] [facility] [id number] Performing Lab: [facility] [address] [facility] TESTOSTERO NE, FREE PANEL ALBUMIN [MASS/VOLUM E] IN SERUM OR PLASMA 4.1 g/dL 3.6 - 5.1 09/02 Specimen Type: SERUM Comment: Men with clinically significant hypogonadal symptoms and testosterone values repeatedly in the range of the 200-300 ng/dL or less, may benefit from testosterone treatment after adequate risk and benefits counseling. For additional information, please refer to http://[employer] m/faq/ TotalTestost eroneLCMSMSF AQ165 (This link is being provided for informationa l/ educational purposes only.) This test was developed and its analytical performance characterist ics have been determined by [facility] [place], [place]. It has not been cleared or approved by the U.S. Food and Drug Administrati on. This assay has been validated pursuant to the CLIA regulations and is used for clinical purposes. Test Performed by [facility], [address] [place], [place] Yung Rivera M.D., Ph.D., Director of Laboratories , CLIA [id number] Men with clinically significant hypogonadal symptoms and testosterone values repeatedly in the range of the 200-300 ng/dL or less, may benefit from testosterone treatment after adequate risk and benefits counseling. For additional information, please refer to http://[employer] m/faq/ TotalTestost eroneLCMSMSF AQ165 (This link is being provided for informationa l/ educational purposes only.) This test was developed and its analytical performance characterist ics have been determined by [facility] [place]. It has not been cleared or approved by the U.S. Food and Drug Administrati on. This assay has been validated pursuant to the CLIA regulations and is used for clinical purposes. Test Performed by [facility], [facility] [place], [address] [place], [place] Yung Rivera M.D., Ph.D., Director of Laboratories , CLIA [id number] Ordering Provider: GEOVANNA PASTRANA Report Released Date/Time: Aug 25, 2024 08:33 AM Reporting Lab: [facility] [address] [place] [id number] Performing Lab: [facility] [address] [facility] TESTOSTERO NE, FREE PANEL TESTOSTERON E FREE [MASS/VOLUM E] IN SERUM OR PLASMA 38.2 pg/mL 6.0 - 73.0 09/02 Specimen Type: SERUM Comment: Men with clinically significant hypogonadal symptoms and testosterone values repeatedly in the range of the 200-300 ng/dL or less, may benefit from testosterone treatment after adequate risk and benefits counseling. For additional information, please refer to http://educa tion.[employer] m/faq/ TotalTestost eroneLCMSMSF AQ165 (This link is being provided for informationa l/ educational purposes only.) This test was developed and its analytical performance characterist ics have been determined by [facility] [place], [place]. It has not been cleared or approved by the U.S. Food and Drug Administrati on. This assay has been validated pursuant to the CLIA regulations and is used for clinical purposes. Test Performed by [facility] [place], [address] [place], [place] Yung Rivera M.D., Ph.D., Director of Laboratories , CLIA [id number] Men with clinically significant hypogonadal symptoms and testosterone values repeatedly in the range of the 200-300 ng/dL or less, may benefit from testosterone treatment after adequate risk and benefits counseling. For additional information, please refer to http://[employer] m/faq/ TotalTestost eroneLCMSMSF AQ165 (This link is being provided for informationa l/ educational purposes only.) This test was developed and its analytical performance characterist ics have been determined by [facility] [place], [place]. It has not been cleared or approved by the U.S. Food and Drug Administrati on. This assay has been validated pursuant to the CLIA regulations and is used for clinical purposes. Test Performed by [facility], [facility], [address] [place] [address] Yung Rivera M.D., Ph.D., Director of Laboratories , CLIA [id number] Ordering Provider: GEOVANNA PASTRANA Report Released Date/Time: Aug 25, 2024 08:33 AM Reporting Lab: [facility] [address] [facility] [id number] Performing Lab: [facility] [id number] [place] [address] [facility] TESTOSTERO NE, FREE PANEL TESTOSTERON E.FREE+WEAK LY BOUND [MASS/VOLUM E] IN SERUM OR PLASMA 72.0 ng/dL 15.0 - 150.0 09/02 Specimen Type: SERUM Comment: Men with clinically significant hypogonadal symptoms and testosterone values repeatedly in the range of the 200-300 ng/dL or less, may benefit from testosterone treatment after adequate risk and benefits counseling. For additional information, please refer to http://[employer] m/faq/ TotalTestost eroneLCMSMSF AQ165 (This link is being provided for informationa l/ educational purposes only.) This test was developed and its analytical performance characterist ics have been determined by [facility] [place], [place]. It has not been cleared or approved by the U.S. Food and Drug Administrati on. This assay has been validated pursuant to the CLIA regulations and is used for clinical purposes. Test Performed by [facility], [address] [place], [place] Yung Rivera M.D., Ph.D., Director of Laboratories , CLIA [id number] Men with clinically significant hypogonadal symptoms and testosterone values repeatedly in the range of the 200-300 ng/dL or less, may benefit from testosterone treatment after adequate risk and benefits counseling. For additional information, please refer to http://[employer] m/faq/ TotalTestost eroneLCMSMSF AQ165 (This link is being provided for informationa l/ educational purposes only.) This test was developed and its analytical performance characterist ics have been determined by [facility] [place], [place]. It has not been cleared or approved by the U.S. Food and Drug Administrati on. This assay has been validated pursuant to the CLIA regulations and is used for clinical purposes. Test Performed by [facility], [address] [place], [place] Yung Rivera M.D., Ph.D., Director of Laboratories , CLIA [id number] Ordering Provider: GEOVANNA PASTRANA Report Released Date/Time: Aug 25, 2024 08:33 AM Reporting Lab: [facility] [address] [facility] [id number] Performing Lab: [facility] [address] [facility] [facility], FREE PANEL SEX HORMONE BINDING GLOBULIN [MOLES/VOLU ME] IN SERUM OR PLASMA 36 nmol/L 22 - 77 09/02 Specimen Type: SERUM Comment: Men with clinically significant hypogonadal symptoms and testosterone values repeatedly in the range of the 200-300 ng/dL or less, may benefit from testosterone treatment after adequate risk and benefits counseling. For additional information, please refer to http://educa tion.[employer] m/faq/ TotalTestost eroneLCMSMSF AQ165 (This link is being provided for informationa l/ educational purposes only.) This test was developed and its analytical performance characterist ics have been determined by [facility] [place], [place]. It has not been cleared or approved by the U.S. Food and Drug Administrati on. This assay has been validated pursuant to the CLIA regulations and is used for clinical purposes. Test Performed by [facility], [address] [place] [address] Yung Rivera M.D., Ph.D., Director of Laboratories , CLIA [id number] Men with clinically significant hypogonadal symptoms and testosterone values repeatedly in the range of the 200-300 ng/dL or less, may benefit from testosterone treatment after adequate risk and benefits counseling. For additional information, please refer to http://[employer] m/faq/ TotalTestost eroneLCMSMSF AQ165 (This link is being provided for informationa l/ educational purposes only.) This test was developed and its analytical performance characterist ics have been determined by [facility] [place], [place]. It has not been cleared or approved by the U.S. Food and Drug Administrati on. This assay has been validated pursuant to the CLIA regulations and is used for clinical purposes. Test Performed by [facility] [place], [address] [place] [address] Yung Rivera M.D., Ph.D., Director of Laboratories , CLIA [id number] Ordering Provider: GEOVANNA PASTRANA Report Released Date/Time: Aug 25, 2024 08:33 AM Reporting Lab: [facility] [address] [facility] [address] Performing Lab: [facility] [address] [facility] TESTOSTERO NE, FREE PANEL TESTOSTERON E [MASS/VOLUM E] IN SERUM OR PLASMA 237 ng/dL 250 - 1100 08/17 L Specimen Type: SERUM Comment: Men with clinically significant hypogonadal symptoms and testosterone values repeatedly in the range of the 200-300 ng/dL or less, may benefit from testosterone treatment after adequate risk and benefits counseling. For additional information, please refer to http://[employer] m/faq/ TotalTestost eroneLCMSMSF AQ165 (This link is being provided for informationa l/ educational purposes only.) This test was developed and its analytical performance characterist ics have been determined by [facility] [place], [place]. It has not been cleared or approved by the U.S. Food and Drug Administrati on. This assay has been validated pursuant to the CLIA regulations and is used for clinical purposes. Test Performed by [facility], [facility], [address] [place] [address] Yung Rivera M.D., Ph.D., Director of Laboratories , CLIA [id number] Ordering Provider: GEOVANNA PASTRANA Report Released Date/Time: Aug 17, 2024 11:40 AM Reporting Lab: [facility] [address] [facility] [address] Performing Lab: [facility] [id number] [place] [address] [facility] TESTOSTERO NE, FREE PANEL ALBUMIN [MASS/VOLUM E] IN SERUM OR PLASMA 4.1 g/dL 3.6 - 5.1 08/17 Specimen Type: SERUM Comment: Men with clinically significant hypogonadal symptoms and testosterone values repeatedly in the range of the 200-300 ng/dL or less, may benefit from testosterone treatment after adequate risk and benefits counseling. For additional information, please refer to http://[employer] m/faq/ TotalTestost eroneLCMSMSF AQ165 (This link is being provided for informationa l/ educational purposes only.) This test was developed and its analytical performance characterist ics have been determined by [facility] [place], [place]. It has not been cleared or approved by the U.S. Food and Drug Administrati on. This assay has been validated pursuant to the CLIA regulations and is used for clinical purposes. Test Performed by [facility] [facility] [place], [address] [place] [address] Yung Rivera M.D., Ph.D., Director of Laboratories , CLIA [id number] Ordering Provider: GEOVANNA PASTRANA Report Released Date/Time: Aug 17, 2024 11:40 AM Reporting Lab: [facility] [address] [place] [phone] Performing Lab: [facility] [id number] [place] [address] [facility] TESTOSTERO NE, FREE PANEL TESTOSTERON E FREE [MASS/VOLUM E] IN SERUM OR PLASMA 28.1 pg/mL 6.0 - 73.0 08/17 Specimen Type: SERUM Comment: Men with clinically significant hypogonadal symptoms and testosterone values repeatedly in the range of the 200-300 ng/dL or less, may benefit from testosterone treatment after adequate risk and benefits counseling. For additional information, please refer to http://educa tion.[employer] m/faq/ TotalTestost eroneLCMSMSF AQ165 (This link is being provided for informationa l/ educational purposes only.) This test was developed and its analytical performance characterist ics have been determined by [facility] [place], [place]. It has not been cleared or approved by the U.S. Food and Drug Administrati on. This assay has been validated pursuant to the CLIA regulations and is used for clinical purposes. Test Performed by [facility] [place], [address] [place] [address] Yung Rivera M.D., Ph.D., Director of Laboratories , CLIA [id number] Ordering Provider: GEOVANNA PASTRANA Report Released Date/Time: Aug 17, 2024 11:40 AM Reporting Lab: [address] [address] Performing Lab: [facility] [id number] [place] [address] [facility] TESTOSTERO NE, FREE PANEL TESTOSTERON E.FREE+WEAK LY BOUND [MASS/VOLUM E] IN SERUM OR PLASMA 52.8 ng/dL 15.0 - 150.0 08/17 Specimen Type: SERUM Comment: Men with clinically significant hypogonadal symptoms and testosterone values repeatedly in the range of the 200-300 ng/dL or less, may benefit from testosterone treatment after adequate risk and benefits counseling. For additional information, please refer to http://[employer] m/faq/ TotalTestost eroneLCMSMSF AQ165 (This link is being provided for informationa l/ educational purposes only.) This test was developed and its analytical performance characterist ics have been determined by [facility] [place], [place]. It has not been cleared or approved by the U.S. Food and Drug Administrati on. This assay has been validated pursuant to the CLIA regulations and is used for clinical purposes. Test Performed by [facility], [facility] [place], [address] [place] [address] Yung Rivera M.D., Ph.D., Director of Laboratories , CLIA [id number] Ordering Provider: GEOVANNA PASTRANA Report Released Date/Time: Aug 17, 2024 11:40 AM Reporting Lab: [facility] [address] [place] [phone] Performing Lab: [facility] [id number] [place] [address] [facility] TESTOSTERO NE, FREE PANEL SEX HORMONE BINDING GLOBULIN [MOLES/VOLU ME] IN SERUM OR PLASMA 36 nmol/L 22 - 77 08/17 Specimen Type: SERUM Comment: Men with clinically significant hypogonadal symptoms and testosterone values repeatedly in the range of the 200-300 ng/dL or less, may benefit from testosterone treatment after adequate risk and benefits counseling. For additional information, please refer to http://[employer] m/faq/ TotalTestost eroneLCMSMSF AQ165 (This link is being provided for informationa l/ educational purposes only.) This test was developed and its analytical performance characterist ics have been determined by [facility] [place], [place]. It has not been cleared or approved by the U.S. Food and Drug Administrati on. This assay has been validated pursuant to the CLIA regulations and is used for clinical purposes. Test Performed by [facility], [facility], [address] [place] [address] Yung Rivera M.D., Ph.D., Director of Laboratories , CLIA [id number] Ordering Provider: GEOVANNA PASTRANA Report Released Date/Time: Aug 17, 2024 11:40 AM Reporting Lab: [facility] [address] [place] [phone] Performing Lab: [facility] [id number] [place] [address] [facility] VITAMIN B1 VITAMIN B1 20 nmol/L 8 - 30 08/17 Specimen Type: BLOOD Comment: Vitamin supplementat ion within 24 hours prior to blood draw may affect the accuracy of the results. Ordering Provider: GEOVANNA PASTRANA Report Released Date/Time: Aug 17, 2024 11:42 AM Reporting Lab: [facility] [address] [place] [phone] Performing Lab: [facility] [id number] [place] [address] [facility] VITAMIN D, 25-HYDROXY 25-HYDROXYV ITAMIN D3 [MASS/VOLUM E] IN SERUM OR PLASMA 38.5 ng/mL 30 - 96 08/17 Specimen Type: SERUM Comment: The listed sex of this patient may not be a typical indication for this test. Therefore, reference ranges or interpretive criteria listed may not be valid. Clinical correlation suggested. Ordering Provider: GEOVANNA PASTRANA Report Released Date/Time: Aug 17, 2024 11:37 AM Reporting Lab: [facility] [facility] [address] Performing Lab: [facility] [address] [facility] B12 COBALAMIN (VITAMIN B12) [MASS/VOLUM E] IN SERUM OR PLASMA 461 pg/mL 213 - 816 08/17 Specimen Type: SERUM No comment entered. Ordering Provider: GEOVANNA PASTRANA Report Released Date/Time: Aug 17, 2024 11:42 AM Reporting Lab: [facility] [address] Performing Lab: [facility] [phone] [place] [address] LIPID PANEL (STL) CHOLESTEROL [MASS/VOLUM E] IN SERUM OR PLASMA 110 mg/dL 0 - 200 08/17 Specimen Type: PLASMA Comment: No hemolysis noted. Ordering Provider: GEOVANNA PASTRANA Report Released Date/Time: Aug 17, 2024 11:37 AM Reporting Lab: [facility] [address] [facility] [address] Performing Lab: [address] [address] [facility] LIPID PANEL (STL) TRIGLYCERID E [MASS/VOLUM E] IN SERUM OR PLASMA 53 mg/dL 0 - 150 08/17 Specimen Type: PLASMA Comment: No hemolysis noted. Ordering Provider: GEOVANNA PASTRANA Report Released Date/Time: Aug 17, 2024 11:37 AM Reporting Lab: [facility] [address] [facility] [address] Performing Lab: [address] [address] [facility] LIPID PANEL (STL) CHOLESTEROL IN LDL [MASS/VOLUM E] IN SERUM OR PLASMA BY CALCULATION 45 mg/dL 08/17 Specimen Type: PLASMA Comment: No hemolysis noted. Ordering Provider: GEOVANNA PASTRANA Report Released Date/Time: Aug 17, 2024 11:37 AM Reporting Lab: [facility] [address] [facility] [address] Performing Lab: [facility] [address] [facility] [address] [facility] LIPID PANEL (STL) CHOLESTEROL IN HDL [MASS/VOLUM E] IN SERUM OR PLASMA 54 mg/dL 40 08/17 Specimen Type: PLASMA Comment: No hemolysis noted. Ordering Provider: GEOVANNA PASTRANA Report Released Date/Time: Aug 17, 2024 11:37 AM Reporting Lab: [facility] [address] [facility] [address] Performing Lab: [address] [address] [facility] COMPREHENS MIKE METABOLIC PANEL CREATININE [MASS/VOLUM E] IN SERUM OR PLASMA 1.02 mg/dL 0.7 - 1.3 08/17 Specimen Type: PLASMA Comment: No hemolysis noted. Ordering Provider: GEOVANNA PASTRANA Report Released Date/Time: Aug 17, 2024 11:37 AM Reporting Lab: [facility] [address] [facility] [address] Performing Lab: [address] [address] [facility] COMPREHENS MIKE METABOLIC PANEL UREA NITROGEN [MASS/VOLUM E] IN SERUM OR PLASMA 25.9 mg/dL 9.0 - 25.0 08/17 H Specimen Type: PLASMA Comment: No hemolysis noted. Ordering Provider: GEOVANNA PASTRANA Report Released Date/Time: Aug 17, 2024 11:37 AM Reporting Lab: [facility] [address] [facility] [address] Performing Lab: [address] [address] [facility] COMPREHENS MIKE METABOLIC PANEL GLUCOSE [MASS/VOLUM E] IN SERUM OR PLASMA 102 mg/dL 72 - 99 08/17 H Specimen Type: PLASMA Comment: No hemolysis noted. Ordering Provider: GEOVANNA PASTRANA Report Released Date/Time: Aug 17, 2024 11:37 AM Reporting Lab: [facility] [address] [facility] [address] Performing Lab: [facility] [address] [facility] [address] [facility] COMPREHENS MIKE METABOLIC PANEL SODIUM [MOLES/VOLU ME] IN SERUM OR PLASMA 134 meq/L 136 - 145 08/17 L Specimen Type: PLASMA Comment: No hemolysis noted. Ordering Provider: GEOVANNA PASTRANA Report Released Date/Time: Aug 17, 2024 11:37 AM Reporting Lab: [facility] [address] [facility] [address] Performing Lab: [facility] [address] [facility] [address] [facility] COMPREHENS MIKE METABOLIC PANEL POTASSIUM [MOLES/VOLU ME] IN SERUM OR PLASMA 4.0 meq/L 3.5 - 5 08/17 Specimen Type: PLASMA Comment: No hemolysis noted. Ordering Provider: GEOVANNA PASTRANA Report Released Date/Time: Aug 17, 2024 11:37 AM Reporting Lab: [facility] [address] [facility] [address] Performing Lab: [facility] [address] [facility] [address] [facility] COMPREHENS MIKE METABOLIC PANEL CHLORIDE [MOLES/VOLU ME] IN SERUM OR PLASMA 103 meq/L 98 - 107 08/17 Specimen Type: PLASMA Comment: No hemolysis noted. Ordering Provider: GEOVANNA PASTRANA Report Released Date/Time: Aug 17, 2024 11:37 AM Reporting Lab: [facility] [address] [facility] [address] Performing Lab: [facility] [address] [facility] [address] [facility] COMPREHENS MIKE METABOLIC PANEL CARBON DIOXIDE, TOTAL [MOLES/VOLU ME] IN SERUM OR PLASMA 22 meq/L 22 - 31 08/17 Specimen Type: PLASMA Comment: No hemolysis noted. Ordering Provider: GEOVANNA PASTRANA Report Released Date/Time: Aug 17, 2024 11:37 AM Reporting Lab: [facility] [address] [place] [phone] Performing Lab: [facility] [address] [facility] [address] [facility] COMPREHENS MIKE METABOLIC PANEL CALCIUM [MASS/VOLUM E] IN SERUM OR PLASMA 8.9 mg/dL 8.4 - 10.4 08/17 Specimen Type: PLASMA Comment: No hemolysis noted. Ordering Provider: GEOVANNA PASTRANA Report Released Date/Time: Aug 17, 2024 11:37 AM Reporting Lab: [facility] [address] [place] [phone] Performing Lab: [address] [phone] [place] [address] COMPREHENS MIKE METABOLIC PANEL PROTEIN [MASS/VOLUM E] IN SERUM OR PLASMA 6.7 g/dL 6 - 8.6 08/17 Specimen Type: PLASMA Comment: No hemolysis noted. Ordering Provider: GEOVANNA PASTRANA Report Released Date/Time: Aug 17, 2024 11:37 AM Reporting Lab: [facility] [address] [facility] [address] Performing Lab: [place] [address] [facility] [phone] [place] [address] COMPREHENS MIKE METABOLIC PANEL ALBUMIN [MASS/VOLUM E] IN SERUM OR PLASMA 3.9 g/dL 3.4 - 5 08/17 Specimen Type: PLASMA Comment: No hemolysis noted. Ordering Provider: GEOVANNA PASTRANA Report Released Date/Time: Aug 17, 2024 11:37 AM Reporting Lab: [facility] [address] [place] [phone] Performing Lab: [address] [address] [facility] COMPREHENS MIKE METABOLIC PANEL BILIRUBIN.T OTAL [MASS/VOLUM E] IN SERUM OR PLASMA 1.0 mg/dL 0.2 - 1.2 08/17 Specimen Type: PLASMA Comment: No hemolysis noted. Ordering Provider: GEOVANNA PASTRANA Report Released Date/Time: Aug 17, 2024 11:37 AM Reporting Lab: [facility] [address] [facility] [address] Performing Lab: [facility] [address] [facility] [address] [facility] COMPREHENS MIKE METABOLIC PANEL ALKALINE PHOSPHATASE [ENZYMATIC ACTIVITY/VO LUME] IN SERUM OR PLASMA 77 U/L 40 - 150 08/17 Specimen Type: PLASMA Comment: No hemolysis noted. Ordering Provider: GEOVANNA PASTRANA Report Released Date/Time: Aug 17, 2024 11:37 AM Reporting Lab: [facility] [address] [facility] [address] Performing Lab: [facility] [address] [facility] [address] [facility] COMPREHENS MIKE METABOLIC PANEL ASPARTATE AMINOTRANSF ERASE [ENZYMATIC ACTIVITY/VO LUME] IN SERUM OR PLASMA 64 U/L 5 - 34 08/17 H Specimen Type: PLASMA Comment: No hemolysis noted. Ordering Provider: GEOVANNA PASTRANA Report Released Date/Time: Aug 17, 2024 11:37 AM Reporting Lab: [facility] [address] [facility] [address] Performing Lab: [facility] [address] [place] [phone] [facility] COMPREHENS MIKE METABOLIC PANEL ALANINE AMINOTRANSF ERASE [ENZYMATIC ACTIVITY/VO LUME] IN SERUM OR PLASMA 51 U/L 8 - 40 08/17 H Specimen Type: PLASMA Comment: No hemolysis noted. Ordering Provider: GEOVANNA PASTRANA Report Released Date/Time: Aug 17, 2024 11:37 AM Reporting Lab: [facility] [address] [facility] [address] Performing Lab: [facility] [address] [place] [address] [facility] COMPREHENS MIKE METABOLIC PANEL GLOMERULAR FILTRATION RATE/1.73 SQ M.PREDICTED [VOLUME RATE/AREA] IN SERUM, PLASMA OR BLOOD BY CREATININE- BASED FORMULA (CKD-EPI 2020) 76.6 60 08/17 Specimen Type: PLASMA Comment: No hemolysis noted. Ordering Provider: GEOVANNA PASTRANA Report Released Date/Time: Aug 17, 2024 11:37 AM Reporting Lab: [address] [address] Performing Lab: [address] [phone] [place] [address] CBC LEUKOCYTES [#/VOLUME] IN BLOOD BY AUTOMATED COUNT 5.0 10*3/u L 3.6 - 11.2 08/17 Specimen Type: BLOOD No comment entered. Ordering Provider: GEOVANNA PASTRANA Report Released Date/Time: Aug 17, 2024 11:37 AM Reporting Lab: [place] [address] [facility] [address] Performing Lab: [address] [address] [facility] CBC ERYTHROCYTE S [#/VOLUME] IN BLOOD BY AUTOMATED COUNT 4.15 10*6/u L 4.10 - 5.70 08/17 Specimen Type: BLOOD No comment entered. Ordering Provider: GEOVANNA PASTRANA Report Released Date/Time: Aug 17, 2024 11:37 AM Reporting Lab: [facility] [address] Performing Lab: [address] [phone] [place] [address] CBC HEMOGLOBIN [MASS/VOLUM E] IN BLOOD 13.7 g/dL 13.1 - 16.8 08/17 Specimen Type: BLOOD No comment entered. Ordering Provider: GEOVANNA PASTRANA Report Released Date/Time: Aug 17, 2024 11:37 AM Reporting Lab: [address] [address] Performing Lab: [facility] [address] [facility] [address] [facility] CBC HEMATOCRIT [VOLUME FRACTION] OF BLOOD 40.3 38.2 - 48.4 08/17 Specimen Type: BLOOD No comment entered. Ordering Provider: GEOVANNA PASTRANA Report Released Date/Time: Aug 17, 2024 11:37 AM Reporting Lab: [address] [address] Performing Lab: [address] [address] [facility] CBC MCV [ENTITIC VOLUME] BY AUTOMATED COUNT 97.1 fL 80.0 - 100.0 08/17 Specimen Type: BLOOD No comment entered. Ordering Provider: GEOVANNA PASTRANA Report Released Date/Time: Aug 17, 2024 11:37 AM Reporting Lab: [address] [address] Performing Lab: [address] [address] [facility] CBC MCH [ENTITIC MASS] BY AUTOMATED COUNT 33.0 pg 27.0 - 34.0 08/17 Specimen Type: BLOOD No comment entered. Ordering Provider: GEOVANNA PASTRANA Report Released Date/Time: Aug 17, 2024 11:37 AM Reporting Lab: [address] [address] Performing Lab: [address] [address] [facility] CBC MCHC [MASS/VOLUM E] BY AUTOMATED COUNT 34.0 g/dL 33.0 - 36.0 08/17 Specimen Type: BLOOD No comment entered. Ordering Provider: GEOVANNA PASTRANA Report Released Date/Time: Aug 17, 2024 11:37 AM Reporting Lab: [address] [address] Performing Lab: [address] [place] [address] [facility] CBC PLATELETS [#/VOLUME] IN BLOOD BY AUTOMATED COUNT 141 10*3/u L 150 - 400 08/17 L Specimen Type: BLOOD No comment entered. Ordering Provider: GEOVANNA PASTRANA Report Released Date/Time: Aug 17, 2024 11:37 AM Reporting Lab: [address] [address] Performing Lab: [address] [address] [facility] CBC PLATELET MEAN VOLUME [ENTITIC VOLUME] IN BLOOD BY AUTOMATED COUNT 9.4 fL 7.5 - 11.2 08/17 Specimen Type: BLOOD No comment entered. Ordering Provider: GEOVANNA PASTRANA Report Released Date/Time: Aug 17, 2024 11:37 AM Reporting Lab: [address] [address] Performing Lab: [address] [address] [facility] CBC ERYTHROCYTE DISTRIBUTIO N WIDTH [RATIO] BY AUTOMATED COUNT 12.2 11.8 - 15.1 08/17 Specimen Type: BLOOD No comment entered. Ordering Provider: GEOVANNA PASTRANA Report Released Date/Time: Aug 17, 2024 11:37 AM Reporting Lab: [address] [address] Performing Lab: [address] [address] [facility] CBC LYMPHOCYTES /100 LEUKOCYTES IN BLOOD BY AUTOMATED COUNT 34 08/17 Specimen Type: BLOOD No comment entered. Ordering Provider: GEOVANNA PASTRANA Report Released Date/Time: Aug 17, 2024 11:37 AM Reporting Lab: [address] [address] Performing Lab: [address] [address] [facility] CBC MONOCYTES/1 00 LEUKOCYTES IN BLOOD BY AUTOMATED COUNT 4 08/17 Specimen Type: BLOOD No comment entered. Ordering Provider: GEOVANNA PASTRANA Report Released Date/Time: Aug 17, 2024 11:37 AM Reporting Lab: [facility] [address] [facility] [address] Performing Lab: [facility] [address] [facility] [address] [facility] CBC NEUTROPHILS /100 LEUKOCYTES IN BLOOD BY AUTOMATED COUNT 61 08/17 Specimen Type: BLOOD No comment entered. Ordering Provider: GEOVANNA PASTRANA Report Released Date/Time: Aug 17, 2024 11:37 AM Reporting Lab: [facility] [address] [facility] [address] Performing Lab: [facility] [address] [facility] [phone] [place] [address] CBC EOSINOPHILS /100 LEUKOCYTES IN BLOOD BY AUTOMATED COUNT 1 08/17 Specimen Type: BLOOD No comment entered. Ordering Provider: GEOVANNA PASTRANA Report Released Date/Time: Aug 17, 2024 11:37 AM Reporting Lab: [facility] [address] [facility] [address] Performing Lab: [facility] [address] [place] [phone] [facility] CBC BASOPHILS/1 00 LEUKOCYTES IN BLOOD BY AUTOMATED COUNT 0 08/17 Specimen Type: BLOOD No comment entered. Ordering Provider: GEOVANNA PASTRANA Report Released Date/Time: Aug 17, 2024 11:37 AM Reporting Lab: [facility] [address] [facility] [phone] Performing Lab: [facility] [address] [place] [phone] [facility] CBC LYMPHOCYTES [#/VOLUME] IN BLOOD BY AUTOMATED COUNT 1.68 10*3/u L 0.77 - 4.50 08/17 Specimen Type: BLOOD No comment entered. Ordering Provider: GEOVANNA PASTRANA Report Released Date/Time: Aug 17, 2024 11:37 AM Reporting Lab: [facility] [address] [place] [phone] Performing Lab: [facility] [address] [place] [phone] [facility] CBC MONOCYTES [#/VOLUME] IN BLOOD BY AUTOMATED COUNT 0.18 10*3/u L 0.19 - 0.80 08/17 L Specimen Type: BLOOD No comment entered. Ordering Provider: GEOVANNA PASTRANA Report Released Date/Time: Aug 17, 2024 11:37 AM Reporting Lab: [facility] [address] [place] [phone] Performing Lab: [address] [phone] [place] [address] CBC NEUTROPHILS [#/VOLUME] IN BLOOD BY AUTOMATED COUNT 3.02 10*3/u L 2.10 - 8.00 08/17 Specimen Type: BLOOD No comment entered. Ordering Provider: GEOVANNA PASTRANA Report Released Date/Time: Aug 17, 2024 11:37 AM Reporting Lab: [address] [address] Performing Lab: [address] [phone] [facility] CBC EOSINOPHILS [#/VOLUME] IN BLOOD BY AUTOMATED COUNT 0.05 10*3/u L 0.00 - 0.60 08/17 Specimen Type: BLOOD No comment entered. Ordering Provider: GEOVANNA PASTRANA Report Released Date/Time: Aug 17, 2024 11:37 AM Reporting Lab: [address] [phone] Performing Lab: [facility] [address] [place] [phone] [facility] CBC BASOPHILS [#/VOLUME] IN BLOOD BY AUTOMATED COUNT 0.01 10*3/u L 0.00 - 0.20 08/17 Specimen Type: BLOOD No comment entered. Ordering Provider: GEOVANNA PASTRANA Report Released Date/Time: Aug 17, 2024 11:37 AM Reporting Lab: [facility] [address] [facility] [address] Performing Lab: [facility] [address] [place] [phone] [facility] HGA1C HEMOGLOBIN A1C/HEMOGLO BIN.TOTAL IN BLOOD 7.7 4.0 - 6.0 08/17 H Specimen Type: BLOOD No comment entered. Ordering Provider: GEOVANNA PASTRANA Report Released Date/Time: Aug 17, 2024 11:37 AM Reporting Lab: [address] [address] Performing Lab: [address] [address] [facility] TSH W/ REFLEX FT4 (STL) THYROTROPIN [UNITS/VOLU ME] IN SERUM OR PLASMA 0.703 u[IU]/ mL 0.47 - 5 08/17 Specimen Type: PLASMA No comment entered. Ordering Provider: GEOVANNA PASTRANA Report Released Date/Time: Aug 17, 2024 11:37 AM Reporting Lab: [facility] [address] [facility] [address] Performing Lab: [address] [address] [facility] Vital Signs Combined list of inpatient and outpatient Vital Signs from Department of Defense and Veterans Affairs, ranging from 12 months to all on record, depending upon the facility. Vital Sign Value Date Comments Source SYSTOLIC BLOOD PRESSURE 99 08/17/2024 11:01:11 [facility] DIASTOLIC BLOOD PRESSURE 62 08/17/2024 11:01:11 [facility] PULSE OXIMETRY 98 08/17/2024 11:01:11 [facility] WEIGHT 150.2 08/17/2024 11:01:11 [facility] BMI 24 kg/m2 08/17/2024 11:01:11 [facility] PAIN 0 08/17/2024 11:01:[facility] TEMPERATURE 97.4 08/17/2024 11:01:11 [facility] PULSE 68 08/17/2024 11:01:11 [facility] RESPIRATION 18 08/17/2024 11:01:11 [facility] SYSTOLIC BLOOD PRESSURE 105 12/01/2023 09:31:16 [facility] DIASTOLIC BLOOD PRESSURE 55 12/01/2023 09:31:16 [facility] PULSE OXIMETRY 98 12/01/2023 09:31:16 [facility] WEIGHT 172.8 12/01/2023 09:31:16 [facility] BMI 28 kg/m2 12/01/2023 09:31:16 [facility] PAIN 0 12/01/2023 09:31:16 [facility] TEMPERATURE 97.2 12/01/2023 09:31:16 [facility] PULSE 50 12/01/2023 09:31:16 [facility] RESPIRATION 18 12/01/2023 09:31:16 [facility] Encounters Combined list of: 1) Encounters from Department of Veterans Affairs facilities going backup to the last 18 months, not all VA inpatient encounters are included; 2) Encounters from the Department of Defense facilities going backup to 280 months. Location Location Details Encounter Type Encounter Number Reason For Visit Attending Provider ADM Date DC Date Status Disposition Source [facility] Outpatient Encounter [id number] 04[facility]01 [facility] Outpatient Encounter [id number] BENJAMIN MOTLEY 04/21 [facility] Outpatient Encounter [id number] 04/22 [facility] 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 MIN [id number] Diagnos is: ICD-10- CM E11.9 Type 2 diabete s mellitu s without complic ations ALEXEI QUISPE 05/29 [facility] MTMS BY PHARM ADDL 15 MIN [id number] Diagnos is: ICD-10- CM E11.9 Type 2 diabete s mellitu s without complic ations ALEXEI QUISPE M 06/16 [facility] Outpatient Encounter [id number] 06/16 [facility] Outpatient Encounter [id number] GIORGIO HOLLIS 06/19 [facility] BY PHARM EST 15 MIN [id number] Diagnos is: ICD-10- CM E11.9 Type 2 diabete s mellitu s without complic ations ALEXEI QUISPE 06/30 [facility] Outpatient Encounter [id number] 07/07 [facility] Outpatient Encounter [id number] 07/21 [facility] BY PHARM EST 15 MIN [id number] Diagnos is: ICD-10- CM E11.9 Type 2 diabete s mellitu s without complic ations ALEXEI QUISPE M 08/04 [facility] QNHP OL DIG ASSMT&MGMT 5-10 [id number] Diagnos is: ICD-10- CM E11.9 Type 2 diabete s mellitu s without complic ations GINO STALEY THELMA 08/12 [facility] Outpatient Encounter [id number] RINA MALAGON 09/04 [facility] MTMS BY PHARM EST 15 MIN [id number] Diagnos is: ICD-10- CM E11.9 Type 2 diabete s mellitu s without complic ations ALEXEI QUISPE M 09/15 [facility] Outpatient Encounter [id number] 09/15 [facility] Outpatient Encounter [id number] 09/30 [facility] BY PHARM EST 15 MIN [id number] Diagnos is: ICD-10- CM E11.9 Type 2 diabete s mellitu s without complic ations ALEXEI QUISPE M 10/13 [facility] Outpatient Encounter [id number] BENJAMIN MOTLEY S 11/23 [facility] Outpatient Encounter [id number] DELMIS WILDER 11/23 [facility] Outpatient Encounter [id number] 11/30 [facility] FUNDUS PHOTOGRAPH Y W/I&R [id number] Diagnos is: ICD-10- CM Z13.5 Encount er for screeni ng for eye and ear disorde rs TINA DELMIS 11/30 [facility] Outpatient Encounter [id number] Diagnos is: ICD-10- CM Z13.5 Encount er for screeni ng for eye and ear disorde rs Britton AWAD 11/30 [facility] O/P EST MOD 30 MIN [id number] Diagnos is: ICD-10- CM E11.9 Type 2 diabete s mellitu s without complic ations ZANDRA PASTRANA RID 11/30 [facility] Outpatient Encounter [id number] ALEXEI QUISPE M 12/01 [facility] MTMS BY PHARM EST 15 MIN [id number] Diagnos is: ICD-10- CM E11.9 Type 2 diabete s mellitu s without complic ations ALEXEI QUISPE M 12/03 [facility] Outpatient Encounter [id number] ALEXEI QUISPE 01/28 [facility] MT[facility] BY PHARM EST 15 MIN [id number] Diagnos is: ICD-10- CM E11.9 Type 2 diabete s mellitu s without complic ations ALEXEI QUISPE 01/28 [facility] MTMS BY PHARM EST 15 MIN [id number] Diagnos is: ICD-10- CM E11.9 Type 2 diabete s mellitu s without complic ations ALEXEI QUISPE M 03/12 [facility] Outpatient Encounter [id number] 03/19 [facility] Outpatient Encounter [id number] 03/23 [facility] Outpatient Encounter [id number] 05/04 [facility] Outpatient Encounter [id number] ALEXEI QUISPE M 05/07 [facility] MTMS BY PHARM EST 15 MIN [id number] Diagnos is: ICD-10- CM E11.9 Type 2 diabete s mellitu s without complic ations ALEXEI QUISPE M 05/07 [facility] [id number] Diagnos is: ICD-10- CM 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 [id number] 08/17 [facility] O/P EST MOD 30 MIN [id number] Diagnos is: ICD-10- CM E11.9 Type 2 diabete s mellitu s without complic ations ZANDRA PASTRANA RID 08/17 [facility] Outpatient Encounter [id number] 08/18 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 Social History Type Response Date Comment Sour e Tobacco smoking status NHIS VA-TOBACCO FORMER USER 11/24/2023 [facility] History of tobacco use ID-TOBACCO QUIT 1 5 YRS OR MORE 11/24/2023 [facility] History of tobacco use VA-TOBACCO FORMER USER 10/30/2022 [facility] History of tobacco use VA-TOBACCO FORMER USER 09/24/2021 [facility] History of tobacco use ID-TOBACCO QUIT 1 5 YRS OR MORE 07/24/2020 [facility] History of tobacco use ID-TOBACCO NEVER USED 09/09/2019 [facility] History of tobacco use ID-TOBACCO FORMER USER 11/20/2017 [facility] History of tobacco use V9 QUIT TOBACCO > 7 YEARS AGO 05/20/2017 [facility] History of tobacco use V9 QUIT TOBACCO > 7 YEARS AGO 07/17/2016 [facility] Plan of Care List of future care activities from [facility] Affairs facilities. Additional future care activities may be listed in the Assessment and Plan section. Date/Time Care Activity Care Activity Detail Facili ty 10/01/2024 AMBULATORY - NONE AMBULATORY - NONE [facility] Advance Directives List of completed, amended, or rescinded Advance Directives on record at [facility] facilities. An actual copy of the Directive is not included. Date Advance Directive Provider Source 07/13/2014 ADVANCE DIRECTIVE ROLANDO FONSECA [facility]
--- OUTSIDE RECORDS SUMMARY | 2024-10-01 06:45 | XMS_ITS | Continuity of Care Document ---
Author Organization [facility]ly [facility]. If a dditional information is needed, contact Health Information Management at [phone] Address [address] [place] [address] Phone Care Team Providers Care Hydrologist Name Role Phone Unavailable Unavailable Unavailable Unavailable Unavailable Unavailable Unavailable Unavailable Unavailable Unavailable Unavailable Unavailable Unavailable Unavailable Unavailable Unavailable Unavailable Unavailable Unavailable Unavailable Unavailable Unavailable Unavailable Unavailable Unavailable Unavailable Unavailable Unavailable Unavailable Unavailable Problems T81.49XA(T81.49XA) Onset:16-Feb-2020 Comments:Onset Date: 20200216 Arthrodesis Onset:11-Feb-2020 Shan Anand [employer] Post-laminectomy syndrome Onset:11-Feb-2020 Shan Anand [employer] Postoperative infection Onset:11-Feb-2020 Shan Anand [employer] Acute postoperative pain Onset:31-Dec-2019 Fuimaono Sioeli F PA Acute postoperative pain Onset:31-Dec-2019 Fuimaono Sioeli F PA E11.65(E11.65) Onset:29-Dec-2019 Comments:Onset Date: 20200216 Type 2 diabetes mellitus Onset:27-Dec-2019 Sudha Diamond [employer] Comments:Onset Date: 20191228 Hyperglycemia Onset:27-Dec-2019 Sudha Diamond [employer] Lumbar spondylolisthesis Onset:22-Dec-2019 Shan Anand [employer] Spinal stenosis of lumbar re gion Onset:22-Dec-2019 Shan Anand [employer] Lumbar radiculopathy Onset:22-Dec-2019 Shan Anand [employer] Degeneration of lumbar intervertebral disc Onset:22-Dec-2019 Shan Anand [employer] Spinal stenosis of lumbar re gion, unspecified whether neurogenic claudication present Onset:21-Dec-2019 Comments:Onset Date: 20191221 Hyperlipidemia, unspecified hyperlipidemia type Onset:21-Dec-2019 Comments:Onset Date: 20191221 Gastroesophageal reflux dise ase, unspecified whether esophagitis present Onset:21-Dec-2019 Comments:Onset Date: 20191221 Coronary artery disease invo lving [place] coronary artery of [place] heart without angina pectoris Onset:21-Dec-2019 Comments:Onset Date: [...] PRN Quantity:1 Murali Moore MD Start:14-Feb-2020 Status:Discontinued Comments:[id number] Administration Instructions:GIVE OVER 4-5 MINUTESDO NOT EXCEED 300 MG PER MINUTE 2 ML fentaNYL 0.05 MG/ML Injection Quantity:1 Murali Moore MD Start:14-Feb-2020 Status:Discontinued BKK UNILATERAL COCKTAIL 50 M L SYR;Provider Administration Instructions:BUPIVACAINE 0.25% W/ EPI 1:220320 25 MLKETOROLAC 50 MG; KETAMINE 50 MG; NORMAL SALINETOTAL VOLUME 50 ML Quantity:1 Murali Moore MD Start:14-Feb-2020 Status:Discontinued Comments:Provider Administration Instructions:BUPIVACAINE 0.25% W/ EPI 1:448624 25 MLKETOROLAC 50 MG; KETAMINE 50 MG; [...] [Sensorcaine] Quantity:1 Murali Moore MD Start:14-Feb-2020 Status:Discontinued rocuronium bromide 10 MG/ML Injectable Solution;Provider Administration Instructions:PARALYTIC AGENTConcentration: 10 mg/mlDose: ___ ml Quantity:1 Murali Moore MD Start:14-Feb-2020 Status:Discontinued Comments:Provider Administration Instructions:PARALYTIC AGENTConcentration: 10 mg/mlDose: ___ ml 2 ML fentaNYL 0.05 MG/ML Injection Quantity:1 Murali Moore MD Start:14-Feb-2020 Status:Discontinued propofol 10 MG/ML Injectable Suspension Quantity:1 [...] L SYR;Provider Administration Instructions:BUPIVACAINE 0.25% W/ EPI 1:106303 25 MLKETOROLAC 50 MG; KETAMINE 50 MG; NORMAL SALINETOTAL VOLUME 50 ML Quantity:1 Murali Moore MD Start:27-Dec-2019 Status:Discontinued Comments:Provider Administration Instructions:BUPIVACAINE 0.25% W/ EPI 1:054089 25 MLKETOROLAC 50 MG; KETAMINE 50 MG; NORMAL SALINETOTAL VOLUME 50 ML 250 ML lidocaine hydrochlori de 4 MG/ML Injection;Provider Administration Instructions:Concentration: 4000 mcg/ml Standard Drip Quantity:1 Murali Moore MD Start:27-Dec-2019 Status:Discontinued Comments:Provider Administration Instructions:Concentration: 4000 mcg/ml Standard Drip remifentanil 1 MG Injection [Ultiva] Quantity:1 Murali Moore MD Start:27-Dec-2019 Status:Discontinued 2 ML midazolam 1 MG/ML Injec tion Quantity:1 Murali Moore MD Start:27-Dec-2019 Status:Discontinued phenylephrine hydrochloride 10 MG/ML Injectable Solution [Vazculep] Quantity:1 Murali Moore MD Start:27-Dec-2019 Status:Discontinued ondansetron 2 MG/ML Injectab le Solution [Zofran];Provider Administration Instructions:MAX DAILY DOSE OF ONDANSETRON 24 MG FROM ALL SOURCES Quantity:1 Murali Moore MD Start:27-Dec-2019 Status:Discontinued Comments:Provider Administration Instructions:MAX DAILY DOSE OF ONDANSETRON 24 MG FROM ALL SOURCES propofol 10 MG/ML Injectable Suspension Quantity:1 Murali Moore MD Start:27-Dec-2019 Status:Discontinued vecuronium bromide 1 MG/ML Injectable Solution;Provider Administration Instructions:PARALYTIC AGENTConcentration 1 mg/ml (Dilute with 10 ml sterile water) Quantity:1 Murali Moore MD Start:27-Dec-2019 Status:Discontinued Comments:Provider Administration Instructions:PARALYTIC AGENTConcentration 1 mg/ml (Dilute with 10 ml sterile water) succinylcholine chloride 20 MG/ML Injectable Solution [Quelicin];Provider Administration Instructions:PARALYTIC AGENT Quantity:1 Murali Moore MD Start:27-Dec-2019 Status:Discontinued Comments:Provider Administration Instructions:PARALYTIC AGENT lidocaine hydrochloride 20 M G/ML Injectable Solution [Xylocaine] Quantity:1 Murali Moore MD Start:27-Dec-2019 Status:Discontinued sodium chloride 9 MG/ML Injectable Solution Quantity:1 Murali Moore MD Start:27-Dec-2019 Status:Discontinued ketamine 10 MG/ML Injectable Solution [Ketalar] Quantity:1 Murali Moore MD Start:27-Dec-2019 Status:Discontinued 1 ML phenylephrine hydrochlo ride 10 MG/ML Injection [Vazculep] Quantity:1 Murali Moore MD Start:27-Dec-2019 Status:Discontinued propofol 10 MG/ML Injectable Suspension Quantity:1 Murali Moore MD Start:27-Dec-2019 Status:Discontinued Neomycin 40 MG/ML / Polymyxi n B [id number] UNT/ML Irrigation Solution [Neosporin G. U. Irrigant] Quantity:1 Murali Moore MD Start:27-Dec-2019 Status:Discontinued 1 ML EPINEPHrine 1 MG/ML Injection Quantity:1 Murali Moore MD Start:27-Dec-2019 Status:Discontinued heparin sodium, porcine 1000 UNT/ML Injectable Solution Quantity:1 Murali Moore MD Start:27-Dec-2019 Status:Discontinued Thrombin 1000 UNT/ML Topical Solution [Recothrom];Provider Administration Instructions:( FOR TOPICAL APPLICATION ONLY ) Quantity:1 Murali Moore MD Start:27-Dec-2019 Status:Discontinued Comments:Provider Administration Instructions:( FOR TOPICAL APPLICATION ONLY ) BUPivacaine hydrochloride 5 MG/ML Injectable Solution [Sensorcaine] Quantity:1 Murali Moore MD Start:27-Dec-2019 Status:Discontinued cholecalciferol [...] SUPPER Start:21-Dec-2019 Comments:5 MG PO AC SUPPER lisinopril 40 MG Oral Tablet ;40 MILLIGRAM PO DAILY Start:21-Dec-2019 Comments:40 MG PO DAILY aspirin 81 MG Delayed Releas e Oral Tablet;81 MILLIGRAM PO DAILY Start:21-Dec-2019 Comments:81 MG PO DAILY amLODIPine 5 MG Oral Tablet; 5 MILLIGRAM PO DAILY Start:21-Dec-2019 Comments:5 MG PO DAILY gabapentin 300 MG Oral Capsu le [Neurontin];300 MILLIGRAM PO BID Start:21-Dec-2019 Comments:300 MG PO BID omeprazole 40 MG Delayed Rel ease Oral Capsule;40 MILLIGRAM PO BID Start:21-Dec-2019 Comments:40 MG PO BID Social History Smoking Status Ex-smoker Recorded: 23-Dec-2019 Encounters Ambulatory 05-May-2017 20:35 [facility]
--- OUTSIDE RECORDS SUMMARY | 2024-10-01 06:45 | XMS_ITS | Continuity of Care Document ---
Author Name [facility] Address [address] [place] [address] Organization [facility] Care Team Providers Care Aircraft Cylinder Mechanic Name Role Phone [facility] Unavailable Unavailable Problems Problem Status Onset Date Problem Type Date of Resolution Comments Source Coronary arteriosclerosis (disorder) Active Condition Fracture of multiple pubic rami (disorder) Active Condition Fracture of sacrum (disorder) Active Condition Gastroesophageal reflux disease (disorder) Active Condition Hyperlipidemia (disorder) Active Condition Hypertensive disorder, systemic arterial (disorder) Active Condition Diabetic neuropathy (disorder) Active Condition Diabetes mellitus type 2 (disorder) Active Condition Body mass index 30+ - obesity (finding) Active Condition Osteoarthritis (disorder) Active Condition Bronchitis (disorder) Active Condition Pharyngitis (disorder) Active Condition Chronic kidney disease (disorder) Active Condition Allergies, Adverse Reactions, Alerts Substance Category Reaction Severity Reaction type Status Date Reported Comments Source Percocet<everett p>1</sup> Assertion Drug allergy Active Rash [facility] Kathleen [place] Assertion Drug allergy Active [facility] Encounters Location Location Details Encounter Type Encounter Number Reason For Visit Attending Provider ADM Date DC Date Status Source [facility] [id number] 6 month follow up Jam Serra [facility] Clinic [id number] 6 [facility] [id number] Abnormal findings on diagnosti c imaging of heart and aguirre [facility] Outpatient [id number] Garcia Lantigua 08/17 23:59 :59 Discharge d [facility]
== END 2024-10-01 06:40 | disposition home or self-care (01) ==
PROVIDERS: PCP Family Medicine
DX: I63.81 Other cerebral infarction due to occlusion or stenosis of small artery (principal); I65.22 Occlusion and stenosis of left carotid artery; I70.8 Atherosclerosis of other arteries; R26.9 Unspecified abnormalities of gait and mobility; Z01.89 Encounter for other specified special examinations
CPT/HCPCS: 70544; 70549; 70553; A9577

== ENCOUNTER 2024-10-06 09:41 | Outpatient (CLI) | payer MEDICARE, BC, OTHER, SELFPAY ==
--- OUTSIDE RECORDS SUMMARY | 2024-10-06 10:03 | XMS_ITS | Clinical Summary ---
Author Organization [facility] Address [address] [place] [address] Care Team Providers Care Scoreboard Operator Name Role Phone None, Provider MD Primary Care Provider Unavaila ble None, Provider MD Unavailable Unavailable Peggy Hoover MD Unavailable [phone] Allergies Active Allergy Reactions Criticality Noted Date [...] Sep 17, 2023 1 Sep 17, 2024 [id number] 2023 [facility] QUIS[facility] 4 Active gabapentin (NEURONTIN) 600 MG [...] 02/16/2021, 05/09/2020, Additional history exists PHQ-2 (Physician Webster) 03/10/2024 12/03/2023 DTaP, Tdap and Td Vaccines [...] patient's age to complete this topic Insurance [employer]ICARE [facility] Care Teams Scoreboard Operator Relationship Specialty Start Date End Date None, ProviderMD PCP - General 04/21/19 None, ProviderMD 04/21/19 Peggy Hoover MD [address] [address] Physician NEUROLOGICAL SURGERY 12/09/23
--- OUTSIDE RECORDS SUMMARY | 2024-10-06 10:03 | XMS_ITS | Clinical Summary ---
Author Organization [facility] Address [address] [place] [address] Phone Care Team Providers Care Citrus Peeler Name Role Phone Unavailable Primary Care Provider [...] 99 ZOSTER VACCINE (1 of 2) 1998 RSV VACCINE (60+ or ) (1 - 1-dose 75+ series) 11/06/2023 INFLUENZA VACCINE (#1) 2024 Insurance MEDICARE [address] [place] [address] FEDERAL
[2024-10-06 12:01] LABS: Vitamin B12 611.0 pg/mL (239-931)
== END 2024-10-06 09:42 | disposition home or self-care (01) ==
LOC: ANHLAB 09:43
PROVIDERS: PCP Family Medicine; Visit Provider Student in an Organized Health Care Education/Training Program
DX: R26.9 Unspecified abnormalities of gait and mobility (principal); R53.83 Other fatigue
CPT/HCPCS: 36415; 82607; 82746

== ENCOUNTER 2024-12-10 08:43 | Outpatient (CLI) | payer MEDICARE, BC, SELFPAY ==
--- OUTSIDE RECORDS SUMMARY | 2024-12-10 08:54 | XMS_ITS | Patient Health Record ---
Author Organization [facility] Address [address] [place] [id number] Care Team Providers Care Audograph Operator Name Role Phone Derik Devi MD Primary Care Provider Austin Geronimo Unavailable Unavailable Allergies Allergen (clinical drug ingredient) Drug/Non Drug Allergy documented on EMR Reaction Allergy Type Onset Date Status acetaminophen / oxycodone Percocet Unknown Drug Allergy Active Reason For Referral No Information Medications Medication SIG (Take, Route, Frequency, Duration) Notes Start Date End Date Status Pepcid 40 MG Tablet 1 tablet at bedtime Orally Once a day; Duration: 30 day(s) Active Omeprazole 40 mg Capsule Delayed Release 1 capsule Orally Twice a day Active Atorvastatin Calcium 40 MG Tablet 1 tab Orally Once a day Acti ve CeleBREX 200 MG Capsule 1 capsule with f ood Orally Once a day; Duration: 30 day(s) 02/19/2018 Active Lisinopril 40 MG Tablet 1 tab Orally daily Active amLODIPine Besylate 10 MG Tablet 1 tab Orally Once a day Acti ve Aspirin 81 MG Tablet Chewable 1 tab Orally Once a day Acti ve Social History Social History Additional Details Category Social Info Options Details Migrated Social History Depression Screening: (PHQ 2): Little interest or pleasure in doing things: No, Feeling down, depressed, or hopeless: No ; Drugs/Alcohol: (Alcohol Screen):Did you have a drink containing alcohol in the past year?: Yes, How often did you have a drink containing alcohol in the past year?: 4 or more times a week (4 points), How many drinks did you have on a typical day when you were drinking in the past year?: 1 or 2 drinks (0 point), Points: 4 ;(Drugs):Have you used drugs other than those for medical reasons in the past 12 months? No ; Tobacco Use: (Tobacco Use/Smoking): Smoking Status:: former smoker ; Problems Problem Type SNOMED Code ICD Code Onset Dates Problem Status W/U Status Risk Notes Problem Essential hypertension (79342867) Essential hypertension (I10) Active confirmed Problem Type II diabetes mellitus without complication (367678829) Type 2 diabetes mellitus without complication, without long-term current use of insulin (E11.9) Active confirmed Problem Hyperlipidaemia (49547369) Hyperlipidemia, unspecified hyperlipidemia type (E78.5) Active confirmed Problem Body mass index 30.00 to 34.99 (273045122950458) BMI 31.0-31.9,adult (Z68.31) Active confirmed Problem Body mass index 30+ - obesity (360211369) BMI 30.0-30.9,adult (Z68.30) Active confirmed Problem Internal derangement of left knee (04559161863704110 ) Internal derangement of left knee (M23.92) Active confirmed Problem Lymphedema (324871568) Lymphedema of left leg (I89.0) Active confirmed Problem Varicose veins of bilateral lower limbs (85352019698617014 ) Varicose veins of both 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) Active confirmed Plan Of Treatment No Information Insurance Providers Payer Name Payer Address Payer Phone Subscriber Number Group Number Insured Name Patient Relationship to Insured Coverage Start Date Coverage End Date [employer] [address] [address] [place] [address] [id number] Chester Gama Self - patient is the insured [address] [address] [id number] Chester Gama Self - patient is the insured Medical (General) History Medical History History ICD Code hypertension hyperlipidemia diabetes Acid reflux Surgical History Surgery Date(Month/Year) cholecystectomy left knee replacement right knee replacement triple bypass EGD 08/25/18
--- OUTSIDE RECORDS SUMMARY | 2024-12-10 08:54 | XMS_ITS | Encounter Summary ---
Author Organization [facility] Address [address] [place] [address] Care Team Providers Care Slabber Name Role Phone Makayla Ann MD Primary Care Provider [phone] Encounter Details Date Type Department Care Team (Late st Contact Info) Description 11/25/2024 Telephone [facility] Cardiology [address] [place] [address] Trisha Melendez MD [address] [address] Social History Tobacco Use Types Packs/Day Years Used Date Smoking Tobacco: Former Cigarettes 1.3 18 Smokeless Tobacco: Former Alcohol Use Standard Drinks/Week Comments Yes 2 (1 standard drink = 0.6 oz pur e alcohol) AUDIT-C Answer Date Recorded Q1: How often do you have a drink containing alc ohol? 2-3 times a week 11/25/2024 Q2: How many drinks containi ng alcohol do you have on a typical day when you are drinking? 1 or 2 11/25/2024 Q3: How often do you have si x or more drinks on one occasion? Never 11/25/2024 Personal Safety Answer Date Recorded Have you ever been in or are you currently in a harmful physical or emotional relationship or is someone making you feel afraid or unsafe? Denies 09/21/2024 Sex and Gender Information Value Date Recorded Sex Assigned at Not on file Legal Sex Male 5:11 AM [employer] Gender Identity Not on file Sexual Orientation Not on file documented as of this encounter Functional Status * AUDIT-C Score Answer Date of Assessment Author 3 11/25/2024 9:48 AM CDT Lorenzo Ruiz RN * Question Answer Date of Assessment Author Q1: How often do you have a drink containing alcohol? 2-3 times a week 11/25/2024 9:48 AM DARAT Gial Ruiz RN Q2: How many drinks containing alcohol do you have on a typical day when you are drinking? 1 or 2 11/25/2024 9:48 AM DARAT Gila Ruiz RN Q3: How often do you have six or more drinks on one occasion? Never 11/25/2024 9:48 AM CDT Gila Ruiz RN documented as of this encounter Miscellaneous Notes * Telephone Encounter - Belem Guerrier MA - 11/25/2024 2:31 PM CDT Left detailed msg that EKG was not ordered at last appt * Telephone Encounter - Josie Will - 11/25/2024 2:26 PM CDT [facility] wanting to know if an EKG was done at most recent office visit in May 2024. Contact: documented in this encounter Plan of Treatment Not on file documented as of this encounter Visit Diagnoses Not on filedocumented in this encounter Care Teams Slabber Relationship Specialty Start Date End Date Makayla Ann MD PCP - General Family Medicine 08/15/22 documented as of this encounter
--- OUTSIDE RECORDS SUMMARY | 2024-12-10 08:54 | XMS_ITS | Clinical Summary ---
Author Organization [facility] Address [address] [place] [address] Phone Care Team Providers Care Video Presentation Operator Name Role Phone Unavailable Primary Care Provider [...] Comments DTAP/TDAP/TD VACCINES (1 - Tdap) 11/06/1967 PNEUMOCOCCAL VACCINE 50+ YEARS (1 of 1 - PCV) 11/05/18 99 ZOSTER VACCINE (1 of 2) 1998 RSV VACCINE (60+ or ) (1 - 1-dose 75+ series) 11/06/2023 INFLUENZA VACCINE (#1) 2024 Insurance MEDICARE RAILROAD [facility]
--- OUTSIDE RECORDS SUMMARY | 2024-12-10 08:54 | XMS_ITS | Clinical Summary ---
Author Organization [facility] [address] Address [address] [place] [address] Care Team Providers Care Tunneling Machine Operator Name Role Phone Makayla Ann MD Primary Care Provider [phone] Allergies Active Allergy Reactions Criticality Noted Date Comments Dicyclomine Other (See comments) Low 04/21/2019 Flu-like symptoms Pregabalin Other (See comments) High 08/30/2022 Flu Symptons Medications atorvastatin (LIPITOR) 80 mg tablet Take 1 tablet (80 mg total) by mouth nightly Active aspirin 81 mg enteric coated tablet Take 1 tablet (81 mg total) by mouth every morning Active empagliflozin (JARDIANCE) 25 mg tablet Take 1 tablet (25 mg total) by mouth every morning Active multivitamin with minerals tablet Take 1 tablet by mouth every morning Active gabapentin (NEURONTIN) 600 mg tablet Take 1 tablet (600 mg total) by mouth 3 (three) times a day 1,200 tid Active semaglutide (Ozempic) 1 mg/dose (4 mg/3 mL) pen injector injection Inject 1 mg under the skin every 7 days Q Friday Active lisinopriL (PRINIVIL,ZESTR IL) 20 mg tablet Take 1 tablet (20 mg total) by mouth every morning 5 Active famotidine (PEPCID) 20 mg tablet Take 1 tablet (20 mg total) by mouth nightly Active diphenhydramine HCl (ALLERGY MEDICINE ORAL) Take by mouth every morning Active lisinopriL (PRINIVIL,ZESTR IL) 40 mg tablet Take 1 tablet (40 mg total) by mouth every morning 11/26/19 25 Discontinu ed(Other) hydroCHLOROthia zide (HYDRODIURIL) 25 mg tablet Take 1 tablet (25 mg total) by mouth every morning 3 11/26/19 Discontinu ed(Other) pantoprazole DR (PROTONIX) 40 mg EC tablet Take 1 tablet (40 mg total) by mouth every morning 5 11/26/19 Discontinu ed(Other) docusate sodium (COLACE) 100 mg capsuleIndicati ons:constipatio n Take 1 capsule (100 mg total) by mouth daily 11/26/19 Discontinu ed(Other) magnesium gluconate (MAGONATE) 27.5 mg magne- sium (500 mg) tabletIndicatio ns:hypomagnesem ia Take 1 tablet (500 mg total) by mouth daily 11/26/19 Discontinu ed(Other) Active Problems Problem Noted Date Diagnosed Date JAMILAH (obstructive sleep apnea) 03/22/2024 Hx of CABG 08/30/2022 Coronary artery disease invo lving [place] coronary artery of [place] heart without angina pectoris 08/30/2022 Premature atrial contraction 08/30/2022 Hypertension associated with diabetes 08/30/2022 Hyperlipidemia associated with type 2 diabetes m jose 08/30/2022 Encounters Date Type Department Care Team Description 12/03/2024 Telephone [facility] Medicine ENT [address] [place] [address] Medical Office Building [address] [place] [address] Olga Rothman MD 12/02/2024 9:40 AM CDT Lab [address] [address] JAMILAH (obstructive sleep apnea) 11/25/2024 11:59 PM CDT Anesthesia Event [facility] Operating Room [address] [place] [address] Uma Renee NP 11/25/2024 9:45 AM CDT Pre-Admission Testing [facility] Pre Anesthesia Testing [address] [place] [address] Pre-op testing (Primary Dx); Type 2 diabetes mellitus with other specified complication, unspecified whether retirement insulin use (HCC) 11/25/2024 Telephone [facility] ENT [id number] [place] [address] Medical Office Building [address] [place] [address] Olga Rothman MD 11/25/2024 Telephone [facility] Cardiology [address] [place] [address] Trisha Melendez MD 11/25/2024 Orders Only [facility] Medicine ENT [id number] [place] [address] Medical Office Building [address] [place] [phone] Olga Rothman MD JAMILAH (obstructive sleep apnea) (Primary Dx) 10/28/2024 Telephone [facility] [address] [facility] [address] [place] [address] Belem Willingham MA 10/04/2024 9:00 AM CDT Office Visit [facility] Medicine ENT [address] [place] [address] Medical Office Building [address] [place] [address] Olga Rothman MD Obstructive sleep apnea (adult) (pediatric) (Primary Dx); Intolerance of continuous positive airway pressure (CPAP) ventilation 09/21/2024 9:00 AM CDT - 09/21/2024 9:30 AM CDT Surgery [facility] Operating Room [address] [place] [address] Olga Rothman MD DRUG INDUCED SLEEP ENDOSCOPY 09/21/2024 8:22 AM CDT Anesthesia Event [facility] Operating Room [id number] [place] [address] Radha Gallegos MD PhD Jarrod Melchor MD 09/21/2024 7:05 AM CDT - 09/21/2024 9:35 AM CDT Hospital Encounter [facility] Operating Room [address] [place] [address] Olga Rothman MD JAMILAH (obstructive sleep apnea) (Primary Dx) Discharge Disposition: Discharge to home or self care 09/16/2024 Telephone [facility] Medicine Otolaryngology [address] [place] [address] Diamond Allen MS from Last 3 Months Surgical History Surgery Date Site/Laterality Comments CORONARY ARTERY BYPASS GRAFT CHOLECYSTECTOMY JOINT REPLACEMENT Bilateral knee SPINE SURGERY lumbar fusion OTHER SURGICAL HISTORY 09/21/2024 Drug Induced Sleep Endoscopy Medical History Medical History Date Comments Hypertension Coronary artery disease Syncope Diabetes mellitus Sleep apnea GERD (gastroesophageal reflux disease) Type 2 diabetes mellitus JAMILAH (obstructive sleep apnea) Heart disease 2006 Family History Medical History Relation Name Comments Heart failure Brother Ernie COPD Father Stroke Mother Savi Relation Name Status Comments Brother Ernie Alive Father Mother Savi Social History Tobacco Use Types Packs/Day Years Used Date Smoking Tobacco: Former Cigarettes 1.3 18 Smokeless Tobacco: Former Tobacco Cessation:Counseling Given: Not Answered Alcohol Use Standard Drinks/Week Comments Yes 2 [...] on file Legal Sex Male 5:11 AM [employer] Gender Identity Not on file Sexual Orientation Not on file Obstetrics History Last Filed Vital Signs Vital Sign Reading Time Taken Comments Blood Pressure 106/59 11/25/2024 9:29 AM CDT Pulse 56 11/25/2024 9:29 AM CDT Temperature 36.6 C (97.8 F) 11/25/2024 9:29 AM CDT Respiratory Rate 15 09/21/2024 9:00 AM CDT Oxygen Saturation 95% 11/25/2024 9:29 AM CDT Inhaled Oxygen Concentration - - Weight 68.5 kg (151 lb) 10/04/2024 8:55 AM CDT Height 167.6 cm (5' 6) 10/04/2024 8:55 AM CDT Body Mass Index 24.37 10/04/2024 8:55 AM CDT Plan of Treatment Health Maintenance Due Date Last Done Comments Albumin Creatinine Ratio, Urine 1950 Depression Screening 1950 Hepatitis C Screening 1950 Dilated Eye Exam 1950 Foot Exam 1950 Hepatitis B Screening 1966 Abdominal Aortic Aneurysm (A AA) Screen 2013 Well Visit 65+ 2013 Covid-19 Vaccine (5 - 2024-2 6 season) 2024 10/30/2022, 02/16/2021, 05/09/2020, Additional history exists Influenza Vaccine (#1) 2024 , 01/26/2021, 12/09/2019, Additional history exists Hemoglobin A1C 05/25/2025 11/25/2024 Lipid Panel 05/31/2025 05/31/2024, 08/30/2022 Fall Risk Assessment 09/21/2025 09/21/2024, 08/31/19 23 eGFR 11/25/2025 11/25/2024 DTaP/Tdap/Td Vaccine (4 - Td or Tdap) 10/30/2032 10/30/2022, 12/29/2013, 07/02/2013, Additional history exists Pneumococcal vaccine 65+ Completed 018, 03/10/2017, 12/17/2016, Additional history exists Zoster Vaccine Completed 10/24/2020, 07/24/2020 Procedures Procedure Name Priority Date/Time Associated Diagnosis Comments DIFFERENTIAL AUTO Routine 12/02/2024 10: 13 AM CDT JAMILAH (obstructive sleep apnea) CBC WITH AUTO DIFFERENTIAL Routine 12/02/2024 10:13 AM CDT JAMILAH (obstructive sleep apnea) EGFR Routine 11/25/2024 10:38 AM CDT Pre-op testing BASIC METABOLIC PANEL Routine 11/25/2024 10:38 AM CDT Pre-op testing DIFFERENTIAL AUTO Routine 11/25/2024 10: 26 AM CDT Pre-op testing CBC WITH AUTO DIFFERENTIAL Routine 11/25/2024 10:26 AM CDT Pre-op testing HEMOGLOBIN A1C Routine 11/25/2024 10:26 AM CDT Pre-op testing Type 2 diabetes mellitus with other specified complication, unspecified whether retirement insulin use (HCC) URINALYSIS AND REFLEX TO MICROSCOPIC AND CULTURE Routine 11/25/2024 10:26 AM CDT Pre-op testing DRUG INDUCED SLEEP ENDOSCOPY. 09/21/2024 8:22 AM CDT JAMILAH (obstructive sleep apnea) Special Needs DR ROTHMAN REQUESTS 5 MINS FOR CASE/2 WEEKS POST OP POCT GLUCOSE DEVICE Routine 09/21/2024 7 :21 AM CDT POCT LIPID PANEL Routine 05/31/2024 1:07 PM CDT Hyperlipidemia associated with type 2 diabetes mellitus (HCC) from Last 3 Months or Most Recently Relevant to Health Maintenance Results * (ABNORMAL) Differential, auto (12/02/2024 10:13 AM CDT) Neutrophil abs 1.88 1.50 - 6.50 K/cumm Imm gran abs 0.01 0.00 - 0.10 K/cumm [facility] Lymphocyte abs 1.02 0.80 - 3.30 K/cumm [facility] Monocyte abs 0.12(L) 0.20 - 0.80 K/cumm [facility] Eosinophil abs 0.04 0.00 - 0.50 K/cumm [facility] Basophil abs 0.01 0.00 - 0.10 K/cumm [facility] Neutrophil pct 61.1 % [facility] Comment: Interpretive Data Percent cell count reference ranges are not reported, since discordance with absolute values may lead to misinterpretation of CBC data. Current Interpretive Data was last revised on 2017. Imm gran pct 0.3 % [facility] Comment: Interpretive Data Percent cell count reference ranges are not reported, since discordance with absolute values may lead to misinterpretation of CBC data. Current Interpretive Data was last revised on 2017. Lymphocyte pct 33.1 % [facility] Comment: Interpretive Data Percent cell count reference ranges are not reported, since discordance with absolute values may lead to misinterpretation of CBC data. Current Interpretive Data was last revised on 2017. Monocyte pct 3.9 % [facility] Comment: Interpretive Data Percent cell count reference ranges are not reported, since discordance with absolute values may lead to misinterpretation of CBC data. Current Interpretive Data was last revised on 2017. Eosinophil pct 1.3 % [facility] Comment: Interpretive Data Percent cell count reference ranges are not reported, since discordance with absolute values may lead to misinterpretation of CBC data. Current Interpretive Data was last revised on 2017. Basophil pct 0.3 % [facility] Comment: Interpretive Data Percent cell count reference ranges are not reported, since discordance with absolute values may lead to misinterpretation of CBC data. Current Interpretive Data was last revised on 2017. Blood 12/02/2024 10:1 3 AM CDT 12/02/2024 10:13 AM CDT us Olga Rothman MD LAB BLOOD ORDERABLES F inal Result [facility] [address] Department [place] [address] * (ABNORMAL) CBC with auto differential (12/02/2024 10:13 AM CDT) WBC 3.08(L) 3.80 - 9.90 K/cumm Hgb 13.2 13.0 - 17.5 g/dL [facility] Hct 40.2 38.9 - 50.3 % [facility] Plt 95(L) 150 - 400 K/cumm [facility] MPV 9.3 9.1 - 12.[address] [facility] RBC 3.81(L) 4.30 - 5.80 M/cumm [facility] MCV 105.5(H) 81.3 - 96.[address] [facility] MCH 34.6(H) 27.1 - 33.[address] [facility] MCHC 32.8 32.3 - 35.7 g/dL [facility] RDW CV 12.4 11.1 - 14.9 % [facility] RDW SD 49.3(H) 35.7 - 48.[address] [facility] NRBC abs 0.00 0.00 - 0.01 K/cumm [facility] Blood 12/02/2024 10:1 3 AM CDT 12/02/2024 10:13 AM CDT Olga Rothman MD LAB BLOOD ORDERABLES F inal Result Performing Organization Address City/[facility]/ZIP Co de Phone Number [facility] [address] [place], [place] [id number] * eGFR (11/25/2024 10:38 AM CDT) eGFR 77 >=60 mL/min/1. 73 m2 Comment: Interpretive Data Reference Interval Normal >/= 90 mL/min/1.73m2 Mildly decreased* 60 - 89 mL/min/1.73m2 Mildly to moderately decreased 45 - 59 mL/min/1.73m2 Moderately to severely decreased 30 - 44 mL/min/1.73m2 Severely decreased 15 - 29 mL/min/1.73m2 Kidney Failure < 15 mL/min/1.73m2 *Relative to young adult level Estimated glomerular filtration rate is determined by the 2020 CKD-EPI equation recommended by the National Kidney Foundation (A Unifying Approach to GFR Estimation: Recommendations of the NKF-ASK Task Force on Reassessing the Inclusion of Race in Diagnosing Kidney Disease, JASN 2020). The CKD-EPI equation should not be used for patients with unstable renal function and has not been validated in children and those over 70. Current interpretive data was last reviewed 2021. Blood 11/25/2024 10:3 8 AM CDT 11/25/2024 10:38 AM CDT Olga Rothman MD LAB BLOOD ORDERABLES F inal Result [facility] [address] [place] [address] * Basic metabolic panel (11/25/2024 10:38 AM CDT) Pathologist [facility] Sodium 142 135 - 145 mmol/L Potassium, pl 4.3 3.3 - 4.9 mmol/L [facility] Chloride 105 97 - 110 mmol/L [facility] CO2 26 22 - 32 mmol/L [facility] Anion gap 11 2 - 15 mmol/L [facility] BUN 17 6 - 25 mg/dL [facility] Creatinine 1.01 0.80 - 1.30 mg/dL [facility] Comment:Icteric sample, test results may be affected. Glucose 120 70 - 199 mg/dL [facility] Comment: Interpretive Data Fasting glucose >/= 126 mg/dl is diagnostic for diabetes. Fasting is defined as no caloric intake for at least 8 hours. Fasting glucose between 100 mg/dl to 125 mg/dl is diagnostic of prediabetes. In a patient with classic symptoms of hyperglycemia or hyperglycemic crisis, a random glucose >/= 200 mg/dl is diagnostic for diabetes. In the absence of unequivocal hyperglycemia, results should be confirmed by repeat testing. The classification and Diagnosis of Diabetes Diabetes Care 2021; 46: S19-S40. Current interpretive data was last revised 2022. Calcium 9.0 8.5 - 10.3 mg/dL [facility] Blood 11/25/2024 10:3 8 AM CDT 11/25/2024 10:38 AM CDT us Olga Rothman MD LAB BLOOD ORDERABLES F inal Result [facility] [address] Department [place] [address] * (ABNORMAL) Differential, auto (11/25/2024 10:26 AM CDT) Pathologist [facility] Neutrophil abs 1.27(L) 1.50 - 6.50 K/cumm Imm gran abs 0.01 0.00 - 0.10 K/cumm [facility] Lymphocyte abs 0.92 0.80 - 3.30 K/cumm [facility] Monocyte abs 0.10(L) 0.20 - 0.80 K/cumm [facility] Eosinophil abs 0.05 0.00 - 0.50 K/cumm [facility] Basophil abs 0.01 0.00 - 0.10 K/cumm [facility] Neutrophil pct 53.9 % [facility] Comment: Interpretive Data Percent cell count reference ranges are not reported, since discordance with absolute values may lead to misinterpretation of CBC data. Current Interpretive Data was last revised on 2017. Imm gran pct 0.4 % [facility] Comment: Interpretive Data Percent cell count reference ranges are not reported, since discordance with absolute values may lead to misinterpretation of CBC data. Current Interpretive Data was last revised on 2017. Lymphocyte pct 39.0 % [facility] Comment: Interpretive Data Percent cell count reference ranges are not reported, since discordance with absolute values may lead to misinterpretation of CBC data. Current Interpretive Data was last revised on 2017. Monocyte pct 4.2 % [facility] Comment: Interpretive Data Percent cell count reference ranges are not reported, since discordance with absolute values may lead to misinterpretation of CBC data. Current Interpretive Data was last revised on 2017. Eosinophil pct 2.1 % [facility] Comment: Interpretive Data Percent cell count reference ranges are not reported, since discordance with absolute values may lead to misinterpretation of CBC data. Current Interpretive Data was last revised on 2017. Basophil pct 0.4 % [facility] Comment: Interpretive Data Percent cell count reference ranges are not reported, since discordance with absolute values may lead to misinterpretation of CBC data. Current Interpretive Data was last revised on 2017. Blood 11/25/2024 10:2 6 AM CDT 11/25/2024 10:37 AM CDT us Olga Rothman MD LAB BLOOD ORDERABLES F inal Result [facility] [address] Department [place] [address] * (ABNORMAL) Urinalysis reflex to microscopic and culture Urine, clean voided (11/25/2024 10:26 AM CDT) Color, ur Yellow Yellow Clarity, ur Clear Clear [facility] Specific gravity, ur 1.026 1.003 - 1.030 [facility] pH, urine 5.5 [facility] Comment: Interpretive Data U rine pH is affected by diet, medications, systemic acid-base disturbances, and renal tubular function. pH may affect urinary stone formation. For example, urine pH below 6.0 may help reduce the tendency for calcium phosphate stones and pH greater than 6.0 may reduce the tendency for uric acid stone formation. Source: [facility] Current Interpretive Data was last revised on 2017 Protein, ur ql Negative Negative [facility] Glucose, ur ql 4+(A) Negative [facility] Ketones, ur Negative Negative [facility] Bilirubin, ur Negative Negative [facility] Blood, ur Negative Negative [facility] Urobilinogen, ur <2.0 <2.0 mg/dL [facility] Nitrite, ur Negative Negative [facility] Leukocyte esterase, ur Negative Negative [facility] UA reflex comment Reflex conditions for microscopic UA and culture not met. [facility] Urine, clean voided 11/25/2024 10:26 AM CDT 11/25/2024 10:36 AM CDT us Olga Rothman MD LAB MICROBIOLOGY - GEN ERAL ORDERABLES Final Result [facility] [address] Department [place] [address] * (ABNORMAL) CBC with auto differential (11/25/2024 10:26 AM CDT) WBC 2.36(L) 3.80 - 9.90 K/cumm Hgb 13.3 13.0 - 17.5 g/dL [facility] Hct 39.9 38.9 - 50.3 % [facility] Plt 111(L) 150 - 400 K/cumm [facility] MPV 9.7 9.1 - 12.[address] [facility] RBC 3.76(L) 4.30 - 5.80 M/cumm [facility] MCV 106.1(H) 81.3 - 96.[address] [facility] MCH 35.4(H) 27.1 - 33.3 pg [facility] MCHC 33.3 32.3 - 35.7 g/dL [facility] RDW CV 12.8 11.1 - 14.9 % [facility] RDW SD 50.4(H) 35.7 - 48.[address] [facility] NRBC abs 0.00 0.00 - 0.01 K/cumm [facility] Blood 11/25/2024 10:2 6 AM CDT 11/25/2024 10:37 AM CDT Olga Rothman MD LAB BLOOD ORDERABLES F inal Result Performing Organization Address [facility] de Phone Number [facility] [address] [facility] [place] [address] * (ABNORMAL) Hemoglobin A1c (11/25/2024 10:26 AM CDT) Hgb A1C 6.2(H) 4.0 - 5.6 % Estimated Average Glucose 131 mg/dL [facility] Comment: The ADA recommends reporting an estimated Average Glucose (eAG) with all Hemoglobin A1c results using the equation derived from a study of 507 normal and diabetic adults. Minority populations were underrepresented and children were not included. (Diabetes Care 31:9738-2558, 2008). The eAG is not equivalent to a fasting glucose. Blood 11/25/2024 10:2 6 AM CDT 11/25/2024 10:37 AM CDT Olga Rothman MD LAB BLOOD ORDERABLES F inal Result Performing Organization Address [facility] de Phone Number [facility] [address] [facility] [place] [address] * POCT glucose (09/21/2024 7:21 AM CDT) Glucose, POC 131 70 - 199 mg/dL POC Performer [phone] [facility] Blood 09/21/2024 7:21 AM CDT 09/21/2024 7:21 AM CDT Olga Rothman MD LAB POCT ORDERABLES - [place] [address] [address] Department [place] [address] * POCT lipid panel (05/31/2024 1:07 PM [...] RDERABLES Final Result from Last 3 Months or Most Recently Relevant to Health Maintenance Insurance MEDICARE RAILROAD [facility] MEDICARE [address] [place] [address] FEDERAL MEDICARE RAILROAD [facility] FEDERAL Member Subscriber Plan / Payer ( fective 2016-Present) Name:Chester Gama R Relation to Subscriber:Self Name:Chester Gama R Payer ID:[id number] (NAIC) Group ID:[id number] Type:[employer] Address: [address] [place] [id number] Care Teams Tunneling Machine Operator Relationship Specialty Start Date End Date Makayla Ann MD PCP - General Family Medicine 08/15/22
[2024-12-10 09:25] LABS: Hematocrit 37.4 % (42.0-52.0); Hemoglobin 12.5 g/dL (14.0-18.0); Immature Granulocyte Percent A 0.3 % (0-0.5); Immature Platelet Fraction Pct 2.1 % (0.9-11.2); Lymphocytes Absolute Auto 0.99 K/mm3 (0.9-3.2); Mean Corpuscular HGB Conc 33.4 g/dl (32-36); Mean Corpuscular Hemoglobin 34.9 pg (26-34); Mean Corpuscular Volume 104.5 fl (80-100); Nucleated Red Blood Cells Absolute Auto 0.000 K/mm3 (0.0-0.012); Nucleated Red Blood Cells Perc 0.0 % (0.0-0.2); Platelet Count Result 93 k/mm3 (150-375); Red Blood Count 3.58 M/mm3 (4.6-6.20); White Blood Count 3.0 K/mm3 (4.5-10.0)
[2024-12-10 09:34] LABS: Alanine Aminotransferase 15 U/L (6-50); Albumin Level 3.8 g/dL (3.5-5.1); Alkaline Phosphatase 64 U/L (38-126); Anion Gap 4 mmol/L (4-12); Aspartate Amino Transferase 24 U/L (17-59); Bilirubin,Total 1.3 mg/dL (0.2-1.3); Blood Urea Nitrogen 17 mg/dL (9-20); Calcium 8.7 mg/dL (8.4-10.2); Carbon Dioxide 27 mmol/L (22-30); Chloride 105 mmol/L (98-107); Estimated Glomerular Filt Rate > 60; Glucose 108 mg/dL (65-110); Potassium 4.2 mmol/L (3.4-5.0); Sodium 136 mmol/L (137-145); Total Protein 6.2 g/dL (6.3-8.2)
[2024-12-10 09:51] LABS: Iron 65 ug/dL (49-181)
[2024-12-10 10:01] LABS: Percent Iron Saturation 23 % (20-50)
[2024-12-10 10:26] LABS: Ferritin 29.00 ng/mL (11.1-264)
[2024-12-10 10:46] LABS: Vitamin B12 589.0 pg/mL (239-931)
== END 2024-12-10 08:44 | disposition home or self-care (01) ==
LOC: ANHLAB 08:45
PROVIDERS: PCP Family Medicine; Visit Provider Student in an Organized Health Care Education/Training Program
DX: D64.9 Anemia, unspecified (principal); I10 Essential (primary) hypertension
CPT/HCPCS: 36415; 80053; 82607; 82728; 82746; 83540; 83550; 85025; 85055

== ENCOUNTER 2024-12-20 10:27 | Outpatient (CLI) | payer MEDICARE, SELFPAY ==
--- NOTE | 2024-12-20 | CONSULT_PTH ---
PATIENT: Chester Gama LOC: [facility]#:[id number] AGE/SX: 74/M ROOM: RE12/20/[address]: Bettie Mei PA-C : 1950 BED: DIS: 12/20/2024 SPEC #: [id number] RECD: 12/20/24 11:21 STATUS: HAKEEM REQ #: [id number] VICKY: 12/20/24 00:[address]: Bettie Mei DEPT: [facility] Consult RECD BY: Olesya Senior MLT, ([facility]) Tissues: A - Peripheral Smear Procedures: Hematology Consult
[2024-12-20 10:39] LABS: Hematocrit 39.2 % (37.0-46.0); Hemoglobin 12.9 g/dL (12.4-15.3); Mean Corpuscular HGB Conc 32.9 g/dL (32-36); Mean Corpuscular Hemoglobin 34.4 pg (27.0-31.0); Mean Corpuscular Volume 104.5 fL (78.0-102.0); Platelet Count Result 109 K/mm3 (150-420); Red Blood Count 3.75 M/mm3 (4.70-6.10); White Blood Count 3.2 K/mm3 (4.8-10.8)
[2024-12-20 11:05] LABS: Iron 92 ug/dL (49-181)
[2024-12-20 11:07] LABS: Band Neutrophils Percent 0 % (0-6); Eosinophils Absolute Manual 0.06 K/mm3 (0.02-0.50); Eosinophils Percent Manual 2 % (1-6); Lymphocytes Absolute Manual 0.99 K/mm3 (1.1-4.5); Lymphocytes Percent Manual 31 % (18-44); Monocytes Absolute Manual 0.25 K/mm3 (0.1-0.90); Monocytes Percent Manual 8 % (3-9); Neutrophils Absolute Manual 1.88 K/mm3 (1.3-6.7); Neutrophils Percent Manual 59 % (46-73); Total Cells Counted 100
[2024-12-20 11:15] LABS: Percent Iron Saturation 35 % (20-50)
--- OUTSIDE RECORDS SUMMARY | 2024-12-20 11:30 | XMS_ITS | Clinical Summary ---
Author Organization [facility] [address] Address [address] [place] [address] Care Team Providers Care Cadence Specialists Name Role Phone Makayla Ann MD Primary Care Provider [phone] Allergies Active Allergy Reactions Criticality Noted Date [...] Active Problems Problem Noted Date Diagnosed Date JMAILAH (obstructive sleep apnea) 03/22/2024 Hx of CABG 08/30/2022 Coronary artery disease invo lving [place] coronary artery of [place] heart without angina pectoris 08/30/2022 Premature atrial contraction 08/30/2022 Hypertension associated with diabetes 08/30/2022 Hyperlipidemia associated with type 2 diabetes m jose 08/30/2022 Encounters Date Type Department Care Team Description 12/03/2024 Telephone [facility] Medicine ENT [address] [place] [address] Medical Office Building [address] [place] [address] Olga Rothman MD 12/02/2024 9:40 AM CDT Lab [address] [address] JAMILAH (obstructive sleep apnea) 11/25/2024 11:59 PM CDT Anesthesia Event [facility] Operating Room [address] [place] [address] Uma Renee NP 11/25/2024 9:45 AM CDT Pre-Admission Testing [facility] Pre Anesthesia Testing [address] [place] [address] Pre-op testing (Primary Dx); Type 2 diabetes mellitus with other specified complication, 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) 11/25/2024 Telephone [facility] ENT [id number] [place] [address] Medical Office Building [address] [place] [address] Olga Rothman MD 11/25/2024 Telephone [facility] Cardiology [address] [place] [address] Trisha Melendez MD 11/25/2024 Orders Only [facility] ENT [address] [place] [address] Medical Office Building [address] [place] [phone] Olga Rothman MD JAMILAH (obstructive sleep apnea) (Primary Dx) 10/28/2024 Telephone [facility] [address] [facility] [address] [place] [address] Belem Willingham MA 10/04/2024 9:00 AM CDT Office Visit [facility] ENT [address] [place] [address] Medical Office Building [address] [place] [address] Olga Rothman MD Obstructive sleep apnea (adult) (pediatric) (Primary Dx); Intolerance of continuous positive airway pressure (CPAP) ventilation 09/21/2024 9:00 AM CDT - 09/21/2024 9:30 AM CDT Surgery [facility] Operating Room [address] [place] [address] Olga Rothman MD DRUG INDUCED SLEEP ENDOSCOPY 09/21/2024 8:22 AM CDT Anesthesia Event [facility] Operating Room [address] [place] [address] Radha Gallegos MD PhD Jarrod Melchor MD 09/21/2024 7:05 AM CDT - 09/21/2024 9:35 AM CDT Hospital Encounter [facility] Operating Room [address] [place] [address] Olga Rothman MD JAMILAH (obstructive sleep apnea) (Primary Dx) Discharge Disposition: Discharge to home or self care from Last 3 Months Surgical History Surgery [...] on file 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 Current Interpretive Data was last revised on 2017. Imm gran pct 0.3 % [facility] Comment: Interpretive Data Percent cell count reference ranges are not reported, since discordance with absolute values may lead to misinterpretation of CBC data. Current Interpretive Data was last revised on 2017. Lymphocyte pct 33.1 % [facility] Comment: Interpretive Data Percent cell count reference ranges are not reported, since discordance with absolute values may lead to misinterpretation of CBC data. Current Interpretive Data was last revised on 2017. Monocyte pct 3.9 % [facility] Comment: Interpretive Data Percent cell count reference ranges are not reported, since discordance with absolute values may lead to misinterpretation of CBC data. Current Interpretive Data was last revised on 2017. Eosinophil pct 1.3 % [facility] Comment: Interpretive Data Percent cell count reference ranges are not reported, since discordance with absolute values may lead to misinterpretation of CBC data. Current Interpretive Data was last revised on 2017. Basophil pct 0.3 % [facility] Comment: Interpretive Data Percent cell count reference ranges are not reported, since discordance with absolute values may lead to misinterpretation of CBC data. Current Interpretive Data was last revised on 2017. Blood 12/02/2024 10:1 3 AM CDT 12/02/2024 10:13 AM CDT us Olga Rothman MD LAB BLOOD ORDERABLES F inal Result [facility] [address] Department [place] [address] * (ABNORMAL) CBC with auto differential (12/02/2024 10:13 AM CDT) WBC 3.08(L) 3.80 - 9.90 K/cumm Hgb 13.2 13.0 - 17.5 g/dL [facility] Hct 40.2 38.9 - 50.3 % [facility] Plt 95(L) 150 - 400 K/cumm [facility] MPV 9.3 9.1 - 12.3 fL [facility] RBC 3.81(L) 4.30 - 5.80 M/cumm [facility] MCV 105.5(H) 81.3 - 96.4 fL [facility] MCH 34.6(H) 27.1 - 33.3 pg [facility] MCHC 32.8 32.3 - 35.7 g/dL [facility] RDW CV 12.4 11.1 - 14.9 % [facility] RDW SD 49.3(H) 35.7 - 48.1 fL [facility] NRBC abs 0.00 0.00 - 0.01 K/cumm [facility] Blood 12/02/2024 10:1 3 AM CDT 12/02/2024 10:13 AM CDT Olga Rothman MD LAB BLOOD ORDERABLES F inal Result Performing Organization Address [facility]/ZIP Co de Phone Number SAL MCKAY [address] [place] [address] * eGFR (11/25/2024 10:38 AM CDT) eGFR [...] ORDERABLES F inal Result Performing Organization Address City/[facility]/ZIP Co de Phone Number SAL M[facility]AY [address] [place] [address] * Basic metabolic panel (11/25/2024 10:38 AM CDT) Sodium 142 135 - 145 mmol/L Potassium, pl 4.3 3.3 - 4.9 mmol/L [facility] Chloride 105 97 - 110 mmol/L [facility] CO2 26 22 - 32 mmol/L [facility] Anion gap 11 2 - 15 mmol/L [facility] BUN 17 6 - 25 mg/dL [facility] Creatinine 1.01 0.80 - 1.30 mg/dL [facility] Comment:Icteric sample, test results may be affected. Glucose 120 70 - 199 mg/dL [facility] Comment: Interpretive Data Fasting glucose >/= 126 [...] classification and Diagnosis of Diabetes Diabetes Care 202; 46: S19-S40. Current interpretive data was last revised 2022. Calcium 9.0 8.5 - 10.3 mg/dL [facility] Blood 11/25/2024 10:3 8 AM CDT 11/25/2024 10:38 AM CDT us Olga Rothman MD LAB BLOOD ORDERABLES F inal Result [facility] [address] Department [place] [address] * (ABNORMAL) Differential, auto (11/25/2024 10:26 AM CDT) Neutrophil abs 1.27(L) 1.50 - 6.50 K/cumm Imm gran abs 0.01 0.00 - 0.10 K/cumm [facility] Lymphocyte abs 0.92 0.80 - 3.30 K/cumm [facility] Monocyte abs 0.10(L) 0.20 - 0.80 K/cumm [facility] Eosinophil abs 0.05 0.00 - 0.50 K/cumm [facility] Basophil abs 0.01 0.00 - 0.10 K/cumm [facility] Neutrophil pct 53.9 % [facility] Comment: Interpretive Data Percent cell count reference ranges are not reported, since discordance with absolute values may lead to misinterpretation of CBC data. Current Interpretive Data was last revised on 2017. Imm gran pct 0.4 % [facility] Comment: Interpretive Data Percent cell count reference ranges are not reported, since discordance with absolute values may lead to misinterpretation of CBC data. Current Interpretive Data was last revised on 2017. Lymphocyte pct 39.0 % [facility] Comment: Interpretive Data Percent cell count reference ranges are not reported, since discordance with absolute values may lead to misinterpretation of CBC data. Current Interpretive Data was last revised on 2017. Monocyte pct 4.2 % [facility] Comment: Interpretive Data Percent cell count reference ranges are not reported, since discordance with absolute values may lead to misinterpretation of CBC data. Current Interpretive Data was last revised on 2017. Eosinophil pct 2.1 % [facility] Comment: Interpretive Data Percent cell count reference ranges are not reported, since discordance with absolute values may lead to misinterpretation of CBC data. Current Interpretive Data was last revised on 2017. Basophil pct 0.4 % [facility] Comment: Interpretive Data Percent cell count reference ranges are not reported, since discordance with absolute values may lead to misinterpretation of CBC data. Current Interpretive Data was last revised on 2017. Blood 11/25/2024 10:2 6 AM CDT 11/25/2024 10:37 AM CDT us Olga Rothman MD LAB BLOOD ORDERABLES F inal Result [facility] [address] [place] [address] * (ABNORMAL) Urinalysis reflex to microscopic and culture Urine, clean voided (11/25/2024 10:26 AM CDT) Color, ur Yellow Yellow Clarity, ur Clear Clear [facility] Specific gravity, ur 1.026 1.003 - 1.030 [employer] [facility] pH, urine 5.5 [facility] Comment: Interpretive Data U rine pH is affected by diet, medications, systemic acid-base disturbances, and renal tubular function. pH may affect urinary stone formation. For example, urine pH below 6.0 may help reduce the tendency for calcium phosphate stones and pH greater than 6.0 may reduce the tendency for uric acid stone formation. Source: [facility] Laboratories Current Interpretive Data was last revised on [...] for microscopic UA and culture not met. [facility] Urine, clean voided 11/25/2024 10:26 AM CDT 11/25/2024 10:36 AM CDT us Olga Rothman MD LAB MICROBIOLOGY - GEN ERAL ORDERABLES Final Result [facility] [address] [place] [address] * (ABNORMAL) CBC with auto differential (11/25/2024 10:26 AM CDT) WBC 2.36(L) 3.80 - 9.90 K/cumm Hgb 13.3 13.0 - 17.5 g/dL [facility] Hct 39.9 38.9 - 50.3 % [facility] Plt 111(L) 150 - 400 K/cumm [facility] MPV 9.7 9.1 - 12.3 fL [facility] RBC 3.76(L) 4.30 - 5.80 M/cumm [facility] MCV 106.1(H) 81.3 - 96.4 fL [facility] MCH 35.4(H) 27.1 - 33.3 pg [facility] MCHC 33.3 32.3 - 35.7 g/dL [facility] RDW CV 12.8 11.1 - 14.9 % [facility] RDW SD 50.4(H) 35.7 - 48.1 fL [facility] NRBC abs 0.00 0.00 - 0.01 K/cumm SAL Blood 11/25/2024 10:2 6 AM CDT 11/25/2024 10:37 AM CDT Olga Rothman MD LAB BLOOD ORDERABLES F inal Result Performing Organization Address [facility] Co de Phone Number SAL [address] [address] [facility] [place] [address] * (ABNORMAL) Hemoglobin A1c (11/25/2024 10:26 AM CDT) Hgb A1C 6.2(H) 4.0 - 5.6 % Estimated Average Glucose 131 mg/dL [facility] Comment: The ADA recommends reporting an estimated Average Glucose (eAG) with all Hemoglobin A1c results using the equation derived from a study of 507 normal and diabetic adults. Minority populations were underrepresented and children were not included. (Diabetes Care 31:5380-0036, 2008). The eAG is not equivalent to a fasting glucose. Blood 11/25/2024 10:2 6 AM CDT 11/25/2024 10:37 AM CDT Olga Rothman MD LAB BLOOD ORDERABLES F inal Result Performing Organization Address [facility] Co de Phone Number SAL MCKAY [address] [address] [facility] [place] [address] * POCT glucose (09/21/2024 7:21 AM CDT) Glucose, POC 131 70 - 199 mg/dL POC Performer [phone] SAL Blood 09/21/2024 7:21 AM CDT 09/21/2024 7:21 AM CDT Olga Rothman MD LAB POCT ORDERABLES - DEVICE Final Result Performing Organization Address [facility] Co de Phone Number SAL MCKAY [address] [address] [facility] [place] [address] * POCT lipid panel (05/31/2024 1:07 PM CDT) [facility] Signature Cholesterol, POC <100 mg/dL Comment:GLU = 109 [...] Recently Relevant to Health Maintenance Insurance MEDICARE [facility] [facility] MEDICARE RAILROAD [facility] FEDERAL MEDICARE RAILROAD [facility] FED[employer]AL Care Teams Cadence Specialists Relationship Specialty Start Date End Date Makayla Ann MD PCP - General Family Medicine 08/15/22
--- OUTSIDE RECORDS SUMMARY | 2024-12-20 11:30 | XMS_ITS | Encounter Summary ---
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 2-3 times a week 11/25/2024 9:48 AM DARAT Gila Ruiz RN Q2: How many drinks containing [...] on filedocumented in this encounter Care Teams Machine Assembler Supervisor Relationship Specialty Start Date End Date Makayla Ann MD PCP - General Family Medicine 08/15/22 documented as of this encounter
--- OUTSIDE RECORDS SUMMARY | 2024-12-20 11:30 | XMS_ITS | Clinical Summary ---
Author Organization [facility] Address [address] [place] [address] Phone Care Team Providers Care Project Superintendent Name Role Phone Unavailable Primary Care Provider [...] INFLUENZA VACCINE (#1) 2024 Insurance MEDICARE RAILROAD [facility]
--- OUTSIDE RECORDS SUMMARY | 2024-12-20 11:30 | XMS_ITS | Clinical Summary ---
Author Organization [facility] Address [address] [place] [address] Care Team Providers Care Field Contact Person Name Role Phone None, Provider MD Primary Care Provider Unavaila ble None, Provider MD Unavailable Unavailable Peggy Hoover MD Unavailable [phone] Allergies Active Allergy Reactions Criticality Noted Date [...] Sep 17, 2023 1 Sep 17, 2024 [id number] 2023 JAVY QUISPE [facility] 4 Active gabapentin (NEURONTIN) 600 MG tablet [...] Health Maintenance Due Date Last Done Comments Hepatitis C 1968 Annual Medicare Wellness Visit 2013 RSV Immunization or 60+ Years (1 - 1-dose 75+ series) 11/06/2023 PHQ-2 (Physician [place]) 03/10/2024 12/03/2023 COVID-19 Vaccine (2024- season) 2024 10/30/2022, 02/16/2021, 05/09/2020, Additional history exists Influenza Adult (#1) 2024 01/25/2022, 01/26/2021, 12/09/2019, Additional history exists DTaP, Tdap and Td Vaccines (4 - Td or Tdap) 10/30/2032 10/30/2022, 07/02/2013, 07/02/2013 Pneumococcal Vaccine: 50+ Years Completed 12/17/2016, 06/28/2014 Zoster Vaccines Completed 10/24/2020, 07/24/2020 Hepatitis A Vaccines Aged Out No long er eligible based on patient's age to complete this topic Meningococcal B Vaccine Aged Out No l onger eligible based on patient's age to complete this topic Meningococcal Vaccine Aged Out No cari augusto eligible based on patient's age to complete this topic RSV Immunizations Under 20 Months Aged Out No longer eligible based on patient's age to complete this topic Insurance [place] MEDICARE [facility] Care Teams Field Contact Person Relationship Specialty Start Date End Date None, Provider, PCP - General 04/21/19 None, Provider, 04/21/19 Peggy Hoover MD [address] [address] Physician NEUROLOGICAL SURGERY 12/09/23
--- OUTSIDE RECORDS SUMMARY | 2024-12-20 11:30 | XMS_ITS | Patient Health Record ---
Author Organization [facility] Address [address] [place] [address] Care Team Providers Care Electrical Contacts Adjuster Name Role Phone Derik Devi MD Primary [...] W/U Status Risk Notes Problem Essential hypertension (25050540) Essential hypertension (I10) Active confirmed Problem Type II diabetes mellitus without complication (924948251) Type 2 diabetes mellitus without complication, without long-term current use of insulin (E11.9) Active confirmed Problem Hyperlipidaemia (26529019) Hyperlipidemia, unspecified hyperlipidemia type (E78.5) Active confirmed Problem Body mass index 30.00 to 34.99 (805304900274248) BMI 31.0-31.9,adult (Z68.31) Active confirmed Problem Body mass index 30+ - obesity (116287405) BMI 30.0-30.9,adult (Z68.30) Active confirmed Problem Internal derangement of left knee (11056994306153446 ) Internal derangement of left knee (M23.92) Active confirmed Problem Lymphedema (748253116) Lymphedema of left leg (I89.0) Active confirmed Problem Varicose veins of bilateral lower limbs (35085790143570278 ) Varicose veins of both 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) Active confirmed Plan Of Treatment No Information Insurance Providers Payer Name Payer Address Payer Phone Subscriber Number Group Number Insured Name Patient Relationship to Insured Coverage Start Date Coverage End Date RAILROAD MEDICARE [employer] [address] [address] [place] [address] [id number] Chester Gama Self - patient is the insured [address] [address] [id number] Chester Gama Self - patient is the insured Medical (General) History Medical History History ICD Code hypertension hyperlipidemia diabetes Acid reflux Surgical History Surgery Date(Month/Year) cholecystectomy left knee replacement right knee replacement triple bypass EGD 08/25/18
[2024-12-20 11:42] LABS: Ferritin 28.90 ng/mL (11.1-264)
[2024-12-20 12:14] LABS: Vitamin B12 538.0 pg/mL (239-931)
== END 2024-12-20 10:28 | disposition home or self-care (01) ==
LOC: CHSLAB 10:28
PROVIDERS: PCP Student in an Organized Health Care Education/Training Program; Visit Provider Student in an Organized Health Care Education/Training Program
DX: D64.9 Anemia, unspecified (principal); D69.6 Thrombocytopenia, unspecified
CPT/HCPCS: 36415; 82607; 82728; 82746; 83540; 83550; 85025